=== PATIENT | male | born 1980 | race Caucasian/White ===

== ENCOUNTER 2022-07-31 13:39 | Inpatient (IN) | payer OTHER, MEDICAID, SELFPAY ==
[2022-07-31] VITALS (25 sets, daily range): BP systolic 90–144; BP diastolic 51–78; PULSE 84–128; RESP 11–32; TEMP 36.9–39.2; O2SAT 95–100; BMI 23.5; BMI 24.0
--- NOTE | 2022-07-31 13:52 | DI.RAD.S_ITS ---
PROCEDURE: XR CHEST 1V INDICATIONS: suspected sepsis TECHNIQUE: One view of the chest was acquired. COMPARISON: None. FINDINGS: Surgical changes and devices: Right Port-A-Cath is present distal tip slightly projecting over the midline of the midthoracic spine. Patient is rotated. Lungs and pleura: Lungs are clear. No pleural effusions or pneumothorax. Mediastinum: Mediastinal contours appear normal. Heart size is enlarged. Bones and chest wall: No suspicious bony lesions. Overlying soft tissues appear unremarkable. IMPRESSION: No acute pulmonary process. Dictated by: Preeti Appiah M.D. on 07/31/2022 at 15:05 Approved by: Preeti Appiah M.D. on 07/31/2022 at 15:07
[2022-07-31] MEDS: SODIUM CHLORIDE 0.9% 1,000 ML 1000 ML IV (14:16)
[2022-07-31 14:21] LABS: Hemoglobin 11.5 g/dL (13.5-17.5); Mean Corpuscular Hemoglobin 29.9 PG (26-34); Mean Corpuscular Volume 85.5 fL (80-100); Platelet Count 226 X10^3/uL (150-400); Red Blood Cell Count 3.86 X10^6/uL (4.5-5.9); Red Cell Distribution Width 14.5 % (11.6-14.8); White Blood Cell Count 7.6 X10^3/uL (4.5-11.0)
[2022-07-31 14:22] LABS: Add Manual Diff / Slide Review YES
[2022-07-31 14:29] LABS: INR 1.2 (0.9-1.3)
--- NOTE | 2022-07-31 14:29 | PC.NURSE ---
Pt was d/c a month ago from [facility]. Pt was there for 5 months, dx with sepsis and COVID. Pt has a bowel resection with colostomy placement, port implantation, and G tube placement. 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 Pt had a headache this morning and his mom gave his a dose of Tylenol. She states he later became warm and had a temporal temp of 103. D/t pt's PMH mother rushed him straight here. Pt's temp was 99.3 in triage, does feel warm to the touch, sweatshirt was removed. Pt's implanted port was already accessed and mother states it may be used for labs/meds/infusions. Was able to draw labs from port easily.
[2022-07-31 14:32] LABS: PTT Partial Thromboplastin Tim 56 SECONDS (26-36)
[2022-07-31 14:36] LABS: Alanine Aminotransferase 79 IU/L (<50); Albumin 4.5 g/dL (3.5-5.0); Albumin Globulin Ratio 1.2 (1.0-2.8); Alkaline Phosphatase 274 U/L (38-126); Aspartate Aminotransferase 53 IU/L (17-59); Bilirubin Total 1.2 mg/dL (0.2-1.3); Blood Urea Nitrogen 23 mg/dL (9-20); Calcium 9.6 mg/dL (8.4-10.2); Carbon Dioxide 26 mmol/L (22-32); Chloride 97 mmol/L (98-107); Estimated Glomerular Filt Rate > 60 mL/min (>60); Globulin 3.9 g/dL (1.7-4.1); Glucose 116 mg/dL (70-100); HEMOLYSIS < 15 (0-50); Lactate (Lactic Acid) 1.5 mmol/L (0.7-2.1); Lipase 43 U/L (23-300); Potassium 3.7 mmol/L (3.4-5.1); Sodium 134 mmol/L (137-145); Total Protein 8.4 g/dL (6.3-8.2)
[2022-07-31 14:51] LABS: Procalcitonin 0.78 ng/mL (<0.5)
[2022-07-31 15:15] LABS: Neutrophils Absolute Manual 6156 /uL (3000-5900); RBC Morphology Normal Morphology; Total Cells Counted 100
[2022-07-31 15:30] LABS: Adenovirus Not Detected (Not Detect); B. parapertussis Not Detected (Not Detecte); Bordetella pertussis Not Detected (Not Detecte); Chlamydophila pneumoniae Not Detected (Not Detect); Coronavirus 229E Not Detected (Not Detect); Coronavirus HKU1 Not Detected (Not Detect); Coronavirus NL 63 Not Detected (Not Detect); Coronavirus OC43 Not Detected (Not Detect); Human Metapneumovirus Not Detected (Not Detect); Human Rhinovirus/Enterovirus Not Detected (Not Detect); Influenza A Not Detected (Not Detect); Influenza B Not Detected (Not Detect); Mycoplasma pneumoniae Not Detected (Not Detect); Parainfluenza Virus 1 Not Detected (Not Detect); Parainfluenza Virus 2 Not Detected (Not Detect); Parainfluenza Virus 3 Not Detected (Not Detect); Parainfluenza Virus 4 Not Detected (Not Detect); Respiratory Syncytial Virus Not Detected (Not Detect); SARS- CoV-2 Not Detected (Not Detecte)
--- NOTE | 2022-07-31 15:51 | DI.CT.S_ITS ---
PROCEDURE: CT CHEST ABD PEL WO CON INDICATIONS: fever TECHNIQUE: After the administration of oral contrast, 5 mm thick sections acquired from the lung apices to the symphysis pubis. 5 mm thick coronal and sagittal reformats acquired, with additional 7 mm coronal MIP reformats through the lungs. For radiation dose reduction, the following was used: automated exposure control, adjustment of mA and/or kV according to patient size. COMPARISON: [facility], CR, XR CHEST 1V, 07/31/2022, 14:15. FINDINGS: Image quality: Study limited by lack of IV and oral contrast. CHEST: Lungs and pleura: There is a small right-sided pleural effusion. Mild dependent atelectasis can be seen on both sides. No suspicious pulmonary nodules are seen. No focal infiltrates are seen. No pneumothorax is seen. Mediastinum: Heart size is normal. No pericardial effusion. No mediastinal adenopathy by CT size criteria. Thoracic aorta and central pulmonary arteries are normal in size. Esophagus is normal in caliber. There is a small hiatal hernia. Chest wall: No axillary or supraclavicular adenopathy by size criteria. Thyroid gland demonstrates no significant noncontrast abnormality. A right-sided chest port is seen. ABDOMEN: Solid organs: Liver is normal in size. Gallbladder wall is not thickened. Pancreas is normal in contours. Spleen is normal in size. No adrenal nodules. Both kidneys are normal in size, without hydronephrosis or nephrolithiasis. Peritoneum and bowel: There is a left lower quadrant colostomy seen. A distal rectal stump can be seen. Right lower quadrant anastomotic staple lines are seen. Mild prominence of distal small bowel loops can be seen that measure up to 3.7 cm. Nodes and vessels: No retroperitoneal or mesenteric adenopathy by size criteria. Aorta and inferior vena cava are normal in size. Miscellaneous: Anterior abdominal wall rectus diastasis can be seen, without raf hernia. PELVIS: Genitourinary: Bladder wall thickness is normal. Miscellaneous: No inguinal hernias or adenopathy. Bones: No suspicious bony lesions. No vertebral body compression fractures. Moderate bilateral hip degenerative change can be seen. IMPRESSION: There is a small right-sided pleural effusion. No pulmonary infiltrates are seen. Mild prominence of distal small bowel loops can be seen, without raf findings of bowel obstruction. Ileus is suspected. Postoperative change with right lower quadrant anastomotic staple lines, a left lower quadrant colostomy, and a distal rectal stump. Additional findings: Right-sided chest port Small hiatal hernia PEG tube Dictated by: Sivakumar Baker M.D. on 07/31/2022 at 15:43 Approved by: Sivakumar Baker M.D. on 07/31/2022 at 15:47
[2022-07-31 16:26] LABS: Bacteria Urine None Seen; Culture Indicated Urine Cult Not Indicated; Hyaline Casts Urine 1-5/LPF; RBC Urine None Seen (0-5/HPF); Squamous Epithelial Cell Urine 0-1 /HPF (0-5/HPF); WBC Urine 0-1/HPF (0-5/HPF)
[2022-07-31] MEDS: ACETAMINOPHEN 325 MG TABLET 975 MG PO (18:46)
--- NOTE | 2022-07-31 18:58 | PC.NURSE ---
Pt being admitted. Called Pharmacy and they reccomend to have pt's home TPN brought to [facility]. Pt's mother will bring in home TPN
--- NOTE | 2022-07-31 19:06 | ED_ITS ---
HPI - Fever General Chief Complaint: Fever Stated Complaint: low grade fever 101-103 Time Seen by Provider: 07/31/22 14:50 History of Present Illness HPI Narrative: Patient brought here by mother. Patient had extensive hospital stay for 5 months at [facility] for sepsis perforated bowel. Patient has ostomy bag. Mother brought patient here for fever that started yesterday. Has been given fever medication prior to arrival. Patient feeling better at this time. Denies any specific pain. Just feels general malaise. Did have headache yesterday. No headache now. No back pain Related Data Home Medications Medication Instructions Recorded Confirmed acetaminophen 325 mg tablet 650 mg PO Q6H PRN Pain (Scale 07/31/22 07/31/22 Score 1-3) aspirin 81 mg tablet,delayed 81 mg PO DAILY 07/31/22 07/31/22 release diphenoxylate-atropine 2.5 2.5 tab PO QID 07/31/22 07/31/22 mg-0.025 mg tablet hydroxyzine pamoate 25 mg capsule 25 mg PO Q6H 07/31/22 07/31/22 loperamide 2 mg tablet 2 mg PO QID 07/31/22 07/31/22 (Anti-Diarrheal (loperamide)) pregabalin 75 mg capsule 75 mg PO TID 07/31/22 07/31/22 quetiapine 50 mg tablet 50 mg PO DAILY 07/31/22 07/31/22 quetiapine 50 mg tablet 100 mg PO BEDTIME 07/31/22 07/31/22 risperidone 1 mg tablet 1 mg PO BID PRN Agitation 07/31/22 07/31/22 trazodone 50 mg tablet 50 mg PO BEDTIME 07/31/22 07/31/22 Allergies Allergy/AdvReac Type Severity Reaction Status Date / Time No Known Drug Allergies Allergy Verified 07/31/22 14:15 Review of Systems Review of Systems Narrative: GENERAL: Positive chills, fatigue, malaise, fever, sweats. HEENT: negative sinus pain, ear pain, sore throat RESPIRATORY: negative dyspnea, cough CARDIOVASCULAR: negative chest pain, palpitations GASTROINTESTINAL: negative nausea, vomiting, abdominal pain : negative dysuria, frequency, hematuria MUSCULOSKELETAL: negative muscle or bony pain SKIN: negative rash, skin lesions NEUROLOGIC: negative weakness, numbness, positive headache ROS Unobtainable: All systems reviewed & are unremarkable except as noted in HPI and below Patient History Medical History (Updated 08/01/22 @ 05:03 by VISHAL Chowdhury) Hepatitis C antibody positive in blood History of cardiac arrest History of discitis History of non-ST elevation myocardial infarction (NSTEMI) History of sepsis Hx of ischemic bowel disease 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 Mother No problems noted. Social History household members: family Exam Narrative Exam Narrative: GENERAL: in no distress, not toxic not dyspneic HEAD: Normocephalic. EYES: Pupils equal round ENT: Mucous membranes moist. NECK: Trachea midline. CARDIOVASCULAR: Tachycardia with Regular rate and rhythm without murmurs RESPIRATORY: Clear to auscultation. Breath sounds equal bilaterally. No wheezes, rales, or rhonchi. GASTROINTESTINAL: Abdomen soft, non-tender, ostomy bag in place. No peritoneal signs. No pain out of proportion to exam. EXTREMITIES: No gross deformities. NEURO: AOx4. At baseline per mother. Patient answering appropriately. Rotating his head and neck without any difficulty. No meningeal signs. Strong equal assistant to the director. SKIN: Warm and dry PSYCH: Not anxious, is cooperative Initial Vital Signs Initial Vital Signs: Vital Signs Pulse Rate 101 H 07/31/22 13:48 Respiratory Rate 16 07/31/22 13:48 Blood Pressure 120/64 07/31/22 13:48 Pulse Oximetry 97 07/31/22 13:48 Course Orders Ordered: Discontinued Medications Acetaminophen (Acetaminophen 325 Mg Tablet) 975 mg PO NOW ONE Stop: 07/31/22 18:35 Last Admin: 07/31/22 18:46 Dose: 975 mg Documented By: AMU Acetaminophen (Acetaminophen 325 Mg Tablet) 975 mg PO Q6H PRN PRN Reason: Fever/Mild Pain (1-3) Last Admin: 08/02/22 05:22 Dose: 975 mg Documented By: Admin: 08/01/22 12:07 Dose: 975 mg Documented By: Admin: 08/01/22 01:01 Dose: 975 mg Documented By: GURDEEP(2) Aspirin (Aspirin Ec 81 Mg Tablet) 81 mg PO DAILY [facility] Last Admin: 08/04/22 09:33 Dose: 81 mg Documented By: Admin: 08/03/22 09:12 Dose: 81 mg Documented By: Admin: 08/02/22 09:05 Dose: 81 mg Documented By: Admin: 08/01/22 10:18 Dose: 81 mg Documented By: GURDEEP Clindamycin HCl (Clindamycin 150 Mg Capsule) 300 mg PO Q8H [facility] Diphenoxylate HCl/Atropine (Diphenoxylate/Atrop 2.5/0.025 Tablet) 2.5 each PO QID [facility] Last Admin: 08/04/22 09:32 Dose: 2.5 each Documented By: Admin: 08/03/22 21:13 Dose: 2.5 each Documented By: Admin: 08/03/22 17:46 Dose: 2.5 each Documented By: Admin: 08/03/22 12:45 Dose: 2.5 each Documented By: Admin: 08/03/22 09:12 Dose: 2.5 each Documented By: Admin: 08/02/22 20:43 Dose: 2.5 each Documented By: Admin: 08/02/22 16:05 Dose: 2.5 each Documented By: Admin: 08/02/22 12:25 Dose: Not Given Documented By: Admin: 08/02/22 09:05 Dose: 2.5 each Documented By: RLCarley Admin: 08/01/22 20:43 Dose: 2.5 each Documented By: Admin: 08/01/22 17:35 Dose: 2.5 each Documented By: Admin: 08/01/22 13:40 Dose: 2 each Documented By: Admin: 08/01/22 10:18 Dose: 2 each Documented By: Admin: 07/31/22 23:11 Dose: 2.5 each Documented By: GURDEEP(2) Doxycycline Hyclate (Doxycycline Hyclate 100 Mg Tablet) 100 mg PO BID [facility] Last Admin: 08/04/22 09:33 Dose: 100 mg Documented By: Admin: 08/03/22 21:12 Dose: 100 mg Documented By: Admin: 08/03/22 12:46 Dose: 100 mg Documented By: LAVON Enoxaparin Sodium (Enoxaparin 40 Mg/0.4 Ml Syringe) 40 mg SUBCUT DAILY [facility] Last Admin: 08/04/22 09:33 Dose: 40 mg Documented By: Admin: 08/03/22 09:13 Dose: 40 mg Documented By: Admin: 08/02/22 09:07 Dose: 40 mg Documented By: Admin: 08/01/22 10:18 Dose: 40 mg Documented By: GURDEEP Furosemide (Furosemide 20 Mg Tablet) 20 mg PO DAILY KAYLAH Stop: 08/08/22 23:59 Last Admin: 08/04/22 09:33 Dose: 20 mg Documented By: Admin: 08/03/22 09:12 Dose: 20 mg Documented By: DARIUS Heparin Sodium (Porcine) (Heparin 500 Unit/5 Ml Port Flush) 500 unit IV NOW ONE Stop: 08/04/22 06:44 Last Admin: 08/04/22 06:43 Dose: 500 unit Documented By: CASSANDRA Hydroxyzine Pamoate (Hydroxyzine Pamoate 25 Mg Capsule) 25 mg PO Q6H [facility] Last Admin: 08/02/22 00:41 Dose: Not Given Documented By: Admin: 08/01/22 19:29 Dose: Not Given Documented By: Admin: 08/01/22 13:43 Dose: 25 mg Documented By: Admin: 08/01/22 13:42 Dose: 25 mg Documented By: Admin: 08/01/22 06:19 Dose: Not Given Documented By: GURDEEP(2) Admin: 08/01/22 01:03 Dose: 25 mg Documented By: GURDEEP(2) Hydroxyzine Pamoate (Hydroxyzine Pamoate 25 Mg Capsule) 25 mg PO Q6H PRN PRN Reason: Nausea Sodium Chloride (Normal Saline 0.9%) 1,000 mls @ 1,000 mls/hr IV BOLUS ONE Stop: 07/31/22 14:50 Last Infusion: 07/31/22 15:34 Dose: 0 mls/hr Documented By: Admin: 07/31/22 14:16 Dose: 1,000 mls/hr Documented By: AMBoris Piperacillin Sod/Tazobactam (Sod 4.5 gm/ Sodium Chloride) 100 mls @ 200 mls/hr IV NOW ONE Stop: 07/31/22 19:09 Last Infusion: 07/31/22 20:34 Dose: 0 mls/hr Documented By: Admin: 07/31/22 19:38 Dose: 200 mls/hr Documented By: SB Sodium Chloride (Normal Saline 0.9%) 1,000 mls @ 100 mls/hr IV CONT KAYLAH Last Infusion: 08/03/22 18:40 Dose: 0 mls/hr Documented By: Admin: 08/02/22 12:35 Dose: 100 mls/hr Documented By: Infusion: 08/02/22 11:01 Dose: 100 mls/hr Documented By: Admin: 08/02/22 01:01 Dose: 100 mls/hr Documented By: Infusion: 08/01/22 22:10 Dose: 100 mls/hr Documented By: Admin: 08/01/22 12:10 Dose: 100 mls/hr Documented By: Infusion: 08/01/22 09:14 Dose: 100 mls/hr Documented By: Admin: 07/31/22 23:14 Dose: 100 mls/hr Documented By: GURDEEP(2) Piperacillin Sod/Tazobactam (Sod 4.5 gm/ Sodium Chloride) 100 mls @ 25 mls/hr IV Q8H [facility] Last Admin: 08/01/22 04:09 Dose: 25 mls/hr Documented By: GURDEEP(2) Sodium Chloride (Normal Saline 0.9%) 500 mls @ 1,000 mls/hr IV BOLUS ONE Stop: 08/01/22 05:06 Last Admin: 08/01/22 04:52 Dose: 1,000 mls/hr Documented By: GURDEEP(2) Piperacillin Sod/Tazobactam (Sod 3.375 gm/ Sodium Chloride) 100 mls @ 25 mls/hr IV Q8H [facility] Last Admin: 08/03/22 04:02 Dose: 25 mls/hr Documented By: Infusion: 08/03/22 00:13 Dose: 0 mls/hr Documented By: Admin: 08/02/22 20:00 Dose: 25 mls/hr Documented By: Infusion: 08/02/22 17:00 Dose: 0 mls/hr Documented By: Admin: 08/02/22 12:37 Dose: 25 mls/hr Documented By: Infusion: 08/02/22 08:30 Dose: 25 mls/hr Documented By: Admin: 08/02/22 04:30 Dose: 25 mls/hr Documented By: Infusion: 08/02/22 00:59 Dose: 0 mls/hr Documented By: Admin: 08/01/22 20:43 Dose: 25 mls/hr Documented By: Infusion: 08/01/22 16:06 Dose: 25 mls/hr Documented By: Admin: 08/01/22 12:06 Dose: 25 mls/hr Documented By: GURDEEP Multivitamins 10 ml/ Chromium/Copper/Manganese/Seleni/Zn 1 ml/ Amino Aci ds/Electrolytes 1,511 mls @ 125.917 mls/hr IV 1800 KAYLAH Stop: 08/02/22 05:59 Last Infusion: 08/02/22 06:35 Dose: 0 mls/hr Documented By: Admin: 08/01/22 17:37 Dose: 125.917 mls/hr Documented By: GURDEEP Multivitamins 10 ml/ Chromium/Copper/Manganese/Seleni/Zn 1 ml/ Amino Acids/Electrolytes 1,511 mls @ 125.917 mls/hr IV 1800 KAYLAH Stop: 08/03/22 05:59 Last Infusion: 08/03/22 07:06 Dose: 0 mls/hr Documented By: Admin: 08/02/22 18:06 Dose: 125.917 mls/hr Documented By: MANINDER Multivitamins 10 ml/ Chromium/Copper/Manganese/Seleni/Zn 1 ml/ Potassium Chloride 40 meq/Amino Acids/Electrolytes 1,531 mls @ 127.583 mls/hr IV 1800 KAYLAH Stop: 08/04/22 05:59 Last Infusion: 08/04/22 06:38 Dose: 0 mls/hr Documented By: CASSANDRA Co-signed By: SRAVANI Admin: 08/03/22 18:40 Dose: 127.583 mls/hr Documented By: CLL Co-signed By: TLS Fat Emulsion Intravenous (Clinolipid 20%) 50 gm in 250 mls @ 25 mls/hr IV [id number] [facility] Stop: 08/04/22 03:59 Last Infusion: 08/04/22 04:31 Dose: 0 mls/hr Documented By: Admin: 08/03/22 18:37 Dose: 25 mls/hr Documented By: DARIUS Loperamide HCl (Loperamide 2 Mg Capsule) 2 mg PO QID [facility] Last Admin: 08/04/22 09:33 Dose: 2 mg Documented By: Admin: 08/03/22 21:13 Dose: 2 mg Documented By: Admin: 08/03/22 17:46 Dose: 2 mg Documented By: Admin: 08/03/22 12:46 Dose: 2 mg Documented By: Admin: 08/03/22 09:11 Dose: 2 mg Documented By: Admin: 08/02/22 20:44 Dose: 2 mg Documented By: Admin: 08/02/22 16:04 Dose: 2 mg Documented By: Admin: 08/02/22 12:25 Dose: Not Given Documented By: Admin: 08/02/22 09:05 Dose: 2 mg Documented By: Admin: 08/01/22 20:43 Dose: 2 mg Documented By: Admin: 08/01/22 17:37 Dose: 2 mg Documented By: Admin: 08/01/22 13:40 Dose: 2 mg Documented By: Admin: 08/01/22 10:19 Dose: 2 mg Documented By: Admin: 07/31/22 23:08 Dose: 2 mg Documented By: GURDEEP(2) Naloxone HCl (Naloxone 0.4 Mg/Ml Vial) 0.2 mg IV Q2MIN PRN PRN Reason: Opiate Reversal Nicotine (Nicotine 14 Patch) 14 mg TOP DAILY [facility] Last Admin: 08/04/22 09:32 Dose: 14 mg Documented By: Admin: 08/03/22 09:10 Dose: 14 mg Documented By: Admin: 08/02/22 09:07 Dose: 14 mg Documented By: Admin: 08/01/22 10:19 Dose: 14 mg Documented By: GURDEEP Ondansetron HCl (Ondansetron 4 Mg Odt) 4 mg SL NOW PRN PRN Reason: Nausea And Vomiting Last Admin: 07/31/22 23:08 Dose: 4 mg Documented By: GURDEEP(2) Ondansetron HCl (Ondansetron 4 Mg/2 Ml Inj) 4 mg IV NOW PRN PRN Reason: Nausea And Vomiting Ondansetron HCl (Ondansetron 4 Mg Odt) 4 mg PO Q8HR PRN PRN Reason: Nausea And Vomiting Pregabalin (Pregabalin 75 Mg Capsule) 75 mg PO TID [facility] Last Admin: 08/04/22 09:33 Dose: 75 mg Documented By: Admin: 08/03/22 21:12 Dose: 75 mg Documented By: Admin: 08/03/22 16:08 Dose: 75 mg Documented By: Admin: 08/03/22 09:12 Dose: 75 mg Documented By: Admin: 08/02/22 20:44 Dose: 75 mg Documented By: Admin: 08/02/22 16:05 Dose: 75 mg Documented By: Admin: 08/02/22 09:08 Dose: 75 mg Documented By: Admin: 08/01/22 20:43 Dose: 75 mg Documented By: Admin: 08/01/22 15:28 Dose: 75 mg Documented By: Admin: 08/01/22 10:19 Dose: 75 mg Documented By: Admin: 07/31/22 23:08 Dose: 75 mg Documented By: GURDEEP(2) Quetiapine Fumarate (Quetiapine 25 Mg Tablet) 50 mg PO DAILY [facility] Last Admin: 08/04/22 09:32 Dose: 50 mg Documented By: Admin: 08/03/22 09:11 Dose: 50 mg Documented By: Admin: 08/02/22 09:07 Dose: 50 mg Documented By: Admin: 08/01/22 10:19 Dose: 50 mg Documented By: GURDEEP Quetiapine Fumarate (Quetiapine 25 Mg Tablet) 100 mg PO BEDTIME [facility] Last Admin: 08/03/22 21:13 Dose: 100 mg Documented By: Admin: 08/02/22 20:44 Dose: 100 mg Documented By: Admin: 08/01/22 20:43 Dose: 100 mg Documented By: Admin: 07/31/22 23:14 Dose: 100 mg Documented By: GURDEEP(2) Risperidone (Risperidone 1 Mg Tablet) 1 mg PO BID PRN PRN Reason: Agitation Last Admin: 07/31/22 23:08 Dose: 1 mg Documented By: GURDEEP(2) Sodium Chloride (Sodium Chloride 0.9% Flush) 10 ml IV BID [facility] Last Admin: 08/04/22 09:33 Dose: Not Given Documented By: Admin: 08/04/22 06:42 Dose: 10 ml Documented By: Admin: 08/03/22 21:13 Dose: Not Given Documented By: Admin: 08/03/22 09:13 Dose: 10 ml Documented By: Admin: 08/02/22 21:07 Dose: Not Given Documented By: Admin: 08/02/22 16:08 Dose: 10 ml Documented By: MANINDER Trazodone HCl (Trazodone 50 Mg Tablet) 50 mg PO BEDTIME [facility] Last Admin: 08/03/22 21:13 Dose: 50 mg Documented By: Admin: 08/02/22 20:43 Dose: 50 mg Documented By: Admin: 08/01/22 20:43 Dose: 50 mg Documented By: Admin: 07/31/22 23:14 Dose: 50 mg Documented By: GURDEEP(2) Vital Signs Vital signs: Vital Signs - 8 hr 07/31/22 13:58 07/31/22 13:48 07/31/22 13:48 Temperature 99.3 F Pulse Rate 128 H 101 H Respiratory Rate 20 16 Blood Pressure 120/64 120/64 Pulse Oximetry 96 97 Oxygen Delivery Method Room Air 07/31/22 14:00 07/31/22 14:00 07/31/22 14:30 Temperature Pulse Rate 90 Respiratory Rate 17 Blood Pressure 110/59 L 107/67 Pulse Oximetry 96 Oxygen Delivery Method 07/31/22 14:30 07/31/22 15:00 07/31/22 15:00 Temperature Pulse Rate 85 91 H Respiratory Rate 21 21 Blood Pressure 112/68 Pulse Oximetry 95 98 Oxygen Delivery Method 07/31/22 15:30 07/31/22 15:31 07/31/22 15:31 Temperature 98.5 F Pulse Rate 87 84 Respiratory Rate 32 H 25 H Blood Pressure 121/65 Pulse Oximetry 95 99 Oxygen Delivery Method 07/31/22 16:00 07/31/22 16:00 07/31/22 16:27 Temperature Pulse Rate 95 H Respiratory Rate 19 Blood Pressure 120/68 144/64 H Pulse Oximetry 98 Oxygen Delivery Method 07/31/22 16:27 07/31/22 16:30 07/31/22 16:30 Temperature Pulse Rate 105 H 103 H Respiratory Rate 14 18 Blood Pressure 132/71 Pulse Oximetry 100 Oxygen Delivery Method 07/31/22 17:00 07/31/22 17:00 07/31/22 17:30 Temperature Pulse Rate 105 H Respiratory Rate 14 Blood Pressure 126/75 127/58 L Pulse Oximetry 95 Oxygen Delivery Method 07/31/22 17:30 07/31/22 18:00 07/31/22 18:00 Temperature Pulse Rate 108 H 112 H Respiratory Rate 15 18 Blood Pressure 123/57 L Pulse Oximetry 95 Oxygen Delivery Method 07/31/22 18:30 07/31/22 18:30 07/31/22 18:33 Temperature 102.6 F H Pulse Rate 107 H Respiratory Rate 19 Blood Pressure 111/55 L Pulse Oximetry 95 Oxygen Delivery Method Room Air 07/31/22 18:46 07/31/22 19:00 07/31/22 19:00 Temperature 102.6 F H Pulse Rate 109 H Respiratory Rate 13 Blood Pressure 112/55 L Pulse Oximetry 95 Oxygen Delivery Method 07/31/22 19:30 07/31/22 19:30 07/31/22 19:41 Temperature 100.6 F H Pulse Rate 104 H Respiratory Rate 19 Blood Pressure 90/54 L 107/59 L Pulse Oximetry 95 Oxygen Delivery Method Room Air 07/31/22 19:41 Temperature Pulse Rate 104 H Respiratory Rate 11 L Blood Pressure Pulse Oximetry 95 Oxygen Delivery Method MDM - Fever Lab Data 08/04/22 05:00 08/04/22 05:00 Labs: Lab Results 07/31/22 07/31/22 07/31/22 Range/Units 14:00 14:00 14:05 WBC 7.6 (4.5-11.0) X10^3/uL RBC 3.86 L (4.5-5.9) X10^6/uL Hgb 11.5 L (13.5-17.5) g/dL Hct 33.0 L (41-53) % MCV 85.5 (80-100) fL MCH 29.9 (26-34) PG MCHC 35.0 (30-36) % RDW 14.5 (11.6-14.8) % Plt Count 226 (150-400) X10^3/uL Neut % (Auto) Not Reportable Lymph % (Auto) Not Reportable [place] % (Auto) Not Reportable Eos % (Auto) Not Reportable Baso % (Auto) Not Reportable Lymph # (Auto) Not Reportable [place] # (Auto) Not Reportable Baso # (Auto) Not Reportable Total Counted 100 Seg Neutrophils % 79.0 H (38-70) % Band Neutrophils % 2.0 L (3-7) % Lymphocytes % (Manual) 12.0 L (25-45) % Monocytes % (Manual) 7.0 (2-11) % Neutrophils # (Manual) 6156 H (1007-7387) /uL RBC Morphology Normal morphology ESR (0-15) MM/HR PT (10.1-12.7) SECONDS INR (0.9-1.3) APTT (26-36) SECONDS Sodium (137-145) mmol/L Potassium (3.4-5.1) mmol/L Chloride (98-107) mmol/L Carbon Dioxide (22-32) mmol/L BUN (9-20) mg/dL Creatinine (0.66-1.25) mg/dL Estimated GFR (>60) mL/min BUN/Creatinine Ratio (6-22) Glucose (70-100) mg/dL Lactate (0.7-2.1) mmol/L Calcium (8.4-10.2) mg/dL Total Bilirubin (0.2-1.3) mg/dL AST (17-59) IU/L ALT (<50) IU/L Alkaline Phosphatase (38-126) U/L C-Reactive Protein (<1.0) mg/dL Total Protein (6.3-8.2) g/dL Albumin (3.5-5.0) g/dL Globulin (1.7-4.1) g/dL Albumin/Globulin Ratio (1.0-2.8) Lipase (23-300) U/L Procalcitonin (<0.5) ng/mL Urine RBC (0-5/HPF) Urine WBC (0-5/HPF) Ur Squamous Epith Cells (0-5/HPF) Urine Bacteria (None) Hyaline Casts (None) Ur Culture Indicated? A.calcoaceticus-baumannii cmplx PCR Not detected (Not Detect) Chlamy pneumoniae PCR Not detected (Not Detect) Adenovirus (PCR) Not detected (Not Detect) Bacteroides fragilis Not detected (Not Detect) B. pertussis DNA (PCR) Not detected (Not Detecte) B.parapertussis DNA PCR Not detected (Not Detecte) Katty albicans (PCR) Not detected (Not Detect) Katty auris (PCR) Not detected (Not Detect) C. glabrata (PCR) Not detected (Not Detect) C. krusei (PCR) Not detected (Not Detect) C. parapsilosis (PCR) Not detected (Not Detect) C. tropicalis (PCR) Not detected (Not Detect) Coronavirus OC43 (PCR) Not detected (Not Detect) Coronavirus HKU1 (PCR) Not detected (Not Detect) Coronavirus 229E (PCR) Not detected (Not Detect) SARS-CoV-2 (PCR) Not detected (Not Detecte) Coronavirus NL63 (PCR) Not detected (Not Detect) C. neoform/gattii (PCR) Not detected (Not Detect) Enterobacterales (PCR) Not detected (Not Detect) E. cloacae complex PCR Not detected (Not Detect) Enterococc faecalis PCR Not detected (Not Detect) Enterococc faecium PCR Not detected (Not Detect) E. coli (PCR) Not detected (Not Detect) H. influenzae (PCR) Not detected (Not Detect) Human Metapneumovir PCR Not detected (Not Detect) Influenza Type A (PCR) Not detected (Not Detect) Influenza Type B (PCR) Not detected (Not Detect) Klebsiella aerogenes (PCR) Not detected (Not Detect) Klebsiella oxytoca PCR Not detected (Not Detect) Klebsiella pneumoniae Not detected (Not Detect) List. monocytogenes PCR Not detected (Not Detect) M. pneumoniae (PCR) Not detected (Not Detect) N. meningitidis (PCR) Not detected (Not Detect) Parainfluenza 1 (PCR) Not detected (Not Detect) Parainfluenza 2 (PCR) Not detected (Not Detect) Parainfluenza 3 (PCR) Not detected (Not Detect) Parainfluenza 4 (PCR) Not detected (Not Detect) Proteus species (PCR) Not detected (Not Detect) RSV (PCR) Not detected (Not Detect) Entero/Rhino (PCR) Not detected (Not Detect) Salmonella spp. (PCR) Not detected (Not Detect) Serratia marcescens PCR Not detected (Not Detect) Staphylococcus sp PCR Detected H (Not Detect) Staph aureus (PCR) Not detected (Not Detect) mecA/C-Methicil Resis Gene Detected H (Not Detect) Staph epidermidis (PCR) Detected H (Not Detect) Staph lugdunensis PCR Not detected (Not Detect) S. maltophilia (PCR) Not detected (Not Detect) Streptococcus sp PCR Not detected (Not Detect) Group A Strep (PCR) Not detected (Not Detect) Strep agalactiae (PCR) Not detected (Not Detect) Strep pneumoniae (PCR) Not detected (Not Detect) P. aeruginosa (PCR) Not detected (Not Detect) 07/31/22 07/31/22 07/31/22 Range/Units 14:05 14:05 14:05 WBC (4.5-11.0) X10^3/uL RBC (4.5-5.9) X10^6/uL Hgb (13.5-17.5) g/dL Hct (41-53) % MCV (80-100) fL MCH (26-34) PG MCHC (30-36) % RDW (11.6-14.8) % Plt Count (150-400) X10^3/uL Neut % (Auto) Lymph % (Auto) [place] % (Auto) Eos % (Auto) Baso % (Auto) Lymph # (Auto) [place] # (Auto) Baso # (Auto) Total Counted Seg Neutrophils % (38-70) % Band Neutrophils % (3-7) % Lymphocytes % (Manual) (25-45) % Monocytes % (Manual) (2-11) % Neutrophils # (Manual) ([id number]) /uL RBC Morphology ESR (0-15) MM/HR PT 14.0 H (10.1-12.7) SECONDS INR 1.2 (0.9-1.3) APTT 56 H (26-36) SECONDS Sodium 134 L (137-145) mmol/L Potassium 3.7 (3.4-5.1) mmol/L Chloride 97 L (98-107) mmol/L Carbon Dioxide 26 (22-32) mmol/L BUN 23 H (9-20) mg/dL Creatinine 0.92 (0.66-1.25) mg/dL Estimated GFR > 60 (>60) mL/min BUN/Creatinine Ratio 25.0 H (6-22) Glucose 116 H (70-100) mg/dL Lactate 1.5 (0.7-2.1) mmol/L Calcium 9.6 (8.4-10.2) mg/dL Total Bilirubin 1.2 (0.2-1.3) mg/dL AST 53 (17-59) IU/L ALT 79 H (<50) IU/L Alkaline Phosphatase 274 H (38-126) U/L C-Reactive Protein (<1.0) mg/dL Total Protein 8.4 H (6.3-8.2) g/dL Albumin 4.5 (3.5-5.0) g/dL Globulin 3.9 (1.7-4.1) g/dL Albumin/Globulin Ratio 1.2 (1.0-2.8) Lipase 43 (23-300) U/L Procalcitonin 0.78 H (<0.5) ng/mL Urine RBC (0-5/HPF) Urine WBC (0-5/HPF) Ur Squamous Epith Cells (0-5/HPF) Urine Bacteria (None) Hyaline Casts (None) Ur Culture Indicated? A.calcoaceticus-baumannii cmplx PCR (Not Detect) Chlamy pneumoniae PCR (Not Detect) Adenovirus (PCR) (Not Detect) Bacteroides fragilis (Not Detect) B. pertussis DNA (PCR) (Not Detecte) B.parapertussis DNA PCR (Not Detecte) Katty albicans (PCR) (Not Detect) Katty auris (PCR) (Not Detect) C. glabrata (PCR) (Not Detect) C. krusei (PCR) (Not Detect) C. parapsilosis (PCR) (Not Detect) C. tropicalis (PCR) (Not Detect) Coronavirus OC43 (PCR) (Not Detect) Coronavirus HKU1 (PCR) (Not Detect) Coronavirus 229E (PCR) (Not Detect) SARS-CoV-2 (PCR) (Not Detecte) Coronavirus NL63 (PCR) (Not Detect) C. neoform/gattii (PCR) (Not Detect) Enterobacterales (PCR) (Not Detect) E. cloacae complex PCR (Not Detect) Enterococc faecalis PCR (Not Detect) Enterococc faecium PCR (Not Detect) E. coli (PCR) (Not Detect) H. influenzae (PCR) (Not Detect) Human Metapneumovir PCR (Not Detect) Influenza Type A (PCR) (Not Detect) Influenza Type B (PCR) (Not Detect) Klebsiella aerogenes (PCR) (Not Detect) Klebsiella oxytoca PCR (Not Detect) Klebsiella pneumoniae (Not Detect) List. monocytogenes PCR (Not Detect) M. pneumoniae (PCR) (Not Detect) N. meningitidis (PCR) (Not Detect) Parainfluenza 1 (PCR) (Not Detect) Parainfluenza 2 (PCR) (Not Detect) Parainfluenza 3 (PCR) (Not Detect) Parainfluenza 4 (PCR) (Not Detect) Proteus species (PCR) (Not Detect) RSV (PCR) (Not Detect) Entero/Rhino (PCR) (Not Detect) Salmonella spp. (PCR) (Not Detect) Serratia marcescens PCR (Not Detect) Staphylococcus sp PCR (Not Detect) Staph aureus (PCR) (Not Detect) mecA/C-Methicil Resis Gene (Not Detect) Staph epidermidis (PCR) (Not Detect) Staph lugdunensis PCR (Not Detect) S. maltophilia (PCR) (Not Detect) Streptococcus sp PCR (Not Detect) Group A Strep (PCR) (Not Detect) Strep agalactiae (PCR) (Not Detect) Strep pneumoniae (PCR) (Not Detect) P. aeruginosa (PCR) (Not Detect) 07/31/22 07/31/22 07/31/22 Range/Units 14:05 14:05 15:43 WBC (4.5-11.0) X10^3/uL RBC (4.5-5.9) X10^6/uL Hgb (13.5-17.5) g/dL Hct (41-53) % MCV (80-100) fL MCH (26-34) PG MCHC (30-36) % RDW (11.6-14.8) % Plt Count (150-400) X10^3/uL Neut % (Auto) Lymph % (Auto) [place] % (Auto) Eos % (Auto) Baso % (Auto) Lymph # (Auto) [place] # (Auto) Baso # (Auto) Total Counted Seg Neutrophils % (38-70) % Band Neutrophils % (3-7) % Lymphocytes % (Manual) (25-45) % Monocytes % (Manual) (2-11) % Neutrophils # (Manual) ([id number]) /uL RBC Morphology ESR 41 H (0-15) MM/HR PT (10.1-12.7) SECONDS INR (0.9-1.3) APTT (26-36) SECONDS Sodium (137-145) mmol/L Potassium (3.4-5.1) mmol/L Chloride (98-107) mmol/L Carbon Dioxide (22-32) mmol/L BUN (9-20) mg/dL Creatinine (0.66-1.25) mg/dL Estimated GFR (>60) mL/min BUN/Creatinine Ratio (6-22) Glucose (70-100) mg/dL Lactate (0.7-2.1) mmol/L Calcium (8.4-10.2) mg/dL Total Bilirubin (0.2-1.3) mg/dL AST (17-59) IU/L ALT (<50) IU/L Alkaline Phosphatase (38-126) U/L C-Reactive Protein 5.8 H (<1.0) mg/dL Total Protein (6.3-8.2) g/dL Albumin (3.5-5.0) g/dL Globulin (1.7-4.1) g/dL Albumin/Globulin Ratio (1.0-2.8) Lipase (23-300) U/L Procalcitonin (<0.5) ng/mL Urine RBC None seen (0-5/HPF) Urine WBC 0-1/hpf (0-5/HPF) Ur Squamous Epith Cells 0-1 /hpf (0-5/HPF) Urine Bacteria None seen (None) Hyaline Casts 1-5/lpf (None) Ur Culture Indicated? Cult not indicated A.calcoaceticus-baumannii cmplx PCR (Not Detect) Chlamy pneumoniae PCR (Not Detect) Adenovirus (PCR) (Not Detect) Bacteroides fragilis (Not Detect) B. pertussis DNA (PCR) (Not Detecte) B.parapertussis DNA PCR (Not Detecte) Katty albicans (PCR) (Not Detect) Katty auris (PCR) (Not Detect) C. glabrata (PCR) (Not Detect) C. krusei (PCR) (Not Detect) C. parapsilosis (PCR) (Not Detect) C. tropicalis (PCR) (Not Detect) Coronavirus OC43 (PCR) (Not Detect) Coronavirus HKU1 (PCR) (Not Detect) Coronavirus 229E (PCR) (Not Detect) SARS-CoV-2 (PCR) (Not Detecte) Coronavirus NL63 (PCR) (Not Detect) C. neoform/gattii (PCR) (Not Detect) Enterobacterales (PCR) (Not Detect) E. cloacae complex PCR (Not Detect) Enterococc faecalis PCR (Not Detect) Enterococc faecium PCR (Not Detect) E. coli (PCR) (Not Detect) H. influenzae (PCR) (Not Detect) Human Metapneumovir PCR (Not Detect) Influenza Type A (PCR) (Not Detect) Influenza Type B (PCR) (Not Detect) Klebsiella aerogenes (PCR) (Not Detect) Klebsiella oxytoca PCR (Not Detect) Klebsiella pneumoniae (Not Detect) List. monocytogenes PCR (Not Detect) M. pneumoniae (PCR) (Not Detect) N. meningitidis (PCR) (Not Detect) Parainfluenza 1 (PCR) (Not Detect) Parainfluenza 2 (PCR) (Not Detect) Parainfluenza 3 (PCR) (Not Detect) Parainfluenza 4 (PCR) (Not Detect) Proteus species (PCR) (Not Detect) RSV (PCR) (Not Detect) Entero/Rhino (PCR) (Not Detect) Salmonella spp. (PCR) (Not Detect) Serratia marcescens PCR (Not Detect) Staphylococcus sp PCR (Not Detect) Staph aureus (PCR) (Not Detect) mecA/C-Methicil Resis Gene (Not Detect) Staph epidermidis (PCR) (Not Detect) Staph lugdunensis PCR (Not Detect) S. maltophilia (PCR) (Not Detect) Streptococcus sp PCR (Not Detect) Group A Strep (PCR) (Not Detect) Strep agalactiae (PCR) (Not Detect) Strep pneumoniae (PCR) (Not Detect) P. aeruginosa (PCR) (Not Detect) Urine Dip Bedside Urine Glucose Negative Bedside Urine Bilirubin - Negative Bedside Urine Ketone - Negative Urine Specific Humble 1.025 Bedside Urine Occult Blood ++ Bedside Urine pH 6.0 Bedside Urine Protein - Negative Bedside Urine Urobilinogen - Negative Bedside Urine Nitrite - Negative Bedside Urine Leukocytes - Negative Esterase Imaging Data Chest x-ray: Radiologist's Impression: PROCEDURE:? XR CHEST 1V ? INDICATIONS:? suspected sepsis ? TECHNIQUE:? One view of the chest was acquired.? ? COMPARISON:? None. ? FINDINGS:? ? Surgical changes and devices:? Right Port-A-Cath is present distal tip slightly projecting over the midline of the midthoracic spine.? Patient is rotated. ? Lungs and pleura:? Lungs are clear.? No pleural effusions or pneumothorax.? ? Mediastinum:? Mediastinal contours appear normal.? Heart size is enlarged. ? Bones and chest wall:? No suspicious bony lesions.? Overlying soft tissues appear unremarkable.? ? IMPRESSION:? No acute pulmonary process. ? ? Dictated by: Preeti Appiah M.D. on 07/31/2022 at 15:05 ? ? Approved by: Preeti Appiah M.D. on 07/31/2022 at 15:07 ? CT chest abdomen and pelvis: Radiologist's Impression: PROCEDURE:? CT CHEST ABD PEL WO CON ? INDICATIONS:? fever ? TECHNIQUE:? After the administration of oral contrast, 5 mm thick sections acquired from the lung apices to the symphysis pubis.? 5 mm thick coronal and sagittal reformats acquired, with additional 7 mm coronal MIP reformats through the lungs.? For radiation dose reduction, the following was used:? automated exposure control, adjustment of mA and/or kV according to patient size.? ? COMPARISON:? [facility], , XR CHEST 1V, 07/31/2022, 14:15. ? FINDINGS:? Image quality:? Study limited by lack of IV and oral contrast. ? CHEST:? Lungs and pleura:? There is a small right-sided pleural effusion.? Mild dependent atelectasis can be seen on both sides.? No suspicious pulmonary nodules are seen.? No focal infiltrates are seen.? No pneumothorax is seen.? ? Mediastinum:? Heart size is normal.? No pericardial effusion.? No mediastinal adenopathy by CT size criteria.? Thoracic aorta and central pulmonary arteries are normal in size.? Esophagus is normal in caliber.? There is a small hiatal hernia.? ? Chest wall:? No axillary or supraclavicular adenopathy by size criteria.? Thyroid gland demonstrates no significant noncontrast abnormality.? A right-sided chest port is seen. ? ? ABDOMEN:? Solid organs:? Liver is normal in size.? Gallbladder wall is not thickened.? Pancreas is normal in contours.? Spleen is normal in size.? No adrenal nodules.? Both kidneys are normal in size, without hydronephrosis or nephrolithiasis.? ? Peritoneum and bowel:? There is a left lower quadrant colostomy seen.? A distal rectal stump can be seen.? Right lower quadrant anastomotic staple lines are seen. Mild prominence of distal small bowel loops can be seen that measure up to 3.7 cm. ? Nodes and vessels:? No retroperitoneal or mesenteric adenopathy by size criteria.? Aorta and inferior vena cava are normal in size.? ? Miscellaneous:? Anterior abdominal wall rectus diastasis can be seen, without raf hernia. ? ? PELVIS:? Genitourinary:? Bladder wall thickness is normal.? ? Miscellaneous:? No inguinal hernias or adenopathy.? ? Bones:? No suspicious bony lesions.? No vertebral body compression fractures.? Moderate bilateral hip degenerative change can be seen. ? ? ? IMPRESSION:? There is a small right-sided pleural effusion. ? No pulmonary infiltrates are seen. ? Mild prominence of distal small bowel loops can be seen, without raf findings of bowel obstruction.? Ileus is suspected. ? Postoperative change with right lower quadrant anastomotic staple lines, a left lower quadrant colostomy, and a distal rectal stump. ? ? ? Additional findings:? Right-sided chest port Small hiatal hernia PEG tube? ? Dictated by: Sivakumar Baker M.D. on 07/31/2022 at 15:43 ? ? Approved by: Sivakumar Baker M.D. on 07/31/2022 at 15:47 ? MDM Narrative Medical decision making narrative: After history and exam sepsis protocol started. CBC CMP lactic acid pro calcitonin CT chest abdomen pelvis urinalysis blood culture Zosyn Tylenol ordered viral swab ordered, EKG [facility] CC: Fever Complicating co-morbidities: Recent sepsis perforated bowel at [place] last month Data collected from: Patient and mother Medical records reviewed: Discharge summary June 14, 2022 [facility] Differential considered: Includes but not limited to sepsis bowel obstruction colitis perforated bowel pneumonia viral infection UTI Exam documented above, pertinent findings include: Abdomen soft nontender Lab Test results independently reviewed as above. Pertinent findings: WBCs 7.6 sodium 134 bicarb 26 BUN 23 creatinine 0.92 AST 53 ALT 79 procalcitonin 0.78 lactic acid 1.5 negative urinalysis viral swab negative EKG normal sinus rhythm rate [address] elevation or depression Imaging studies independently reviewed: CT chest abdomen pelvis no acute process. Chest x-ray no acute process Consultations: Reviewed with hospitalist, Abigail Patrick, will admit patient Treatments: IV fluids Zosyn Tylenol normal saline Re-evaluations: 7:00 p.m.. Spoke with patient and mother. Patient denies any headache or back pain at this time. Just feels general malaise. They do agree for admission. Discussion: Appropriate for admission. Patient has propensity for sepsis very easily. Was recent admission last month. Antibiotics have been started. Fever unknown origin. Patient denies headache or back pain. Diagnosis: Fever unknown origin Discharge Plan Departure Patient Disposition: Admitted as Observation Clinical Impression: Fever of unknown origin Admit Date/Time: 07/31/22 20:01 Admit Provider: Abigail Patrick
[2022-07-31] MEDS: PIPERACILLIN/TAZO 4.5 GM in SODIUM CHLORIDE 0.9% 100 ML IV (19:38)
[2022-07-31 20:06] LABS: C-Reactive Protein Quant 5.8 mg/dL (<1.0)
[2022-07-31 20:15] LABS: Erythrocyte Sedimentation Rate 41 MM/HR (0-15)
--- NOTE | 2022-07-31 22:44 | PM.HP.1 ---
History of Present Illness History of Present Illness Date Patient Seen: 07/31/22 Chief complaint: low grade fever 101-103 Narrative: Storm Lee is a 42-year-old male previously homeless with a history of polysubstance abuse who was admitted to [facility] on 01/16/2022 for ischemic bowel with perforation, status post ex-lap and bowel resection C/B short gut syndrome with history of C diff, requiring TPN and tube feedings, also during hospitalization patient developed severe rhabdo, DORA, hypoxic cardiac arrest with brief CPR VAP and CAUTI, also patient had complication of E faecalis bacteremia 05/07 and diskitis C7-T3 endplate on 05/27/2022-patient was on 6 weeks IV antibiotic course to end on 06/23/2022, history of acute on chronic encephalopathy- 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 During hospitalization at [place] patient was intubated, received cardiac resuscitation, had bronchoscopy, gastrostomy tube placement, multiple laparotomies with colostomy placed, tracheostomy, with right chest port placement. Patient now lives with his mother who brought him in following a few days of fever of unknown etiology. Patient demonstrated a fever of 102.6 in ED, was given Tylenol, 1 L bolus of fluid and Zosyn. Due to patient's anoxic brain injury residual affects unable to obtain accurate HPI, ROS or family history. Patient does verbalize on admit that he feels poorly but denies any specific pain or discomfort. Admit temp 99?, BP 113/51, HR 98, RR 16, O2 saturation 97% on room air. No WBC neutrophils 6156, ESR 44, CRP 5.8, procalcitonin 0.78, lactate negative, H&H 11.5/33, sodium 134, BUN 23, ALT 79, AST 274, PT 14, INR is normal 1.2 PTT 56, total protein 8.4, UA negative, respiratory panel negative, COVID negative, sofa score 0, does not meet SIRS criteria. C/A/P CT: Small right pleural effusion mild prominence of distal small bowel loops without raf obstruction. Patient admitted for fever of unknown etiology. 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 Mother No problems noted. Social History household members: family Meds Home Medications and Allergies Home Medications Medication Instructions Recorded Confirmed Type acetaminophen 325 mg tablet 650 mg PO Q6H PRN Pain (Scale 07/31/22 07/31/22 History Score 1-3) aspirin 81 mg tablet,delayed 81 mg PO DAILY 07/31/22 07/31/22 History release diphenoxylate-atropine 2.5 2.5 tab PO QID 07/31/22 07/31/22 History mg-0.025 mg tablet hydroxyzine pamoate 25 mg capsule 25 mg PO Q6H 07/31/22 07/31/22 History loperamide 2 mg tablet 2 mg PO QID 07/31/22 07/31/22 History (Anti-Diarrheal (loperamide)) pregabalin 75 mg capsule 75 mg PO TID 07/31/22 07/31/22 History quetiapine 50 mg tablet 50 mg PO DAILY 07/31/22 07/31/22 History quetiapine 50 mg tablet 100 mg PO BEDTIME 07/31/22 07/31/22 History risperidone 1 mg tablet 1 mg PO BID PRN Agitation 07/31/22 07/31/22 History trazodone 50 mg tablet 50 mg PO BEDTIME 07/31/22 07/31/22 History Allergies Allergy/AdvReac Type Severity Reaction Status Date / Time No Known Drug Allergies Allergy Verified 07/31/22 14:15 Review of Systems Review of Systems Narrative: patient denied any s/s all 12 systems are negative except otherwise documented.- though it should be noted due to patient's residual nauseous brain injury dysarthria and confusion which is his baseline unable to obtain accurate HPI ROS. Exam Vital Signs (past 8 hours): - 07/31/22 15:00 07/31/22 15:00 07/31/22 15:30 Temperature 98.5 F Pulse Rate 91 H 87 Respiratory Rate 21 32 H Blood Pressure 112/68 Pulse Oximetry 98 95 Oxygen Delivery Method 07/31/22 15:31 07/31/22 15:31 07/31/22 16:00 Temperature Pulse Rate 84 Respiratory Rate 25 H Blood Pressure 121/65 120/68 Pulse Oximetry 99 Oxygen Delivery Method 07/31/22 16:00 07/31/22 16:27 07/31/22 16:27 Temperature Pulse Rate 95 H 105 H Respiratory Rate 19 14 Blood Pressure 144/64 H Pulse Oximetry 98 Oxygen Delivery Method 07/31/22 16:30 07/31/22 16:30 07/31/22 17:00 Temperature Pulse Rate 103 H Respiratory Rate 18 Blood Pressure 132/71 126/75 Pulse Oximetry 100 Oxygen Delivery Method 07/31/22 17:00 07/31/22 17:30 07/31/22 17:30 Temperature Pulse Rate 105 H 108 H Respiratory Rate 14 15 Blood Pressure 127/58 L Pulse Oximetry 95 Oxygen Delivery Method 07/31/22 18:00 07/31/22 18:00 07/31/22 18:30 Temperature Pulse Rate 112 H Respiratory Rate 18 Blood Pressure 123/57 L 111/55 L Pulse Oximetry 95 Oxygen Delivery Method 07/31/22 18:30 07/31/22 18:33 07/31/22 18:46 Temperature 102.6 F H 102.6 F H Pulse Rate 107 H Respiratory Rate 19 Blood Pressure Pulse Oximetry 95 Oxygen Delivery Method Room Air 07/31/22 19:00 07/31/22 19:00 07/31/22 19:30 Temperature Pulse Rate 109 H Respiratory Rate 13 Blood Pressure 112/55 L 90/54 L Pulse Oximetry 95 Oxygen Delivery Method 07/31/22 19:30 07/31/22 19:41 07/31/22 19:41 Temperature 100.6 F H Pulse Rate 104 H 104 H Respiratory Rate 19 11 L Blood Pressure 107/59 L Pulse Oximetry 95 95 Oxygen Delivery Method Room Air 07/31/22 20:34 07/31/22 20:00 07/31/22 20:00 Temperature 100.6 F H Pulse Rate 102 H Respiratory Rate 19 Blood Pressure 104/55 L Pulse Oximetry 96 Oxygen Delivery Method 07/31/22 20:30 07/31/22 20:31 07/31/22 20:31 Temperature Pulse Rate 98 H 102 H Respiratory Rate 25 H 15 Blood Pressure 111/78 Pulse Oximetry 97 96 Oxygen Delivery Method 07/31/22 20:50 Temperature 99.0 F Pulse Rate 98 H Respiratory Rate 16 Blood Pressure 113/51 L Pulse Oximetry 97 Oxygen Delivery Method Oxygen Delivery Method Room Air Narrative Exam Narrative: General: Patient is a chronically ill-appearing male, confused, does not follow directions, or answer questions appropriately, in no acute distress at this time. HEENT: Normocephalic, atraumatic, extraocular muscles intact, oral pharynx is clear and mucous membranes are dry. Neck is supple and symmetric, trachea is midline, no adenopathy, no thyroid enlargement, nontender, no masses palpated. Negative for JVD Chest: Breathing without nasal flaring, retractions, tachypneic or labored. Port present right side Lungs: Auscultation of all lung morales are clear without adventitious sounds, wheezes, rhonchi, or rales. Cardio: regular rate and rhythm without murmur, rubs, or gallops, no carotid bruit, no cardiac pulsations present. Abdomen: Soft nontender, negative for organomegaly, or masses. Bowel sounds are present in 2 right quadrants without guarding or rebound, no CVA tenderness, colostomy bag present in left lower quadrant, peg tube present. Musculoskeletal: Muscle strength and tone are equal within normal limits, no deformity, crepitus, effusions, cyanosis, clubbing or edema present. Full range of motion intact radial and pedal pulses are normal. Skin: Very Warm dry and intact without rashes, ulcerations or petechiae. Neuro: Orientated to self & place, moves all extremities, sensation to touch intact. Psych: Patient calm, confused, with residual cognitive deficits, and dysarthria. Objective Labs 07/31/22 14:05 07/31/22 14:05 Labs: Laboratory Results - last 24 hr 07/31/22 07/31/22 07/31/22 14:00 14:05 14:05 WBC 7.6 RBC 3.86 L Hgb 11.5 L Hct 33.0 L MCV 85.5 MCH 29.9 MCHC 35.0 RDW 14.5 Plt Count 226 Neut % (Auto) Not Reportable Lymph % (Auto) Not Reportable Rabun % (Auto) Not Reportable Eos % (Auto) Not Reportable Baso % (Auto) Not Reportable Lymph # (Auto) Not Reportable Rabun # (Auto) Not Reportable Baso # (Auto) Not Reportable Total Counted 100 Seg Neutrophils % 79.0 H Band Neutrophils % 2.0 L Lymphocytes % (Manual) 12.0 L Monocytes % (Manual) 7.0 Neutrophils # (Manual) 6156 H RBC Morphology Normal morphology ESR PT 14.0 H INR 1.2 APTT 56 H Sodium Potassium Chloride Carbon Dioxide BUN Creatinine Estimated GFR BUN/Creatinine Ratio Glucose Lactate Calcium Total Bilirubin AST ALT Alkaline Phosphatase C-Reactive Protein Total Protein Albumin Globulin Albumin/Globulin Ratio Lipase Procalcitonin Urine RBC Urine WBC Ur Squamous Epith Cells Urine Bacteria Hyaline Casts Ur Culture Indicated? Chlamy pneumoniae PCR Not detected Adenovirus (PCR) Not detected B. pertussis DNA (PCR) Not detected B.parapertussis DNA PCR Not detected Coronavirus OC43 (PCR) Not detected Coronavirus HKU1 (PCR) Not detected Coronavirus 229E (PCR) Not detected SARS-CoV-2 (PCR) Not detected Coronavirus NL63 (PCR) Not detected Human Metapneumovir PCR Not detected Influenza Type A (PCR) Not detected Influenza Type B (PCR) Not detected M. pneumoniae (PCR) Not detected Parainfluenza 1 (PCR) Not detected Parainfluenza 2 (PCR) Not detected Parainfluenza 3 (PCR) Not detected Parainfluenza 4 (PCR) Not detected RSV (PCR) Not detected Entero/Rhino (PCR) Not detected 07/31/22 07/31/22 07/31/22 14:05 14:05 14:05 WBC RBC Hgb Hct MCV MCH MCHC RDW Plt Count Neut % (Auto) Lymph % (Auto) Rabun % (Auto) Eos % (Auto) Baso % (Auto) Lymph # (Auto) Rabun # (Auto) Baso # (Auto) Total Counted Seg Neutrophils % Band Neutrophils % Lymphocytes % (Manual) Monocytes % (Manual) Neutrophils # (Manual) RBC Morphology ESR 41 H PT INR APTT Sodium 134 L Potassium 3.7 Chloride 97 L Carbon Dioxide 26 BUN 23 H Creatinine 0.92 Estimated GFR > 60 BUN/Creatinine Ratio 25.0 H Glucose 116 H Lactate 1.5 Calcium 9.6 Total Bilirubin 1.2 AST 53 ALT 79 H Alkaline Phosphatase 274 H C-Reactive Protein Total Protein 8.4 H Albumin 4.5 Globulin 3.9 Albumin/Globulin Ratio 1.2 Lipase 43 Procalcitonin 0.78 H Urine RBC Urine WBC Ur Squamous Epith Cells Urine Bacteria Hyaline Casts Ur Culture Indicated? Chlamy pneumoniae PCR Adenovirus (PCR) B. pertussis DNA (PCR) B.parapertussis DNA PCR Coronavirus OC43 (PCR) Coronavirus HKU1 (PCR) Coronavirus 229E (PCR) SARS-CoV-2 (PCR) Coronavirus NL63 (PCR) Human Metapneumovir PCR Influenza Type A (PCR) Influenza Type B (PCR) M. pneumoniae (PCR) Parainfluenza 1 (PCR) Parainfluenza 2 (PCR) Parainfluenza 3 (PCR) Parainfluenza 4 (PCR) RSV (PCR) Entero/Rhino (PCR) 07/31/22 07/31/22 14:05 15:43 WBC RBC Hgb Hct MCV MCH MCHC RDW Plt Count Neut % (Auto) Lymph % (Auto) Rabun % (Auto) Eos % (Auto) Baso % (Auto) Lymph # (Auto) Rabun # (Auto) Baso # (Auto) Total Counted Seg Neutrophils % Band Neutrophils % Lymphocytes % (Manual) Monocytes % (Manual) Neutrophils # (Manual) RBC Morphology ESR PT INR APTT Sodium Potassium Chloride Carbon Dioxide BUN Creatinine Estimated GFR BUN/Creatinine Ratio Glucose Lactate Calcium Total Bilirubin AST ALT Alkaline Phosphatase C-Reactive Protein 5.8 H Total Protein Albumin Globulin Albumin/Globulin Ratio Lipase Procalcitonin Urine RBC None seen Urine WBC 0-1/hpf Ur Squamous Epith Cells 0-1 /hpf Urine Bacteria None seen Hyaline Casts 1-5/lpf Ur Culture Indicated? Cult not indicated Chlamy pneumoniae PCR Adenovirus (PCR) B. pertussis DNA (PCR) B.parapertussis DNA PCR Coronavirus OC43 (PCR) Coronavirus HKU1 (PCR) Coronavirus 229E (PCR) SARS-CoV-2 (PCR) Coronavirus NL63 (PCR) Human Metapneumovir PCR Influenza Type A (PCR) Influenza Type B (PCR) M. pneumoniae (PCR) Parainfluenza 1 (PCR) Parainfluenza 2 (PCR) Parainfluenza 3 (PCR) Parainfluenza 4 (PCR) RSV (PCR) Entero/Rhino (PCR) Assessment & Plan Assessment & Plan narrative: Storm Lee is a 42-year-old male previously homeless with a history of polysubstance abuse who was admitted to [facility] on 01/16/2022 for ischemic bowel with perforation, status post ex-lap and bowel resection C/B short gut syndrome with history of C diff, requiring TPN and tube feedings, complication of E faecalis bacteremia 05/07 and diskitis C7-T3 endplate on 05/27/2022-patient was on 6 weeks IV antibiotic course to end on 06/23/2022. Patient admitted for fever of unknown etiology. 1. Fever of unknown etiology, acute, present on admission -ED: Temp 102.6?, Admit 99? -Recent: ischemic bowel with perforation, positive C diff. 01/2022 -Recent: E faecalis bacteremia 05/07/2022 -Recent:diskitis C7-T3 endplate on 05/27/2022 -Hx of MRSA -No WBC neutrophils 6156, ESR 44, CRP 5.8, procalcitonin 0.78, lactate negative,UA negative, respiratory panel negative, COVID negative, sofa score 0, does not meet SIRS criteria -blood cultures pending, CdIff, H pylori, MRSA-trend CBC and inflammatory markers, port was initially obstructed, culture was obtained -repeat procalcitonin and lactate in a.m. -NS at 100 cc/HR -Zosyn -adjust per cultures 2. Elevated alkaline phosphate, acute, present on admission -ALT 79, AST 274, PT 14, INR is normal 1.2 PTT 56, total protein 8.4, GGT 117 -Hx of positive Hep C -C/A/P CT: Small right pleural effusion mild prominence of distal small bowel loops without raf obstruction -ordered abdominal ultrasound complete -ordered tox screen, ETOH 3. Ischemic bowel with perforation, gastrotomy/Colostomy placement, short gut syndrome, with PEG tube, acute on chronic, present on admission -Continue TPN, Imodium, Lomotil, Lyrica 4. Acute on chronic encephalopathy, with residual neuro deficits, secondary to noxious brain injury following cardiac resuscitation, present on admission -At Baseline 5. Depression with anxiety, chronic, present on admission -Continue hydroxyzine, trazodone, Seroquel, risperidone 6. History of polysubstance abuse, chronic, present on admission -history of marijuana and methamphetamine use, daily smoker, alcohol occasionally. -tox screen and ETOH ordered 7. Tobacco abuse, chronic, present on admission -nicotine patch ordered Code status:Full Surrogate decision maker: Mother COVID PCR:Negtaive DVT/VTE prophylaxis: Lovenox and SCDs Disposition: Patient admitted for observation expected length of stay no greater than 2 midnights. I have utilized all available immediate resources to obtain, update, or review the patient's current medications. I confirmed that the patient's advanced care plan is present, Code status is documented and/or surrogate decision maker is listed in the patient's medical record. I have personally reviewed patient's chart notes from PCP, specialists, diagnostic imaging, and laboratory results. I personally reviewed all the patient's notes and records from [facility] ever it for hospitalization from 01/16/22-06/15/2022. Quality VTE Deep Vein Thrombosis/Pulmonary Embolism Present on Admission: No
[2022-07-31] MEDS: risperiDONE 1 MG TABLET PO (23:08)
[2022-07-31] MEDS: PREGABALIN 75 MG CAPSULE PO (23:08)
[2022-07-31] MEDS: ONDANSETRON 4 MG ODT SL (23:08)
[2022-07-31] MEDS: LOPERAMIDE 2 MG CAPSULE PO (23:08)
[2022-07-31] MEDS: DIPHENOXYLATE/ATROP 2.5/0.025 TABLET 2.5 EACH PO (23:11)
[2022-07-31] MEDS: SODIUM CHLORIDE 0.9% 1,000 ML 100 ML IV (23:14)
[2022-07-31] MEDS: TRAZODONE 50 MG TABLET PO (23:14)
[2022-07-31] MEDS: QUETIAPINE 25 MG TABLET 100 MG PO (23:14)
[2022-07-31 23:20] LABS: Ethanol (ETOH) < 10 mg/dL; Gamma Glutamyl Transpeptidase 117 U/L (15-73); Magnesium 1.8 mg/dL (1.6-2.3)
[2022-08-01] VITALS (7 sets, daily range): BP systolic 94–128; BP diastolic 41–68; PULSE 70–112; RESP 17–19; TEMP 36.9–38.8; O2SAT 92–98
[2022-08-01] MEDS: ACETAMINOPHEN 325 MG TABLET 975 MG PO ×2 (01:01→12:07)
[2022-08-01] MEDS: hydrOXYzine pamoate 25 MG CAPSULE PO ×3 (01:03→13:43)
[2022-08-01] MEDS: PIPERACILLIN/TAZO 4.5 GM in SODIUM CHLORIDE 0.9% 100 ML IV (04:09)
[2022-08-01] MEDS: SODIUM CHLORIDE 0.9% 500 ML 1000 ML IV (04:52)
[2022-08-01 05:39] LABS: Add Manual Diff / Slide Review NO; Basophils Absolute Auto 0 /uL (0-100); Basophils Percent Auto 0.2 % (0-2); Eosinophils Absolute Auto 0 /uL (0-450); Eosinophils Percent Auto 0.5 % (2-4); Hemoglobin 9.3 g/dL (13.5-17.5); INR 1.3 (0.9-1.3); Lymphocytes Absolute Auto 800 /uL (1100-4500); Lymphocytes Percent Auto 18.7 % (25-40); Mean Corpuscular HGB Conc 34.5 % (30-36); Mean Corpuscular Hemoglobin 29.6 PG (26-34); Monocytes Absolute Auto 500 /uL (0-900); Neutrophils Absolute Auto 2900 /uL (1500-7000); Neutrophils Percent Auto 68.6 % (50-75); Platelet Count 169 X10^3/uL (150-400); Prothrombin Time 14.9 SECONDS (10.1-12.7); Red Blood Cell Count 3.14 X10^6/uL (4.5-5.9); Red Cell Distribution Width 14.7 % (11.6-14.8); White Blood Cell Count 4.2 X10^3/uL (4.5-11.0)
[2022-08-01 05:43] LABS: Lactate (Lactic Acid) 0.6 mmol/L (0.7-2.1)
[2022-08-01 05:49] LABS: Alanine Aminotransferase 72 IU/L (<50); Albumin 3.7 g/dL (3.5-5.0); Albumin Globulin Ratio 1.2 (1.0-2.8); Alkaline Phosphatase 207 U/L (38-126); Aspartate Aminotransferase 51 IU/L (17-59); BUN Creatinine Ratio 23.2 (6-22); Bilirubin Total 0.9 mg/dL (0.2-1.3); Blood Urea Nitrogen 19 mg/dL (9-20); Carbon Dioxide 24 mmol/L (22-32); Chloride 105 mmol/L (98-107); Estimated Glomerular Filt Rate > 60 mL/min (>60); Globulin 3.2 g/dL (1.7-4.1); Glucose 94 mg/dL (70-100); HEMOLYSIS < 15 (0-50); Potassium 3.9 mmol/L (3.4-5.1); Sodium 137 mmol/L (137-145); Total Protein 6.9 g/dL (6.3-8.2)
[2022-08-01 05:57] LABS: NT-proBNP (BNP-Adult 18+) 305 pg/mL (<125)
[2022-08-01 06:04] LABS: Procalcitonin 1.28 ng/mL (<0.5)
[2022-08-01 06:19] LABS: MRSA (Nasal) PCR Not Detected (Not Detect)
[2022-08-01 07:02] LABS: mecA/C Resistance DETECTED (Not Detect)
[2022-08-01 07:03] LABS: Enterococcus faecalis Not Detected (Not Detect)
[2022-08-01 07:04] LABS: Enterococcus faecium Not Detected (Not Detect); Listeria monocytogenes Not Detected (Not Detect); Staphylococcus species DETECTED (Not Detect)
[2022-08-01 07:07] LABS: Acinetobacter calcoa-baumannii Not Detected (Not Detect); Bacteroides fragilis Not Detected (Not Detect); Enterobacter cloacae complex Not Detected (Not Detect); Enterobacterales Not Detected (Not Detect); Klebsiella aerogenes Not Detected (Not Detect); Staphylococcus epidermidis DETECTED (Not Detect); Staphylococcus lugdunensis Not Detected (Not Detect); Streptococcus agalactiae (Gr B Not Detected (Not Detect); Streptococcus pneumonia Not Detected (Not Detect); Streptococcus pyogenes (Gr A) Not Detected (Not Detect); Streptococcus species Not Detected (Not Detect)
[2022-08-01 07:08] LABS: Candida albicans Not Detected (Not Detect); Candida auris Not Detected (Not Detect); Candida glabrata Not Detected (Not Detect); Candida krusei Not Detected (Not Detect); Candida parapsilosis Not Detected (Not Detect); Candida tropicalis Not Detected (Not Detect); Cryptococcus neoformans/gatti Not Detected (Not Detect); Haemophilus influenzae Not Detected (Not Detect); Neisseria meningitidis Not Detected (Not Detect); Proteus species Not Detected (Not Detect); Pseudomonas aeruginosa Not Detected (Not Detect); Salmonella species Not Detected (Not Detect); Serratia marcescens Not Detected (Not Detect); Stenotrophomonas maltophilia Not Detected (Not Detect)
--- NOTE | 2022-08-01 08:46 | PC.NURSE ---
Addendum entered by Landon Cosme R.N. 08/01/22 18:40: TPN started at 75 and increased to 126 after 1/2 hour Pt stephanie well. Does have TPN at home. Original Note: Pt arousable, offers no overt c/o. alert. Taking some b'fast. Colostomy intact. IVF's as ordered
[2022-08-01] MEDS: ASPIRIN EC 81 MG TABLET PO (10:18)
[2022-08-01] MEDS: DIPHENOXYLATE/ATROP 2.5/0.025 TABLET 2.5 EACH PO ×4 (10:18→20:43)
[2022-08-01] MEDS: ENOXAPARIN 40 MG/0.4 ML SYRINGE SUBCUT (10:18)
[2022-08-01] MEDS: PREGABALIN 75 MG CAPSULE PO ×3 (10:19→20:43)
[2022-08-01] MEDS: QUETIAPINE 25 MG TABLET 50 MG PO (10:19)
[2022-08-01] MEDS: NICOTINE 14 PATCH 14 MG TOP (10:19)
[2022-08-01] MEDS: LOPERAMIDE 2 MG CAPSULE PO ×4 (10:19→20:43)
--- NOTE | 2022-08-01 11:35 | CM.DANOTE ---
Initial Discharge Planning Note: Met with patient in room. Introduced self and role. Payer: [facility] and Medicaid PCP: Unknown 42 year old male admitted yesterday with fever and confusion. He has significant medical history: He was in [place] for 5 months and just discharged about a month ago. He underwent a bowel resection and has a short gut as a result and on TPN indefinitely. He has a G-Tube that was put in while there but is not being used, he will see his GI doc in early August per his mom. An abdominal ultrasound is pending. Patient lives with his mom, stepfather and sister and niece in [place] in an apartment. Patient's mom Traci states he his bipolar and after the TBI he is like an 8 year old, he also has ODD. Traci plans to be visiting today. [facility] is on service. They will need a Resumption of Care order upon discharge. Plan: Patient desires to return home to the care of his mom, his previous living arrangement. [facility] Discharge Planning/Care Management CM Discharge Assessment Start: 08/01/22 10:43 Freq: Status: Active Protocol: Document 08/01/22 10:44 (Rec: 08/01/22 11:35 [id number]) Discharge Planning Assessment Assigned General Service Officer Florecita Martin RN/DCP Advance Directives? No History Provided By Patient Prior Living Arrangements Apartment/Condo Household Members family Comment Mother and Stepfather Type of transporation used prior to Relies on Others admit Independent with ADL's No Is patient alert and oriented? Yes Needs Assistance With Bathing,Grooming,Meal Prep, Toileting,Managing Medications ,Home Chores / Shopping Caregiver for Another No DME Already Rented / Owned Bath Bench,FWW / Walker Barriers to Discharge No Transportation Arrangement Mother to transport home Additional Comment Resumption of Care orders will be needed: SN & ? Notified [facility] he is in hospital. Review Status In Process Next Review Type Continued Stay Review
[2022-08-01] MEDS: PIPERACILLIN/TAZO 3.375 GM in SODIUM CHLORIDE 0.9% 100 ML IV ×2 (12:06→20:43)
[2022-08-01] MEDS: SODIUM CHLORIDE 0.9% 1,000 ML 100 ML IV (12:10)
--- NOTE | 2022-08-01 12:32 | PM.PN.1 ---
Subjective Subjective Interval history: Patient indicates that he is feeling better and does not have any pain. Resting comfortably in bed. Seems content and thanked me for my visit. Exam Vital Signs (past 8 hours): - 08/01/22 07:00 08/01/22 11:00 Temperature 98.5 F 100.6 F H Pulse Rate 70 98 H Respiratory Rate 17 17 Blood Pressure 113/64 128/68 Pulse Oximetry 96 97 Oxygen Flow Rate 0 0 Oxygen Delivery Method Room Air Oxygen Flow Rate 0 Narrative Exam Narrative: General:? Patient is a chronically ill-appearing male, oriented to person and possibly place, appears to be in no acute medical distress. HEENT:? Normocephalic, atraumatic, extraocular muscles intact, pupils equal reactive. Trachea is midline. Respiratory: Chest clear to auscultation. No wheezes or crackles. Cardio: regular rate and rhythm without murmur, rubs, or gallops, no carotid bruit, no cardiac pulsations present. Abdomen:? Soft nontender, negative for organomegaly, or masses.? Bowel sounds are present in 2 right quadrants. No tenderness. Colostomy present. Peg tube present. Musculoskeletal:? Muscle strength and tone are equal within normal limits, no deformity, crepitus, effusions, cyanosis, clubbing or edema present.? Full range of motion intact radial and pedal pulses are normal. Skin:? Very Warm dry and intact without rashes or lesions. ? Neuro:? Orientated to self & possibly place, moves all extremities, sensation to touch intact. Psych:? Patient calm with residual cognitive deficits, and some dysarthria Objective Labs 08/01/22 04:45 08/01/22 04:45 Labs: Laboratory Results - last 24 hr 07/31/22 07/31/22 07/31/22 14:00 14:00 14:05 WBC 7.6 RBC 3.86 L Hgb 11.5 L Hct 33.0 L MCV 85.5 MCH 29.9 MCHC 35.0 RDW 14.5 Plt Count 226 Neut % (Auto) Not Reportable Lymph % (Auto) Not Reportable Hemphill % (Auto) Not Reportable Eos % (Auto) Not Reportable Baso % (Auto) Not Reportable Neut # (Auto) Lymph # (Auto) Not Reportable Hemphill # (Auto) Not Reportable Eos # (Auto) Baso # (Auto) Not Reportable Total Counted 100 Seg Neutrophils % 79.0 H Band Neutrophils % 2.0 L Lymphocytes % (Manual) 12.0 L Monocytes % (Manual) 7.0 Neutrophils # (Manual) 6156 H RBC Morphology Normal morphology ESR PT INR APTT Sodium Potassium Chloride Carbon Dioxide BUN Creatinine Estimated GFR BUN/Creatinine Ratio Glucose Lactate Calcium Magnesium Total Bilirubin GGT AST ALT Alkaline Phosphatase C-Reactive Protein NT-Pro-B Natriuret Pep Total Protein Albumin Globulin Albumin/Globulin Ratio Lipase Procalcitonin Urine RBC Urine WBC Ur Squamous Epith Cells Urine Bacteria Hyaline Casts Ur Culture Indicated? Nasal Screen MRSA (PCR) Ethyl Alcohol A.calcoaceticus-baumannii cmplx PCR Not detected Chlamy pneumoniae PCR Not detected Adenovirus (PCR) Not detected Bacteroides fragilis Not detected B. pertussis DNA (PCR) Not detected B.parapertussis DNA PCR Not detected Katty albicans (PCR) Not detected Katty auris (PCR) Not detected C. glabrata (PCR) Not detected C. krusei (PCR) Not detected C. parapsilosis (PCR) Not detected C. tropicalis (PCR) Not detected Coronavirus OC43 (PCR) Not detected Coronavirus HKU1 (PCR) Not detected Coronavirus 229E (PCR) Not detected SARS-CoV-2 (PCR) Not detected Coronavirus NL63 (PCR) Not detected C. neoform/gattii (PCR) Not detected Enterobacterales (PCR) Not detected E. cloacae complex PCR Not detected Enterococc faecalis PCR Not detected Enterococc faecium PCR Not detected E. coli (PCR) Not detected H. influenzae (PCR) Not detected Human Metapneumovir PCR Not detected Influenza Type A (PCR) Not detected Influenza Type B (PCR) Not detected Klebsiella aerogenes (PCR) Not detected Klebsiella oxytoca PCR Not detected Klebsiella pneumoniae Not detected List. monocytogenes PCR Not detected M. pneumoniae (PCR) Not detected N. meningitidis (PCR) Not detected Parainfluenza 1 (PCR) Not detected Parainfluenza 2 (PCR) Not detected Parainfluenza 3 (PCR) Not detected Parainfluenza 4 (PCR) Not detected Proteus species (PCR) Not detected RSV (PCR) Not detected Entero/Rhino (PCR) Not detected Salmonella spp. (PCR) Not detected Serratia marcescens PCR Not detected Staphylococcus sp PCR Detected H Staph aureus (PCR) Not detected mecA/C-Methicil Resis Gene Detected H Staph epidermidis (PCR) Detected H Staph lugdunensis PCR Not detected S. maltophilia (PCR) Not detected Streptococcus sp PCR Not detected Group A Strep (PCR) Not detected Strep agalactiae (PCR) Not detected Strep pneumoniae (PCR) Not detected P. aeruginosa (PCR) Not detected 07/31/22 07/31/22 07/31/22 14:05 14:05 14:05 WBC RBC Hgb Hct MCV MCH MCHC RDW Plt Count Neut % (Auto) Lymph % (Auto) Hemphill % (Auto) Eos % (Auto) Baso % (Auto) Neut # (Auto) Lymph # (Auto) Hemphill # (Auto) Eos # (Auto) Baso # (Auto) Total Counted Seg Neutrophils % Band Neutrophils % Lymphocytes % (Manual) Monocytes % (Manual) Neutrophils # (Manual) RBC Morphology ESR PT 14.0 H INR 1.2 APTT 56 H Sodium 134 L Potassium 3.7 Chloride 97 L Carbon Dioxide 26 BUN 23 H Creatinine 0.92 Estimated GFR > 60 BUN/Creatinine Ratio 25.0 H Glucose 116 H Lactate 1.5 Calcium 9.6 Magnesium Total Bilirubin 1.2 GGT AST 53 ALT 79 H Alkaline Phosphatase 274 H C-Reactive Protein NT-Pro-B Natriuret Pep Total Protein 8.4 H Albumin 4.5 Globulin 3.9 Albumin/Globulin Ratio 1.2 Lipase 43 Procalcitonin 0.78 H Urine RBC Urine WBC Ur Squamous Epith Cells Urine Bacteria Hyaline Casts Ur Culture Indicated? Nasal Screen MRSA (PCR) Ethyl Alcohol A.calcoaceticus-baumannii cmplx PCR Chlamy pneumoniae PCR Adenovirus (PCR) Bacteroides fragilis B. pertussis DNA (PCR) B.parapertussis DNA PCR Katty albicans (PCR) Katty auris (PCR) C. glabrata (PCR) C. krusei (PCR) C. parapsilosis (PCR) C. tropicalis (PCR) Coronavirus OC43 (PCR) Coronavirus HKU1 (PCR) Coronavirus 229E (PCR) SARS-CoV-2 (PCR) Coronavirus NL63 (PCR) C. neoform/gattii (PCR) Enterobacterales (PCR) E. cloacae complex PCR Enterococc faecalis PCR Enterococc faecium PCR E. coli (PCR) H. influenzae (PCR) Human Metapneumovir PCR Influenza Type A (PCR) Influenza Type B (PCR) Klebsiella aerogenes (PCR) Klebsiella oxytoca PCR Klebsiella pneumoniae List. monocytogenes PCR M. pneumoniae (PCR) N. meningitidis (PCR) Parainfluenza 1 (PCR) Parainfluenza 2 (PCR) Parainfluenza 3 (PCR) Parainfluenza 4 (PCR) Proteus species (PCR) RSV (PCR) Entero/Rhino (PCR) Salmonella spp. (PCR) Serratia marcescens PCR Staphylococcus sp PCR Staph aureus (PCR) mecA/C-Methicil Resis Gene Staph epidermidis (PCR) Staph lugdunensis PCR S. maltophilia (PCR) Streptococcus sp PCR Group A Strep (PCR) Strep agalactiae (PCR) Strep pneumoniae (PCR) P. aeruginosa (PCR) 07/31/22 07/31/22 07/31/22 14:05 14:05 15:43 WBC RBC Hgb Hct MCV MCH MCHC RDW Plt Count Neut % (Auto) Lymph % (Auto) Hemphill % (Auto) Eos % (Auto) Baso % (Auto) Neut # (Auto) Lymph # (Auto) Hemphill # (Auto) Eos # (Auto) Baso # (Auto) Total Counted Seg Neutrophils % Band Neutrophils % Lymphocytes % (Manual) Monocytes % (Manual) Neutrophils # (Manual) RBC Morphology ESR 41 H PT INR APTT Sodium Potassium Chloride Carbon Dioxide BUN Creatinine Estimated GFR BUN/Creatinine Ratio Glucose Lactate Calcium Magnesium Total Bilirubin GGT AST ALT Alkaline Phosphatase C-Reactive Protein 5.8 H NT-Pro-B Natriuret Pep Total Protein Albumin Globulin Albumin/Globulin Ratio Lipase Procalcitonin Urine RBC None seen Urine WBC 0-1/hpf Ur Squamous Epith Cells 0-1 /hpf Urine Bacteria None seen Hyaline Casts 1-5/lpf Ur Culture Indicated? Cult not indicated Nasal Screen MRSA (PCR) Ethyl Alcohol A.calcoaceticus-baumannii cmplx PCR Chlamy pneumoniae PCR Adenovirus (PCR) Bacteroides fragilis B. pertussis DNA (PCR) B.parapertussis DNA PCR Katty albicans (PCR) Katty auris (PCR) C. glabrata (PCR) C. krusei (PCR) C. parapsilosis (PCR) C. tropicalis (PCR) Coronavirus OC43 (PCR) Coronavirus HKU1 (PCR) Coronavirus 229E (PCR) SARS-CoV-2 (PCR) Coronavirus NL63 (PCR) C. neoform/gattii (PCR) Enterobacterales (PCR) E. cloacae complex PCR Enterococc faecalis PCR Enterococc faecium PCR E. coli (PCR) H. influenzae (PCR) Human Metapneumovir PCR Influenza Type A (PCR) Influenza Type B (PCR) Klebsiella aerogenes (PCR) Klebsiella oxytoca PCR Klebsiella pneumoniae List. monocytogenes PCR M. pneumoniae (PCR) N. meningitidis (PCR) Parainfluenza 1 (PCR) Parainfluenza 2 (PCR) Parainfluenza 3 (PCR) Parainfluenza 4 (PCR) Proteus species (PCR) RSV (PCR) Entero/Rhino (PCR) Salmonella spp. (PCR) Serratia marcescens PCR Staphylococcus sp PCR Staph aureus (PCR) mecA/C-Methicil Resis Gene Staph epidermidis (PCR) Staph lugdunensis PCR S. maltophilia (PCR) Streptococcus sp PCR Group A Strep (PCR) Strep agalactiae (PCR) Strep pneumoniae (PCR) P. aeruginosa (PCR) 07/31/22 08/01/22 08/01/22 23:02 04:45 04:45 WBC 4.2 L RBC 3.14 L Hgb 9.3 L Hct 27.0 L MCV 86.0 MCH 29.6 MCHC 34.5 RDW 14.7 Plt Count 169 Neut % (Auto) 68.6 Lymph % (Auto) 18.7 L Hemphill % (Auto) 12.0 Eos % (Auto) 0.5 L Baso % (Auto) 0.2 Neut # (Auto) 2900 Lymph # (Auto) 800 L Hemphill # (Auto) 500 Eos # (Auto) 0 Baso # (Auto) 0 Total Counted Seg Neutrophils % Band Neutrophils % Lymphocytes % (Manual) Monocytes % (Manual) Neutrophils # (Manual) RBC Morphology ESR PT INR APTT Sodium Potassium Chloride Carbon Dioxide BUN Creatinine Estimated GFR BUN/Creatinine Ratio Glucose Lactate Calcium Magnesium 1.8 Total Bilirubin GGT 117 H AST ALT Alkaline Phosphatase C-Reactive Protein NT-Pro-B Natriuret Pep Total Protein Albumin Globulin Albumin/Globulin Ratio Lipase Procalcitonin Urine RBC Urine WBC Ur Squamous Epith Cells Urine Bacteria Hyaline Casts Ur Culture Indicated? Nasal Screen MRSA (PCR) Not detected Ethyl Alcohol < 10 A.calcoaceticus-baumannii cmplx PCR Chlamy pneumoniae PCR Adenovirus (PCR) Bacteroides fragilis B. pertussis DNA (PCR) B.parapertussis DNA PCR Katty albicans (PCR) Katty auris (PCR) C. glabrata (PCR) C. krusei (PCR) C. parapsilosis (PCR) C. tropicalis (PCR) Coronavirus OC43 (PCR) Coronavirus HKU1 (PCR) Coronavirus 229E (PCR) SARS-CoV-2 (PCR) Coronavirus NL63 (PCR) C. neoform/gattii (PCR) Enterobacterales (PCR) E. cloacae complex PCR Enterococc faecalis PCR Enterococc faecium PCR E. coli (PCR) H. influenzae (PCR) Human Metapneumovir PCR Influenza Type A (PCR) Influenza Type B (PCR) Klebsiella aerogenes (PCR) Klebsiella oxytoca PCR Klebsiella pneumoniae List. monocytogenes PCR M. pneumoniae (PCR) N. meningitidis (PCR) Parainfluenza 1 (PCR) Parainfluenza 2 (PCR) Parainfluenza 3 (PCR) Parainfluenza 4 (PCR) Proteus species (PCR) RSV (PCR) Entero/Rhino (PCR) Salmonella spp. (PCR) Serratia marcescens PCR Staphylococcus sp PCR Staph aureus (PCR) mecA/C-Methicil Resis Gene Staph epidermidis (PCR) Staph lugdunensis PCR S. maltophilia (PCR) Streptococcus sp PCR Group A Strep (PCR) Strep agalactiae (PCR) Strep pneumoniae (PCR) P. aeruginosa (PCR) 08/01/22 08/01/22 08/01/22 04:45 04:45 04:45 WBC RBC Hgb Hct MCV MCH MCHC RDW Plt Count Neut % (Auto) Lymph % (Auto) Hemphill % (Auto) Eos % (Auto) Baso % (Auto) Neut # (Auto) Lymph # (Auto) Hemphill # (Auto) Eos # (Auto) Baso # (Auto) Total Counted Seg Neutrophils % Band Neutrophils % Lymphocytes % (Manual) Monocytes % (Manual) Neutrophils # (Manual) RBC Morphology ESR PT 14.9 H INR 1.3 APTT Sodium 137 Potassium 3.9 Chloride 105 Carbon Dioxide 24 BUN 19 Creatinine 0.82 Estimated GFR > 60 BUN/Creatinine Ratio 23.2 H Glucose 94 Lactate 0.6 L Calcium 9.0 Magnesium Total Bilirubin 0.9 GGT AST 51 ALT 72 H Alkaline Phosphatase 207 H C-Reactive Protein NT-Pro-B Natriuret Pep 305 H Total Protein 6.9 Albumin 3.7 Globulin 3.2 Albumin/Globulin Ratio 1.2 Lipase Procalcitonin 1.28 H Urine RBC Urine WBC Ur Squamous Epith Cells Urine Bacteria Hyaline Casts Ur Culture Indicated? Nasal Screen MRSA (PCR) Ethyl Alcohol A.calcoaceticus-baumannii cmplx PCR Chlamy pneumoniae PCR Adenovirus (PCR) Bacteroides fragilis B. pertussis DNA (PCR) B.parapertussis DNA PCR Katty albicans (PCR) Katty auris (PCR) C. glabrata (PCR) C. krusei (PCR) C. parapsilosis (PCR) C. tropicalis (PCR) Coronavirus OC43 (PCR) Coronavirus HKU1 (PCR) Coronavirus 229E (PCR) SARS-CoV-2 (PCR) Coronavirus NL63 (PCR) C. neoform/gattii (PCR) Enterobacterales (PCR) E. cloacae complex PCR Enterococc faecalis PCR Enterococc faecium PCR E. coli (PCR) H. influenzae (PCR) Human Metapneumovir PCR Influenza Type A (PCR) Influenza Type B (PCR) Klebsiella aerogenes (PCR) Klebsiella oxytoca PCR Klebsiella pneumoniae List. monocytogenes PCR M. pneumoniae (PCR) N. meningitidis (PCR) Parainfluenza 1 (PCR) Parainfluenza 2 (PCR) Parainfluenza 3 (PCR) Parainfluenza 4 (PCR) Proteus species (PCR) RSV (PCR) Entero/Rhino (PCR) Salmonella spp. (PCR) Serratia marcescens PCR Staphylococcus sp PCR Staph aureus (PCR) mecA/C-Methicil Resis Gene Staph epidermidis (PCR) Staph lugdunensis PCR S. maltophilia (PCR) Streptococcus sp PCR Group A Strep (PCR) Strep agalactiae (PCR) Strep pneumoniae (PCR) P. 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 Mother No problems noted. Social History household members: family Assessment & Plan Assessment & Plan narrative: 1. Fever of unknown etiology, acute, present on admission -ED:? Temp 102.6?,? Admit 99? -today 100.6 -Recent: ischemic bowel with perforation, positive C diff. 01/2022 -Recent: E faecalis bacteremia 05/07/2022 -blood cultures positive x2 for staph epidermidis on this admission, sensitivity pending. -Recent:diskitis C7-T3 endplate on 05/27/2022 -Hx of MRSA -on admission, no WBC neutrophils 6156, ESR 44, CRP 5.8, procalcitonin 0.78, lactate negative,UA negative, respiratory panel negative, COVID negative, does not meet SIRS criteria, today white blood cells decreased, neutrophils and band neutrophils increased, ESR remains elevated at 41, prolactin increased to 1.28, C-reactive protein 5.8 -BNP 305, follow. -NS at 100 cc/HR -continue. -Zosyn -adjust per cultures once sensitivity is known -repeat blood cultures tomorrow 2. Elevated alkaline phosphate, acute, present on admission -ALT 79, AST 274, PT 14, INR is normal 1.2 PTT 56, total protein 8.4, GGT 117, today alkaline phosphatase trending downward 207 -Hx of positive Hep C -C/A/P CT: Small right pleural effusion mild prominence of distal small bowel loops without raf obstruction -ordered abdominal ultrasound complete, pending -ordered tox screen, ETOH 3. Ischemic bowel with perforation, gastrotomy/Colostomy placement, short gut syndrome, with PEG tube, acute on chronic, present on admission -Continue TPN, Imodium, Lomotil, Lyrica 4. Acute on chronic encephalopathy, with residual neuro deficits, secondary to noxious brain injury following cardiac resuscitation, present on admission -At Baseline 5. Depression with anxiety, chronic, present on admission -Continue hydroxyzine, trazodone, Seroquel, risperidone 6. History of polysubstance abuse, chronic, present on admission -history of marijuana and methamphetamine use, daily smoker, alcohol occasionally. -tox screen and ETOH ordered -only alcohol reported as normal not present 7. Tobacco abuse, chronic, present on admission -nicotine patch ordered Follow labs and clinically. Code status:Full Surrogate decision maker: Mother COVID PCR:Negtaive DVT/VTE prophylaxis:? Lovenox and SCDs Quality VTE Deep Vein Thrombosis/Pulmonary Embolism Present on Admission: No
[2022-08-01] MEDS: AA 5 %/CALCIUM/LYTES/DEXT 20 % 1,500 ML with MULTIVITAMIN 10 ML, TRACE ELEMENTS 1 ML 125.917 ML IV (17:37)
[2022-08-01] MEDS: TRAZODONE 50 MG TABLET PO (20:43)
[2022-08-01] MEDS: QUETIAPINE 25 MG TABLET 100 MG PO (20:43)
[2022-08-02] VITALS (8 sets, daily range): BP systolic 97–126; BP diastolic 55–76; PULSE 60–94; RESP 17–19; TEMP 36.4–37.4; O2SAT 96–99
[2022-08-02] MEDS: SODIUM CHLORIDE 0.9% 1,000 ML 100 ML IV ×2 (01:01→12:35)
[2022-08-02] MEDS: PIPERACILLIN/TAZO 3.375 GM in SODIUM CHLORIDE 0.9% 100 ML IV ×3 (04:30→20:00)
[2022-08-02] MEDS: ACETAMINOPHEN 325 MG TABLET 975 MG PO (05:22)
[2022-08-02 05:47] LABS: Add Manual Diff / Slide Review YES; Hematocrit 26.9 % (41-53); Hemoglobin 9.3 g/dL (13.5-17.5); Mean Corpuscular HGB Conc 34.7 % (30-36); Mean Corpuscular Hemoglobin 29.6 PG (26-34); Mean Corpuscular Volume 85.3 fL (80-100); Platelet Count 158 X10^3/uL (150-400); Red Blood Cell Count 3.15 X10^6/uL (4.5-5.9); Red Cell Distribution Width 14.4 % (11.6-14.8); White Blood Cell Count 4.3 X10^3/uL (4.5-11.0)
[2022-08-02 05:48] LABS: INR 1.1 (0.9-1.3); Prothrombin Time 12.9 SECONDS (10.1-12.7)
[2022-08-02 06:07] LABS: Alanine Aminotransferase 58 IU/L (<50); Albumin 3.6 g/dL (3.5-5.0); Albumin Globulin Ratio 1.2 (1.0-2.8); Alkaline Phosphatase 164 U/L (38-126); Aspartate Aminotransferase 42 IU/L (17-59); BUN Creatinine Ratio 31.4 (6-22); Bilirubin Total 0.4 mg/dL (0.2-1.3); Blood Urea Nitrogen 22 mg/dL (9-20); Calcium 8.8 mg/dL (8.4-10.2); Carbon Dioxide 25 mmol/L (22-32); Chloride 108 mmol/L (98-107); Estimated Glomerular Filt Rate > 60 mL/min (>60); Globulin 3.1 g/dL (1.7-4.1); Glucose 156 mg/dL (70-100); HEMOLYSIS < 15 (0-50); Potassium 3.7 mmol/L (3.4-5.1); Sodium 139 mmol/L (137-145); Total Protein 6.7 g/dL (6.3-8.2)
[2022-08-02 06:09] LABS: NT-proBNP (BNP-Adult 18+) 437 pg/mL (<125)
[2022-08-02 06:21] LABS: Procalcitonin 0.93 ng/mL (<0.5)
[2022-08-02 07:01] LABS: Neutrophils Absolute Manual 2451 /uL (3000-5900); Platelet Estimate Adeq; RBC Morphology Normal Morphology; Total Cells Counted 100
[2022-08-02 08:49] LABS: Clostridium Difficile Tox PCR Negative for C. diff (Negative)
[2022-08-02] MEDS: LOPERAMIDE 2 MG CAPSULE PO ×3 (09:05→20:44)
[2022-08-02] MEDS: DIPHENOXYLATE/ATROP 2.5/0.025 TABLET 2.5 EACH PO ×3 (09:05→20:43)
[2022-08-02] MEDS: ASPIRIN EC 81 MG TABLET PO (09:05)
[2022-08-02] MEDS: NICOTINE 14 PATCH 14 MG TOP (09:07)
[2022-08-02] MEDS: QUETIAPINE 25 MG TABLET 50 MG PO (09:07)
[2022-08-02] MEDS: ENOXAPARIN 40 MG/0.4 ML SYRINGE SUBCUT (09:07)
[2022-08-02] MEDS: PREGABALIN 75 MG CAPSULE PO ×3 (09:08→20:44)
--- NOTE | 2022-08-02 14:11 | PM.PN.1 ---
Subjective Subjective Interval history: Preferring to nap but no acute new problems Exam Vital Signs (past 8 hours): - 08/02/22 08:17 08/02/22 13:00 Temperature 98.3 F 97.5 F L Pulse Rate 82 60 Respiratory Rate 18 18 Blood Pressure 104/59 L 103/55 L Pulse Oximetry 96 98 Oxygen Flow Rate 0 0 Oxygen Delivery Method Room Air Oxygen Flow Rate 0 Narrative Exam Narrative: General:? oriented to person and possibly place, appears to be in no acute medical distress. HEENT:? Normocephalic, atraumatic, extraocular muscles intact, pupils equal reactive.? Trachea is midline. Respiratory:? Chest clear to auscultation.? No wheezes or crackles. Cardio: regular rate and rhythm with no extra sounds or murmurs Abdomen:? Soft nontender, negative for organomegaly, or masses.? Bowel sounds present. Nontender. Colostomy in place. Musculoskeletal:? Muscle strength and tone are equal within normal limits, no deformity, crepitus, effusions, cyanosis, clubbing or edema present.? Full range of motion intact radial and pedal pulses are normal. Skin:? Very Warm dry and intact without rashes or lesions. ? Neuro:? Orientated to self & possibly place, moves all extremities, sensation to touch intact. Psych:? Patient calm with residual cognitive deficits, and some dysarthria Objective Labs 08/02/22 05:00 08/02/22 05:00 Labs: Laboratory Results - last 24 hr 08/02/22 08/02/22 08/02/22 05:00 05:00 05:00 WBC 4.3 L RBC 3.15 L Hgb 9.3 L Hct 26.9 L MCV 85.3 MCH 29.6 MCHC 34.7 RDW 14.4 Plt Count 158 Neut % (Auto) Not Reportable Lymph % (Auto) Not Reportable [place] % (Auto) Not Reportable Eos % (Auto) Not Reportable Baso % (Auto) Not Reportable Lymph # (Auto) Not Reportable [place] # (Auto) Not Reportable Baso # (Auto) Not Reportable Total Counted 100 Seg Neutrophils % 57.0 Lymphocytes % (Manual) 18.0 L Monocytes % (Manual) 17.0 H Eosinophils % (Manual) 7.0 H Basophils % (Manual) 1.0 Neutrophils # (Manual) 2451 L Platelet Estimate Adeq Plt Morphology Comment Cyber Crime Investigator RBC Morphology Normal morphology PT INR Sodium Cancelled 139 Potassium Cancelled 3.7 Chloride Cancelled 108 H Carbon Dioxide Cancelled 25 BUN Cancelled 22 H Creatinine Cancelled 0.70 Estimated GFR Cancelled > 60 BUN/Creatinine Ratio Cancelled 31.4 H Glucose Cancelled 156 H Calcium Cancelled 8.8 Total Bilirubin Cancelled 0.4 AST Cancelled 42 ALT Cancelled 58 H Alkaline Phosphatase Cancelled 164 H C-Reactive Protein 8.0 H NT-Pro-B Natriuret Pep Total Protein Cancelled 6.7 Albumin Cancelled 3.6 Globulin Cancelled 3.1 Albumin/Globulin Ratio Cancelled 1.2 Procalcitonin 0.93 H C. difficile Tox (PCR) 08/02/22 08/02/22 08/02/22 05:00 05:00 07:59 WBC RBC Hgb Hct MCV MCH MCHC RDW Plt Count Neut % (Auto) Lymph % (Auto) [place] % (Auto) Eos % (Auto) Baso % (Auto) Lymph # (Auto) [place] # (Auto) Baso # (Auto) Total Counted Seg Neutrophils % Lymphocytes % (Manual) Monocytes % (Manual) Eosinophils % (Manual) Basophils % (Manual) Neutrophils # (Manual) Platelet Estimate Plt Morphology Comment RBC Morphology PT 12.9 H INR 1.1 Sodium Potassium Chloride Carbon Dioxide BUN Creatinine Estimated GFR BUN/Creatinine Ratio Glucose Calcium Total Bilirubin AST ALT Alkaline Phosphatase C-Reactive Protein NT-Pro-B Natriuret Pep 437 H Total Protein Albumin Globulin Albumin/Globulin Ratio Procalcitonin C. difficile Tox (PCR) Negative for c. diff [facility] Medical History (Updated 08/01/22 @ 05:03 by VISHAL Chowdhury) Hepatitis C antibody positive in blood History of cardiac arrest History of discitis History of non-ST elevation myocardial infarction (NSTEMI) History of sepsis Hx of ischemic bowel disease 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 Mother No problems noted. Social History household members: family Assessment & Plan Assessment & Plan narrative: 1. Fever of unknown etiology, acute, present on admission -ED:? Temp 102.6?,? Admit 99? -today 100.6 -Recent: ischemic bowel with perforation, positive C diff. 01/2022 -Recent: E faecalis bacteremia 05/07/2022 -blood cultures positive x2 for staph epidermidis on this admission, sensitivity pending. Repeat blood culture results are pending as well. -Recent:diskitis C7-T3 endplate on 05/27/2022 -Hx of MRSA -on admission, no WBC neutrophils 6156, ESR 44, CRP 5.8, procalcitonin 0.78, lactate negative,UA negative, respiratory panel negative, COVID negative, does not meet SIRS criteria, today white blood cells decreased, neutrophils and band neutrophils increased, ESR remains elevated at 41, prolactin increased to 1.28, C-reactive protein 5.8 -BNP 305 initially, follow-up shows 437. We will follow. -NS at 100 cc/HR -continue -has been discontinued to saline lock once in feeding initiated. -Zosyn -adjust per cultures once sensitivity is known -repeat blood cultures -results pending 2. Elevated alkaline phosphate, acute, present on admission -ALT 79, AST 274, PT 14, INR is normal 1.2 PTT 56, total protein 8.4, GGT 117, today alkaline phosphatase trending downward 207 yesterday and today 164 -Hx of positive Hep C -C/A/P CT: Small right pleural effusion mild prominence of distal small bowel loops without raf obstruction -ordered abdominal ultrasound complete, pending -ordered tox screen, ETOH -reported as not present 3. Ischemic bowel with perforation, gastrotomy/Colostomy placement, short gut syndrome, with PEG tube, acute on chronic, present on admission -Continue TPN, Imodium, Lomotil, Lyrica 4. Acute on chronic encephalopathy, with residual neuro deficits, secondary to noxious brain injury following cardiac resuscitation, present on admission -At Baseline 5. Depression with anxiety, chronic, present on admission -Continue hydroxyzine, trazodone, Seroquel, risperidone 6. History of polysubstance abuse, chronic, present on admission -history of marijuana and methamphetamine use, daily smoker, alcohol occasionally. -tox screen-which was never collected as of yet, and ETOH ordered -only alcohol reported as normal not present 7. Tobacco abuse, chronic, present on admission -nicotine patch ordered 8. C difficile toxin screen negative, H pylori test pending Follow labs and clinically. Code status:Full Surrogate decision maker: Mother COVID PCR:Negtaive DVT/VTE prophylaxis:? Lovenox and SCDs Quality VTE Deep Vein Thrombosis/Pulmonary Embolism Present on Admission: No
--- NOTE | 2022-08-02 15:00 | DI.US.S_ITS ---
PROCEDURE: US ABDOMEN COMPLETE INDICATIONS: FEVER; RECENT ISCHEMIC BOWEL TECHNIQUE: Real-time scanning was performed of the abdominal and retroperitoneal organs, with image documentation. COMPARISON: None. FINDINGS: Liver: Hepatic parenchyma shows diffuse increased echogenicity consistent with fatty infiltration. Minimal perihepatic free fluid Gallbladder: Sonolucent without evidence cholelithiasis, gallbladder wall thickening or pericholecystic fluid. No sonographic Haskins sign. Biliary ducts: Intrahepatic bile ducts are non-dilated. Extrahepatic bile duct caliber measures 3.2 mm. Normal is 6-7 mm or less in diameter, or 10 mm or less post-cholecystectomy. Pancreas: Visualized portions of the pancreas are sonographically normal. Spleen: Spleen is normal in size and homogeneous in echotexture. Kidneys: Kidneys are normal in size and echotexture. Right kidney measures 12.3 cm long; left kidney measures 12.3 cm long. No hydronephrosis or nephrolithiasis. No solid masses. Aorta: Visualized aorta is normal in caliber at less than 3 cm. Iliacs: Proximal common iliac arteries are normal in caliber at less than 2.5 cm. IVC: Intrahepatic inferior vena cava is patent. Miscellaneous: No free abdominal fluid. IMPRESSION: Small amount of perihepatic free fluid. Hepatic fatty infiltration Approved by: Jose Alberto Figueredo M.D. on 08/02/2022 at 16:09
[2022-08-02] MEDS: SODIUM CHLORIDE 0.9% FLUSH 10 ML IV (16:08)
[2022-08-02] MEDS: AA 5 %/CALCIUM/LYTES/DEXT 20 % 1,500 ML with MULTIVITAMIN 10 ML, TRACE ELEMENTS 1 ML 125.917 ML IV (18:06)
[2022-08-02] MEDS: TRAZODONE 50 MG TABLET PO (20:43)
[2022-08-02] MEDS: QUETIAPINE 25 MG TABLET 100 MG PO (20:44)
--- NOTE | 2022-08-02 21:16 | PC.NURSE ---
Patient is alert and oriented to self, birthdate, age and situation. Speech is slurred and difficult to understand at times. Breath sounds diminished but CTA with RA sat of 99%. HRR w/telemetry reading of SR. Denies nausea. Has gastrostomy tube but, per Mom, is not being used as patient is receiving TPN and also takes food/fluids orally. BT present and has ostomy on left abdomen; has been having loose stools and is receiving Lomotil as well as Imodium. Voiding per urinal and denies dysuria. Is able to move himself in bed. Gait not assessed but reportedly is up with walker and 1 assist. Denies pain. Bilateral calf SCD's applied. Fall risk score is high; bed alarm in use when Mom not present in room.
[2022-08-02 21:37] LABS: UR Morphine/Opiate cutoff 300 Negative (Negative); Ur Creatinine 20 (Normal); Ur Specific Gravity 1.025 (Normal); Urine Amphetamines Negative (Negative); Urine Barbiturates Negative (Negative); Urine Benzodiazepines Negative (Negative); Urine Cocaine Negative (Negative); Urine MDMA Negative (Negative); Urine Methadone Negative (Negative); Urine Methamphetamines Negative (Negative); Urine Oxycodone Negative (Negative); Urine Phencyclidine Negative (Negative); Urine Tetrahydrocannabinol Negative (Negative); Urine Tricyclic Antidepressant Negative (Negative); Urine pH 5 (Normal)
[2022-08-03] MEDS: PIPERACILLIN/TAZO 3.375 GM in SODIUM CHLORIDE 0.9% 100 ML IV (04:02)
[2022-08-03 04:30] VITALS: BP 117/64; PULSE 65; RESP 17; TEMP 36.5; O2SAT 97
[2022-08-03 05:20] LABS: Add Manual Diff / Slide Review NO; Basophils Absolute Auto 0 /uL (0-100); Basophils Percent Auto 0.4 % (0-2); Eosinophils Absolute Auto 400 /uL (0-450); Eosinophils Percent Auto 9.3 % (2-4); Hemoglobin 9.4 g/dL (13.5-17.5); Lymphocytes Absolute Auto 1300 /uL (1100-4500); Lymphocytes Percent Auto 33.1 % (25-40); Mean Corpuscular HGB Conc 34.9 % (30-36); Mean Corpuscular Hemoglobin 29.5 PG (26-34); Mean Corpuscular Volume 84.5 fL (80-100); Monocytes Absolute Auto 600 /uL (0-900); Neutrophils Absolute Auto 1600 /uL (1500-7000); Neutrophils Percent Auto 41.2 % (50-75); Platelet Count 203 X10^3/uL (150-400); Red Cell Distribution Width 14.1 % (11.6-14.8)
[2022-08-03 05:28] LABS: Alanine Aminotransferase 51 IU/L (<50); Albumin 3.8 g/dL (3.5-5.0); Albumin Globulin Ratio 1.1 (1.0-2.8); Alkaline Phosphatase 161 U/L (38-126); Aspartate Aminotransferase 35 IU/L (17-59); BUN Creatinine Ratio 30.8 (6-22); Bilirubin Total 0.3 mg/dL (0.2-1.3); Blood Urea Nitrogen 20 mg/dL (9-20); Carbon Dioxide 27 mmol/L (22-32); Chloride 105 mmol/L (98-107); Estimated Glomerular Filt Rate > 60 mL/min (>60); Globulin 3.4 g/dL (1.7-4.1); Glucose 138 mg/dL (70-100); HEMOLYSIS < 15 (0-50); Potassium 3.5 mmol/L (3.4-5.1); Sodium 140 mmol/L (137-145); Total Protein 7.2 g/dL (6.3-8.2)
[2022-08-03 05:29] LABS: C-Reactive Protein Quant 5.3 mg/dL (<1.0)
[2022-08-03 05:50] LABS: NT-proBNP (BNP-Adult 18+) 607 pg/mL (<125)
[2022-08-03 08:36] VITALS: TEMP 36.4
[2022-08-03] MEDS: NICOTINE 14 PATCH 14 MG TOP (09:10)
[2022-08-03] MEDS: QUETIAPINE 25 MG TABLET 50 MG PO (09:11)
[2022-08-03] MEDS: LOPERAMIDE 2 MG CAPSULE PO ×4 (09:11→21:13)
[2022-08-03] MEDS: FUROSEMIDE 20 MG TABLET PO (09:12)
[2022-08-03] MEDS: PREGABALIN 75 MG CAPSULE PO ×3 (09:12→21:12)
[2022-08-03] MEDS: ASPIRIN EC 81 MG TABLET PO (09:12)
[2022-08-03] MEDS: DIPHENOXYLATE/ATROP 2.5/0.025 TABLET 2.5 EACH PO ×4 (09:12→21:13)
[2022-08-03] MEDS: SODIUM CHLORIDE 0.9% FLUSH 10 ML IV (09:13)
[2022-08-03] MEDS: ENOXAPARIN 40 MG/0.4 ML SYRINGE SUBCUT (09:13)
[2022-08-03 09:38] VITALS: BP 115/57; PULSE 77; RESP 18; TEMP 36.6; O2SAT 97
--- NOTE | 2022-08-03 11:27 | PM.PN.1 ---
Subjective Subjective Interval history: Patient has been up and about already today. However is wanting a nap at this time. Both patient and nursing and mother have no concerns so far today. Informed the mother that transitioned will be to oral antibiotics at this time. If patient remains stable in the morning and BNP is decreased will expect discharge. Exam Vital Signs (past 8 hours): - 08/03/22 04:30 08/03/22 08:36 08/03/22 09:38 Temperature 97.7 F 97.6 F 97.9 F Pulse Rate 65 77 Respiratory Rate 17 18 Blood Pressure 117/64 115/57 L Pulse Oximetry 97 97 Oxygen Flow Rate 0 0 Oxygen Delivery Method Room Air Oxygen Flow Rate 0 Narrative Exam Narrative: General:? appears to be in no acute medical distress. HEENT:? Normocephalic.? Trachea is midline. Respiratory:? Chest clear to auscultation.? No wheezes or crackles. Cardio: regular rate and rhythm with no extra sounds or murmurs Abdomen:? Soft nontender, negative for organomegaly, or masses.? Bowel sounds present.? Nontender.? Colostomy in place. Musculoskeletal:? Muscle strength and tone are equal within normal limits. ? Full range of motion intact radial and pedal pulses are normal. Skin:? Very Warm dry and intact without rashes or lesions. ? Neuro:? moves all extremities, sensation to touch intact. Psych:? Patient calm with residual cognitive deficits, and some dysarthria Objective Labs 08/03/22 04:43 08/03/22 04:43 Labs: Laboratory Results - last 24 hr 08/02/22 08/03/22 08/03/22 21:00 04:43 04:43 WBC 4.0 L RBC 3.20 L Hgb 9.4 L Hct 27.0 L MCV 84.5 MCH 29.5 MCHC 34.9 RDW 14.1 Plt Count 203 Neut % (Auto) 41.2 L D Lymph % (Auto) 33.1 [place] % (Auto) 16.0 H Eos % (Auto) 9.3 H Baso % (Auto) 0.4 Neut # (Auto) 1600 Lymph # (Auto) 1300 [place] # (Auto) 600 Eos # (Auto) 400 Baso # (Auto) 0 Sodium 140 Potassium 3.5 Chloride 105 Carbon Dioxide 27 BUN 20 Creatinine 0.65 L Estimated GFR > 60 BUN/Creatinine Ratio 30.8 H Glucose 138 H Calcium 9.0 Total Bilirubin 0.3 AST 35 ALT 51 H Alkaline Phosphatase 161 H C-Reactive Protein NT-Pro-B Natriuret Pep Total Protein 7.2 Albumin 3.8 Globulin 3.4 Albumin/Globulin Ratio 1.1 U Opiates 300ng/mL cut Negative Ur Oxycodone Screen Negative Urine Methadone Screen Negative Ur Barbiturates Screen Negative U Tricyclic Antidepress Negative Ur Phencyclidine Scrn Negative Ur Amphetamines Screen Negative U Methamphetamines Scrn Negative Ur MDMA Scrn (Ecstasy) Negative U Benzodiazepines Scrn Negative Urine Cocaine Screen Negative U Marijuana (THC) Screen Negative 08/03/22 08/03/22 04:43 04:43 WBC RBC Hgb Hct MCV MCH MCHC RDW Plt Count Neut % (Auto) Lymph % (Auto) [place] % (Auto) Eos % (Auto) Baso % (Auto) Neut # (Auto) Lymph # (Auto) [place] # (Auto) Eos # (Auto) Baso # (Auto) Sodium Potassium Chloride Carbon Dioxide BUN Creatinine Estimated GFR BUN/Creatinine Ratio Glucose Calcium Total Bilirubin AST ALT Alkaline Phosphatase C-Reactive Protein 5.3 H NT-Pro-B Natriuret Pep 607 H Total Protein Albumin Globulin Albumin/Globulin Ratio U Opiates 300ng/mL cut Ur Oxycodone Screen Urine Methadone Screen Ur Barbiturates Screen U Tricyclic Antidepress Ur Phencyclidine Scrn Ur Amphetamines Screen U Methamphetamines Scrn Ur MDMA Scrn (Ecstasy) U Benzodiazepines Scrn Urine Cocaine Screen U Marijuana (THC) Screen [facility] Medical History (Updated 08/01/22 @ 05:03 by VISHAL Chowdhury) Hepatitis C antibody positive in blood History of cardiac arrest History of discitis History of non-ST elevation myocardial infarction (NSTEMI) History of sepsis Hx of ischemic bowel disease 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 Mother No problems noted. Social History household members: family Assessment & Plan Assessment & Plan narrative: 1. Fever of unknown etiology, acute, present on admission -ED:? Temp 102.6?,? Admit 99? -today 97.9 -Recent: ischemic bowel with perforation, positive C diff. 01/2022 -Recent: E faecalis bacteremia 05/07/2022 -blood cultures positive x2 for staph epidermidis on this admission, sensitivity pending.? Repeat blood culture results are pending as well. -Recent:diskitis C7-T3 endplate on 05/27/2022 -Hx of MRSA -on admission, no WBC neutrophils 6156, ESR 44, CRP 5.8, procalcitonin 0.78, lactate negative, UA negative, respiratory panel negative, COVID negative, does not meet SIRS criteria, today re-evaluating procalcitonin. C-reactive protein 5.3 today -BNP 305 initially, follow-up shows 607.? Initiate furosemide 20 mg daily. We will follow. If consistently down tomorrow can consider discharge with a short course of furosemide daily. -NS at 100 cc/HR -continue -has been discontinued to saline lock once in feeding initiated. -Zosyn -since sensitivities are no contributes to oral antibiotics and will choose doxycycline on discussion with pharmacist. -repeat blood cultures -negative 2. Elevated alkaline phosphate, acute, present on admission -ALT 79, AST 274, PT 14, INR is normal 1.2 PTT 56, total protein 8.4, GGT 117, today alkaline phosphatase trending downward 207 yesterday and today 164 -Hx of positive Hep C -C/A/P CT: Small right pleural effusion mild prominence of distal small bowel loops without raf obstruction -ordered abdominal ultrasound complete, pending -ordered tox screen, ETOH -reported as not present 3. Ischemic bowel with perforation, gastrotomy/Colostomy placement, short gut syndrome, with PEG tube, acute on chronic, present on admission -Continue TPN, Imodium, Lomotil, Lyrica 4. Acute on chronic encephalopathy, with residual neuro deficits, secondary to noxious brain injury following cardiac resuscitation, present on admission -At Baseline 5. Depression with anxiety, chronic, present on admission -Continue hydroxyzine, trazodone, Seroquel, risperidone 6. History of polysubstance abuse, chronic, present on admission -history of marijuana and methamphetamine use, daily smoker, alcohol occasionally. -tox screen-which was never collected as of yet, and ETOH ordered -only alcohol reported as normal not present 7. Tobacco abuse, chronic, present on admission -nicotine patch ordered 8. C difficile toxin screen negative, H pylori test pending 9. Elevated BNP. Initiated furosemide. Follow BNP and evaluate for discharge tomorrow. Follow labs and clinically. Code status:Full Surrogate decision maker: Mother COVID PCR:Negtaive DVT/VTE prophylaxis:? Lovenox and SCDs Quality VTE Deep Vein Thrombosis/Pulmonary Embolism Present on Admission: No
[2022-08-03] MEDS: DOXYCYCLINE HYCLATE 100 MG TABLET PO ×2 (12:46→21:12)
--- NOTE | 2022-08-03 15:31 | CM.DPC ---
DCP Home infusion and HH planning Per MD, pt making progress and awaiting final cultures for plan of home tomorrow on oral abx. SW met bedside with pt and mother and explained role and they confirm that pt has been ambulating the halls with walker and mother SBA and they are feeling comfortable with d/c back home tomorrow if stable. They confirm they receive their TPN through [facility] and are open with [facility] for RN/PT/OT and inquiring if pt's weekly lab draws for TPN could be completed by [facility] RN. No further concerns with d/c and would like to d/c with [facility] and [facility]. Pt's mother states her Dtr will be arriving tomorrow to stay for many months as her is about to be deployed for 7 months and Dtr is a [employer] and will assist with CG needs through pt's DAVID hours as they have CG through [facility] but more hours then their CG can assist with so Dtr will attempt to help provide the remaining hours through [facility]. VICENTE called [facility] [phone] and spoke to Pharmacist Mary who follows for pt and she requested clinicals be faxed to [phone] to review in anticipation of pt d/c tomorrow. SW faxed requested clinicals. VICENTE called [facility] and left msg with Brianne with inquiry about doing pt's weekly lab draws and faxed clinicals for review towards [facility]. Plan: SW to follow tomorrow for coordinating with [facility] and [facility] for return home with family support and DAVID. ITZ Elena
[2022-08-03 16:00] VITALS: BP 103/64; PULSE 63; RESP 18; TEMP 36.9; O2SAT 95
[2022-08-03] MEDS: FAT EMULSIONS 50 GM/250 ML EMULSION IV (18:37)
[2022-08-03] MEDS: AA 5 %/CALCIUM/LYTES/DEXT 20 % 1,500 ML with MULTIVITAMIN 10 ML, TRACE ELEMENTS 1 ML, P... 127.583 ML IV (18:40)
[2022-08-03 19:55] VITALS: BP 98/68; PULSE 69; RESP 20; TEMP 36.9; O2SAT 98
[2022-08-03] MEDS: TRAZODONE 50 MG TABLET PO (21:13)
[2022-08-03] MEDS: QUETIAPINE 25 MG TABLET 100 MG PO (21:13)
--- NOTE | 2022-08-03 21:29 | PC.NURSE ---
Patient is alert and oriented except to date; knows he is in the hospital but thought town was [place]. Breath sounds diminished but CTA with RA sat of 98%. HRR with telemetry reading of SR. BP low at 98/68 and has trended low. Denies nausea. Currently has TPN + Lipids infusing via port. Has gastrostomy tube which is not being used; tube appears to have black substance present and mom reports she had flakes of black material around tube stoma tonight. Is voiding per urinal and denies dysuria. Is able to turn himself in bed. Reports he ambulated in [place] earlier today with walker and 1 assist and mom feels his mobility is at baseline. Does have weakness in bilateral hands left > right. Denies pain. Refusing SCD's so reminded to ankle wave. Fall risk score is high and bed alarm is activated when mom not in room.
[2022-08-04 00:36] VITALS: BP 101/52; PULSE 66; RESP 20; TEMP 36.2; O2SAT 97
[2022-08-04 04:00] VITALS: BP 109/57; PULSE 54; RESP 19; TEMP 36.4; O2SAT 97
[2022-08-04 05:37] LABS: Add Manual Diff / Slide Review NO; Basophils Absolute Auto 0 /uL (0-100); Basophils Percent Auto 0.6 % (0-2); Eosinophils Absolute Auto 300 /uL (0-450); Eosinophils Percent Auto 8.7 % (2-4); Hematocrit 28.7 % (41-53); Hemoglobin 9.9 g/dL (13.5-17.5); Lymphocytes Absolute Auto 1400 /uL (1100-4500); Lymphocytes Percent Auto 37.5 % (25-40); Mean Corpuscular HGB Conc 34.5 % (30-36); Mean Corpuscular Hemoglobin 29.1 PG (26-34); Mean Corpuscular Volume 84.2 fL (80-100); Monocytes Absolute Auto 500 /uL (0-900); Monocytes Percent Auto 12.7 % (3-14); Neutrophils Absolute Auto 1500 /uL (1500-7000); Neutrophils Percent Auto 40.5 % (50-75); Platelet Count 250 X10^3/uL (150-400); Red Blood Cell Count 3.41 X10^6/uL (4.5-5.9); Red Cell Distribution Width 14.1 % (11.6-14.8); White Blood Cell Count 3.8 X10^3/uL (4.5-11.0)
[2022-08-04 05:46] LABS: Alanine Aminotransferase 48 IU/L (<50); Albumin 4.1 g/dL (3.5-5.0); Albumin Globulin Ratio 1.2 (1.0-2.8); Alkaline Phosphatase 169 U/L (38-126); Aspartate Aminotransferase 32 IU/L (17-59); BUN Creatinine Ratio 35.4 (6-22); Bilirubin Total 0.5 mg/dL (0.2-1.3); Blood Urea Nitrogen 23 mg/dL (9-20); Calcium 9.2 mg/dL (8.4-10.2); Carbon Dioxide 25 mmol/L (22-32); Chloride 105 mmol/L (98-107); Estimated Glomerular Filt Rate > 60 mL/min (>60); Globulin 3.3 g/dL (1.7-4.1); Glucose 141 mg/dL (70-100); HEMOLYSIS < 15 (0-50); Potassium 4.1 mmol/L (3.4-5.1); Sodium 139 mmol/L (137-145); Total Protein 7.4 g/dL (6.3-8.2)
[2022-08-04 05:52] LABS: NT-proBNP (BNP-Adult 18+) 268 pg/mL (<125)
[2022-08-04] MEDS: SODIUM CHLORIDE 0.9% FLUSH 10 ML IV (06:42)
[2022-08-04 08:00] VITALS: BP 107/51; PULSE 68; RESP 16; TEMP 36.5; O2SAT 97
--- NOTE | 2022-08-04 08:54 | P.DS_ITS ---
History of Present Illness History of Present Illness Date Patient Seen: 07/31/22 Chief complaint: low grade fever 101-103 Narrative: Storm Lee is a 42-year-old male previously homeless with a history of polysubstance abuse who was admitted to [facility] on 01/16/2022 for ischemic bowel with perforation, status post ex-lap and bowel resection C/B short gut syndrome with history of C diff, requiring TPN and tube feedings, also during hospitalization patient developed severe rhabdo, DORA, hypoxic cardiac arrest with brief CPR VAP and CAUTI, also patient had complication of E faecalis bacteremia 05/07 and diskitis C7-T3 endplate on 05/27/2022-patient was on 6 weeks IV antibiotic course to end on 06/23/2022, history of acute on chronic encephalopathy- 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 During hospitalization at [place] patient was intubated, received cardiac resuscitation, had bronchoscopy, gastrostomy tube placement, multiple laparotomies with colostomy placed, tracheostomy, with right chest port placement. Patient now lives with his mother who brought him in following a few days of fever of unknown etiology. Patient demonstrated a fever of 102.6 in ED, was given Tylenol, 1 L bolus of fluid and Zosyn. Due to patient's anoxic brain injury residual affects unable to obtain accurate HPI, ROS or family history. Patient does verbalize on admit that he feels poorly but denies any specific pain or discomfort. Admit temp 99?, BP 113/51, HR 98, RR 16, O2 saturation 97% on room air. No WBC neutrophils 6156, ESR 44, CRP 5.8, procalcitonin 0.78, lactate negative, H&H 11.5/33, sodium 134, BUN 23, ALT 79, AST 274, PT 14, INR is normal 1.2 PTT 56, total protein 8.4, UA negative, respiratory panel negative, COVID negative, sofa score 0, does not meet SIRS criteria. C/A/P CT: Small right pleural effusion mild prominence of distal small bowel loops without raf obstruction. Patient admitted for fever of unknown etiology. Discharge Providers Provider Date of admission: 07/31/22 20:01 Discharge Date: 08/04/22 Discharge provider: Mateo Bro DO Summary Hospital Course Discharge Diagnosis: 1. Fever of unknown etiology, acute, present on admission -ED:? Temp 102.6?,? Admit 99? -today 97.9 -Recent: ischemic bowel with perforation, positive C diff. 01/2022 -Recent: E faecalis bacteremia 05/07/2022 -blood cultures positive x2 for staph epidermidis on this admission, sensitivity pending.? Repeat blood culture results are pending as well. -Recent:diskitis C7-T3 endplate on 05/27/2022 -Hx of MRSA -on admission, no WBC neutrophils 6156, ESR 44, CRP 5.8, procalcitonin 0.78, lactate negative, UA negative, respiratory panel negative, COVID negative, does not meet SIRS criteria, today re-evaluating procalcitonin.? C-reactive protein 5.3 today -BNP 305 initially, follow-up shows 607.? Initiate furosemide 20 mg daily.? We will follow.? If consistently down tomorrow can consider discharge with a short course of furosemide daily. -NS at 100 cc/HR -continue -has been discontinued to saline lock once in feeding initiated. -Zosyn -since sensitivities are no contributes to oral antibiotics and will choose doxycycline on discussion with pharmacist. -repeat blood cultures -negative 2. Elevated alkaline phosphate, acute, present on admission -ALT 79, AST 274, PT 14, INR is normal 1.2 PTT 56, total protein 8.4, GGT 117, today alkaline phosphatase trending downward 207 yesterday and today 164 -Hx of positive Hep C -C/A/P CT: Small right pleural effusion mild prominence of distal small bowel loops without raf obstruction -ordered abdominal ultrasound complete, pending -ordered tox screen, ETOH -reported as not present 3. Ischemic bowel with perforation, gastrotomy/Colostomy placement, short gut syndrome, with PEG tube, acute on chronic, present on admission -Continue TPN, Imodium, Lomotil, Lyrica 4. Acute on chronic encephalopathy, with residual neuro deficits, secondary to noxious brain injury following cardiac resuscitation, present on admission -At Baseline 5. Depression with anxiety, chronic, present on admission -Continue hydroxyzine, trazodone, Seroquel, risperidone 6. History of polysubstance abuse, chronic, present on admission -history of marijuana and methamphetamine use, daily smoker, alcohol occasionally. -tox screen-which was never collected as of yet, and ETOH ordered -only alcohol reported as normal not present 7. Tobacco abuse, chronic, present on admission -nicotine patch ordered 8. C difficile toxin screen negative, H pylori test pending 9. Elevated BNP.? Initiated furosemide.? Follow BNP and evaluate for discharge tomorrow. Hospital Course: Admitted for fevers of unknown source. All imaging negative. Blood cultures in 2/4 bottles positive for staph epi sensitive to doxy. Source likely patient's port. His fevers improved and resolved with IV abx. Due to no evidence of port infection, repeat blood cultures neg at 48 hours, no prosthetic devices and no signs of metastatic infection patient able to discharge home on po doxy to complete 5 days. Time Spent with Patient Time spent: Greater than 30 minutes Exam Vital Signs (past 8 hours): - 08/04/22 04:00 Temperature 97.5 F L Pulse Rate 54 L Respiratory Rate 19 Blood Pressure 109/57 L Pulse Oximetry 97 Oxygen Flow Rate 0 Oxygen Delivery Method Room Air Oxygen Flow Rate 0 Narrative Exam Narrative: General:? appears to be in no acute medical distress. HEENT:? Normocephalic.? Trachea is midline. Respiratory:? Chest clear to auscultation.? No wheezes or crackles. Cardio: regular rate and rhythm with no extra sounds or murmurs Abdomen:? Soft nontender, negative for organomegaly, or masses.? Bowel sounds present.? Nontender.? Colostomy in place. Musculoskeletal:? Muscle strength and tone are equal within normal limits. ? Full range of motion intact radial and pedal pulses are normal. Skin:? Very Warm dry and intact without rashes or lesions. ? Neuro:? moves all extremities, sensation to touch intact. Psych:? Patient calm with residual cognitive deficits, and some dysarthria Objective Labs 08/04/22 05:00 08/04/22 05:00 Labs: Laboratory Results - last 24 hr 08/03/22 08/04/22 08/04/22 04:43 05:00 05:00 WBC 3.8 L RBC 3.41 L Hgb 9.9 L Hct 28.7 L MCV 84.2 MCH 29.1 MCHC 34.5 RDW 14.1 Plt Count 250 Neut % (Auto) 40.5 L Lymph % (Auto) 37.5 [place] % (Auto) 12.7 Eos % (Auto) 8.7 H Baso % (Auto) 0.6 Neut # (Auto) 1500 Lymph # (Auto) 1400 [place] # (Auto) 500 Eos # (Auto) 300 Baso # (Auto) 0 Sodium 139 Potassium 4.1 Chloride 105 Carbon Dioxide 25 BUN 23 H Creatinine 0.65 L Estimated GFR > 60 BUN/Creatinine Ratio 35.4 H Glucose 141 H Calcium 9.2 Total Bilirubin 0.5 AST 32 ALT 48 Alkaline Phosphatase 169 H NT-Pro-B Natriuret Pep 268 H Total Protein 7.4 Albumin 4.1 Globulin 3.3 Albumin/Globulin Ratio 1.2 Procalcitonin 0.50 PFSH Medical History (Updated 08/01/22 @ 05:03 by PHILOMENA Chowdhury-MALIHA) Hepatitis C antibody positive in blood History of cardiac arrest History of discitis History of non-ST elevation myocardial infarction (NSTEMI) History of sepsis Hx of ischemic bowel disease 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 Mother No problems noted. Social History household members: family Discharge Plan Discharge Plan Patient Disposition: Home Provider Discharge Comment: You were admitted for fevers and found to have positive blood cultures which likely was a result of your port allowing bacteria to enter your blood. Your blood cultures cleared quickly and were negative on repeat check, so you will only need to complete 5 days of oral antibiotics. Discharge orders & Medications Prescriptions: New doxycycline hyclate 100 mg Tablet 100 mg PO BID 4 Days Qty: 8 0RF Rx Instructions: swallow completely and don't lie down for 1 hour after taking Continued acetaminophen 325 mg tablet 650 mg PO Q6H PRN (Reason: Pain (Scale Score 1-3)) trazodone 50 mg tablet 50 mg PO BEDTIME loperamide [Anti-Diarrheal (loperamide)] 2 mg tablet 2 mg PO QID diphenoxylate-atropine 2.5-0.025 mg tablet 2.5 tab PO QID aspirin 81 mg tablet,delayed release (DR/EC) 81 mg PO DAILY risperidone 1 mg tablet 1 mg PO BID PRN (Reason: Agitation) hydroxyzine pamoate 25 mg capsule 25 mg PO Q6H pregabalin 75 mg capsule 75 mg PO TID quetiapine 50 mg tablet 50 mg PO DAILY quetiapine 50 mg tablet 100 mg PO BEDTIME Follow up/Referrals: Miscellaneous,Doctor, MD [Non-Staff] - Visit Report/Discharge Packet Stand Alone Forms: Patient Portal/API, Stroke Signs & Symptoms Discharges patient from system. Discharge Date/Time: 08/04/22 10:13 Quality VTE Deep Vein Thrombosis/Pulmonary Embolism Present on Admission: No
[2022-08-04] MEDS: NICOTINE 14 PATCH 14 MG TOP (09:32)
[2022-08-04] MEDS: QUETIAPINE 25 MG TABLET 50 MG PO (09:32)
[2022-08-04] MEDS: DIPHENOXYLATE/ATROP 2.5/0.025 TABLET 2.5 EACH PO (09:32)
[2022-08-04] MEDS: LOPERAMIDE 2 MG CAPSULE PO (09:33)
[2022-08-04] MEDS: ENOXAPARIN 40 MG/0.4 ML SYRINGE SUBCUT (09:33)
[2022-08-04] MEDS: DOXYCYCLINE HYCLATE 100 MG TABLET PO (09:33)
[2022-08-04] MEDS: ASPIRIN EC 81 MG TABLET PO (09:33)
[2022-08-04] MEDS: PREGABALIN 75 MG CAPSULE PO (09:33)
[2022-08-04] MEDS: FUROSEMIDE 20 MG TABLET PO (09:33)
--- NOTE | 2022-08-04 12:50 | CM.DPC ---
DCP Discharge Home Per MD, pt is stable to d/c home today on orals and continue TPN and [facility]. Pt's family was bedside and agreeable with transporting pt home as he also has family assist and DAVID CG at baseline. SW faxed d/c summary to [facility] for continued TPN. SW faxed d/c summary and Res[facility] orders to [facility] to review. Plan: Patient to d/c home today via family POV and ongoing [facility] for TPN and [facility]. ITZ Elena
[2022-08-05 13:11] LABS: H. Pylori Antigen Stool Negative (Negative)
--- NOTE | 2022-08-06 08:25 | PC.NURSE ---
Late Entry: WednesdayAugust 03. Patient was initially given 2.5 tablets of lomotil and one of the tablets fell on the floor. Picked up and wasted. CLL.
== END 2022-08-04 10:13 | disposition home health service (06) | DRG 722 ==
LOC: ED 19:17 → AC 08-01 08:59
PROVIDERS: Neuromusculoskeletal Medicine, Sports Medicine; Admitting Provider Nurse Practitioner Family; Emergency Provider Emergency Medicine; Visit Provider Nurse Practitioner Family
DX: R50.9 Fever, unspecified (principal); G93.40 Encephalopathy, unspecified; R29.818 Other symptoms and signs involving the nervous system; F32.A Depression, unspecified; F41.9 Anxiety disorder, unspecified; R74.8 Abnormal levels of other serum enzymes; K91.2 Postsurgical malabsorption, not elsewhere classified; B95.7 Other staphylococcus as the cause of diseases classified elsewhere; F17.200 Nicotine dependence, unspecified, uncomplicated; Z93.3 Colostomy status; Z86.19 Personal history of other infectious and parasitic diseases; Z20.822 Contact with and (suspected) exposure to COVID-19; Z93.1 Gastrostomy status
CPT/HCPCS: 36415; 71045; 71250; 74176; 76700; 80053; 80305; 80320; 81003; 81015; 82977; 83605; 83690; 83735; 83880; 84145; 85007; 85025; 85610; 85651; 85730; 86140; 87040; 87045; 87154; 87186; 87338; 87493; 87633; 87797; 87899; 93005; 93010; 96365; 99284; B4185; B4189; J1642; J1650; J2543; J3480

== ENCOUNTER 2022-10-13 19:10 | Inpatient (IN) | payer OTHER, MEDICAID, SELFPAY ==
[2022-07-31 20:22] VITALS: BMI 24.0
[2022-10-13] VITALS (16 sets, daily range): BP systolic 96–127; BP diastolic 53–88; PULSE 71–99; RESP 13–25; TEMP 36.8–38.6; O2SAT 93–98
--- NOTE | 2022-10-13 19:32 | DI.RAD.S_ITS ---
PROCEDURE: XR CHEST 1V INDICATIONS: suspected sepsis TECHNIQUE: One view of the chest was acquired. COMPARISON: [facility], CR, XR CHEST 1V, 07/31/2022, 14:15. FINDINGS: Surgical changes and devices: Right chest Port-A-Cath Lungs and pleura: Interstitial pulmonary edema versus diffuse viral pneumonitis. No pleural effusions or pneumothorax. Mediastinum: Mediastinal contours appear normal. Heart size is normal. Bones and chest wall: No suspicious bony lesions. Overlying soft tissues appear unremarkable. IMPRESSION: Interstitial pulmonary edema versus diffuse viral pneumonitis. Dictated by: Vivek Bowles M.D. on 10/13/2022 at 19:54 Approved by: Vivek Bowles M.D. on 10/13/2022 at 19:55
[2022-10-13] MEDS: SODIUM CHLORIDE 0.9% 1,000 ML 1000 ML IV (20:07)
--- NOTE | 2022-10-13 20:15 | PC.NURSE ---
Patient refused second set of blood cultures to be drawn by lab. Patient states I have a port and don't want to be poked! This nurse educated that the first set of blood cultures have been drawn through the port, however, a second set needs to be from a different source. Patient still declines lab draw. Dr. Jacob aware.
[2022-10-13 20:30] LABS: INR 1.4 (0.9-1.3); Prothrombin Time 15.9 SECONDS (10.1-12.7)
--- NOTE | 2022-10-13 20:30 | PC.NURSE ---
Patient's mother/ caregiver at bedside reports aptient takes seroquel 100mg, an antidiarrheal, tylenol 500mg and respirodone 1mg. Asking if he is OK to take right now. This nurse clarified with Dr. Jacob. Dr. Jacob states OK to give. Meds listed above given at 20:30
[2022-10-13 20:33] LABS: PTT Partial Thromboplastin Tim 29 SECONDS (26-36)
[2022-10-13 20:34] LABS: Alanine Aminotransferase 65 IU/L (<50); Albumin 3.6 g/dL (3.5-5.0); Albumin Globulin Ratio 0.9 (1.0-2.8); Alkaline Phosphatase 478 U/L (38-126); Aspartate Aminotransferase 30 IU/L (17-59); BUN Creatinine Ratio 28.4 (6-22); Bilirubin Total 0.5 mg/dL (0.2-1.3); Blood Urea Nitrogen 19 mg/dL (9-20); Calcium 9.1 mg/dL (8.4-10.2); Carbon Dioxide 21 mmol/L (22-32); Chloride 104 mmol/L (98-107); Estimated Glomerular Filt Rate > 60 mL/min (>60); Globulin 4.2 g/dL (1.7-4.1); Glucose 113 mg/dL (70-100); HEMOLYSIS < 15 (0-50); Hemoglobin 7.3 g/dL (13.5-17.5); Lipase 30 U/L (23-300); Mean Corpuscular Hemoglobin 25.8 PG (26-34); Platelet Count 460 X10^3/uL (150-400); Potassium 4.1 mmol/L (3.4-5.1); Red Blood Cell Count 2.83 X10^6/uL (4.5-5.9); Sodium 136 mmol/L (137-145); Total Protein 7.8 g/dL (6.3-8.2); White Blood Cell Count 14.6 X10^3/uL (4.5-11.0)
[2022-10-13 20:35] LABS: Lactate (Lactic Acid) 1.2 mmol/L (0.7-2.1)
[2022-10-13 20:51] LABS: Procalcitonin 4.22 ng/mL (<0.5)
[2022-10-13 20:53] LABS: Add Manual Diff / Slide Review YES
[2022-10-13 20:57] LABS: Microcytosis 1+; Neutrophils Absolute Manual 11242 /uL (3000-5900); Total Cells Counted 100
--- NOTE | 2022-10-13 21:06 | ED_ITS ---
HPI - Abdominal Pain General Chief Complaint: Fever Stated Complaint: fever, vomiting Time Seen by Provider: 10/13/22 20:59 Source: patient Mode of arrival: Ambulatory History of Present Illness HPI narrative: Storm Lee is a 42-year-old male previously homeless with a history of polysubstance abuse who was admitted to [facility] on 01/16/2022 for ischemic bowel with perforation, status post ex-lap and bowel resection C/B shor t gut syndrome with history of C diff, requiring TPN, hypoxic cardiac arrest with CPR and TBI, presenting today with diarrhea for the last 4 days. Mom reports that through the ostomy he is had green loose stool. Tonight while eating dinner he vomited. He is had increased weakness he is had fever. He is febrile here today at 1:01 a.m.. He is awake alert but overall mom is historian. He previously been admitted July 31 through August 04 with fever of unknown origin. Suspected port infection however report read or painful today. No real other complaints. Related Data Home Medications Medication Instructions Recorded Confirmed acetaminophen 325 mg tablet 650 mg PO Q6H PRN Pain (Scale 07/31/22 07/31/22 Score 1-3) aspirin 81 mg tablet,delayed 81 mg PO DAILY 07/31/22 07/31/22 release diphenoxylate-atropine 2.5 2.5 tab PO QID 07/31/22 07/31/22 mg-0.025 mg tablet hydroxyzine pamoate 25 mg capsule 25 mg PO Q6H 07/31/22 07/31/22 loperamide 2 mg tablet 2 mg PO QID 07/31/22 07/31/22 (Anti-Diarrheal (loperamide)) pregabalin 75 mg capsule 75 mg PO TID 07/31/22 07/31/22 quetiapine 50 mg tablet 50 mg PO DAILY 07/31/22 07/31/22 quetiapine 50 mg tablet 100 mg PO BEDTIME 07/31/22 07/31/22 risperidone 1 mg tablet 1 mg PO BID PRN Agitation 07/31/22 07/31/22 trazodone 50 mg tablet 50 mg PO BEDTIME 07/31/22 07/31/22 Allergies Allergy/AdvReac Type Severity Reaction Status Date / Time No Known Drug Allergies Allergy Verified 10/13/22 19:25 Review of Systems Review of Systems ROS Unobtainable: All systems reviewed & are unremarkable except as noted in HPI and below Patient History Medical History Hepatitis C antibody positive in blood History of cardiac arrest History of discitis History of non-ST elevation myocardial infarction (NSTEMI) History of sepsis Hx of ischemic bowel disease 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 Mother No problems noted. Social History household members: family Smoking Status: Unknown if ever smoked Exam Initial Vital Signs Initial Vital Signs: Vital Signs Temperature 98.3 F 10/13/22 19:21 Pulse Rate 93 H 10/13/22 19:21 Respiratory Rate 18 10/13/22 19:21 Blood Pressure 127/80 10/13/22 19:21 Pulse Oximetry 98 10/13/22 19:21 Oxygen Delivery Method Room Air 10/13/22 19:21 GENERAL: Alert chronically ill 42-year-old male HEENT: Head atraumatic,EOMI, pupils reactive, face symmetric, [moist] mucous membranes CARDIOVASCULAR: Regular rate and rhythm without murmurs, rubs or gallops. RESPIRATORY: Breath sounds equal bilaterally, no wheezes rales or rhonchi. ABDOMEN: Soft multiple scars left-sided ostomy green diarrhea. There is a small scabbed over wound to the right of the ostomy but NOT under the wafer. EXTREMITIES: Normal range of motion, no clubbing or edema. Neurovascularly intact NEUROLOGICAL: Alert and oriented x4. SKIN: Warm, dry, no laceration, no petechiae, no rashes or lesions. Course Orders Ordered: ED Orders 10/13/22 20:05 Complete Blood Count AUTO DIFF Stat Comprehensive Metabolic Panel Stat Lactate (Lactic Acid) Stat Lipase Stat PTT Partial Thromboplastin Rodrick Stat Procalcitonin Stat Prothrombin Time INR Stat 10/13/22 20:43 Urine Microscopic Stat 10/13/22 21:00 Type and Screen Stat 10/13/22 21:15 GI Panel (Film Array) Stat 10/13/22 21:16 XR abdomen min 2V Stat Acetaminophen (Acetaminophen 325 Mg Tablet) 650 mg PO Q6H PRN PRN Reason: Fever/Mild Pain (1-3) Amino Acids/Electrolytes (Tpn Per Pharmacy) 1 request IV 1800 KAYLAH Stop: 10/15/22 17:59 Enoxaparin Sodium (Enoxaparin 40 Mg/0.4 Ml Syringe) 40 mg SUBCUT DAILY [facility] Vancomycin HCl/Dextrose (Vancomycin) 1,500 mg in 300 mls @ 150 mls/hr IV Q12H KAYLAH Sodium Chloride (Normal Saline 0.9%) 1,000 mls @ 60 mls/hr IV CONT KAYLAH Last Admin: 10/14/22 01:26 Dose: 60 mls/hr Documented By: CANDELARIO Ampicillin Sodium/Sulbactam (Sodium 3 gm/ Sodium Chloride) 100 mls @ 200 mls/hr IV Q8H [facility] Naloxone HCl (Naloxone 0.4 Mg/Ml Vial) 0.2 mg IV Q2MIN PRN PRN Reason: Opiate Reversal Ondansetron HCl (Ondansetron 4 Mg/2 Ml Inj) 4 mg IV NOW PRN PRN Reason: Nausea And Vomiting Ondansetron HCl (Ondansetron 4 Mg Odt) 4 mg SL NOW PRN PRN Reason: Nausea And Vomiting Ondansetron HCl (Ondansetron 4 Mg/2 Ml Inj) 4 mg IV Q8HR PRN PRN Reason: Nausea And Vomiting Discontinued Medications Acetaminophen (Acetaminophen 325 Mg Tablet) 975 mg PO NOW ONE Stop: 10/13/22 21:11 Last Admin: 10/13/22 21:51 Dose: 975 mg Documented By: DANE Sodium Chloride (Normal Saline 0.9%) 1,000 mls @ 1,000 mls/hr IV BOLUS ONE Stop: 10/13/22 20:30 Last Infusion: 10/13/22 21:25 Dose: 0 mls/hr Documented By: Admin: 10/13/22 20:07 Dose: 1,000 mls/hr Documented By: DANE Piperacillin Sod/Tazobactam (Sod 4.5 gm/ Sodium Chloride) 100 mls @ 200 mls/hr IV NOW ONE Stop: 10/13/22 21:11 Last Infusion: 10/13/22 22:27 Dose: 0 mls/hr Documented By: Admin: 10/13/22 21:50 Dose: 200 mls/hr Documented By: DANE Vancomycin HCl (Vancomycin) 1,000 mg in 200 mls @ 200 mls/hr IV Q12H KAYLAH Last Admin: 10/13/22 21:32 Dose: Not Given Documented By: DANE Vancomycin HCl/Dextrose (Vancomycin) 1,500 mg in 300 mls @ 150 mls/hr IV NOW ONE Stop: 10/13/22 23:29 Last Infusion: 10/14/22 01:13 Dose: 0 mls/hr Documented By: Admin: 10/13/22 22:30 Dose: 150 mls/hr Documented By: DANE Sodium Chloride (Normal Saline 0.9%) 2,122.8 mls @ 707.6 mls/hr 30 ml/kg infuse over 3 hr (2122.8 ml) IV NOW ONE Stop: 10/14/22 02:36 Last Infusion: 10/14/22 00:47 Dose: 707.6 mls/hr Documented By: Admin: 10/13/22 23:53 Dose: 707.6 mls/hr Documented By: DANE Sodium Chloride (Normal Saline 0.9%) 1,000 mls @ 1,000 mls/hr IV BOLUS ONE Stop: 10/14/22 01:32 Last Infusion: 10/14/22 01:26 Dose: 0 mls/hr Documented By: Admin: 10/14/22 00:33 Dose: 1,000 mls/hr Documented By: CANDELARIO Ampicillin Sodium/Sulbactam (Sodium 3 gm/ Sodium Chloride) 100 mls @ 200 mls/hr IV Q8H [facility] Vital Signs Vital signs: Vital Signs - 8 hr 10/13/22 20:56 10/13/22 22:00 10/13/22 21:00 Temperature 101.5 F H 98.9 F Pulse Rate Respiratory Rate Blood Pressure 112/57 L Pulse Oximetry Oxygen Delivery Method 10/13/22 21:00 10/13/22 21:30 10/13/22 21:30 Temperature Pulse Rate 92 H 91 H Respiratory Rate 15 18 Blood Pressure 111/53 L Pulse Oximetry 95 95 Oxygen Delivery Method 10/13/22 21:45 10/13/22 21:45 10/13/22 22:43 Temperature 98.4 F Pulse Rate 90 Respiratory Rate Blood Pressure 115/54 L Pulse Oximetry 94 Oxygen Delivery Method 10/13/22 22:00 10/13/22 22:00 10/13/22 22:30 Temperature Pulse Rate 86 Respiratory Rate Blood Pressure 111/56 L 108/55 L Pulse Oximetry 94 Oxygen Delivery Method Room Air 10/13/22 22:30 10/13/22 23:00 10/13/22 23:00 Temperature Pulse Rate 85 75 Respiratory Rate 15 Blood Pressure 100/57 L Pulse Oximetry 93 94 Oxygen Delivery Method Room Air Room Air 10/13/22 23:30 10/13/22 23:30 Temperature Pulse Rate 71 Respiratory Rate 18 Blood Pressure 96/53 L Pulse Oximetry 95 Oxygen Delivery Method Room Air MDM - Abdominal Pain Lab Data 10/13/22 20:05 10/13/22 20:05 Labs: Lab Results 10/13/22 10/13/22 10/13/22 Range/Units 20:05 20:05 20:05 WBC 14.6 H (4.5-11.0) X10^3/uL RBC 2.83 L (4.5-5.9) X10^6/uL Hgb 7.3 L (13.5-17.5) g/dL Hct 22.0 L (41-53) % MCV 78.0 L (80-100) fL MCH 25.8 L (26-34) PG MCHC 33.0 (30-36) % RDW 15.0 H (11.6-14.8) % Plt Count 460 H (150-400) X10^3/uL Neut % (Auto) Not Reportable Lymph % (Auto) Not Reportable [place] % (Auto) Not Reportable Eos % (Auto) Not Reportable Baso % (Auto) Not Reportable Lymph # (Auto) Not Reportable [place] # (Auto) Not Reportable Baso # (Auto) Not Reportable Total Counted 100 Seg Neutrophils % 63.0 (38-70) % Band Neutrophils % 14.0 H (3-7) % Lymphocytes % (Manual) 7.0 L (25-45) % Monocytes % (Manual) 8.0 (2-11) % Eosinophils % (Manual) 8.0 H (2-4) % Neutrophils # (Manual) 67317 H (8759-7613) /uL RBC Morphology See below Microcytosis 1+ H PT 15.9 H (10.1-12.7) SECONDS INR 1.4 H (0.9-1.3) APTT 29 (26-36) SECONDS Sodium 136 L (137-145) mmol/L Potassium 4.1 (3.4-5.1) mmol/L Chloride 104 (98-107) mmol/L Carbon Dioxide 21 L (22-32) mmol/L BUN 19 (9-20) mg/dL Creatinine 0.67 (0.66-1.25) mg/dL Estimated GFR > 60 (>60) mL/min BUN/Creatinine Ratio 28.4 H (6-22) Glucose 113 H (70-100) mg/dL Lactate (0.7-2.1) mmol/L Calcium 9.1 (8.4-10.2) mg/dL Magnesium (1.6-2.3) mg/dL Total Bilirubin 0.5 (0.2-1.3) mg/dL GGT (15-73) U/L AST 30 (17-59) IU/L ALT 65 H (<50) IU/L Alkaline Phosphatase 478 H (38-126) U/L Total Protein 7.8 (6.3-8.2) g/dL Albumin 3.6 (3.5-5.0) g/dL Globulin 4.2 H (1.7-4.1) g/dL Albumin/Globulin Ratio 0.9 L (1.0-2.8) Lipase 30 (23-300) U/L Procalcitonin 4.22 H (<0.5) ng/mL Urine RBC (0-5/HPF) Urine WBC (0-5/HPF) Ur Squamous Epith Cells (0-5/HPF) Urine Bacteria (None) Ur Culture Indicated? Stl C. cayetanensis PCR (Not Detect) Stool Rotavirus (PCR) (Not Detect) Stool Adenovirus (PCR) (Not Detect) Stool Astrovirus (PCR) (Not Detect) Stool Cryptosporidium PCR (Not Detect) Stl E.coli Shiga Tox PCR (Not Detect) St Sh/Enteroin Ecoli PCR (Not Detect) Stool E coli O157 PCR Stl Enterotoxigenic E PCR (Not Detect) Stool EPEC (PCR) (Not Detect) Stl E. histolytica PCR (Not Detect) Stool Giardia Lamblia PCR (Not Detect) Stool Sapovirus (PCR) (Not Detect) Stl P. shigelloides PCR (Not Detect) St Y.enterocolitica PCR (Not Detect) Stool Vibrio (PCR) (Not Detect) Stl Vibrio cholerae PCR (Not Detect) Stl Enteroaggr Ecoli PCR (Not Detect) Stl Norovirus GI/GII PCR (Not Detect) Campylobacter (PCR) (Not Detect) C. difficile Tox (PCR) (Not Detect) Salmonella (PCR) (Not Detect) Blood Type Antibody Screen 10/13/22 10/13/22 10/13/22 Range/Units 20:05 20:05 20:05 WBC (4.5-11.0) X10^3/uL RBC (4.5-5.9) X10^6/uL Hgb (13.5-17.5) g/dL Hct (41-53) % MCV (80-100) fL MCH (26-34) PG MCHC (30-36) % RDW (11.6-14.8) % Plt Count (150-400) X10^3/uL Neut % (Auto) Lymph % (Auto) [place] % (Auto) Eos % (Auto) Baso % (Auto) Lymph # (Auto) [place] # (Auto) Baso # (Auto) Total Counted Seg Neutrophils % (38-70) % Band Neutrophils % (3-7) % Lymphocytes % (Manual) (25-45) % Monocytes % (Manual) (2-11) % Eosinophils % (Manual) (2-4) % Neutrophils # (Manual) (6641-5617) /uL RBC Morphology Microcytosis PT (10.1-12.7) SECONDS INR (0.9-1.3) APTT (26-36) SECONDS Sodium (137-145) mmol/L Potassium (3.4-5.1) mmol/L Chloride (98-107) mmol/L Carbon Dioxide (22-32) mmol/L BUN (9-20) mg/dL Creatinine (0.66-1.25) mg/dL Estimated GFR (>60) mL/min BUN/Creatinine Ratio (6-22) Glucose (70-100) mg/dL Lactate 1.2 (0.7-2.1) mmol/L Calcium (8.4-10.2) mg/dL Magnesium 1.9 (1.6-2.3) mg/dL Total Bilirubin (0.2-1.3) mg/dL GGT 206 H (15-73) U/L AST (17-59) IU/L ALT (<50) IU/L Alkaline Phosphatase (38-126) U/L Total Protein (6.3-8.2) g/dL Albumin (3.5-5.0) g/dL Globulin (1.7-4.1) g/dL Albumin/Globulin Ratio (1.0-2.8) Lipase (23-300) U/L Procalcitonin (<0.5) ng/mL Urine RBC (0-5/HPF) Urine WBC (0-5/HPF) Ur Squamous Epith Cells (0-5/HPF) Urine Bacteria (None) Ur Culture Indicated? Stl C. cayetanensis PCR (Not Detect) Stool Rotavirus (PCR) (Not Detect) Stool Adenovirus (PCR) (Not Detect) Stool Astrovirus (PCR) (Not Detect) Stool Cryptosporidium PCR (Not Detect) Stl E.coli Shiga Tox PCR (Not Detect) St Sh/Enteroin Ecoli PCR (Not Detect) Stool E coli O157 PCR Stl Enterotoxigenic E PCR (Not Detect) Stool EPEC (PCR) (Not Detect) Stl E. histolytica PCR (Not Detect) Stool Giardia Lamblia PCR (Not Detect) Stool Sapovirus (PCR) (Not Detect) Stl P. shigelloides PCR (Not Detect) St Y.enterocolitica PCR (Not Detect) Stool Vibrio (PCR) (Not Detect) Stl Vibrio cholerae PCR (Not Detect) Stl Enteroaggr Ecoli PCR (Not Detect) Stl Norovirus GI/GII PCR (Not Detect) Campylobacter (PCR) (Not Detect) C. difficile Tox (PCR) (Not Detect) Salmonella (PCR) (Not Detect) Blood Type Antibody Screen 10/13/22 10/13/22 10/13/22 Range/Units 20:43 21:00 21:15 WBC (4.5-11.0) X10^3/uL RBC (4.5-5.9) X10^6/uL Hgb (13.5-17.5) g/dL Hct (41-53) % MCV (80-100) fL MCH (26-34) PG MCHC (30-36) % RDW (11.6-14.8) % Plt Count (150-400) X10^3/uL Neut % (Auto) Lymph % (Auto) [place] % (Auto) Eos % (Auto) Baso % (Auto) Lymph # (Auto) [place] # (Auto) Baso # (Auto) Total Counted Seg Neutrophils % (38-70) % Band Neutrophils % (3-7) % Lymphocytes % (Manual) (25-45) % Monocytes % (Manual) (2-11) % Eosinophils % (Manual) (2-4) % Neutrophils # (Manual) (6247-4976) /uL RBC Morphology Microcytosis PT (10.1-12.7) SECONDS INR (0.9-1.3) APTT (26-36) SECONDS Sodium (137-145) mmol/L Potassium (3.4-5.1) mmol/L Chloride (98-107) mmol/L Carbon Dioxide (22-32) mmol/L BUN (9-20) mg/dL Creatinine (0.66-1.25) mg/dL Estimated GFR (>60) mL/min BUN/Creatinine Ratio (6-22) Glucose (70-100) mg/dL Lactate (0.7-2.1) mmol/L Calcium (8.4-10.2) mg/dL Magnesium (1.6-2.3) mg/dL Total Bilirubin (0.2-1.3) mg/dL GGT (15-73) U/L AST (17-59) IU/L ALT (<50) IU/L Alkaline Phosphatase (38-126) U/L Total Protein (6.3-8.2) g/dL Albumin (3.5-5.0) g/dL Globulin (1.7-4.1) g/dL Albumin/Globulin Ratio (1.0-2.8) Lipase (23-300) U/L Procalcitonin (<0.5) ng/mL Urine RBC 1-5/hpf (0-5/HPF) Urine WBC 0-1/hpf (0-5/HPF) Ur Squamous Epith Cells None seen (0-5/HPF) Urine Bacteria None seen (None) Ur Culture Indicated? Cult not indicated Stl C. cayetanensis PCR Not detected (Not Detect) Stool Rotavirus (PCR) Not detected (Not Detect) Stool Adenovirus (PCR) Not detected (Not Detect) Stool Astrovirus (PCR) Not detected (Not Detect) Stool Cryptosporidium PCR Not detected (Not Detect) Stl E.coli Shiga Tox PCR Not detected (Not Detect) St Sh/Enteroin Ecoli PCR Not detected (Not Detect) Stool E coli O157 PCR Not Reportable Stl Enterotoxigenic E PCR Not detected (Not Detect) Stool EPEC (PCR) Not detected (Not Detect) Stl E. histolytica PCR Not detected (Not Detect) Stool Giardia Lamblia PCR Not detected (Not Detect) Stool Sapovirus (PCR) Not detected (Not Detect) Stl P. shigelloides PCR Not detected (Not Detect) St Y.enterocolitica PCR Not detected (Not Detect) Stool Vibrio (PCR) Not detected (Not Detect) Stl Vibrio cholerae PCR Not detected (Not Detect) Stl Enteroaggr Ecoli PCR Not detected (Not Detect) Stl Norovirus GI/GII PCR Not detected (Not Detect) Campylobacter (PCR) Not detected (Not Detect) C. difficile Tox (PCR) Not detected (Not Detect) Salmonella (PCR) Not detected (Not Detect) Blood Type O Positive Antibody Screen Negative Point of care testing: Urine Dip Bedside Urine Glucose Negative Bedside Urine Bilirubin - Negative Urine Specific [place] 1.030 Bedside Urine Occult Blood +++ Bedside Urine Protein +/- 15 Bedside Urine Urobilinogen - Negative Bedside Urine Nitrite - Negative Bedside Urine Leukocytes - Negative Esterase Imaging Data Abdominal x-ray: Radiologist's Impression: PROCEDURE:? XR ABDOMEN MIN 2V ? INDICATIONS:? vomiting ? TECHNIQUE:? 2 views of the abdomen were acquired.? ? COMPARISON:? Located Within [facility], CR, XR CHEST 1V, 10/13/2022, 19:28. ? FINDINGS:? Surgical changes and devices:? There is suggestion of an ostomy in the left mid abdomen.? ? ? Bowel:? No pneumoperitoneum.? The bowel gas pattern is normal.? ? Soft tissues:? No suspicious abdominal calcifications.? There are patchy indistinct opacities within the lung bases, left greater than right. ? Bones:? No suspicious bony abnormalities.? ? IMPRESSION:? ? 1. No evidence of bowel obstruction. ? 2. Patchy indistinct opacities within the visualized lung bases, left greater than right, suggestive of pneumonia.? ? Dictated by: Elgin Wolfe M.D. on 10/13/2022 at 23:13 ? ? Chest x-ray: Radiologist's Impression: PROCEDURE:? XR CHEST 1V ? INDICATIONS:? suspected sepsis ? TECHNIQUE:? One view of the chest was acquired.? ? COMPARISON:? Located Within [facility], , XR CHEST 1V, 07/31/2022, 14:15. ? FINDINGS:? ? Surgical changes and devices:? Right chest Port-A-Cath ? Lungs and pleura:? Interstitial pulmonary edema versus diffuse viral pneumonitis.? No pleural effusions or pneumothorax.? ? Mediastinum:? Mediastinal contours appear normal.? Heart size is normal.? ? Bones and chest wall:? No suspicious bony lesions.? Overlying soft tissues appear unremarkable.? ? IMPRESSION:? Interstitial pulmonary edema versus diffuse viral pneumonitis. ? ? Dictated by: Vivek Bowles M.D. on 10/13/2022 at 19:54 ? ? ECG Data Interpretation: Normal sinus rhythm rate 88 [place] interval 152 QRS [address] changes no T- wave inversions similar to previous MDM Narrative Medical decision making narrative: Patient 42-year-old male complicated medical history presenting today with fever and urea. Previous history of C diff however GI panel is actually negative. No real abdominal pain x-ray does not show any bowel obstruction. However a possible pneumonia noted on abdominal x-ray and questionable on the chest x-ray. He is not had cough. Really just having generalized weakness diarrhea and 1 episode of vomiting. Possible aspiration. He initially was maintaining a blood pressure he was given a L of fluids Zosyn and vancomycin. However while in the ED blood pressure began to drop he is given sepsis fluids. Patient certainly has signs and symptoms concerning of sepsis with infection. He is febrile here at 1:01 a.m. leukocytosis of 14 procalcitonin 4.2, lactate 1 .2. Previously he had fever of unknown origin. He is not complaining of headache or neck pain do not suspect meningitis at this time. His urinalysis is also negative. [facility] accepts patient. Discharge Plan Departure Patient Disposition: Admitted As Inpatient Clinical Impression: Fever of unknown origin, Sepsis Admit Date/Time: 10/13/22 23:44 Admit Provider: Abigail Patrick
--- NOTE | 2022-10-13 21:16 | DI.RAD.S_ITS ---
PROCEDURE: XR ABDOMEN MIN 2V INDICATIONS: vomiting TECHNIQUE: 2 views of the abdomen were acquired. COMPARISON: [facility], CR, XR CHEST 1V, 10/13/2022, 19:28. FINDINGS: Surgical changes and devices: There is suggestion of an ostomy in the left mid abdomen. Bowel: No pneumoperitoneum. The bowel gas pattern is normal. Soft tissues: No suspicious abdominal calcifications. There are patchy indistinct opacities within the lung bases, left greater than right. Bones: No suspicious bony abnormalities. IMPRESSION: 1. No evidence of bowel obstruction. 2. Patchy indistinct opacities within the visualized lung bases, left greater than right, suggestive of pneumonia. Dictated by: Elgin Wolfe M.D. on 10/13/2022 at 23:13 Approved by: Elgin Wolfe M.D. on 10/13/2022 at 23:15
[2022-10-13 21:24] LABS: Bacteria Urine None Seen; Culture Indicated Urine Cult Not Indicated; RBC Urine 1-5/HPF (0-5/HPF); Squamous Epithelial Cell Urine None Seen (0-5/HPF); WBC Urine 0-1/HPF (0-5/HPF)
[2022-10-13] MEDS: PIPERACILLIN/TAZO 4.5 GM in SODIUM CHLORIDE 0.9% 100 ML IV (21:50)
[2022-10-13] MEDS: ACETAMINOPHEN 325 MG TABLET 975 MG PO (21:51)
[2022-10-13] MEDS: VANCOMYCIN 1,500 MG/300 ML PIGGYBACK 150 MG IV (22:30)
[2022-10-13 22:52] LABS: Campylobacter Not Detected (Not Detect); Clostridium difficile toxin AB Not Detected (Not Detect); Cryptosporidium Not Detected (Not Detect); Cyclospora cayetanensis Not Detected (Not Detect); Entamoeba histolytica Not Detected (Not Detect); Enteroaggregative E.coli Not Detected (Not Detect); Enteropathogenic E.coli Not Detected (Not Detect); Enterotoxigenic E.coli It/st Not Detected (Not Detect); Giardia lamblia Not Detected (Not Detect); Plesiomonsa shigelloides Not Detected (Not Detect); Salmonella Not Detected (Not Detect); Shiga-like toxin-prod E.coli Not Detected (Not Detect); Shigella/Enteroinvasive E.coli Not Detected (Not Detect); Vibrio Not Detected (Not Detect); Vibrio cholerae Not Detected (Not Detect); Yersinia enterocolitica Not Detected (Not Detect)
[2022-10-13 22:53] LABS: Adenovirus F 40/41 Not Detected (Not Detect); Astrovirus Not Detected (Not Detect); Norovirus GI/GII Not Detected (Not Detect); Rotavirus A Not Detected (Not Detect); Sapovirus Not Detected (Not Detect)
[2022-10-13] MEDS: SODIUM CHLORIDE 0.9% 707.6 ML IV (23:53)
[2022-10-14] VITALS (37 sets, daily range): BP systolic 92–145; BP diastolic 50–88; PULSE 66–115; RESP 12–22; TEMP 36.8–39.4; O2SAT 89–99; BMI 24.7
[2022-10-14] MEDS: SODIUM CHLORIDE 0.9% 1,000 ML 1000 ML IV (00:33)
--- NOTE | 2022-10-14 00:46 | P.HP_ITS ---
History of Present Illness History of Present Illness Date Patient Seen: 10/14/22 Time Patient Seen: 00:47 Chief complaint: Sepsis, fever, leukocytosis, acute anemia Narrative: Storm Arnold is a 42 yr old male polysubstance abuse, ischemic bowel with perforation (01/2022), status post ex-lap and bowel resection C/B short gut syndrome with history of C diff, requiring TPN and tube feedings, hypoxic cardiac arrest with brief CPR VAP and CAUTI, hx of E faecalis bacteremia (04/2022), diskitis C7-T3 endplate on 05/27/2022-6 weeks IV antibiotic-end on 06/23/2022, history of acute on chronic encephalopathy- resulting anoxic brain injury with residual cognitive deficits to include dysarthria,? elevated LFTs with positive hepatitis-C, NSTEMI 01/16/2022 TTE on 01/16/2022 WNL.? During hospitalization at [place] patient was intubated, received cardiac resuscitation, had bronchoscopy, gastrostomy tube placement, multiple laparotomies with colostomy placed, tracheostomy, with right chest port placement.?Recent Hospitalization @[place] 07/22-08/04/2022 for fever with unknown etiology. Presented today with diarrhea for the last 4 days.? Mom reported that through the ostomy he is had green loose stool.? Tonight while eating dinner he vomited.? He is had increased weakness, and febrile.?Febrile in ED 101.5, 170/74, 72, 18, 99% on room air..?In ED he was awake alert but overall mother was historian.? Unable to obtain accurate HPI/ROS from patient secondary to n oxious brain injury. While accepting patient for admit blood pressure dropped from 170/74 to 93/53, 92/50, 66, 19, 94% rm air. WBC 14.6, band neut 14%, eosinophils 8%, absolute neutrophils 11,242, procalcitonin 4.22, urinalysis, lactate negative, stool cultures, C diff, Campylobacter are all negative. H&H 10/31., MCV 78, MCH 25, ALT 65, alk-phos 478. 08/04/2022 labs: H&H 9.9/28, ALT 48, alk-phos 169. PT 15.9, INR 1.4. CXR interstitial pulmonary edema versus viral pneumonitis. ABD Xray:No evidence of bowel obstruction, with patchy indistinct opacities within the visualized lung bases, left greater than right, suggestive of pneumonia. Patient did not initially meet SIRS/sofa criteria, now drop in BP-sofa: 2. Patient admitted to the ICU for sepsis with fever, diarrhea, vomiting, leuko cytosis, and anemia of unknown etiology.? 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 Mother No problems noted. Social History household members: family Smoking Status: Unknown if ever smoked Meds Home Medications and Allergies Home Medications Medication Instructions Recorded Confirmed Type acetaminophen 325 mg tablet 650 mg PO Q6H PRN Pain (Scale 07/31/22 07/31/22 History Score 1-3) aspirin 81 mg tablet,delayed 81 mg PO DAILY 07/31/22 07/31/22 History release diphenoxylate-atropine 2.5 2.5 tab PO QID 07/31/22 07/31/22 History mg-0.025 mg tablet hydroxyzine pamoate 25 mg capsule 25 mg PO Q6H 07/31/22 07/31/22 History loperamide 2 mg tablet 2 mg PO QID 07/31/22 07/31/22 History (Anti-Diarrheal (loperamide)) pregabalin 75 mg capsule 75 mg PO TID 07/31/22 07/31/22 History quetiapine 50 mg tablet 50 mg PO DAILY 07/31/22 07/31/22 History quetiapine 50 mg tablet 100 mg PO BEDTIME 07/31/22 07/31/22 History risperidone 1 mg tablet 1 mg PO BID PRN Agitation 07/31/22 07/31/22 History trazodone 50 mg tablet 50 mg PO BEDTIME 07/31/22 07/31/22 History Allergies Allergy/AdvReac Type Severity Reaction Status Date / Time No Known Drug Allergies Allergy Verified 10/13/22 19:25 Review of Systems Review of Systems Narrative: Unable to obtain accurate ROS due to noxious brain injury, also difficulty understanding patient. Exam Vital Signs (past 8 hours): - 10/13/22 19:21 10/13/22 19:53 10/13/22 19:54 Temperature 98.3 F Pulse Rate 93 H 90 90 Respiratory Rate 18 Blood Pressure 127/80 Pulse Oximetry 98 96 96 Oxygen Delivery Method Room Air Room Air 10/13/22 19:54 10/13/22 20:00 10/13/22 20:00 Temperature Pulse Rate 90 Respiratory Rate Blood Pressure 117/61 117/64 Pulse Oximetry 96 Oxygen Delivery Method Room Air 10/13/22 20:13 10/13/22 20:56 10/13/22 22:00 Temperature 99.4 F 101.5 F H 98.9 F Pulse Rate Respiratory Rate Blood Pressure Pulse Oximetry Oxygen Delivery Method 10/13/22 20:30 10/13/22 20:30 10/13/22 21:00 Temperature Pulse Rate 99 H Respiratory Rate 25 H Blood Pressure 117/88 112/57 L Pulse Oximetry 96 Oxygen Delivery Method 10/13/22 21:00 10/13/22 21:30 10/13/22 21:30 Temperature Pulse Rate 92 H 91 H Respiratory Rate 15 18 Blood Pressure 111/53 L Pulse Oximetry 95 95 Oxygen Delivery Method 10/13/22 21:45 10/13/22 21:45 10/13/22 22:43 Temperature 98.4 F Pulse Rate 90 Respiratory Rate Blood Pressure 115/54 L Pulse Oximetry 94 Oxygen Delivery Method 10/13/22 22:00 10/13/22 22:00 10/13/22 22:30 Temperature Pulse Rate 86 Respiratory Rate Blood Pressure 111/56 L 108/55 L Pulse Oximetry 94 Oxygen Delivery Method Room Air 10/13/22 22:30 10/13/22 23:00 10/13/22 23:00 Temperature Pulse Rate 85 75 Respiratory Rate 15 Blood Pressure 100/57 L Pulse Oximetry 93 94 Oxygen Delivery Method Room Air Room Air 10/13/22 23:30 10/13/22 23:30 10/13/22 23:52 Temperature Pulse Rate 71 Respiratory Rate 18 Blood Pressure 96/53 L 103/54 L Pulse Oximetry 95 Oxygen Delivery Method Room Air 10/13/22 23:52 10/14/22 00:00 10/14/22 00:00 Temperature Pulse Rate 72 67 Respiratory Rate 13 13 Blood Pressure 94/50 L Pulse Oximetry 95 95 Oxygen Delivery Method Room Air Room Air 10/14/22 00:01 10/14/22 00:01 10/14/22 00:16 Temperature Pulse Rate 69 66 Respiratory Rate 12 14 Blood Pressure 92/50 L Pulse Oximetry 96 96 Oxygen Delivery Method Room Air Room Air 10/14/22 00:16 Temperature Pulse Rate Respiratory Rate Blood Pressure 105/52 L Pulse Oximetry Oxygen Delivery Method Oxygen Delivery Method Room Air Narrative Exam Narrative: General: Patient is a chronically ill-appearing male, resting, in no distress at this time. HEENT: Normocephalic, atraumatic, extraocular muscles intact, oral pharynx is clear and mucous membranes are moist. Neck is supple and symmetric, trachea is midline, no adenopathy, no thyroid enlargement, nontender, no masses palpated. Negative for JVD Chest: Normal AP diameter and contour without kyphoscoliosis, Equal chest rise without nasal flaring, retractions, tachypneic or labored breathing. Port to right chest wall Lungs: Auscultation of all lung morales are clear without adventitious sounds, wheezes, rhonchi, or rales. Cardio: regular rate and rhythm without murmur, rubs, or gallops, no carotid bruit, no cardiac pulsations present. Abdomen: Soft nontender, negative for organomegaly, or masses. Colostomy bag present. Bowel sounds are present in right upper quadrants without guarding or r ebound, no CVA tenderness. Condom Cath in place Musculoskeletal: Muscle strength and tone are equal, no deformity, crepitus, effusions, cyanosis, clubbing or edema present. Full range of motion intact radial and pedal pulses are normal. Skin: very pale, Warm dry and intact without rashes, ulcerations or petechiae. Neuro: Alert and orientated x3, moves all extremities, sensation to touch inta ct, no gross deficits noted of cranial nerves. 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 Objective Labs 10/14/22 04:35 10/14/22 04:35 Labs: Laboratory Results - last 24 hr 10/13/22 10/13/22 10/13/22 20:05 20:05 20:05 WBC 14.6 H RBC 2.83 L Hgb 7.3 L Hct 22.0 L MCV 78.0 L MCH 25.8 L MCHC 33.0 RDW 15.0 H Plt Count 460 H Neut % (Auto) Not Reportable Lymph % (Auto) Not Reportable [place] % (Auto) Not Reportable Eos % (Auto) Not Reportable Baso % (Auto) Not Reportable Lymph # (Auto) Not Reportable [place] # (Auto) Not Reportable Baso # (Auto) Not Reportable Total Counted 100 Seg Neutrophils % 63.0 Band Neutrophils % 14.0 H Lymphocytes % (Manual) 7.0 L Monocytes % (Manual) 8.0 Eosinophils % (Manual) 8.0 H Neutrophils # (Manual) 39708 H RBC Morphology See below Microcytosis 1+ H PT 15.9 H INR 1.4 H APTT 29 Sodium 136 L Potassium 4.1 Chloride 104 Carbon Dioxide 21 L BUN 19 Creatinine 0.67 Estimated GFR > 60 BUN/Creatinine Ratio 28.4 H Glucose 113 H Lactate Calcium 9.1 Total Bilirubin 0.5 AST 30 ALT 65 H Alkaline Phosphatase 478 H Total Protein 7.8 Albumin 3.6 Globulin 4.2 H Albumin/Globulin Ratio 0.9 L Lipase 30 Procalcitonin 4.22 H Urine RBC Urine WBC Ur Squamous Epith Cells Urine Bacteria Ur Culture Indicated? Stl C. cayetanensis PCR Stool Rotavirus (PCR) Stool Adenovirus (PCR) Stool Astrovirus (PCR) Stool Cryptosporidium PCR Stl E.coli Shiga Tox PCR St Sh/Enteroin Ecoli PCR Stool E coli O157 PCR Stl Enterotoxigenic E PCR Stool EPEC (PCR) Stl E. histolytica PCR Stool Giardia Lamblia PCR Stool Sapovirus (PCR) Stl P. shigelloides PCR St Y.enterocolitica PCR Stool Vibrio (PCR) Stl Vibrio cholerae PCR Stl Enteroaggr Ecoli PCR Stl Norovirus GI/GII PCR Campylobacter (PCR) C. difficile Tox (PCR) Salmonella (PCR) Blood Type Antibody Screen 10/13/22 10/13/22 10/13/22 20:05 20:43 21:00 WBC RBC Hgb Hct MCV MCH MCHC RDW Plt Count Neut % (Auto) Lymph % (Auto) [place] % (Auto) Eos % (Auto) Baso % (Auto) Lymph # (Auto) [place] # (Auto) Baso # (Auto) Total Counted Seg Neutrophils % Band Neutrophils % Lymphocytes % (Manual) Monocytes % (Manual) Eosinophils % (Manual) Neutrophils # (Manual) RBC Morphology Microcytosis PT INR APTT Sodium Potassium Chloride Carbon Dioxide BUN Creatinine Estimated GFR BUN/Creatinine Ratio Glucose Lactate 1.2 Calcium Total Bilirubin AST ALT Alkaline Phosphatase Total Protein Albumin Globulin Albumin/Globulin Ratio Lipase Procalcitonin Urine RBC 1-5/hpf Urine WBC 0-1/hpf Ur Squamous Epith Cells None seen Urine Bacteria None seen Ur Culture Indicated? Cult not indicated Stl C. cayetanensis PCR Stool Rotavirus (PCR) Stool Adenovirus (PCR) Stool Astrovirus (PCR) Stool Cryptosporidium PCR Stl E.coli Shiga Tox PCR St Sh/Enteroin Ecoli PCR Stool E coli O157 PCR Stl Enterotoxigenic E PCR Stool EPEC (PCR) Stl E. histolytica PCR Stool Giardia Lamblia PCR Stool Sapovirus (PCR) Stl P. shigelloides PCR St Y.enterocolitica PCR Stool Vibrio (PCR) Stl Vibrio cholerae PCR Stl Enteroaggr Ecoli PCR Stl Norovirus GI/GII PCR Campylobacter (PCR) C. difficile Tox (PCR) Salmonella (PCR) Blood Type O Positive Antibody Screen Negative 10/13/22 21:15 WBC RBC Hgb Hct MCV MCH MCHC RDW Plt Count Neut % (Auto) Lymph % (Auto) [place] % (Auto) Eos % (Auto) Baso % (Auto) Lymph # (Auto) [place] # (Auto) Baso # (Auto) Total Counted Seg Neutrophils % Band Neutrophils % Lymphocytes % (Manual) Monocytes % (Manual) Eosinophils % (Manual) Neutrophils # (Manual) RBC Morphology Microcytosis PT INR APTT Sodium Potassium Chloride Carbon Dioxide BUN Creatinine Estimated GFR BUN/Creatinine Ratio Glucose Lactate Calcium Total Bilirubin AST ALT Alkaline Phosphatase Total Protein Albumin Globulin Albumin/Globulin Ratio Lipase Procalcitonin Urine RBC Urine WBC Ur Squamous Epith Cells Urine Bacteria Ur Culture Indicated? Stl C. cayetanensis PCR Not detected Stool Rotavirus (PCR) Not detected Stool Adenovirus (PCR) Not detected Stool Astrovirus (PCR) Not detected Stool Cryptosporidium PCR Not detected Stl E.coli Shiga Tox PCR Not detected St Sh/Enteroin Ecoli PCR Not detected Stool E coli O157 PCR Not Reportable Stl Enterotoxigenic E PCR Not detected Stool EPEC (PCR) Not detected Stl E. histolytica PCR Not detected Stool Giardia Lamblia PCR Not detected Stool Sapovirus (PCR) Not detected Stl P. shigelloides PCR Not detected St Y.enterocolitica PCR Not detected Stool Vibrio (PCR) Not detected Stl Vibrio cholerae PCR Not detected Stl Enteroaggr Ecoli PCR Not detected Stl Norovirus GI/GII PCR Not detected Campylobacter (PCR) Not detected C. difficile Tox (PCR) Not detected Salmonella (PCR) Not detected Blood Type Antibody Screen Assessment & Plan Assessment & Plan narrative: Storm Arnold is a 42 yr old male polysubstance abuse, ischemic bowel with perforation (01/2022), status post ex-lap and bowel resection C/B short gut syndrome with history of C diff, requiring TPN and tube feedings, hypoxic card iac arrest with brief CPR VAP and CAUTI, hx of E faecalis bacteremia (04/2022), diskitis C7-T3 endplate on 05/27/2022-6 weeks IV antibiotic-end on 06/23/2022, history of acute on chronic encephalopathy- resulting anoxic brain injury with residual cognitive deficits to include dysarthria,? elevated LFTs with positive hepatitis-C, NSTEMI 01/16/2022 TTE on 01/16/2022 WNL.? During hospitalization at [place] patient was intubated, received cardiac resuscitation, had bronchoscopy, gastrostomy tube placement, multiple laparotomies with colostomy placed, tracheostomy, with right chest port placement.?Recent Hospitalization @[place] 07/22-08/04/2022 for fever with unknown etiology. This patient requires acute care inpatient hospital management for diarrhea, vomiting, and fever, after failing outpatient management. The patient is at much higher risk for medical and surgical complications because of his complex medical history noted above. These factors increase the difficulty and complexity of medical and surgical interventions and increases the chances of poor outcomes such as morbidity and mortality. Sepsis without septic shock (fever, vomiting, diarrhea) Fever of unknown etiology, acute, present on admission -ED:? Temp 101.5, 107/74, 72, 18, 99% room air. -Patient did not initially meet SIRS/sofa criteria, now drop in BP-sofa: 2 -ABD Xray-?Patchy indistinct opacities within the visualized lung bases, left greater than right. -HX ischemic bowel with perforation, positive C diff. 01/2022 -HX E faecalis bacteremia 05/07/2022 -HXdiskitis C7-T3 endplate on 05/27/2022 -Hx of MRSA -WBC 14.6, band neut 14%, eosinophils 8%, absolute neutrophils 11,242, procalcitonin 4.22, -urinalysis, lactate negative, stool cultures, C diff, Campylobacter are all negative. -pending respiratory panel, repeat lactate, procalcitonin, GGT, MRSA -sepsis fluid bolus initiated in ED, vancomycin/Zosyn -empiric Unasyn Unasyn for possible pneumonia-adjust per cultures -aspiration precautions, monitor for bleeding, bladder scans as needed Ischemic bowel with perforation, gastrotomy/Colostomy placement, short gut syndrome, with PEG tube, acute on chronic, present on admission -Continue TPN, Imodium, Lomotil, Lyrica Chronic encephalopathy, with residual neuro deficits, secondary to noxious brain injury following cardiac resuscitation, present on admission -At Baseline Depression with anxiety, chronic, present on admission -Continue hydroxyzine, trazodone, Seroquel, risperidone History of polysubstance abuse, chronic, present on admission -history of marijuana and methamphetamine use, daily smoker, alcohol occasionally. -tox screen and ETOH ordered Tobacco abuse, chronic, present on admission -nicotine patch ordered Code status:Full Surrogate decision maker: Mother COVID PCR:Negtaive DVT/VTE prophylaxis:? Lovenox and SCDs Disposition:? Patient admitted to the ICU expected length to exceed 2 midnights. I have utilized all available immediate resources to obtain, update, or review t he patient's current medications. I confirmed that the patient's advanced care plan is present, Code status is documented and/or surrogate decision maker is listed in the patient's medical record. I have personally reviewed patient's chart notes from PCP, specialists, diagnostic imaging, and laboratory results.?
--- NOTE | 2022-10-14 00:49 | PC.NURSE ---
This nurse transported patient in [facility] to room 231. Report given to Mauri ALLEN who assumed care.
[2022-10-14 01:01] LABS: Magnesium 1.9 mg/dL (1.6-2.3)
[2022-10-14] MEDS: SODIUM CHLORIDE 0.9% 1,000 ML 60 ML IV ×2 (01:26→23:14)
[2022-10-14 02:07] LABS: Gamma Glutamyl Transpeptidase 206 U/L (15-73)
[2022-10-14 02:27] LABS: Adenovirus Not Detected (Not Detect); B. parapertussis Not Detected (Not Detecte); Bordetella pertussis Not Detected (Not Detecte); Chlamydophila pneumoniae Not Detected (Not Detect); Coronavirus 229E Not Detected (Not Detect); Coronavirus HKU1 Not Detected (Not Detect); Coronavirus NL 63 Not Detected (Not Detect); Coronavirus OC43 Not Detected (Not Detect); Human Metapneumovirus Not Detected (Not Detect); Human Rhinovirus/Enterovirus Not Detected (Not Detect); Influenza A Not Detected (Not Detect); Influenza B Not Detected (Not Detect); Mycoplasma pneumoniae Not Detected (Not Detect); Parainfluenza Virus 1 Not Detected (Not Detect); Parainfluenza Virus 2 Not Detected (Not Detect); Parainfluenza Virus 3 Not Detected (Not Detect); Parainfluenza Virus 4 Not Detected (Not Detect); Respiratory Syncytial Virus Not Detected (Not Detect); SARS- CoV-2 Not Detected (Not Detecte)
[2022-10-14 04:24] LABS: MRSA (Nasal) PCR Not Detected (Not Detect)
[2022-10-14] MEDS: AMPICILLIN/SULBACTAM 3 GM 3 GM in SODIUM CHLORIDE 0.9% 100 ML IV (04:39)
[2022-10-14 05:05] LABS: Add Manual Diff / Slide Review NO; Basophils Absolute Auto 200 /uL (0-100); Basophils Percent Auto 1.3 % (0-2); Eosinophils Absolute Auto 1300 /uL (0-450); Eosinophils Percent Auto 10.9 % (2-4); Hematocrit 22.3 % (41-53); Hemoglobin 7.5 g/dL (13.5-17.5); Lymphocytes Absolute Auto 1200 /uL (1100-4500); Lymphocytes Percent Auto 10.1 % (25-40); Mean Corpuscular HGB Conc 33.5 % (30-36); Mean Corpuscular Hemoglobin 25.9 PG (26-34); Mean Corpuscular Volume 77.3 fL (80-100); Monocytes Absolute Auto 1000 /uL (0-900); Monocytes Percent Auto 8.6 % (3-14); Neutrophils Absolute Auto 8000 /uL (1500-7000); Neutrophils Percent Auto 69.1 % (50-75); Platelet Count 424 X10^3/uL (150-400); Red Blood Cell Count 2.89 X10^6/uL (4.5-5.9); Red Cell Distribution Width 15.4 % (11.6-14.8); White Blood Cell Count 11.6 X10^3/uL (4.5-11.0)
[2022-10-14 05:16] LABS: Lactate (Lactic Acid) 0.7 mmol/L (0.7-2.1)
[2022-10-14 05:18] LABS: Alanine Aminotransferase 51 IU/L (<50); Albumin 3.2 g/dL (3.5-5.0); Albumin Globulin Ratio 0.8 (1.0-2.8); Alkaline Phosphatase 413 U/L (38-126); Aspartate Aminotransferase 23 IU/L (17-59); BUN Creatinine Ratio 20.5 (6-22); Bilirubin Total 0.6 mg/dL (0.2-1.3); Blood Urea Nitrogen 15 mg/dL (9-20); Calcium 8.9 mg/dL (8.4-10.2); Carbon Dioxide 21 mmol/L (22-32); Chloride 109 mmol/L (98-107); Estimated Glomerular Filt Rate > 60 mL/min (>60); Glucose 106 mg/dL (70-100); HEMOLYSIS < 15 (0-50); Potassium 3.9 mmol/L (3.4-5.1); Sodium 138 mmol/L (137-145); Total Protein 7.2 g/dL (6.3-8.2)
[2022-10-14 05:34] LABS: Procalcitonin 3.75 ng/mL (<0.5)
[2022-10-14 05:37] LABS: INR 1.4 (0.9-1.3); Prothrombin Time 16.6 SECONDS (10.1-12.7)
--- NOTE | 2022-10-14 07:11 | DI.US.S_ITS ---
PROCEDURE: US ABDOMEN LIMITED INDICATIONS: FEVER. INCREASED LIVER FUNCTION TESTS. HEPATITIS C. TECHNIQUE: Real-time focused scanning was performed of the abdomen, with image documentation. COMPARISON: [facility], CT, CT CHEST ABD PEL WO CON, 07/31/2022, 16:17. [facility], US, US ABDOMEN COMPLETE, 08/02/2022, 15:28. FINDINGS: Liver length of 20.3 cm. Unremarkable background echotexture. Possible anterior left lobe mass versus artifact/prominent region of capsular lobulation. This possible finding measures approximately 1.5 x 1.2 x 1.0 cm. The gallbladder is decompressed. No definite gallstones identified. Thickening of the gallbladder wall is present measuring up to 5 mm. The patient was tender with sonographic evaluation of the gallbladder. Main portal vein is patent with antegrade flow. No biliary ductal dilation demonstrated. Extrahepatic bile duct measures up to 5 mm. Visualized pancreas unremarkable sonographically. Trace free fluid visualized in the right upper quadrant of the abdomen. IMPRESSION: 1. Liver length of 20.3 cm, could reflect hepatomegaly. Unremarkable background liver echotexture. 2. Possible/equivocal small mass at the anterior left lobe of the liver, versus artifact. Liver protocol MRI or CT could be performed for further evaluation as clinically indicated. 3. No biliary ductal dilation demonstrated. 4. Nonspecific thickening of the gallbladder wall present, could be in part related to luminal underdistention but other etiologies including volume overload or chronic liver disease are also possible. No gallstones visualized. Acute cholecystitis considered less likely given absence of gallbladder distension however clinical correlation is recommended. Dictated by: Anthony Cochran M.D. on 10/14/2022 at 9:31 Approved by: Anthony Cochran M.D. on 10/14/2022 at 9:38
[2022-10-14] MEDS: ENOXAPARIN 40 MG/0.4 ML SYRINGE SUBCUT (08:29)
[2022-10-14] MEDS: VANCOMYCIN 1,250 MG/250 ML PIGGYBACK 250 MG IV ×3 (08:29→23:13)
[2022-10-14 09:46] LABS: Acinetobacter calcoa-baumannii Not Detected (Not Detect); Bacteroides fragilis Not Detected (Not Detect); Candida albicans Not Detected (Not Detect); Candida auris Not Detected (Not Detect); Enterobacter cloacae complex Not Detected (Not Detect); Enterobacterales Not Detected (Not Detect); Enterococcus faecalis Not Detected (Not Detect); Enterococcus faecium Not Detected (Not Detect); Haemophilus influenzae Not Detected (Not Detect); Klebsiella aerogenes Not Detected (Not Detect); Listeria monocytogenes Not Detected (Not Detect); Neisseria meningitidis Not Detected (Not Detect); Proteus species Not Detected (Not Detect); Pseudomonas aeruginosa Not Detected (Not Detect); Salmonella species Not Detected (Not Detect); Serratia marcescens Not Detected (Not Detect); Staphylococcus epidermidis DETECTED (Not Detect); Staphylococcus lugdunensis Not Detected (Not Detect); Staphylococcus species DETECTED (Not Detect); Stenotrophomonas maltophilia Not Detected (Not Detect); Streptococcus agalactiae (Gr B Not Detected (Not Detect); Streptococcus pneumonia Not Detected (Not Detect); Streptococcus pyogenes (Gr A) Not Detected (Not Detect); Streptococcus species Not Detected (Not Detect); mecA/C Resistance DETECTED (Not Detect)
[2022-10-14 09:47] LABS: Candida glabrata Not Detected (Not Detect); Candida krusei Not Detected (Not Detect); Candida parapsilosis Not Detected (Not Detect); Candida tropicalis Not Detected (Not Detect); Cryptococcus neoformans/gatti Not Detected (Not Detect)
[2022-10-14] MEDS: cefTRIAXone 2,000 MG in SODIUM CHLORIDE 0.9% 100 ML 200 MG IV (11:00)
--- NOTE | 2022-10-14 14:32 | CM.DANOTE ---
Initial DCP Assessment Note Pt is a 42 yo male, resident of [place], complicated medical history, admitted to the ICU for management of sepsis with fever, diarrhea, vomiting, leukocytosis, and anemia. Staph+ PMH includes (per H+P): polysubstance abuse, ischemic bowel with perforation, requiring TPN and tube feedings, hypoxic cardiac arrest, history of acute on chronic encephalopathy- resulting anoxic brain injury with residual cognitive deficits, Recent Hospitalization @[place] 07/22-08/04/2022 for fever with unknown etiology PCP: Epifanio Engle Payer: [facility] Reviewed chart, attempted contact with mom/caregiver Traci, played phone tag. Completed this initial assessment with information available on the chart. Based on assessment completed in July 2022 by this CM team; patient lives w/mom, stepfather, sister and niece in [place] Patient has DAVID caregiving hours that had been fulfilled, in part, by [facility] Patient has hx of both mental illness and TBI. Patient has gastrotomy/Colostomy and PEG tube w/chronic need for TPN, managed by both [facility] and [facility] CM team will plan to follow closely for assist in DCP coordination once patient medically stable. Anticipate patient will return home w/family with resumption of the outpatient services he already has established Will plan to review and confirm all information listed above with mom Traci ITZ Foster Discharge Planning/Care Management CM Discharge Assessment Start: 10/14/22 14:26 Freq: Status: Active Protocol: Document 10/14/22 14:26 MARQUITA (Rec: 10/14/22 14:31 MARQUITA [id number]) Discharge Planning Assessment Assigned Dairy Manufacturing Technologist ITZ Davis DPOA/Assigned Designee Name mother Bond Contact Information [phone] Advance Directives? No History Provided By Patient,Medical Record Prior Living Arrangements Apartment/Condo Household Members family Type of transporation used prior to Relies on Others admit Independent with ADL's No Is patient alert and oriented? No Needs Assistance With Bathing,Grooming,Meal Prep, Toileting,Managing Medications ,Home Chores / Shopping Comment [facility] and family provide DAVID hours Comment Medical plan of care still unfolding however it is likely that patient will discharge back home with resumption of [facility] and [facility] once medically cleared to do so Discharge Plan Home Transportation Arrangement Mother to transport home Additional Comment Resumption of Care orders will be needed
--- NOTE | 2022-10-14 17:30 | DIET.CONS ---
Dietary Consultation Note Admission Date: 10/13/2022 23:44 Assessment: 42y M admitted for sepsis and fever of unknown origin referred to nutrition per TPN collaborative protocol. Pt with SBS on chronic TPN with ostomy. Pharmacy spoke with home infusion company and will be matching TPN and lytes to home formulation. Pt currently weight stable since last admission 3mo ago. Pt consumes PO intake for pleasure in home setting. Pt likely aspirated last evening at dinner when vomited while eating. Ht: 168.91 cm Wt: 70.76 kg BMI: 24.7 Last BM: 10/14/22 (10/14/22 00:55) MNA: 7 Ignacio Score: 19 Diet: 10/14/22 Breakfast General (Regular) Diet Diet Modifications: Nutrition Percent Meal Consumed 25% 10/14/22 09:17 Labs: RBC 2.89 X10^6/uL (4.5-5.9) L 10/14/22 04:35 Hgb 7.5 g/dL (13.5-17.5) L 10/14/22 04:35 Hct 22.3 % (41-53) L 10/14/22 04:35 Creatinine 0.73 mg/dL (0.66-1.25) 10/14/22 04:35 Lactate 0.7 mmol/L (0.7-2.1) 10/14/22 04:35 Nutrition Diagnosis: Malabsorption r/t altered GI function aeb pt with SBS on chronic TPN with ostomy. Interventions: 1. Recc initiating TPN per home routine. Pharmacy to order 1.5L Clinimix E running at 62mL/h with 250mL IVFE. EER: 1750kcals (25kcal/kg), 56-70g PRO (0.8-1.0g/kg) Monitoring/Evaluations: TPN tolerance, associated labs Electronically Signed by: Sneha Vazquez 10/14/22 17:[address] [id number]
[2022-10-14] MEDS: MULTIVITAMIN IV (18:08)
[2022-10-14] MEDS: CALCIUM IV (18:08)
[2022-10-14] MEDS: LYTES IV (18:08)
[2022-10-14] MEDS: DEXT IV (18:08)
[2022-10-14] MEDS: TRACE ELEMENTS IV (18:08)
[2022-10-14] MEDS: [UNRECOGNIZED DRUG - OTHER] IV (18:08)
[2022-10-14] MEDS: FAT EMULSIONS 50 GM/250 ML EMULSION IV (18:08)
[2022-10-14] MEDS: QUETIAPINE 25 MG TABLET 100 MG PO (20:16)
[2022-10-14] MEDS: TRAZODONE 50 MG TABLET PO (20:16)
[2022-10-15] VITALS (32 sets, daily range): BP systolic 106–145; BP diastolic 57–81; PULSE 60–96; RESP 16–20; TEMP 36.7–37.4; O2SAT 94–100
[2022-10-15 04:58] LABS: Add Manual Diff / Slide Review NO; Basophils Absolute Auto 0 /uL (0-100); Basophils Percent Auto 0.4 % (0-2); Eosinophils Absolute Auto 900 /uL (0-450); Eosinophils Percent Auto 10.9 % (2-4); Lymphocytes Absolute Auto 1400 /uL (1100-4500); Mean Corpuscular HGB Conc 33.9 % (30-36); Mean Corpuscular Volume 76.7 fL (80-100); Monocytes Absolute Auto 1000 /uL (0-900); Monocytes Percent Auto 11.1 % (3-14); Neutrophils Absolute Auto 5300 /uL (1500-7000); Neutrophils Percent Auto 61.6 % (50-75); Platelet Count 415 X10^3/uL (150-400); Red Blood Cell Count 2.71 X10^6/uL (4.5-5.9); Red Cell Distribution Width 15.5 % (11.6-14.8); White Blood Cell Count 8.6 X10^3/uL (4.5-11.0)
[2022-10-15 05:08] LABS: Magnesium 1.9 mg/dL (1.6-2.3); Phosphorous 3.1 mg/dL (2.5-4.5); Triglycerides 145 mg/dL (35-150)
[2022-10-15 05:10] LABS: Alanine Aminotransferase 35 IU/L (<50); Albumin 3.1 g/dL (3.5-5.0); Albumin Globulin Ratio 0.8 (1.0-2.8); Alkaline Phosphatase 310 U/L (38-126); Aspartate Aminotransferase 18 IU/L (17-59); BUN Creatinine Ratio 16.7 (6-22); Bilirubin Total 0.3 mg/dL (0.2-1.3); Blood Urea Nitrogen 11 mg/dL (9-20); Calcium 8.6 mg/dL (8.4-10.2); Carbon Dioxide 21 mmol/L (22-32); Chloride 108 mmol/L (98-107); Estimated Glomerular Filt Rate > 60 mL/min (>60); Glucose 116 mg/dL (70-100); HEMOLYSIS < 15 (0-50); Potassium 3.6 mmol/L (3.4-5.1); Sodium 139 mmol/L (137-145); Total Protein 7.1 g/dL (6.3-8.2)
[2022-10-15 05:34] LABS: Prealbumin 11.6 mg/dL (17.6-36.0)
[2022-10-15 06:00] LABS: Hematocrit 20.8 % (41-53)
[2022-10-15] MEDS: VANCOMYCIN TROUGH 1 REQUEST MISC (07:43)
[2022-10-15 08:05] LABS: Vancomycin Trough 13.2 ug/mL (10-20)
[2022-10-15] MEDS: VANCOMYCIN 1,250 MG/250 ML PIGGYBACK 250 MG IV (09:25)
[2022-10-15] MEDS: ENOXAPARIN 40 MG/0.4 ML SYRINGE SUBCUT (09:25)
[2022-10-15 10:30] LABS: Hematocrit 24.1 % (41-53)
[2022-10-15 10:53] LABS: Creatine Kinase < 20 U/L (55-170)
[2022-10-15] MEDS: VANCOMYCIN 1,500 MG/300 ML PIGGYBACK 200 MG IV ×2 (15:03→23:56)
[2022-10-15] MEDS: PREGABALIN 75 MG CAPSULE PO ×2 (15:03→21:34)
[2022-10-15] MEDS: ASPIRIN EC 81 MG TABLET PO (15:03)
[2022-10-15] MEDS: risperiDONE 1 MG TABLET PO (15:03)
[2022-10-15] MEDS: hydrOXYzine pamoate 25 MG CAPSULE PO ×2 (15:04→21:33)
--- NOTE | 2022-10-15 15:54 | P.PN_ITS ---
Subjective Subjective Interval history: Patient feels well and has no complaints. Mother at bedside and questions were answered. Repeat BC neg at 24 hours. Exam Vital Signs (past 8 hours): - 10/15/22 08:34 10/15/22 09:30 10/15/22 12:00 Temperature 98.0 F 98.5 F 99.4 F Pulse Rate 76 72 84 Respiratory Rate 18 19 16 Blood Pressure 129/68 135/77 143/79 H Pulse Oximetry 98 99 Oxygen Flow Rate 0 0 Oxygen Delivery Method Room Air Oxygen Flow Rate 0 Narrative Exam Narrative: General: Patient is a chronically ill-appearing male, resting, in no distress at this time. HEENT: Normocephalic, atraumatic, extraocular muscles intact, oral pharynx is clear and mucous membranes are moist. Neck is supple and symmetric, trachea is midline, no adenopathy, no thyroid enlargement, nontender, no masses palpated. Negative for JVD Chest: Normal AP diameter and contour without kyphoscoliosis, Equal chest rise without nasal flaring, retractions, tachypneic or labored breathing. Port to right chest wall Lungs: Auscultation of all lung morales are clear without adventitious sounds, wheezes, rhonchi, or rales. Cardio: regular rate and rhythm without murmur, rubs, or gallops, no carotid bruit, no cardiac pulsations present. Abdomen: Soft nontender, negative for organomegaly, or masses. Colostomy bag present. Bowel sounds are present in right upper quadrants without guarding or rebound, no CVA tenderness. Condom Cath in place Musculoskeletal: Muscle strength and tone are equal, no deformity, crepitus, effusions, cyanosis, clubbing or edema present. Full range of motion intact radial and pedal pulses are normal. Skin: very pale, Warm dry and intact without rashes, ulcerations or petechiae. Neuro: Alert and orientated x3, moves all extremities, sensation to touch intact, no gross deficits noted of cranial nerves. 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 Objective Labs 10/15/22 09:55 10/15/22 04:30 Labs: Laboratory Results - last 24 hr 10/13/22 10/13/22 10/13/22 20:05 20:05 20:05 WBC 14.6 H RBC 2.83 L Hgb 7.3 L Hct 22.0 L MCV 78.0 L MCH 25.8 L MCHC 33.0 RDW 15.0 H Plt Count 460 H Neut % (Auto) Lymph % (Auto) [place] % (Auto) Eos % (Auto) Baso % (Auto) Neut # (Auto) Lymph # (Auto) [place] # (Auto) Eos # (Auto) Baso # (Auto) Total Counted 100 Seg Neutrophils % 63.0 Band Neutrophils % 14.0 H Lymphocytes % (Manual) 7.0 L Monocytes % (Manual) 8.0 Eosinophils % (Manual) 8.0 H Neutrophils # (Manual) 09027 H RBC Morphology See below Microcytosis 1+ H PT 15.9 H INR 1.4 H APTT 29 Sodium 136 L Potassium 4.1 Chloride 104 Carbon Dioxide 21 L BUN 19 Creatinine 0.67 Estimated GFR > 60 BUN/Creatinine Ratio 28.4 H Glucose 113 H Lactate Calcium 9.1 Phosphorus Magnesium Total Bilirubin 0.5 AST 30 ALT 65 H Alkaline Phosphatase 478 H Total Creatine Kinase Total Protein 7.8 Albumin 3.6 Globulin 4.2 H Albumin/Globulin Ratio 0.9 L Prealbumin Triglycerides Lipase 30 Procalcitonin 4.22 H Vancomycin Trough A.calcoaceticus-baumannii cmplx PCR Bacteroides fragilis Katty albicans (PCR) Katty auris (PCR) C. glabrata (PCR) C. krusei (PCR) C. parapsilosis (PCR) C. tropicalis (PCR) C. neoform/gattii (PCR) Enterobacterales (PCR) E. cloacae complex PCR Enterococc faecalis PCR Enterococc faecium PCR E. coli (PCR) H. influenzae (PCR) Klebsiella aerogenes (PCR) Klebsiella oxytoca PCR Klebsiella pneumoniae List. monocytogenes PCR N. meningitidis (PCR) Proteus species (PCR) Salmonella spp. (PCR) Serratia marcescens PCR Staphylococcus sp PCR Staph aureus (PCR) mecA/C-Methicil Resis Gene Staph epidermidis (PCR) Staph lugdunensis PCR S. maltophilia (PCR) Streptococcus sp PCR Group A Strep (PCR) Strep agalactiae (PCR) Strep pneumoniae (PCR) P. aeruginosa (PCR) Blood Type Antibody Screen Crossmatch 10/13/22 10/13/22 10/13/22 20:05 20:05 21:00 WBC RBC Hgb Hct MCV MCH MCHC RDW Plt Count Neut % (Auto) Lymph % (Auto) [place] % (Auto) Eos % (Auto) Baso % (Auto) Neut # (Auto) Lymph # (Auto) [place] # (Auto) Eos # (Auto) Baso # (Auto) Total Counted Seg Neutrophils % Band Neutrophils % Lymphocytes % (Manual) Monocytes % (Manual) Eosinophils % (Manual) Neutrophils # (Manual) RBC Morphology Microcytosis PT INR APTT Sodium Potassium Chloride Carbon Dioxide BUN Creatinine Estimated GFR BUN/Creatinine Ratio Glucose Lactate 1.2 Calcium Phosphorus Magnesium Total Bilirubin AST ALT Alkaline Phosphatase Total Creatine Kinase Total Protein Albumin Globulin Albumin/Globulin Ratio Prealbumin Triglycerides Lipase Procalcitonin Vancomycin Trough A.calcoaceticus-baumannii cmplx PCR Not detected Bacteroides fragilis Not detected Katty albicans (PCR) Not detected Katty auris (PCR) Not detected C. glabrata (PCR) Not detected C. krusei (PCR) Not detected C. parapsilosis (PCR) Not detected C. tropicalis (PCR) Not detected C. neoform/gattii (PCR) Not detected Enterobacterales (PCR) Not detected E. cloacae complex PCR Not detected Enterococc faecalis PCR Not detected Enterococc faecium PCR Not detected E. coli (PCR) Not detected H. influenzae (PCR) Not detected Klebsiella aerogenes (PCR) Not detected Klebsiella oxytoca PCR Not detected Klebsiella pneumoniae Not detected List. monocytogenes PCR Not detected N. meningitidis (PCR) Not detected Proteus species (PCR) Not detected Salmonella spp. (PCR) Not detected Serratia marcescens PCR Not detected Staphylococcus sp PCR Detected H Staph aureus (PCR) Not detected mecA/C-Methicil Resis Gene Detected H Staph epidermidis (PCR) Detected H Staph lugdunensis PCR Not detected S. maltophilia (PCR) Not detected Streptococcus sp PCR Not detected Group A Strep (PCR) Not detected Strep agalactiae (PCR) Not detected Strep pneumoniae (PCR) Not detected P. aeruginosa (PCR) Not detected Blood Type O Positive Antibody Screen Negative Crossmatch See Detail 10/15/22 10/15/22 10/15/22 04:30 04:30 04:30 WBC 8.6 RBC 2.71 L Hgb 7.0 L Hct 20.8 L* MCV 76.7 L MCH 26.0 MCHC 33.9 RDW 15.5 H Plt Count 415 H Neut % (Auto) 61.6 Lymph % (Auto) 16.0 L [place] % (Auto) 11.1 Eos % (Auto) 10.9 H Baso % (Auto) 0.4 Neut # (Auto) 5300 Lymph # (Auto) 1400 [place] # (Auto) 1000 H Eos # (Auto) 900 H Baso # (Auto) 0 Total Counted Seg Neutrophils % Band Neutrophils % Lymphocytes % (Manual) Monocytes % (Manual) Eosinophils % (Manual) Neutrophils # (Manual) RBC Morphology Microcytosis PT INR APTT Sodium 139 Potassium 3.6 Chloride 108 H Carbon Dioxide 21 L BUN 11 Creatinine 0.66 Estimated GFR > 60 BUN/Creatinine Ratio 16.7 Glucose 116 H Lactate Calcium 8.6 Phosphorus 3.1 Magnesium 1.9 Total Bilirubin 0.3 AST 18 ALT 35 Alkaline Phosphatase 310 H Total Creatine Kinase Total Protein 7.1 Albumin 3.1 L Globulin 4.0 Albumin/Globulin Ratio 0.8 L Prealbumin 11.6 L Triglycerides 145 Lipase Procalcitonin Vancomycin Trough A.calcoaceticus-baumannii cmplx PCR Bacteroides fragilis Katty albicans (PCR) Katty auris (PCR) C. glabrata (PCR) C. krusei (PCR) C. parapsilosis (PCR) C. tropicalis (PCR) C. neoform/gattii (PCR) Enterobacterales (PCR) E. cloacae complex PCR Enterococc faecalis PCR Enterococc faecium PCR E. coli (PCR) H. influenzae (PCR) Klebsiella aerogenes (PCR) Klebsiella oxytoca PCR Klebsiella pneumoniae List. monocytogenes PCR N. meningitidis (PCR) Proteus species (PCR) Salmonella spp. (PCR) Serratia marcescens PCR Staphylococcus sp PCR Staph aureus (PCR) mecA/C-Methicil Resis Gene Staph epidermidis (PCR) Staph lugdunensis PCR S. maltophilia (PCR) Streptococcus sp PCR Group A Strep (PCR) Strep agalactiae (PCR) Strep pneumoniae (PCR) P. aeruginosa (PCR) Blood Type Antibody Screen Crossmatch 10/15/22 10/15/22 10/15/22 04:30 07:40 09:55 WBC RBC Hgb 8.0 L Hct 24.1 L MCV MCH MCHC RDW Plt Count Neut % (Auto) Lymph % (Auto) [place] % (Auto) Eos % (Auto) Baso % (Auto) Neut # (Auto) Lymph # (Auto) [place] # (Auto) Eos # (Auto) Baso # (Auto) Total Counted Seg Neutrophils % Band Neutrophils % Lymphocytes % (Manual) Monocytes % (Manual) Eosinophils % (Manual) Neutrophils # (Manual) RBC Morphology Microcytosis PT INR APTT Sodium Potassium Chloride Carbon Dioxide BUN Creatinine Estimated GFR BUN/Creatinine Ratio Glucose Lactate Calcium Phosphorus Magnesium Total Bilirubin AST ALT Alkaline Phosphatase Total Creatine Kinase < 20 L Total Protein Albumin Globulin Albumin/Globulin Ratio Prealbumin Triglycerides Lipase Procalcitonin Vancomycin Trough 13.2 A.calcoaceticus-baumannii cmplx PCR Bacteroides fragilis Katty albicans (PCR) Katty auris (PCR) C. glabrata (PCR) C. krusei (PCR) C. parapsilosis (PCR) C. tropicalis (PCR) C. neoform/gattii (PCR) Enterobacterales (PCR) E. cloacae complex PCR Enterococc faecalis PCR Enterococc faecium PCR E. coli (PCR) H. influenzae (PCR) Klebsiella aerogenes (PCR) Klebsiella oxytoca PCR Klebsiella pneumoniae List. monocytogenes PCR N. meningitidis (PCR) Proteus species (PCR) Salmonella spp. (PCR) Serratia marcescens PCR Staphylococcus sp PCR Staph aureus (PCR) mecA/C-Methicil Resis Gene Staph epidermidis (PCR) Staph lugdunensis PCR S. maltophilia (PCR) Streptococcus sp PCR Group A Strep (PCR) Strep agalactiae (PCR) Strep pneumoniae (PCR) P. aeruginosa (PCR) Blood Type Antibody Screen Crossmatch [facility] Medical History Hepatitis C antibody positive in blood History of cardiac arrest History of discitis History of non-ST elevation myocardial infarction (NSTEMI) History of sepsis Hx of ischemic bowel disease 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 Mother No problems noted. Social History household members: family Smoking Status: Unknown if ever smoked Assessment & Plan Assessment & Plan narrative: Sepsis secondary to MRSE bacteremia, acute, present on admission -ED:? Temp 101.5, 107/74, 72, 18, 99% room air. -Patient did not initially meet SIRS/sofa criteria, now drop in BP-sofa: 2 -WBC 14.6, band neut 14%, eosinophils 8%, absolute neutrophils 11,242, procalcitonin 4.22, Tmax 102.9F -HX ischemic bowel with perforation, positive C diff. 01/2022 -HX E faecalis bacteremia 05/07/2022 -HXdiskitis C7-T3 endplate on 05/27/2022 -Hx of MRSA -blood culture positive MRSE in 2/2 bottles -likely port related infection, considering abx lock therapy to preserve port which patient needs for TPN -considering place PICC for 2 weeks IV abx so port can be accessed for abx lock therapy plus TPN -repeat BC no growth at 24 hours, will place PICC at 48hrs negative -continue IV vanc Ischemic bowel with perforation, gastrotomy/Colostomy placement, short gut syndrome, with PEG tube, acute on chronic, present on admission -Continue TPN, Imodium, Lomotil, Lyrica Chronic encephalopathy, with residual neuro deficits, secondary to noxious brain injury following cardiac resuscitation, present on admission -At Baseline Depression with anxiety, chronic, present on admission -Continue hydroxyzine, trazodone, Seroquel, risperidone History of polysubstance abuse, chronic, present on admission -history of marijuana and methamphetamine use, daily smoker, alcohol occasionally. Tobacco abuse, chronic, present on admission -nicotine patch ordered Code status:Full Surrogate decision maker: Mother COVID PCR:Negtaive DVT/VTE prophylaxis:? Lovenox and SCDs Dispo: 2-3 days to setup outpatient IV abx likely for 2 weeks. Quality VTE Deep Vein Thrombosis/Pulmonary Embolism Present on Admission: No
[2022-10-15] MEDS: DIPHENOXYLATE/ATROP 2.5/0.025 TABLET 2.5 EACH PO ×2 (17:14→21:38)
[2022-10-15] MEDS: LOPERAMIDE 2 MG CAPSULE PO ×2 (17:14→21:34)
[2022-10-15] MEDS: CALCIUM IV (17:48)
[2022-10-15] MEDS: MULTIVITAMIN IV (17:48)
[2022-10-15] MEDS: [UNRECOGNIZED DRUG - OTHER] IV (17:48)
[2022-10-15] MEDS: TRACE ELEMENTS IV (17:48)
[2022-10-15] MEDS: DEXT IV (17:48)
[2022-10-15] MEDS: LYTES IV (17:48)
[2022-10-15] MEDS: QUETIAPINE 25 MG TABLET 100 MG PO (21:34)
[2022-10-15] MEDS: TRAZODONE 50 MG TABLET PO (21:34)
[2022-10-16] VITALS (7 sets, daily range): BP systolic 114–141; BP diastolic 59–83; PULSE 64–78; RESP 16–18; TEMP 36.8–37.1; O2SAT 95–97
[2022-10-16 05:27] LABS: Add Manual Diff / Slide Review NO; Basophils Absolute Auto 100 /uL (0-100); Basophils Percent Auto 1.1 % (0-2); Eosinophils Absolute Auto 1100 /uL (0-450); Eosinophils Percent Auto 12.1 % (2-4); Hematocrit 22.8 % (41-53); Hemoglobin 7.6 g/dL (13.5-17.5); Lymphocytes Absolute Auto 1700 /uL (1100-4500); Lymphocytes Percent Auto 18.9 % (25-40); Mean Corpuscular HGB Conc 33.6 % (30-36); Mean Corpuscular Hemoglobin 26.1 PG (26-34); Mean Corpuscular Volume 77.9 fL (80-100); Monocytes Absolute Auto 800 /uL (0-900); Neutrophils Absolute Auto 5300 /uL (1500-7000); Neutrophils Percent Auto 58.9 % (50-75); Platelet Count 439 X10^3/uL (150-400); Red Blood Cell Count 2.92 X10^6/uL (4.5-5.9); Red Cell Distribution Width 15.4 % (11.6-14.8); White Blood Cell Count 8.9 X10^3/uL (4.5-11.0)
[2022-10-16 05:42] LABS: Alanine Aminotransferase 31 IU/L (<50); Albumin 3.2 g/dL (3.5-5.0); Albumin Globulin Ratio 0.8 (1.0-2.8); Alkaline Phosphatase 272 U/L (38-126); Aspartate Aminotransferase 20 IU/L (17-59); BUN Creatinine Ratio 20.7 (6-22); Bilirubin Total 0.3 mg/dL (0.2-1.3); Blood Urea Nitrogen 12 mg/dL (9-20); Calcium 8.9 mg/dL (8.4-10.2); Carbon Dioxide 24 mmol/L (22-32); Chloride 109 mmol/L (98-107); Estimated Glomerular Filt Rate > 60 mL/min (>60); Globulin 3.8 g/dL (1.7-4.1); Glucose 134 mg/dL (70-100); HEMOLYSIS < 15 (0-50); Potassium 3.7 mmol/L (3.4-5.1); Sodium 142 mmol/L (137-145)
[2022-10-16] MEDS: hydrOXYzine pamoate 25 MG CAPSULE PO ×3 (08:29→20:09)
[2022-10-16] MEDS: VANCOMYCIN 1,500 MG/300 ML PIGGYBACK 200 MG IV (08:29)
[2022-10-16] MEDS: ENOXAPARIN 40 MG/0.4 ML SYRINGE SUBCUT (10:08)
[2022-10-16] MEDS: ASPIRIN EC 81 MG TABLET PO (10:09)
[2022-10-16] MEDS: DIPHENOXYLATE/ATROP 2.5/0.025 TABLET 2.5 EACH PO ×4 (10:09→20:05)
[2022-10-16] MEDS: LOPERAMIDE 2 MG CAPSULE PO ×4 (10:10→20:07)
[2022-10-16] MEDS: PREGABALIN 75 MG CAPSULE PO ×3 (10:10→20:06)
[2022-10-16] MEDS: QUETIAPINE 25 MG TABLET 50 MG PO (10:10)
--- NOTE | 2022-10-16 10:21 | CM.DPNOTE ---
DCP Note According to conversation w/mom Traci Aviles: Patient and mom live in an apt in [place]. Patient walks with walker at home with some assist w/transfers from mom. Mom does chores, meal prep, med management and assist with all higher ADLs Patient's current DAVID hours are 114, DAVID Bahena. Patient's typical caregiver is on vacation until October 26. Mom caring for patient 02/11, gets up multiple times every evening to check on TPN, ostomy bag etc. Mom left DAVID MONTEIRO a message this morning asking for help w/the evening shift so that she can get some sleep Patient had [facility] in the past, mom fired this agency because it was not working out for patient. Discussed home health services, offered referral to [facility] (?) and mom agrees to try this agency, requests [facility] RN/OT only Patient has TPN that runs 12 hr at night. TPN formula is mixed weekly for patient by [facility] P# [phone], the agency that has served patient since his discharge from [facility] in the fall of 2021. Patient receives TPN and blood draws from [facility]. [facility] has also provided IV abx in the past Mom eager to have patient home when he is ready for discharge. Erasmo Aviles would like [facility] for resumption of home TPN and any new orders for IV abx Erasmo Aviles aware that Dr Cueto and Dr Bro in close communication today re patient's needs. Once this MONITOR TECH has addtl information about DC needs from the physician, planning can begin for patient's discharge, as early as tomorrow Erasmo Aviles appreciative for the conversation and requests updates when available CM team following closely for coordination of DCP JW
--- NOTE | 2022-10-16 14:03 | PM.PN.1 ---
Subjective Subjective Interval history: Patient feels fine and has no complaints. Blood cultures finalized as same staph epi he grew a few months ago. Repeat blood cultures now neg at 48 hours. PICC line ordered. IV vanc changed to dapto and abx lock therapy started in port. Exam Vital Signs (past 8 hours): - 10/16/22 07:00 10/16/22 09:00 10/16/22 12:32 Pulse Rate 72 66 Respiratory Rate 18 16 Blood Pressure 138/71 130/62 Pulse Oximetry 96 97 Oxygen Delivery Method Room Air Oxygen Flow Rate 0 0 Oxygen Delivery Method Room Air Oxygen Flow Rate 0 Narrative Exam Narrative: General: Patient is a chronically ill-appearing male, resting, in no distress at this time. HEENT: Normocephalic, atraumatic, extraocular muscles intact, oral pharynx is clear and mucous membranes are moist. Neck is supple and symmetric, trachea is midline, no adenopathy, no thyroid enlargement, nontender, no masses palpated. Negative for JVD Chest: Normal AP diameter and contour without kyphoscoliosis, Equal chest rise without nasal flaring, retractions, tachypneic or labored breathing. Port to right chest wall Lungs: Auscultation of all lung morales are clear without adventitious sounds, wheezes, rhonchi, or rales. Cardio: regular rate and rhythm without murmur, rubs, or gallops, no carotid bruit, no cardiac pulsations present. Abdomen: Soft nontender, negative for organomegaly, or masses. Colostomy bag present. Bowel sounds are present in right upper quadrants without guarding or rebound, no CVA tenderness. Condom Cath in place Musculoskeletal: Muscle strength and tone are equal, no deformity, crepitus, effusions, cyanosis, clubbing or edema present. Full range of motion intact radial and pedal pulses are normal. Skin: very pale, Warm dry and intact without rashes, ulcerations or petechiae. Neuro: Alert and orientated x3, moves all extremities, sensation to touch intact, no gross deficits noted of cranial nerves. 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 Objective Labs 10/16/22 05:20 10/16/22 05:20 Labs: Laboratory Results - last 24 hr 10/16/22 10/16/22 05:20 05:20 WBC 8.9 RBC 2.92 L Hgb 7.6 L Hct 22.8 L MCV 77.9 L MCH 26.1 MCHC 33.6 RDW 15.4 H Plt Count 439 H Neut % (Auto) 58.9 Lymph % (Auto) 18.9 L [place] % (Auto) 9.0 Eos % (Auto) 12.1 H Baso % (Auto) 1.1 Neut # (Auto) 5300 Lymph # (Auto) 1700 [place] # (Auto) 800 Eos # (Auto) 1100 H Baso # (Auto) 100 Sodium 142 Potassium 3.7 Chloride 109 H Carbon Dioxide 24 BUN 12 Creatinine 0.58 L Estimated GFR > 60 BUN/Creatinine Ratio 20.7 Glucose 134 H Calcium 8.9 Total Bilirubin 0.3 AST 20 ALT 31 Alkaline Phosphatase 272 H Total Protein 7.0 Albumin 3.2 L Globulin 3.8 Albumin/Globulin Ratio 0.8 L PFS Medical History Hepatitis C antibody positive in blood History of cardiac arrest History of discitis History of non-ST elevation myocardial infarction (NSTEMI) History of sepsis Hx of ischemic bowel disease 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 Mother No problems noted. Social History household members: family Smoking Status: Unknown if ever smoked Assessment & Plan Assessment & Plan narrative: Sepsis secondary to recurrent MRSE bacteremia, acute, present on admission -ED:? Temp 101.5, 107/74, 72, 18, 99% room air. -Patient did not initially meet SIRS/sofa criteria, now drop in BP-sofa: 2 -WBC 14.6, band neut 14%, eosinophils 8%, absolute neutrophils 11,242, procalcitonin 4.22, Tmax 102.9F -HX ischemic bowel with perforation, positive C diff. 01/2022 -HX E faecalis bacteremia 05/07/2022 -HXdiskitis C7-T3 endplate on 05/27/2022 -Hx of MRSA -Hx of MRSE in July 2022 -blood culture positive MRSE in 2/2 bottles -likely port related infection, will start vanc lock therapy in port for 2 weeks to preserve port line -PICC line ordered for 2 weeks to received TPN and dapto -repeat BC no growth at 48 hours -start dapto 8mg/kg q24 hours until 10/28 -home infusions being arranged through [facility] -has appt with Dr. Cueto ID on 10/23 at 10am for outpatient follow-up Ischemic bowel with perforation, gastrotomy/Colostomy placement, short gut syndrome, with PEG tube, acute on chronic, present on admission -Continue TPN, Imodium, Lomotil, Lyrica Chronic encephalopathy, with residual neuro deficits, secondary to noxious brain injury following cardiac resuscitation, present on admission -At Baseline Depression with anxiety, chronic, present on admission -Continue hydroxyzine, trazodone, Seroquel, risperidone History of polysubstance abuse, chronic, present on admission -history of marijuana and methamphetamine use, daily smoker, alcohol occasionally. Tobacco abuse, chronic, present on admission -nicotine patch ordered Code status:Full Surrogate decision maker: Mother COVID PCR:Negtaive DVT/VTE prophylaxis:? Lovenox and SCDs Dispo: 2-3 days to setup outpatient IV abx through [facility] Quality VTE Deep Vein Thrombosis/Pulmonary Embolism Present on Admission: No
[2022-10-16] MEDS: SODIUM CHLORIDE 0.9% IV (14:20)
[2022-10-16] MEDS: DAPTOMYCIN IV (14:20)
--- NOTE | 2022-10-16 15:07 | CM.DPNOTE ---
Addendum entered by Mimi Pearce, MILL MACHINIST 10/16/22 15:41: ADD: Dr Bro has secured an appointment for patient with Dr Cueto for WednesdayOctober 23 at 1000, gave mom skye the appt info Addendum entered by Mimimandeep Pearce, MILL MACHINIST 10/16/22 15:38: ADD: [facility] needs resumption of home TPN orders upon discharge Original Note: DCP Note According to Dr Bro-Dr Cueto wants patient to have IV Dapto 560mg Q24 until 10.28.22 through PICC and Vanco lock therapy w/12 hour dwell time through port until 10.28.22 Placed call to [facility]# [phone] spoke with multiple pharmacists and then ultimately with [facility] in intake P#[phone], reviewed this referral [facility] expects to have patient's TPN, IV Dapto and port lock therapy ready by Wednesday at the earliest and Wednesday next at the latest. Unfortunately, this company cannot have staff and medications ready this weekend There is a chance that patient can get his IV dapto dose Wednesday and discharge home, with RN from [facility] doing the teach and providing supplies to mom in patient's home Wednesday Faxed all requested clinical, including Rx from Dr Bro for order listed above, to [facility] at F# [phone] Laly Cueto's clinic number and cell number per Dr Bro's advisement Reviewed above with mom Skye who remains agreeable to plan and reiterates she would like all services to go through [facility] as long as they can provide what is needed for patient [facility] recommends contact w/them Wednesday to review DCP Plan: Discharge anticipated early next week, [facility] is working on the following: resumption of home TPN, IV Dapto through PICC and Vanco lock therapy through port (suspected source of infection), mom and primary caregiver to continue care and [facility] referred to for RN/OT services CM team will need to follow closely for DCP coordination JW
--- NOTE | 2022-10-16 16:45 | DI.RAD.S_ITS ---
PROCEDURE: XR CHEST FOR PICC 1V INDICATIONS: line placement TECHNIQUE: One view of the chest was acquired. COMPARISON: [facility], CR, XR CHEST 1V, 10/13/2022, 19:28. [facility], CR, XR CHEST 1V, 07/31/2022, 14:15. FINDINGS: Surgical changes and devices: Right-sided port with the catheter tip terminating in the middle 3rd of the SVC, unchanged. Right-sided PICC line with the catheter tip terminating in the middle 3rd of the SVC. Lungs and pleura: Prominent pulmonary markings. Suspect trace pleural effusions. No pneumothorax. Mediastinum: Mediastinal contours appear normal. Heart size is normal. Bones and chest wall: No suspicious bony lesions. Overlying soft tissues appear unremarkable. IMPRESSION: Right-sided PICC with the catheter tip terminating in the middle 3rd of the SVC. No pneumothorax. Prominent pulmonary markings which could be due to pulmonary edema or infectious/inflammatory etiology. Small pleural effusion suspected. Dictated by: Sumit Garcia M.D. on 10/16/2022 at 17:04 Approved by: Sumit Gacria M.D. on 10/16/2022 at 17:06
--- NOTE | 2022-10-16 17:16 | PC.NURSE ---
Unable to advance PICC in LT arm. Pt also c/o pain in lt arm during attempt. PICC placed in RT arm with no problems.
[2022-10-16] MEDS: TRACE ELEMENTS IV (18:18)
[2022-10-16] MEDS: LYTES IV (18:18)
[2022-10-16] MEDS: [UNRECOGNIZED DRUG - OTHER] IV (18:18)
[2022-10-16] MEDS: MULTIVITAMIN IV (18:18)
[2022-10-16] MEDS: DEXT IV (18:18)
[2022-10-16] MEDS: CALCIUM IV (18:18)
[2022-10-16] MEDS: FAT EMULSIONS 50 GM/250 ML EMULSION IV (18:19)
--- NOTE | 2022-10-16 19:36 | PC.NURSE ---
pt received a PICC to [facility] after earlier unsuccessful attempt to [facility]; TPN and lipids to PICC; port flushed w/ saline, then packed with vancomycin; mother to bedside and she changed patient's colostomy bag
[2022-10-16] MEDS: QUETIAPINE 25 MG TABLET 100 MG PO (20:07)
[2022-10-16] MEDS: TRAZODONE 50 MG TABLET PO (20:07)
--- NOTE | 2022-10-17 07:04 | PC.NURSE ---
Patient resting in bed all shift. Denied any pain. Has been A&O, calm and cooperative.
[2022-10-17] MEDS: QUETIAPINE 25 MG TABLET 50 MG PO (08:56)
[2022-10-17] MEDS: hydrOXYzine pamoate 25 MG CAPSULE PO ×3 (08:56→21:47)
[2022-10-17] MEDS: LOPERAMIDE 2 MG CAPSULE PO ×4 (08:56→21:47)
[2022-10-17] MEDS: PREGABALIN 75 MG CAPSULE PO ×3 (08:56→21:47)
[2022-10-17] MEDS: ASPIRIN EC 81 MG TABLET PO (08:57)
[2022-10-17] MEDS: DIPHENOXYLATE/ATROP 2.5/0.025 TABLET 2.5 EACH PO ×4 (08:57→21:50)
--- NOTE | 2022-10-17 09:12 | PC.NURSE ---
went in to give patient morning meds; he was very angry about being awakened; took pills, refused lovenox, then started throwing things in the room, urinals, water cup with water; top blanket changed; pt refused to have bottom sheets changed; call light in reach; instructed to call with any needs; pt yelled at RN to just get out along with profanities; curtain partially open, door closed; pt calmed as soon as staff left the room
[2022-10-17] MEDS: ENOXAPARIN 40 MG/0.4 ML SYRINGE SUBCUT (12:14)
[2022-10-17] MEDS: SODIUM CHLORIDE 0.9% IV (12:15)
[2022-10-17] MEDS: DAPTOMYCIN IV (12:15)
--- NOTE | 2022-10-17 16:34 | PM.PN.1 ---
Subjective Subjective Interval history: Patient was quite rude to nursing this morning when they awoke him to take his morning meds. He later apologized. He has no other complaints. Exam Vital Signs (past 8 hours): Oxygen Delivery Method Room Air Oxygen Flow Rate 0 Narrative Exam Narrative: General: Patient is a chronically ill-appearing male, resting, in no distress at this time. HEENT: Normocephalic, atraumatic, extraocular muscles intact, oral pharynx is clear and mucous membranes are moist. Neck is supple and symmetric, trachea is midline, no adenopathy, no thyroid enlargement, nontender, no masses palpated. Negative for JVD Chest: Normal AP diameter and contour without kyphoscoliosis, Equal chest rise without nasal flaring, retractions, tachypneic or labored breathing. Port to right chest wall Lungs: Auscultation of all lung morales are clear without adventitious sounds, wheezes, rhonchi, or rales. Cardio: regular rate and rhythm without murmur, rubs, or gallops, no carotid bruit, no cardiac pulsations present. Abdomen: Soft nontender, negative for organomegaly, or masses. Colostomy bag present. Bowel sounds are present in right upper quadrants without guarding or rebound, no CVA tenderness. Condom Cath in place Musculoskeletal: Muscle strength and tone are equal, no deformity, crepitus, effusions, cyanosis, clubbing or edema present. Full range of motion intact radial and pedal pulses are normal. Skin: very pale, Warm dry and intact without rashes, ulcerations or petechiae. Neuro: Alert and orientated x3, moves all extremities, sensation to touch intact, no gross deficits noted of cranial nerves. 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 Objective Labs 10/16/22 05:20 10/16/22 05:20 [facility] Medical History Hepatitis C antibody positive in blood History of cardiac arrest History of discitis History of non-ST elevation myocardial infarction (NSTEMI) History of sepsis Hx of ischemic bowel disease 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 Mother No problems noted. Social History household members: family Smoking Status: Unknown if ever smoked Assessment & Plan Assessment & Plan narrative: Sepsis secondary to recurrent MRSE bacteremia, acute, present on admission -ED:? Temp 101.5, 107/74, 72, 18, 99% room air. -Patient did not initially meet SIRS/sofa criteria, now drop in BP-sofa: 2 -WBC 14.6, band neut 14%, eosinophils 8%, absolute neutrophils 11,242, procalcitonin 4.22, Tmax 102.9F -HX ischemic bowel with perforation, positive C diff. 01/2022 -HX E faecalis bacteremia 05/07/2022 -HXdiskitis C7-T3 endplate on 05/27/2022 -Hx of MRSA -Hx of MRSE in July 2022 -blood culture positive MRSE in 2/2 bottles -likely port related infection, started vanc lock therapy in port for 2 weeks to preserve port line -PICC line placed to receive TPN and dapto x2 weeks -repeat BC no growth at 48 hours -start dapto 8mg/kg q24 hours until 10/28 -home infusions being arranged through [facility] infusion, which can open on 10/20 so he can dc after morning dose of dapto on 10/19 -has appt with Dr. Cueto ID on 10/23 at 10am for outpatient follow-up Ischemic bowel with perforation, gastrotomy/Colostomy placement, short gut syndrome, with PEG tube, acute on chronic, present on admission -Continue TPN, Imodium, Lomotil, Lyrica Chronic encephalopathy, with residual neuro deficits, secondary to noxious brain injury following cardiac resuscitation, present on admission -At Baseline Depression with anxiety, chronic, present on admission -Continue hydroxyzine, trazodone, Seroquel, risperidone History of polysubstance abuse, chronic, present on admission -history of marijuana and methamphetamine use, daily smoker, alcohol occasionally. Tobacco abuse, chronic, present on admission -nicotine patch ordered Code status:Full Surrogate decision maker: Mother COVID PCR:Negtaive DVT/VTE prophylaxis:? Lovenox and SCDs Dispo: Dc after dapto dose on 10/19. Quality VTE Deep Vein Thrombosis/Pulmonary Embolism Present on Admission: No
[2022-10-17 17:24] VITALS: BP 104/61; PULSE 70; RESP 18; O2SAT 98
[2022-10-17] MEDS: LYTES IV (18:05)
[2022-10-17] MEDS: DEXT IV (18:05)
[2022-10-17] MEDS: CALCIUM IV (18:05)
[2022-10-17] MEDS: MULTIVITAMIN IV (18:05)
[2022-10-17] MEDS: [UNRECOGNIZED DRUG - OTHER] IV (18:05)
[2022-10-17] MEDS: TRACE ELEMENTS IV (18:05)
--- NOTE | 2022-10-17 19:19 | PC.NURSE ---
pt has been pleasant since the episode this morning; he has been up in the chair twice with standby asst
[2022-10-17] MEDS: TRAZODONE 50 MG TABLET PO (21:47)
[2022-10-17] MEDS: QUETIAPINE 25 MG TABLET 100 MG PO (21:48)
[2022-10-17 21:50] VITALS: BP 144/66; PULSE 62; RESP 16; TEMP 36.7; O2SAT 98
[2022-10-18 07:40] LABS: Albumin 3.8 g/dL (3.5-5.0); BUN Creatinine Ratio 32.8 (6-22); Blood Urea Nitrogen 21 mg/dL (9-20); Calcium 9.3 mg/dL (8.4-10.2); Carbon Dioxide 27 mmol/L (22-32); Chloride 104 mmol/L (98-107); Estimated Glomerular Filt Rate > 60 mL/min (>60); Glucose 113 mg/dL (70-100); HEMOLYSIS < 15 (0-50); Magnesium 2.4 mg/dL (1.6-2.3); Phosphorous 4.5 mg/dL (2.5-4.5); Potassium 4.3 mmol/L (3.4-5.1); Sodium 140 mmol/L (137-145)
--- NOTE | 2022-10-18 07:49 | P.PN_ITS ---
Subjective Subjective Date Patient Seen: 10/18/22 Interval history: He is seen today to follow-up his chronic comorbid conditions and his MRSE bacteremia. He is pending 1 more day of IV daptomycin here before discharging on a home regimen tomorrow. He speaks very slowly and tentatively with me. His BMP is normal with an albumin of 3.8 and a magnesium level of 2.4. He is not taking magnesium supplementation. The blood pressure is 144/66. He tells me that he lives with his mother in [place]. Exam Vital Signs (past 8 hours): Oxygen Delivery Method Room Air Oxygen Flow Rate 0 Narrative Exam Narrative: Alert and oriented x3. No apparent distress. Very slow and soft spoken speech pattern. Heart is regular rate and rhythm without murmur. Lungs are clear to auscultation bilaterally. Extremities have no ankle edema. Objective Labs 10/16/22 05:20 10/18/22 07:05 Labs: Laboratory Results - last 24 hr 10/18/22 07:05 Sodium 140 Potassium 4.3 Chloride 104 Carbon Dioxide 27 BUN 21 H Creatinine 0.64 L Estimated GFR > 60 BUN/Creatinine Ratio 32.8 H Glucose 113 H Calcium 9.3 Phosphorus 4.5 D Magnesium 2.4 H Albumin 3.8 [facility] Medical History Hepatitis C antibody positive in blood History of cardiac arrest History of discitis History of non-ST elevation myocardial infarction (NSTEMI) History of sepsis Hx of ischemic bowel disease 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 Mother No problems noted. Social History household members: family Smoking Status: Unknown if ever smoked Assessment & Plan Assessment & Plan narrative: Sepsis secondary to recurrent MRSE bacteremia, acute, present on admission -WBC 14.6, band neut 14%, eosinophils 8%, absolute neutrophils 11,242, procalc itonin 4.22, Tmax 102.9F -HX ischemic bowel with perforation, positive C diff. 01/2022 -HX E faecalis bacteremia 05/07/2022 -HXdiskitis C7-T3 endplate on 05/27/2022 -Hx of MRSA -Hx of MRSE in July 2022 -blood culture positive MRSE in 2/2 bottles -likely port related infection, started vanc lock therapy in port for 2 weeks to preserve port line -PICC line placed to receive TPN and dapto x2 weeks -repeat BC no growth at 48 hours -continue dapto 8mg/kg q24 hours until 10/28 -home infusions being arranged through [facility], which can open on 10/20 so he can dc after morning dose of dapto on 10/19 -has appt with Dr. Rom PETTIT on 10/23 at 10am for outpatient follow-up Ischemic bowel with perforation, gastrotomy/Colostomy placement, short gut syndrome, with PEG tube, acute on chronic, present on admission -Continue TPN, Imodium, Lomotil, Lyrica Chronic encephalopathy, with residual neuro deficits, secondary to noxious brain injury following cardiac resuscitation, present on admission -At Baseline Depression with anxiety, chronic, present on admission -Continue hydroxyzine, trazodone, Seroquel, risperidone History of polysubstance abuse, chronic, present on admission -history of marijuana and methamphetamine use, daily smoker, alcohol occasionally. Tobacco abuse, chronic, present on admission -nicotine patch ordered Code status:Full Surrogate decision maker: Mother DVT/VTE prophylaxis:? Lovenox and SCDs Dispo: Dc to his home after dapto dose on 10/19. Quality VTE Deep Vein Thrombosis/Pulmonary Embolism Present on Admission: No
[2022-10-18] MEDS: ENOXAPARIN 40 MG/0.4 ML SYRINGE SUBCUT (08:48)
[2022-10-18] MEDS: LOPERAMIDE 2 MG CAPSULE PO ×4 (08:48→20:44)
[2022-10-18] MEDS: DIPHENOXYLATE/ATROP 2.5/0.025 TABLET 2.5 EACH PO ×4 (08:48→20:48)
[2022-10-18] MEDS: ASPIRIN EC 81 MG TABLET PO (08:49)
[2022-10-18] MEDS: PREGABALIN 75 MG CAPSULE PO ×3 (08:49→20:45)
[2022-10-18] MEDS: QUETIAPINE 25 MG TABLET 50 MG PO (08:49)
[2022-10-18] MEDS: hydrOXYzine pamoate 25 MG CAPSULE PO ×3 (08:49→20:48)
[2022-10-18 08:52] VITALS: BP 115/61; PULSE 81; RESP 18; TEMP 36.6; O2SAT 96
[2022-10-18] MEDS: FERROUS SULFATE 325 MG TABLET PO (12:20)
[2022-10-18] MEDS: DAPTOMYCIN IV (12:20)
[2022-10-18] MEDS: ASCORBIC ACID 500 MG TABLET PO (12:20)
[2022-10-18] MEDS: SODIUM CHLORIDE 0.9% IV (12:20)
--- NOTE | 2022-10-18 15:55 | CM.DPNOTE ---
Discharge Planning Note: Saw patient this afternoon, his mom is at bedside and he is resting. Reaffirmed with his mom Traci bradford the discharge plan is for him to return home tomorrow after the morning dose of dose of daptomycin and then [facility] to open on Friday 10/20. PLAN: If medically cleared, return home after morning dapto dose. Contact [facility] to affirm discharge plan for start on Wednesday. Contact Jennie FIGUEREDO to let know of dc and fax DC summary and HIRAL orders. His mom will provide transport. Florecita Martin RN/DCP
[2022-10-18] MEDS: AA 5 %/CALCIUM/LYTES/DEXT 20 % 1,500 ML with MULTIVITAMIN 10 ML, TRACE ELEMENTS 1 ML 125.917 ML IV (17:59)
--- NOTE | 2022-10-18 18:14 | PC.NURSE ---
pt's mother at bedside, reports that patient will be discharged after he gets his antibiotic; requests to be called once discharge time estimated; pt is up in chair and interacting w/ mother
[2022-10-18 20:00] VITALS: BP 114/64; PULSE 82; RESP 17; TEMP 37.1; O2SAT 96
[2022-10-18] MEDS: QUETIAPINE 25 MG TABLET 100 MG PO (20:45)
[2022-10-18] MEDS: TRAZODONE 50 MG TABLET PO (20:45)
[2022-10-19] MEDS: hydrOXYzine pamoate 25 MG CAPSULE PO ×2 (01:15→09:18)
[2022-10-19] MEDS: risperiDONE 1 MG TABLET PO (01:15)
[2022-10-19 05:44] LABS: Add Manual Diff / Slide Review NO; Basophils Absolute Auto 100 /uL (0-100); Basophils Percent Auto 0.6 % (0-2); Eosinophils Absolute Auto 900 /uL (0-450); Eosinophils Percent Auto 9.7 % (2-4); Hematocrit 27.6 % (41-53); Hemoglobin 9.2 g/dL (13.5-17.5); Lymphocytes Absolute Auto 1800 /uL (1100-4500); Lymphocytes Percent Auto 18.3 % (25-40); Mean Corpuscular HGB Conc 33.3 % (30-36); Mean Corpuscular Volume 78.2 fL (80-100); Monocytes Absolute Auto 800 /uL (0-900); Monocytes Percent Auto 8.6 % (3-14); Neutrophils Absolute Auto 6000 /uL (1500-7000); Neutrophils Percent Auto 62.8 % (50-75); Platelet Count 552 X10^3/uL (150-400); Red Blood Cell Count 3.53 X10^6/uL (4.5-5.9); Red Cell Distribution Width 15.9 % (11.6-14.8); White Blood Cell Count 9.6 X10^3/uL (4.5-11.0)
[2022-10-19 06:03] LABS: Magnesium 2.1 mg/dL (1.6-2.3)
[2022-10-19 06:04] LABS: Alanine Aminotransferase 56 IU/L (<50); Albumin 3.8 g/dL (3.5-5.0); Albumin Globulin Ratio 0.9 (1.0-2.8); Alkaline Phosphatase 332 U/L (38-126); Aspartate Aminotransferase 29 IU/L (17-59); BUN Creatinine Ratio 32.9 (6-22); Bilirubin Total 0.4 mg/dL (0.2-1.3); Blood Urea Nitrogen 23 mg/dL (9-20); Calcium 9.4 mg/dL (8.4-10.2); Carbon Dioxide 27 mmol/L (22-32); Chloride 102 mmol/L (98-107); Estimated Glomerular Filt Rate > 60 mL/min (>60); Globulin 4.4 g/dL (1.7-4.1); Glucose 141 mg/dL (70-100); HEMOLYSIS < 15 (0-50); Potassium 4.1 mmol/L (3.4-5.1); Sodium 138 mmol/L (137-145); Total Protein 8.2 g/dL (6.3-8.2)
[2022-10-19] MEDS: PREGABALIN 75 MG CAPSULE PO (09:17)
[2022-10-19] MEDS: ASPIRIN EC 81 MG TABLET PO (09:17)
[2022-10-19] MEDS: QUETIAPINE 25 MG TABLET 50 MG PO (09:17)
[2022-10-19] MEDS: ASCORBIC ACID 500 MG TABLET PO (09:17)
[2022-10-19] MEDS: FERROUS SULFATE 325 MG TABLET PO (09:18)
[2022-10-19] MEDS: LOPERAMIDE 2 MG CAPSULE PO (09:18)
[2022-10-19] MEDS: ENOXAPARIN 40 MG/0.4 ML SYRINGE SUBCUT (09:19)
[2022-10-19 09:24] VITALS: BP 111/64; PULSE 74; RESP 17; TEMP 36.4; O2SAT 97
[2022-10-19] MEDS: DIPHENOXYLATE/ATROP 2.5/0.025 TABLET 1 EACH PO (09:25)
--- NOTE | 2022-10-19 10:06 | P.DS_ITS ---
History of Present Illness History of Present Illness Date Patient Seen: 10/19/22 Time Patient Seen: 10:07 Chief complaint: Sepsis, fever, leukocytosis, acute anemia Narrative: Per admitting provider, Storm Arnold is a 42 yr old male polysubstance abuse, ischemic bowel with perforation (01/2022), status post ex-lap and bowel resection C/B short gut syndrome with history of C diff, requiring TPN and tube feedings, hypoxic cardiac arrest with brief CPR VAP and CAUTI, hx of E faecalis bacteremia (04/2022), diskitis C7-T3 endplate on 05/27/2022-6 weeks IV antibiotic-end on 06/23/2022, history of acute on chronic encephalopathy- resulting anoxic brain injury with residual cognitive deficits to include dysarthria,? elevated LFTs with positive hepatitis-C, NSTEMI 01/16/2022 TTE on 01/16/2022 WNL.? During hospitalization at [place] patient was intubated, received cardiac resuscitation, had bronchoscopy, gastrostomy tube placement, multiple laparotomies with colostomy placed, tracheostomy, with right chest port placement.?Recent Hospitalization @[facility] 07/22-08/04/2022 for fever with unknown etiology. Presented today with diarrhea for the last 4 days.? Mom reported that through the ostomy he is had green loose stool.? Tonight while eating dinner he vomited.? He is had increased weakness, and febrile.?Febrile in ED 101.5, 170 /74, 72, 18, 99% on room air..?In ED he was awake alert but overall mother was historian.? Unable to obtain accurate HPI/ROS from patient secondary to noxious brain injury. While accepting patient for admit blood pressure dropped from 170/74 to 93/53, 92/50, 66, 19, 94% rm air. WBC 14.6, band neut 14%, eosinophils 8%, absolute neutrophils 11,242, procalcitonin 4.22, urinalysis, lactate negative, stool cultures, C diff, Campylobacter are all negative. H&H 10/31., MCV 78, MCH 25, ALT 65, alk-phos 478. 08/04/2022 labs: H&H 9.9/28, ALT 48, alk-phos 169. PT 15.9, INR 1.4. CXR interstitial pulmonary edema versus viral pneumonitis. ABD Xray:No evidence of bowel obstruction, with patchy indistinct opacities within the visualized lung bases, left greater than right, suggestive of pneumonia. Patient did not initially meet SIRS/sofa criteria, now drop in BP-sofa: 2. Patient admitted to the ICU for sepsis with fever, diarrhea, vomiting, leukocytosis, and anemia of unknown etiology.? Discharge Providers Provider Date of admission: 10/13/22 23:44 Discharge Date: 10/19/22 Primary care physician: Epifanio Engle MD Consults: 10/14/22 09:01 Consult to Dietitian, Adult Routine Comment: Reason For Exam: TPN 10/16/22 11:08 Consult to Home Health Routine Comment: Reason For Exam: RN/OT upon discharge Discharge provider: Epifanio Seay DO Summary Hospital Course Discharge Diagnosis: Sepsis secondary to recurrent MRSE bacteremia, acute, present on admission Ischemic bowel with perforation, gastrotomy/Colostomy placement, short gut syndrome, with PEG tube, acute on chronic, present on admission Chronic encephalopathy, with residual neuro deficits, secondary to noxious brain injury following cardiac resuscitation, present on admission Depression with anxiety, chronic, present on admission History of polysubstance abuse, chronic, present on admission Tobacco abuse, chronic, present on admission Hospital Course: This is a 42 year old male with short gut syndrome after ischemic bowel on TPN with port, chronic encephalopathy who was admitted with sepsis, ultimately found to have staph epidermidis bacteremia on blood cultures. This organism was resistant to methicillin. He continued to improve with antibiotics and ultimately placed on daptomycin per ID consultation via the phone. Site of infection is presumed secondary to his port, and he was started on vanco lock therapy in the PORT line and PICC line was placed after discussion with ID. He will continue daptomycin 8mg/kg q24hr until 10/28. He has a follow up with Dr. Cueto at [facility] ID on 10/23/22 at 10 am for follow up. No other changes to his home medications are recommended at the time of discharge. Time Spent with Patient Time spent: Greater than 30 minutes Exam Vital Signs (past 8 hours): - 10/19/22 09:24 Temperature 97.6 F Pulse Rate 74 Respiratory Rate 17 Blood Pressure 111/64 Pulse Oximetry 97 Oxygen Flow Rate 0 Oxygen Delivery Method Room Air Oxygen Flow Rate 0 Narrative Exam Narrative: Alert and oriented x3. No apparent distress. Very slow and soft spoken speech pattern. Heart is regular rate and rhythm without murmur. Lungs are clear to auscultation bilaterally. Extremities have no ankle edema. Objective Labs 10/19/22 05:35 10/19/22 05:35 Labs: Laboratory Results - last 24 hr 10/19/22 10/19/22 10/19/22 05:35 05:35 05:35 WBC 9.6 RBC 3.53 L Hgb 9.2 L Hct 27.6 L MCV 78.2 L MCH 26.0 MCHC 33.3 RDW 15.9 H Plt Count 552 H Neut % (Auto) 62.8 Lymph % (Auto) 18.3 L [place] % (Auto) 8.6 Eos % (Auto) 9.7 H Baso % (Auto) 0.6 Neut # (Auto) 6000 Lymph # (Auto) 1800 [place] # (Auto) 800 Eos # (Auto) 900 H Baso # (Auto) 100 Sodium 138 Potassium 4.1 Chloride 102 Carbon Dioxide 27 BUN 23 H Creatinine 0.70 Estimated GFR > 60 BUN/Creatinine Ratio 32.9 H Glucose 141 H Calcium 9.4 Magnesium 2.1 Total Bilirubin 0.4 AST 29 ALT 56 H Alkaline Phosphatase 332 H Total Protein 8.2 Albumin 3.8 Globulin 4.4 H Albumin/Globulin Ratio 0.[address] [facility] Medical History Hepatitis C antibody positive in blood History of cardiac arrest History of discitis History of non-ST elevation myocardial infarction (NSTEMI) History of sepsis Hx of ischemic bowel disease 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 Mother No problems noted. Social History household members: family Smoking Status: Unknown if ever smoked Discharge Plan Discharge Plan Patient Disposition: Home Provider Discharge Comment: Admitted to the hospital for staph bacteremia. Continue IV daptomycin until 10/28/22 at home via port via infusion company. Follow up with ID physician 10/23 at [facility] clinics. Discharge orders & Medications Prescriptions: New daptomycin 350 mg Recon Soln 560 mg IV Q24H 10 Days Qty: 20 0RF Continued acetaminophen 325 mg tablet 650 mg PO Q6H PRN (Reason: Pain (Scale Score 1-3)) trazodone 50 mg tablet 50 mg PO BEDTIME loperamide [Anti-Diarrheal (loperamide)] 2 mg tablet 2 mg PO QID diphenoxylate-atropine 2.5-0.025 mg tablet 2.5 tab PO QID aspirin 81 mg tablet,delayed release (DR/EC) 81 mg PO DAILY risperidone 1 mg tablet 1 mg PO BID PRN (Reason: Agitation) hydroxyzine pamoate 25 mg capsule 25 mg PO Q6H pregabalin 75 mg capsule 75 mg PO TID quetiapine 50 mg tablet 50 mg PO DAILY quetiapine 50 mg tablet 100 mg PO BEDTIME Follow up/Referrals: Epifanio Engle MD [Primary Care Provider] - Other Ambulatory Orders: Referral to: (Schedule) Timeframe: 1 Week Location: Outside Services Ordered By: Mateo Bro Diet/Activity/Treatments Diet: Diet as Tolerated Diet comment: No changes to previous diet recommended Activity: As tolerated with no restrictions Visit Report/Discharge Packet Stand Alone Forms: Patient Portal/API, Stroke Signs & Symptoms Discharge Data Primary Care Provider: Epifanio Engle Discharges patient from system. Discharge Date/Time: 10/19/22 13:06 Quality VTE Deep Vein Thrombosis/Pulmonary Embolism Present on Admission: No
--- NOTE | 2022-10-19 10:50 | CM.DPC ---
Addendum entered by ITZ Elena 10/19/22 14:23: ADD: V[facility] and spoke to Marii and updated her that pt has now left the building via mom POV and likely home and Marii very appreciative. Return call from Frank at [facility] and confirms they have the needed documentation to open the pt to service and only need d/c summary when available but realize it might take a day or two but they can start pt on service prior to that and get him on the schedule. BF Addendum entered by ITZ Elena 10/19/22 12:48: ADD: Return call from [facility] stating they have all the documentation needed for pt to safely discharge home today. [facility] Pharmacist mixing the formulary for TPN and they will call pt's mother to update her on delivery time. [facility] RN to call pt's mother regarding teaching and support for IV-Abx at d/c. VICENTE met bedside with pt and mother and she confirms she has already spoken to [facility] RN and is agreeable with above plan and comfortable with transporting pt home today as she states she walked with pt around the unit yesterday twice. Mother already aware of the scheduled appointment with Dr. Cueto on 10/23 this week as well and still wants [facility] RN/OT. VICENTE updated RN and pt to discharge home today after his Dapto infusion around 1230. VICENTE called [facility] Frank and he will help confirm if initial referral was faxed and if they still need F2F and orders. VICENTE updated Frank that pt to d/c home today. VICENTE faxed referral via [employer] just in case referral had not been sent previously and then faxed F2F, HH orders, and d/c summary to [place] to review. Frank states he will call back for confirmation as well. BF Original Note: DCP Home Infusion Planning: VICENTE spoke to Marii at [facility] ([phone]) and they confirm they have the orders/script for the Dapto and Pharmacist working on. Marii requesting order for Resume Home TPN and Hospitalist kindly completed as no changes in pt's home TPN and SW faxed to ([phone]) along with the PICC insertion note. [facility] Pharmacist confirms their gum puller reviewed and will mix the formulary and they are aware that plan is d/c home later today after 1200 Dapto infusion and Vanco port lock therapy completed this morning around 0600. Per Pharmacist, will contact IDMD Dr. Cueot to confirm the orders and their order form today and will call back to confirm all orders and medications ready for pt to d/c home today. Plan: SW to follow closely for likely pt d/c home with mother assist and [facility] infusion for TPN and IV-Abx with Dr. Cueto to follow and ITZ Oliveira
--- NOTE | 2022-10-19 12:12 | PC.NURSE ---
No significant changes throughout shift. Pt took PO meds, calm and compliant. Working with ITZ Rosales to get home health set up with TPN and ABX infusions. Mother at bedside at noon. Spoke at length regarding plan of care and did some education on port care in regard to bathing. Spoke with Dr Seay-- Accessed port will remain accessed so home health can instill abx as ordered by infectious disease physician. PICC will remain in place for TPN and ABX infusions. Vitals WNL. NAD. Awaiting DC s/p last inpatient ABX infusion of Daptomycin.
[2022-10-19] MEDS: DAPTOMYCIN IV (12:22)
[2022-10-19] MEDS: SODIUM CHLORIDE 0.9% IV (12:22)
== END 2022-10-19 13:06 | disposition home health service (06) | DRG 720 ==
LOC: ED 21:22 → AC 23:45 → ICU 10-14 01:00
PROVIDERS: Family Medicine; Student in an Organized Health Care Education/Training Program; Admitting Provider Nurse Practitioner Family; Emergency Provider Emergency Medicine; PCP Family Medicine; Referring Provider Emergency Medicine; Visit Provider Nurse Practitioner Family
DX: A41.1 Sepsis due to other specified staphylococcus (principal); F32.A Depression, unspecified; F41.9 Anxiety disorder, unspecified; F15.11 Other stimulant abuse, in remission; F17.210 Nicotine dependence, cigarettes, uncomplicated; R29.818 Other symptoms and signs involving the nervous system; D50.9 Iron deficiency anemia, unspecified; K91.2 Postsurgical malabsorption, not elsewhere classified; Z93.3 Colostomy status; Z20.822 Contact with and (suspected) exposure to COVID-19; Z16.39 Resistance to other specified antimicrobial drug; Z93.1 Gastrostomy status
CPT/HCPCS: 36415; 36430; 36573; 36591; 71045; 74019; 76705; 80053; 80069; 80202; 81003; 81015; 82550; 82977; 83605; 83690; 83735; 84100; 84134; 84145; 84478; 85007; 85014; 85018; 85025; 85610; 85730; 86850; 86900; 86901; 87040; 87147; 87154; 87186; 87507; 87633; 87797; 93005; 93010; 96365; 96366; 96367; 99284; 99285; P9016; B4185; B4189; J0295; J0696; J0878; J1642; J1650; J2543; J3370; J3475; J3480

== ENCOUNTER 2022-11-14 18:51 | Emergency (ER) | payer OTHER, MEDICAID, SELFPAY ==
[2022-10-14 00:55] VITALS: BMI 24.7
[2022-11-14] VITALS (9 sets, daily range): BP systolic 111–135; BP diastolic 60–70; PULSE 76–83; RESP 16–18; TEMP 36.7; O2SAT 91–100; BMI 23.6
--- NOTE | 2022-11-14 19:58 | ED.SKABFB ---
HPI - Skin/Abscess/Foreign Bdy General Chief complaint: Skin/Abscess/Foreign Body Stated complaint: port is itchy since being deaccessed Time Seen by Provider: 11/14/22 19:03 Source: patient Mode of arrival: Ambulatory Limitations: no limitations History of Present Illness HPI narrative: 42-year-old male smoke with history of short gut syndrome, prior colostomy due to ex lap for ischemic bowel with perforation, short gut syndrome presents with a chief complaint of irritation at his port site. He receives TPN nightly and had been seen here for an infection from October 13 to , he would had a PICC placed and was discharged with follow-up instructions including home daptomycin with infusion company and follow-up with ID at [facility] on October 23. He has not had any antibiotics since He had a PICC line in place that had to be removed as it had backed out a few cm. His port was reaccess for the 1st time on Wednesday and has been each day since for TPN administration. He is had increasing redness and itching each day since. He denies any fever chills nor nausea, vomiting or change in what is coming out his ostomy bag. His mother does state that he is had a poorly healing periumbilical, incisional wound that has been worsening over the past few days as well now draining yellowish fluid. Related Data Home Medications Medication Instructions Recorded Confirmed acetaminophen 325 mg tablet 650 mg PO Q6H PRN Pain (Scale 07/31/22 10/14/22 Score 1-3) aspirin 81 mg tablet,delayed 81 mg PO DAILY 07/31/22 10/14/22 release diphenoxylate-atropine 2.5 2.5 tab PO QID 07/31/22 10/14/22 mg-0.025 mg tablet hydroxyzine pamoate 25 mg capsule 25 mg PO Q6H 07/31/22 10/14/22 loperamide 2 mg tablet 2 mg PO QID 07/31/22 10/14/22 (Anti-Diarrheal (loperamide)) pregabalin 75 mg capsule 75 mg PO TID 07/31/22 10/14/22 quetiapine 50 mg tablet 50 mg PO DAILY 07/31/22 10/14/22 quetiapine 50 mg tablet 100 mg PO BEDTIME 07/31/22 10/14/22 risperidone 1 mg tablet 1 mg PO BID PRN Agitation 07/31/22 10/14/22 trazodone 50 mg tablet 50 mg PO BEDTIME 07/31/22 10/14/22 Previous Rx's Medication Instructions Recorded doxycycline hyclate 100 mg tablet 100 mg PO BID #20 tabs 11/15/22 Allergies Allergy/AdvReac Type Severity Reaction Status Date / Time No Known Drug Allergies Allergy Verified 10/13/22 19:25 Review of Systems Review of Systems Narrative: GENERAL: See HPI HEENT: Denies sinus pain, ear pain, sore throat, difficulty swallowing, dizziness. RESPIRATORY: Denies dyspnea, cough, wheezing, hemoptysis, sputum. CARDIOVASCULAR: Denies chest pain, palpitations, orthopnea, edema, GASTROINTESTINAL: See HPI : Denies dysuria, frequency, incontinence, hematuria, urinary retention. MUSCULOSKELETAL: denies weakness, joint pain, or bony pain SKIN: See HPI NEUROLOGIC: Denies weakness, headache, numbness, change in speech, confusion, seizures, incoordination. PSYCHIATRIC: No concerning psychosocial issues. 12 point review of systems is negative except for those stated above Patient History Medical History Hepatitis C antibody positive in blood History of cardiac arrest History of discitis History of non-ST elevation myocardial infarction (NSTEMI) History of sepsis Hx of ischemic bowel disease 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 Mother No problems noted. Social History household members: family Smoking Status: Current every day smoker Smoking Status: Current every day smoker tobacco type: vaping Substance Use Type: marijuana Exam Narrative Exam Narrative: GENERAL: [42] year old patient appears stated age. Well-developed patient, in mild distress.GCS 14 (confusion) speech and cognition at baseline per mother HEAD: Atraumatic. Normocephalic. EYES: Pupils equal round and reactive. Extraocular motions intact. No scleral icterus. No injection or drainage. ENT: Nose without bleeding, purulent drainage. Throat without erythema, tonsillar hypertrophy or exudate. Airway patent. NECK: Trachea midline. Non tender CARDIOVASCULAR: Regular rate and rhythm without murmurs, gallops, or rubs. RESPIRATORY: Clear to auscultation. Breath sounds equal bilaterally. No wheezes, rales, or rhonchi. GASTROINTESTINAL: Abdomen soft, tenderness to palpation adjacent to prior incision. Quarter sized scab in mid-incision which is tender and is draining purulent material, cultured and sent to lab. Incision is otherwise clean, dry and intact, no change in contents of ostomy EXTREMITIES: No edema or joint tenderness. BACK: Nontender without deformity or crepitance. No flank tenderness. NEURO: CNII-XII grossly in tact SKIN: minimal erythema surrounding port, no pain, swelling, fluctuance or drainage. Initial Vital Signs Initial Vital Signs: Vital Signs Temperature 98.1 F 11/14/22 19:01 Pulse Rate 81 11/14/22 19:01 Respiratory Rate 18 11/14/22 19:01 Blood Pressure 132/67 11/14/22 19:01 Pulse Oximetry 100 11/14/22 19:01 Oxygen Delivery Method Room Air 11/14/22 19:01 Course Orders Ordered: ED Orders 11/14/22 21:32 Blood Culture Stat Discontinued Medications Doxycycline Hyclate (Doxycycline Hyclate 100 Mg Tablet) 100 mg PO NOW ONE Stop: 11/15/22 01:20 Last Admin: 11/15/22 01:35 Dose: 100 mg Documented By: RAMESH Sodium Chloride (Normal Saline 0.9%) 1,000 mls @ 1,000 mls/hr IV BOLUS ONE Stop: 11/14/22 21:09 Last Infusion: 11/14/22 21:30 Dose: 0 mls/hr Documented By: Admin: 11/14/22 20:15 Dose: 1,000 mls/hr Documented By: LAKEISHA Consultations Consultation #1: discussed with information technology auditor general surgery (Dr. Garcia). We have discussed the patient's history, physical exam, and clinical course. She recommends against any ongoing use of port and states that it till need to come out, can do so as an outpatient Vital Signs Vital signs: Vital Signs - 8 hr 11/14/22 22:00 11/14/22 22:00 11/14/22 22:30 Pulse Rate 82 79 Respiratory Rate Blood Pressure 127/65 Pulse Oximetry 100 97 11/14/22 22:31 11/14/22 22:31 11/14/22 23:00 Pulse Rate 78 Respiratory Rate Blood Pressure 111/70 123/63 Pulse Oximetry 91 11/14/22 23:00 11/14/22 23:30 11/14/22 23:31 Pulse Rate 81 83 83 Respiratory Rate 18 Blood Pressure Pulse Oximetry 100 95 99 11/14/22 23:31 11/15/22 00:00 11/15/22 00:30 Pulse Rate 81 81 Respiratory Rate 18 Blood Pressure 135/62 Pulse Oximetry 99 99 97 11/15/22 01:00 11/15/22 01:30 Pulse Rate 83 83 Respiratory Rate Blood Pressure Pulse Oximetry 96 96 MDM - Skin/Abscess/Foreign Bdy Lab Data 11/14/22 20:35 11/14/22 20:35 Labs: Lab Results 11/14/22 11/14/22 11/14/22 Range/Units 20:35 20:35 20:35 WBC 7.1 (4.5-11.0) X10^3/uL RBC 3.76 L (4.5-5.9) X10^6/uL Hgb 10.0 L (13.5-17.5) g/dL Hct 29.7 L (41-53) % MCV 79.1 L (80-100) fL MCH 26.7 (26-34) PG MCHC 33.8 (30-36) % RDW 19.5 H (11.6-14.8) % Plt Count 408 H (150-400) X10^3/uL Neut % (Auto) 59.3 (50-75) % Lymph % (Auto) 24.3 L (25-40) % [place] % (Auto) 8.7 (3-14) % Eos % (Auto) 7.3 H (2-4) % Baso % (Auto) 0.4 (0-2) % Neut # (Auto) 4200 (0418-8027) /uL Lymph # (Auto) 1700 (8642-9680) /uL [place] # (Auto) 600 (0-900) /uL Eos # (Auto) 500 H (0-450) /uL Baso # (Auto) 0 (0-100) /uL Sodium 140 (137-145) mmol/L Potassium 4.5 (3.4-5.1) mmol/L Chloride 101 (98-107) mmol/L Carbon Dioxide 30 (22-32) mmol/L BUN 19 (9-20) mg/dL Creatinine 0.79 (0.66-1.25) mg/dL Estimated GFR > 60 (>60) mL/min BUN/Creatinine Ratio 24.1 H (6-22) Glucose 107 H (70-100) mg/dL Lactate 1.2 (0.7-2.1) mmol/L Calcium 9.7 (8.4-10.2) mg/dL Magnesium 1.8 (1.6-2.3) mg/dL Total Bilirubin 0.5 (0.2-1.3) mg/dL AST 42 (17-59) IU/L ALT 56 H (<50) IU/L Alkaline Phosphatase 340 H (38-126) U/L Total Protein 8.7 H (6.3-8.2) g/dL Albumin 4.4 (3.5-5.0) g/dL Globulin 4.3 H (1.7-4.1) g/dL Albumin/Globulin Ratio 1.0 (1.0-2.8) Lipase 46 (23-300) U/L MDM Narrative Medical decision making narrative: CC: 42-year-old male with redness around his port and itching. Otherwise well Complicating co-morbidities: Multiple prior surgeries and hospitalizations for sepsis, bowel issues Data collected from: Patient Medical records reviewed: Prior notes reviewed in our EMR Differential considered, but not limited to: Infected line versus intra-abdominal pathology versus other Exam documented above, pertinent findings include: Minimal surrounding erythema without induration or fluctuance. No chest pain or trouble breathing. Abdomen is soft but there is some tenderness adjacent to the midline surgical scar and a scabbed centrally located lesion with some drainage that has been present since initial surgery per mother Lab Test results independently reviewed as above. Pertinent findings: No leukocytosis or left shift, no signs of anemia Independently reviewed EKG as above Imaging studies independently reviewed: CT of chest, abdomen and pelvis without any significant abnormal findings Consultations: discussed with Dr. Garcia as noted above Treatments: Saline, Doxycycline Re-evaluations: remains feeling quite well Discussion: Patient is very well-appearing without any systemic complaints, no fever, chills nor weakness complains of some itching adjacent to his port after having it access to a few days ago. Imaging does not show any obvious infectious source, labs are very reassuring. Patient uses the port only for TPN and nutritional supplementation. Discussed with on-call surgery who states it should not be used and will need to be removed what they can do it in the office and given the absence of any other signs suggesting he needs to be admitted he can be discharged with their contact information. Given the persistence poor healing of his surgical wound and minimal drainage adjacent to a scab as noted above he is placed on antibiotics and given typical return precautions Disposition: see below, along with detailed discharge instructions that have been reviewed with patient as well as indications for ED re-evaluation and additional outpatient follow up Discharge Plan Departure Patient Disposition: Home Clinical Impression: Chronic wound infection of abdomen, Infected venous access port Instructions: DI for Cellulitis -- Adult, DI for Wound Infection Activity Restrictions/Additional Instructions: *You have been diagnosed with [wound infection and possible infected port. As we discussed your labs and CT scans are very reassuring and there is no evidence of a deep infection or need for hospitalization] *What to do: *Please continue to take your regular medications as directed. [x ] New medication prescriptions sent to your pharmacy: [ [facility]] [ ] New medication written as a paper prescription [ ] No new medications given *Please follow up with Dr. Garcia of [facility] early in the week, call Wednesday for an appointment. Let them know if your PCP is in our system *DO NOT USE THE PORT any more, it will likely be removed soon by Dr. Garcia *Return to Emergency Department if you should have any new, worsening or concerning symptoms, such as [fever greater than 101 F, shaking chills, worsening pain, persistent vomiting or other bothersome symptoms] Prescriptions: New doxycycline hyclate 100 mg tablet 100 mg PO BID Qty: 20 0RF No Action acetaminophen 325 mg tablet 650 mg PO Q6H PRN (Reason: Pain (Scale Score 1-3)) trazodone 50 mg tablet 50 mg PO BEDTIME loperamide [Anti-Diarrheal (loperamide)] 2 mg tablet 2 mg PO QID diphenoxylate-atropine 2.5-0.025 mg tablet 2.5 tab PO QID aspirin 81 mg tablet,delayed release (DR/EC) 81 mg PO DAILY risperidone 1 mg tablet 1 mg PO BID PRN (Reason: Agitation) hydroxyzine pamoate 25 mg capsule 25 mg PO Q6H pregabalin 75 mg capsule 75 mg PO TID quetiapine 50 mg tablet 50 mg PO DAILY quetiapine 50 mg tablet 100 mg PO BEDTIME Referrals: Epifanio Engle MD [Primary Care Provider] - Stand Alone Forms: Patient Portal/API
--- NOTE | 2022-11-14 20:10 | DI.CT.S_ITS ---
PROCEDURE: CT CHEST ABD PEL W CON INDICATIONS: pain and redness at port, purulent drainage from abd wound TECHNIQUE: After the administration of intravenous contrast, 5 mm thick sections acquired from the lung apices to the symphysis. 5 mm coronal and sagittal reformats were performed, with additional 7 mm MIP reformats through the lungs. For radiation dose reduction, the following was used: automated exposure control, adjustment of mA and/or kV according to patient size. COMPARISON: [facility], CT, CT CHEST ABD PEL WO CON, 07/31/2022, 16:17. FINDINGS: Image quality: Excellent. CHEST: Lungs and pleura: The lung parenchyma now contains innumerable small pulmonary nodules ranging in size from 3 mm to 6 mm, none of which appear accessible for accurate CT-guided biopsy. By appearance this is most likely evidence of early extensive pulmonary metastatic disease. No pleural effusions or pneumothorax. Central and peripheral airways appear patent and normal in caliber. Mediastinum: Heart size is normal. No pericardial effusion. No mediastinal or hilar adenopathy by size criteria. Thoracic aorta and central pulmonary arteries are normal in size. Esophagus is normal in caliber. No hiatal hernia. Chest wall: No axillary or supraclavicular adenopathy by size criteria. Thyroid gland appears normal where well seen. Note is made of a Port-A-Cath from right-sided approach with catheter extending into the distal SVC. No abnormal fluid collection or soft tissue edema is seen adjacent to the Port-A-Cath chest wall position. ABDOMEN: Solid organs: Liver is normal in size and enhancement. Gallbladder appeared contracted. Biliary system is non dilated. Pancreas enhances normally. Spleen is normal in size and enhancement. No adrenal nodules. Kidneys demonstrate normal size and enhancement, without hydronephrosis. Peritoneum and bowel: Bowel loops demonstrate normal wall thickness and caliber. No free fluid or air. The patient has undergone prior partial colectomy with left lower quadrant body wall ostomy showing no operative complication. Additional enteric staple lines are seen at the cecum area. Nodes and vessels: No retroperitoneal or mesenteric adenopathy by size criteria. Aorta and inferior vena cava are normal in size. Miscellaneous: No ventral hernias. PELVIS: Genitourinary: Bladder wall thickness is normal. Miscellaneous: No inguinal hernias or adenopathy. Bones: No suspicious bony lesions. No vertebral body compression fractures. IMPRESSION: 1. Port-A-Cath appears normal, free of adjacent edema or abscess formation. 2. Stable postsurgical changes of partial colectomy, colostomy, and right lower quadrant operative staple lines. No operative complication seen. No body wall abscess in the area of operative distortion is found. 3. Innumerable small pulmonary nodules have now developed, highly suggestive of extensive early pulmonary metastatic disease. The small nodules range in size from approximately 3 to 6 mm in general. Several are slightly larger but none appear amenable for safe/accurate CT-guided biopsy. Dictated by: Jean Marie Boswell M.D. on 11/14/2022 at 22:04 Approved by: Jean Marie Boswell M.D. on 11/14/2022 at 22:14
[2022-11-14] MEDS: SODIUM CHLORIDE 0.9% 1,000 ML 1000 ML IV (20:15)
[2022-11-14 20:57] LABS: Add Manual Diff / Slide Review NO; Basophils Absolute Auto 0 /uL (0-100); Basophils Percent Auto 0.4 % (0-2); Eosinophils Absolute Auto 500 /uL (0-450); Eosinophils Percent Auto 7.3 % (2-4); Hematocrit 29.7 % (41-53); Lymphocytes Absolute Auto 1700 /uL (1100-4500); Lymphocytes Percent Auto 24.3 % (25-40); Mean Corpuscular HGB Conc 33.8 % (30-36); Mean Corpuscular Hemoglobin 26.7 PG (26-34); Mean Corpuscular Volume 79.1 fL (80-100); Monocytes Absolute Auto 600 /uL (0-900); Monocytes Percent Auto 8.7 % (3-14); Neutrophils Absolute Auto 4200 /uL (1500-7000); Neutrophils Percent Auto 59.3 % (50-75); Platelet Count 408 X10^3/uL (150-400); Red Blood Cell Count 3.76 X10^6/uL (4.5-5.9); Red Cell Distribution Width 19.5 % (11.6-14.8); White Blood Cell Count 7.1 X10^3/uL (4.5-11.0)
[2022-11-14 21:00] LABS: Lactate (Lactic Acid) 1.2 mmol/L (0.7-2.1)
[2022-11-14 21:01] LABS: Alanine Aminotransferase 56 IU/L (<50); Albumin 4.4 g/dL (3.5-5.0); Alkaline Phosphatase 340 U/L (38-126); Aspartate Aminotransferase 42 IU/L (17-59); BUN Creatinine Ratio 24.1 (6-22); Bilirubin Total 0.5 mg/dL (0.2-1.3); Blood Urea Nitrogen 19 mg/dL (9-20); Calcium 9.7 mg/dL (8.4-10.2); Carbon Dioxide 30 mmol/L (22-32); Chloride 101 mmol/L (98-107); Estimated Glomerular Filt Rate > 60 mL/min (>60); Globulin 4.3 g/dL (1.7-4.1); Glucose 107 mg/dL (70-100); HEMOLYSIS < 15 (0-50); Lipase 46 U/L (23-300); Magnesium 1.8 mg/dL (1.6-2.3); Potassium 4.5 mmol/L (3.4-5.1); Sodium 140 mmol/L (137-145); Total Protein 8.7 g/dL (6.3-8.2)
[2022-11-15] VITALS: PULSE 81; O2SAT 99
[2022-11-15 00:30] VITALS: PULSE 81; O2SAT 97
[2022-11-15 01:00] VITALS: PULSE 83; O2SAT 96
[2022-11-15 01:30] VITALS: PULSE 83; O2SAT 96
[2022-11-15] MEDS: DOXYCYCLINE HYCLATE 100 MG TABLET PO (01:35)
== END 2022-11-15 01:42 | disposition home or self-care (01) ==
PROVIDERS: Emergency Provider Emergency Medicine; PCP Family Medicine
DX: S31.109A Unspecified open wound of abdominal wall, unspecified quadrant without penetration into peritoneal cavity, initial encounter (principal); T80.219A Unspecified infection due to central venous catheter, initial encounter
CPT/HCPCS: 36415; 71260; 74177; 80053; 83605; 83690; 83735; 85025; 87040; 87070; 87075; 87077; 87147; 87186; 87205; 96360; 99284; Q9967

== ENCOUNTER → 2023-04-01 15:20 | Outpatient (ROUT) | payer OTHER, MEDICAID, SELFPAY ==
[2022-10-14 00:55] VITALS: BMI 24.7
[2023-04-01 15:30] LABS: Add Manual Diff / Slide Review NO; Basophils Absolute Auto 0 /uL (0-100); Basophils Percent Auto 0.4 % (0-2); Eosinophils Absolute Auto 200 /uL (0-450); Eosinophils Percent Auto 5.3 % (2-4); Hematocrit 33.5 % (41-53); Hemoglobin 11.5 g/dL (13.5-17.5); Lymphocytes Absolute Auto 2000 /uL (1100-4500); Lymphocytes Percent Auto 50.5 % (25-40); Mean Corpuscular HGB Conc 34.3 % (30-36); Mean Corpuscular Volume 84.5 fL (80-100); Monocytes Absolute Auto 300 /uL (0-900); Neutrophils Absolute Auto 1400 /uL (1500-7000); Neutrophils Percent Auto 34.8 % (50-75); Platelet Count 241 X10^3/uL (150-400); Red Blood Cell Count 3.96 X10^6/uL (4.5-5.9); Red Cell Distribution Width 14.6 % (11.6-14.8); White Blood Cell Count 3.9 X10^3/uL (4.5-11.0)
[2023-04-01 15:45] LABS: Alanine Aminotransferase 122 IU/L (<50); Albumin 4.1 g/dL (3.5-5.0); Albumin Globulin Ratio 1.3 (1.0-2.8); Alkaline Phosphatase 195 U/L (38-126); Aspartate Aminotransferase 68 IU/L (17-59); BUN Creatinine Ratio 26.6 (6-22); Bilirubin Total 0.7 mg/dL (0.2-1.3); Blood Urea Nitrogen 21 mg/dL (9-20); C-Reactive Protein Quant 1.1 mg/dL (<1.0); Calcium 9.7 mg/dL (8.4-10.2); Carbon Dioxide 27 mmol/L (22-32); Chloride 103 mmol/L (98-107); Estimated Glomerular Filt Rate > 60 mL/min (>60); Globulin 3.2 g/dL (1.7-4.1); Glucose 103 mg/dL (70-100); HEMOLYSIS < 15 (0-50); Magnesium 1.9 mg/dL (1.6-2.3); Phosphorous 4.2 mg/dL (2.5-4.5); Potassium 4.2 mmol/L (3.4-5.1); Sodium 138 mmol/L (137-145); Total Protein 7.3 g/dL (6.3-8.2); Triglycerides 108 mg/dL (35-150)
[2023-04-01 15:51] LABS: Prealbumin 33.1 mg/dL (17.6-36.0)
== END ==
PROVIDERS: PCP Family Medicine; Visit Provider Family Medicine
DX: B49 Unspecified mycosis (principal); K91.2 Postsurgical malabsorption, not elsewhere classified
CPT/HCPCS: 80053; 83735; 84100; 84134; 84478; 85025; 86140

== ENCOUNTER → 2023-04-15 18:08 | Outpatient (ROUT) | payer OTHER, MEDICAID, SELFPAY ==
[2022-10-14 00:55] VITALS: BMI 24.7
[2023-04-15 18:24] LABS: Add Manual Diff / Slide Review NO; Basophils Absolute Auto 0 /uL (0-100); Basophils Percent Auto 0.4 % (0-2); Eosinophils Absolute Auto 200 /uL (0-450); Eosinophils Percent Auto 3.5 % (2-4); Hematocrit 33.3 % (41-53); Hemoglobin 11.3 g/dL (13.5-17.5); Lymphocytes Absolute Auto 1700 /uL (1100-4500); Lymphocytes Percent Auto 35.4 % (25-40); Mean Corpuscular HGB Conc 33.8 % (30-36); Mean Corpuscular Hemoglobin 28.7 PG (26-34); Mean Corpuscular Volume 84.9 fL (80-100); Monocytes Absolute Auto 400 /uL (0-900); Monocytes Percent Auto 9.3 % (3-14); Neutrophils Absolute Auto 2500 /uL (1500-7000); Neutrophils Percent Auto 51.4 % (50-75); Platelet Count 232 X10^3/uL (150-400); Red Blood Cell Count 3.93 X10^6/uL (4.5-5.9); Red Cell Distribution Width 14.2 % (11.6-14.8); White Blood Cell Count 4.8 X10^3/uL (4.5-11.0)
[2023-04-15 18:43] LABS: Alanine Aminotransferase 136 IU/L (<50); Albumin 4.2 g/dL (3.5-5.0); Albumin Globulin Ratio 1.4 (1.0-2.8); Alkaline Phosphatase 191 U/L (38-126); Bilirubin Total 0.7 mg/dL (0.2-1.3); Blood Urea Nitrogen 21 mg/dL (9-20); C-Reactive Protein Quant 0.9 mg/dL (<1.0); Calcium 9.5 mg/dL (8.4-10.2); Carbon Dioxide 27 mmol/L (22-32); Chloride 103 mmol/L (98-107); Estimated Glomerular Filt Rate > 60 mL/min (>60); Glucose 114 mg/dL (70-100); Magnesium 1.9 mg/dL (1.6-2.3); Potassium 4.2 mmol/L (3.4-5.1); Sodium 139 mmol/L (137-145); Total Protein 7.2 g/dL (6.3-8.2); Triglycerides 97 mg/dL (35-150)
[2023-04-15 18:48] LABS: Prealbumin 32.9 mg/dL (17.6-36.0)
[2023-04-16 15:31] LABS: HEMOLYSIS 24 (0-50)
[2023-04-16 15:34] LABS: Aspartate Aminotransferase 71 IU/L (17-59)
== END ==
PROVIDERS: PCP Family Medicine; Visit Provider Family Medicine
DX: B49 Unspecified mycosis (principal); K91.2 Postsurgical malabsorption, not elsewhere classified
CPT/HCPCS: 80053; 83735; 84100; 84134; 84478; 85025; 86140

== ENCOUNTER → 2023-04-29 17:52 | Outpatient (ROUT) | payer OTHER, MEDICAID, SELFPAY ==
[2022-10-14 00:55] VITALS: BMI 24.7
[2023-04-29 18:09] LABS: Add Manual Diff / Slide Review NO; Basophils Absolute Auto 0 /uL (0-100); Basophils Percent Auto 0.4 % (0-2); Eosinophils Absolute Auto 200 /uL (0-450); Eosinophils Percent Auto 4.2 % (2-4); Hematocrit 33.5 % (41-53); Hemoglobin 11.4 g/dL (13.5-17.5); Lymphocytes Absolute Auto 2100 /uL (1100-4500); Lymphocytes Percent Auto 40.3 % (25-40); Mean Corpuscular Hemoglobin 28.7 PG (26-34); Mean Corpuscular Volume 84.5 fL (80-100); Monocytes Absolute Auto 500 /uL (0-900); Monocytes Percent Auto 9.4 % (3-14); Neutrophils Absolute Auto 2400 /uL (1500-7000); Neutrophils Percent Auto 45.7 % (50-75); Platelet Count 248 X10^3/uL (150-400); Red Blood Cell Count 3.96 X10^6/uL (4.5-5.9); Red Cell Distribution Width 13.7 % (11.6-14.8); White Blood Cell Count 5.2 X10^3/uL (4.5-11.0)
[2023-04-29 18:46] LABS: Alanine Aminotransferase 101 IU/L (<50); Albumin 4.1 g/dL (3.5-5.0); Albumin Globulin Ratio 1.4 (1.0-2.8); Alkaline Phosphatase 184 U/L (38-126); Aspartate Aminotransferase 60 IU/L (17-59); BUN Creatinine Ratio 24.1 (6-22); Bilirubin Total 0.5 mg/dL (0.2-1.3); Blood Urea Nitrogen 19 mg/dL (9-20); C-Reactive Protein Quant 0.8 mg/dL (<1.0); Calcium 9.4 mg/dL (8.4-10.2); Carbon Dioxide 28 mmol/L (22-32); Chloride 102 mmol/L (98-107); Estimated Glomerular Filt Rate > 60 mL/min (>60); Globulin 2.9 g/dL (1.7-4.1); Glucose 107 mg/dL (70-100); HEMOLYSIS < 15 (0-50); Magnesium 1.8 mg/dL (1.6-2.3); Phosphorous 4.5 mg/dL (2.5-4.5); Potassium 4.1 mmol/L (3.4-5.1); Sodium 138 mmol/L (137-145); Triglycerides 181 mg/dL (35-150)
[2023-04-29 18:52] LABS: Prealbumin 32.7 mg/dL (17.6-36.0)
== END ==
PROVIDERS: PCP Family Medicine; Visit Provider Family Medicine
DX: B49 Unspecified mycosis (principal); K91.2 Postsurgical malabsorption, not elsewhere classified
CPT/HCPCS: 80053; 83735; 84100; 84134; 84478; 85025; 86140

== ENCOUNTER 2023-06-02 09:41 | Emergency (ER) | payer OTHER, MEDICAID, SELFPAY ==
[2022-10-14 00:55] VITALS: BMI 24.7
[2023-06-02] VITALS (11 sets, daily range): BP systolic 106–134; BP diastolic 55–65; PULSE 78–93; RESP 14–20; TEMP 37.1–37.4; O2SAT 95–97; BMI 30.3
--- NOTE | 2023-06-02 10:55 | DI.CT.S_ITS ---
PROCEDURE: CT ABDOMEN PELVIS W CON INDICATIONS: vomiting with short gut and ostomy TECHNIQUE: After the administration of intravenous contrast, axial sections acquired from the lung bases to the pubic symphysis. Coronal and sagittal reformats were performed. For radiation dose reduction, the following was used: automated exposure control, adjustment of mA and/or kV according to patient size. COMPARISON: [facility], CT, CT CHEST ABD PEL W CON, 11/14/2022, 20:43. FINDINGS: Image quality: Diagnostic. Lower Chest: Trace right pleural effusion. ABDOMEN: Liver: No solid mass. Gallbladder: No radiopaque gallstones or wall thickening. Biliary ducts: No biliary dilation. Pancreas: No ductal dilation. Spleen: Size is within normal limits. Adrenal Glands: No adrenal nodules. Kidneys and Ureters: No hydronephrosis. No solid mass. No complex renal cystic lesion which requires follow up. Stomach and Bowel: Normal colonic caliber, without significant wall thickening. Appendix is not seen. No evidence of appendicitis. Left kevin abdominal colostomy. Peritoneum: No abnormal intraperitoneal fluid. No free air. Ventral Wall: Diastasis of the rectus musculature is present. There is broad-based anterior protrusion of multiple bowel loops as before spanning roughly 80 mm transverse. No evidence of associated bowel strangulation or obstruction. Abdominal Nodes: There is a 10 mm short axis aortocaval lymph node inferiorly which is decreased in size. Vessels: Aorta and inferior vena cava are normal in size. PELVIS: Pelvic Organs: Unremarkable. Bladder: No bladder wall thickening, accounting for underdistention. Pelvic Nodes: No enlarged lymph nodes. Miscellaneous: No inguinal hernias are seen. Bones: No aggressive osseous abnormality. IMPRESSION: 1. No acute process. 2. No change in rectus diastasis with associated anterior protrusion of bowel loops. No evidence of associated bowel obstruction. 3. Postsurgical sequelae. 4. Resolving aortocaval adenopathy. Dictated by: Devon Bonner M.D. on 06/02/2023 at 11:49 Approved by: Devon Bonner M.D. on 06/02/2023 at 11:53
--- NOTE | 2023-06-02 11:06 | ED.ABDPAIN ---
HPI - Abdominal Pain General Chief Complaint: Fever Stated Complaint: high fever feeling sick septic in the past Time Seen by Provider: 06/02/23 10:25 Source: patient and family Mode of arrival: Wheelchair History of Present Illness HPI narrative: Patient 43-year-old male with history of short gut syndrome colectomy ostomy presenting today with fever and nausea. He gets TPN for 12 hours a night. He has previously had a blood stream fungal infection. Mom reports that he had a temperature of a 100.8? last night. He still says this morning but actually not too bad. He denies any abdominal pain. He has previously been septic in the past. Denies any cough chest pain or shortness of breath. Related Data Home Medications Medication Instructions Recorded Confirmed acetaminophen 325 mg tablet 650 mg PO Q6H PRN Pain (Scale 07/31/22 10/14/22 Score 1-3) aspirin 81 mg tablet,delayed 81 mg PO DAILY 07/31/22 10/14/22 release diphenoxylate-atropine 2.5 2.5 tab PO QID 07/31/22 10/14/22 mg-0.025 mg tablet hydroxyzine pamoate 25 mg capsule 25 mg PO Q6H 07/31/22 10/14/22 loperamide 2 mg tablet 2 mg PO QID 07/31/22 10/14/22 (Anti-Diarrheal (loperamide)) pregabalin 75 mg capsule 75 mg PO TID 07/31/22 10/14/22 quetiapine 50 mg tablet 50 mg PO DAILY 07/31/22 10/14/22 quetiapine 50 mg tablet 100 mg PO BEDTIME 07/31/22 10/14/22 risperidone 1 mg tablet 1 mg PO BID PRN Agitation 07/31/22 10/14/22 trazodone 50 mg tablet 50 mg PO BEDTIME 07/31/22 10/14/22 Previous Rx's Medication Instructions Recorded doxycycline hyclate 100 mg tablet 100 mg PO BID #20 tabs 11/15/22 Allergies Allergy/AdvReac Type Severity Reaction Status Date / Time No Known Drug Allergies Allergy Verified 06/02/23 09:54 Patient History Medical History Hepatitis C antibody positive in blood History of cardiac arrest History of discitis History of non-ST elevation myocardial infarction (NSTEMI) History of sepsis Hx of ischemic bowel disease 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 Mother No problems noted. Social History household members: family Smoking Status: Current every day smoker Smoking Status: Current every day smoker tobacco type: vaping Substance Use Type: marijuana Exam Initial Vital Signs Initial Vital Signs: Vital Signs Temperature 99.4 F 06/02/23 09:45 Pulse Rate 90 06/02/23 09:45 Respiratory Rate 14 06/02/23 09:45 Blood Pressure 134/62 06/02/23 09:45 Pulse Oximetry 95 06/02/23 09:45 Oxygen Delivery Method Room Air 06/02/23 09:45 GENERAL: Alert 43-year-old male HEENT: Head atraumatic,EOMI, pupils reactive, face symmetric, moist mucous membranes CARDIOVASCULAR: Regular rate and rhythm without murmurs, rubs or gallops. RESPIRATORY: Breath sounds equal bilaterally, no wheezes rales or rhonchi. ABDOMEN: Soft, soft increased bowel sounds nontender ostomy present with stool in bag EXTREMITIES: Normal range of motion, no clubbing or edema. Neurovascularly intact NEUROLOGICAL: Alert and oriented x4.Normal gait and speech. SKIN: Warm, dry, no laceration, no petechiae, no rashes or lesions. Course Orders Ordered: ED Orders 06/02/23 10:35 Covid-19 + FLU A/B + RSV - PCR Stat 06/02/23 10:55 CT abdomen pelvis w con Stat 06/02/23 11:10 Complete Blood Count AUTO DIFF Stat Comprehensive Metabolic Panel Stat Lactate (Lactic Acid) Stat Lipase Stat 06/02/23 11:30 Urinalysis and Microscopic Stat Discontinued Medications Sodium Chloride (Normal Saline 0.9%) 1,000 mls @ 1,000 mls/hr IV BOLUS ONE Stop: 06/02/23 11:54 Last Infusion: 06/02/23 12:58 Dose: Infused Documented By: Admin: 06/02/23 11:27 Dose: 1,000 mls/hr Documented By: MATTIE Ondansetron HCl (Ondansetron 4 Mg/2 Ml Inj) 4 mg IV NOW ONE Stop: 06/02/23 10:56 Last Admin: 06/02/23 11:28 Dose: 4 mg Documented By: MATTIE Vital Signs Vital signs: Vital Signs - 8 hr 06/02/23 09:45 06/02/23 09:49 06/02/23 09:49 Temperature 99.4 F Pulse Rate 90 93 H Respiratory Rate 14 Blood Pressure 134/62 134/62 Pulse Oximetry 95 95 Oxygen Delivery Method Room Air 06/02/23 10:00 06/02/23 10:00 06/02/23 10:30 Temperature Pulse Rate 87 Respiratory Rate 19 Blood Pressure 124/55 L 119/55 L Pulse Oximetry 95 Oxygen Delivery Method 06/02/23 10:30 06/02/23 10:56 06/02/23 10:56 Temperature Pulse Rate 79 78 Respiratory Rate 14 15 Blood Pressure 106/59 L Pulse Oximetry 95 96 Oxygen Delivery Method 06/02/23 11:00 06/02/23 11:00 06/02/23 11:30 Temperature Pulse Rate 80 89 Respiratory Rate 18 20 Blood Pressure 109/60 Pulse Oximetry 95 Oxygen Delivery Method 06/02/23 12:20 06/02/23 12:21 06/02/23 12:21 Temperature Pulse Rate 81 83 Respiratory Rate 15 Blood Pressure 122/59 L Pulse Oximetry 96 95 Oxygen Delivery Method 06/02/23 12:30 06/02/23 12:30 06/02/23 12:58 Temperature 98.8 F Pulse Rate 86 85 Respiratory Rate 17 Blood Pressure 116/58 L 126/65 Pulse Oximetry 97 97 Oxygen Delivery Method Room Air MDM - Abdominal Pain Lab Data 06/02/23 11:10 06/02/23 11:10 Labs: Lab Results 06/02/23 06/02/23 06/02/23 Range/Units 10:35 11:10 11:30 WBC 3.2 L (4.5-11.0) X10^3/uL RBC 3.87 L (4.5-5.9) X10^6/uL Hgb 11.4 L (13.5-17.5) g/dL Hct 32.7 L (41-53) % MCV 84.4 (80-100) fL MCH 29.6 (26-34) PG MCHC 35.0 (30-36) % RDW 13.6 (11.6-14.8) % Plt Count 152 (150-400) X10^3/uL Neut % (Auto) 80.7 H (50-75) % Lymph % (Auto) 10.9 L (25-40) % [place] % (Auto) 8.1 (3-14) % Eos % (Auto) 0.1 L (2-4) % Baso % (Auto) 0.2 (0-2) % Neut # (Auto) 2600 (3500-6252) /uL Lymph # (Auto) 400 L (3477-3191) /uL [place] # (Auto) 300 (0-900) /uL Eos # (Auto) 0 (0-450) /uL Baso # (Auto) 0 (0-100) /uL Sodium 134 L (137-145) mmol/L Potassium 3.8 (3.4-5.1) mmol/L Chloride 99 (98-107) mmol/L Carbon Dioxide 24 (22-32) mmol/L BUN 22 H (9-20) mg/dL Creatinine 0.87 (0.66-1.25) mg/dL Estimated GFR > 60 (>60) mL/min BUN/Creatinine Ratio 25.3 H (6-22) Glucose 138 H (70-100) mg/dL Lactate 1.2 (0.7-2.1) mmol/L Calcium 8.7 (8.4-10.2) mg/dL Total Bilirubin 2.2 H (0.2-1.3) mg/dL AST 61 H (17-59) IU/L ALT 82 H (<50) IU/L Alkaline Phosphatase 166 H (38-126) U/L Total Protein 7.8 (6.3-8.2) g/dL Albumin 4.2 (3.5-5.0) g/dL Globulin 3.6 (1.7-4.1) g/dL Albumin/Globulin Ratio 1.2 (1.0-2.8) Lipase 35 (23-300) U/L Urine Color Yellow Urine Appearance Clear Urine pH 5.5 (4.5-8.0) Ur Specific [place] 1.010 (1.000-1.035) Urine Protein 1+ H (Negative) Urine Glucose (UA) Negative (Negative) g/dL Urine Ketones Negative (NEGATIVE) Urine Occult Blood 3+ H (Negative) Urine Nitrate Negative (Negative) Urine Bilirubin Negative (NEGATIVE) Urine Urobilinogen 1.0 (0.2) E.U./dL Ur Leukocyte Esterase Negative (NEGATIVE) Urine RBC 1-5/hpf (0-5/HPF) Urine WBC None seen (0-5/HPF) Ur Squamous Epith Cells None seen (0-5/HPF) Urine Bacteria None seen (None) Ur Culture Indicated? Cult not indicated Vol Urine Centrifuged 10ml (spun) SARS-CoV-2 (PCR) Negative (Negative) Influenza A (RT-PCR) Flu a negative (NEGATIVE) Influenza B (RT-PCR) Flu b negative (NEGATIVE) RSV (PCR) Negative (Negative) Imaging Data CT scan - abdomen/pelvis: Radiologist's Impression: PROCEDURE: CT ABDOMEN PELVIS W CON INDICATIONS: vomiting with short gut and ostomy TECHNIQUE: After the administration of intravenous contrast, axial sections acquired from the lung bases to the pubic symphysis. Coronal and sagittal reformats were performed. For radiation dose reduction, the following was used: automated exposure control, adjustment of mA and/or kV according to patient size. COMPARISON: [facility], CT, CT CHEST ABD PEL W CON, 11/14/2022, 20:43. FINDINGS: Image quality: Diagnostic. Lower Chest: Trace right pleural effusion. ABDOMEN: Liver: No solid mass. Gallbladder: No radiopaque gallstones or wall thickening. Biliary ducts: No biliary dilation. Pancreas: No ductal dilation. Spleen: Size is within normal limits. Adrenal Glands: No adrenal nodules. Kidneys and Ureters: No hydronephrosis. No solid mass. No complex renal cystic lesion which requires follow up. Stomach and Bowel: Normal colonic caliber, without significant wall thickening. Appendix is not seen. No evidence of appendicitis. Left kevin abdominal colostomy. Peritoneum: No abnormal intraperitoneal fluid. No free air. Ventral Wall: Diastasis of the rectus musculature is present. There is broad-based anterior protrusion of multiple bowel loops as before spanning roughly 80 mm transverse. No evidence of associated bowel strangulation or obstruction. Abdominal Nodes: There is a 10 mm short axis aortocaval lymph node inferiorly which is decreased in size. Vessels: Aorta and inferior vena cava are normal in size. PELVIS: Pelvic Organs: Unremarkable. Bladder: No bladder wall thickening, accounting for underdistention. Pelvic Nodes: No enlarged lymph nodes. Miscellaneous: No inguinal hernias are seen. Bones: No aggressive osseous abnormality. IMPRESSION: 1. No acute process. 2. No change in rectus diastasis with associated anterior protrusion of bowel loops. No evidence of associated bowel obstruction. 3. Postsurgical sequelae. 4. Resolving aortocaval adenopathy. Dictated by: Devon Bonner M.D. on 06/02/2023 at 11:49 Approved by: Devon Bonner M.D. on 06/02/2023 at 11:53 MDM Narrative Medical decision making narrative: Patient 43-year-old male with multiple medical problems presenting today with low-grade fever some nausea. Vitals are stable. Exam is relatively benign. But does get TPN nightly has abdominal issues. Blood work has been reviewed WBC 3.2 previously 5.2, bilirubin 2.2 previously 0.5, AST 61, previously 60, ALT 82 previously 101, alk-phos 166, no DORA or electrolyte abnormality lactate 1.2, viral panel negative, urinalysis negative CT abdomen pelvis does not show any acute abnormalities Patient multiple medical problems had low-grade fever with some nausea about 16 hours ago feeling better now. He got 1 L of fluid while in the ED. He a does have low WBC count of 3.2 and an elevated bilirubin 2.2 but is not confused. No obvious source of infection blood cultures are pending. No concern for sepsis at this time. At this time recommended supportive care going home close monitoring and returning as needed. Mom reports that they do not need any medications patient feels better Discharge Plan Departure Patient Disposition: Home Clinical Impression: Viral illness Instructions: DI for Viral Syndrome Activity Restrictions/Additional Instructions: *You have been diagnosed with viral syndrome *What to do: At this time increase fluids as tolerated. No need for antibiotics at this time. However please continue to monitor. *Continue to take medications as directed *Follow up with your primary care provider in 2-3 days or call [phone] *Return to ER if you should have increasing symptoms vomiting cough shortness of breath or any new, worsening or concerning symptoms Prescriptions: No Action acetaminophen 325 mg tablet 650 mg PO Q6H PRN (Reason: Pain (Scale Score 1-3)) trazodone 50 mg tablet 50 mg PO BEDTIME loperamide [Anti-Diarrheal (loperamide)] 2 mg tablet 2 mg PO QID diphenoxylate-atropine 2.5-0.025 mg tablet 2.5 tab PO QID aspirin 81 mg tablet,delayed release (DR/EC) 81 mg PO DAILY risperidone 1 mg tablet 1 mg PO BID PRN (Reason: Agitation) hydroxyzine pamoate 25 mg capsule 25 mg PO Q6H pregabalin 75 mg capsule 75 mg PO TID quetiapine 50 mg tablet 50 mg PO DAILY quetiapine 50 mg tablet 100 mg PO BEDTIME doxycycline hyclate 100 mg tablet 100 mg PO BID Qty: 20 0RF Referrals: Epifanio Engle MD [Primary Care Provider] - Stand Alone Forms: Patient Portal/API
[2023-06-02 11:23] LABS: COVID-19 CEPHEID 4-PLEX PCR Negative (Negative); Influenza A - CEPHEID Flu A NEGATIVE (NEGATIVE); Influenza B - CEPHEID Flu B NEGATIVE (NEGATIVE); Respiratory Syncytial Virus Negative (Negative)
[2023-06-02 11:27] LABS: Add Manual Diff / Slide Review NO; Basophils Absolute Auto 0 /uL (0-100); Basophils Percent Auto 0.2 % (0-2); Eosinophils Absolute Auto 0 /uL (0-450); Eosinophils Percent Auto 0.1 % (2-4); Hematocrit 32.7 % (41-53); Hemoglobin 11.4 g/dL (13.5-17.5); Lymphocytes Absolute Auto 400 /uL (1100-4500); Lymphocytes Percent Auto 10.9 % (25-40); Mean Corpuscular Hemoglobin 29.6 PG (26-34); Mean Corpuscular Volume 84.4 fL (80-100); Monocytes Absolute Auto 300 /uL (0-900); Monocytes Percent Auto 8.1 % (3-14); Neutrophils Absolute Auto 2600 /uL (1500-7000); Neutrophils Percent Auto 80.7 % (50-75); Platelet Count 152 X10^3/uL (150-400); Red Blood Cell Count 3.87 X10^6/uL (4.5-5.9); Red Cell Distribution Width 13.6 % (11.6-14.8); White Blood Cell Count 3.2 X10^3/uL (4.5-11.0)
[2023-06-02] MEDS: SODIUM CHLORIDE 0.9% 1,000 ML 1000 ML IV (11:27)
[2023-06-02] MEDS: ONDANSETRON 4 MG/2 ML INJ IV (11:28)
[2023-06-02 11:37] LABS: Alanine Aminotransferase 82 IU/L (<50); Albumin 4.2 g/dL (3.5-5.0); Albumin Globulin Ratio 1.2 (1.0-2.8); Alkaline Phosphatase 166 U/L (38-126); Aspartate Aminotransferase 61 IU/L (17-59); BUN Creatinine Ratio 25.3 (6-22); Bilirubin Total 2.2 mg/dL (0.2-1.3); Blood Urea Nitrogen 22 mg/dL (9-20); Calcium 8.7 mg/dL (8.4-10.2); Carbon Dioxide 24 mmol/L (22-32); Chloride 99 mmol/L (98-107); Estimated Glomerular Filt Rate > 60 mL/min (>60); Globulin 3.6 g/dL (1.7-4.1); Glucose 138 mg/dL (70-100); HEMOLYSIS 56 (0-50); Lactate (Lactic Acid) 1.2 mmol/L (0.7-2.1); Lipase 35 U/L (23-300); Potassium 3.8 mmol/L (3.4-5.1); Sodium 134 mmol/L (137-145); Total Protein 7.8 g/dL (6.3-8.2)
[2023-06-02 11:48] LABS: Appearance Urine UA CLEAR; Bilirubin Urine UA NEGATIVE (NEGATIVE); Color Urine UA YELLOW; Glucose Urine UA NEGATIVE (Negative); Ketones Urine UA NEGATIVE (NEGATIVE); Leukocyte Esterase Urine UA NEGATIVE (NEGATIVE); Nitrite Urine UA NEGATIVE (Negative); Occult Blood Urine UA 3+ (Negative); Protein Urine UA 1+ (Negative); pH Urine UA 5.5 (4.5-8.0)
[2023-06-02 12:02] LABS: RBC Urine 1-5/HPF (0-5/HPF); Urine Volume 10mL (spun)
[2023-06-02 12:03] LABS: Bacteria Urine None Seen; Culture Indicated Urine Cult Not Indicated; Squamous Epithelial Cell Urine None Seen (0-5/HPF); WBC Urine None Seen (0-5/HPF)
== END 2023-06-02 13:04 | disposition home or self-care (01) ==
PROVIDERS: Emergency Provider Emergency Medicine; PCP Family Medicine
DX: B34.9 Viral infection, unspecified (principal); Z20.822 Contact with and (suspected) exposure to COVID-19
CPT/HCPCS: 0241U; 36415; 74177; 80053; 81001; 83605; 83690; 85025; 96361; 96374; 99284; J2405; Q9967

== ENCOUNTER → 2023-07-08 14:09 | Outpatient (ROUT) | payer OTHER, MEDICAID, SELFPAY ==
[2022-10-14 00:55] VITALS: BMI 24.7
[2023-07-08 14:26] LABS: Add Manual Diff / Slide Review NO; Basophils Absolute Auto 0 /uL (0-100); Basophils Percent Auto 0.5 % (0-2); Eosinophils Absolute Auto 100 /uL (0-450); Eosinophils Percent Auto 2.5 % (2-4); Hematocrit 28.6 % (41-53); Hemoglobin 9.7 g/dL (13.5-17.5); Lymphocytes Absolute Auto 1400 /uL (1100-4500); Lymphocytes Percent Auto 34.2 % (25-40); Mean Corpuscular HGB Conc 33.9 % (30-36); Mean Corpuscular Hemoglobin 28.3 PG (26-34); Mean Corpuscular Volume 83.3 fL (80-100); Monocytes Absolute Auto 400 /uL (0-900); Monocytes Percent Auto 8.7 % (3-14); Neutrophils Absolute Auto 2200 /uL (1500-7000); Neutrophils Percent Auto 54.1 % (50-75); Platelet Count 311 X10^3/uL (150-400); Red Blood Cell Count 3.43 X10^6/uL (4.5-5.9); Red Cell Distribution Width 13.9 % (11.6-14.8); White Blood Cell Count 4.1 X10^3/uL (4.5-11.0)
[2023-07-08 14:40] LABS: HEMOLYSIS < 15 (0-50)
[2023-07-08 14:45] LABS: Alanine Aminotransferase 117 IU/L (<50); Albumin Globulin Ratio 1.2 (1.0-2.8); Alkaline Phosphatase 284 U/L (38-126); Aspartate Aminotransferase 60 IU/L (17-59); BUN Creatinine Ratio 28.9 (6-22); Bilirubin Total 0.9 mg/dL (0.2-1.3); Blood Urea Nitrogen 22 mg/dL (9-20); Calcium 9.5 mg/dL (8.4-10.2); Carbon Dioxide 27 mmol/L (22-32); Chloride 104 mmol/L (98-107); Estimated Glomerular Filt Rate > 60 mL/min (>60); Globulin 3.4 g/dL (1.7-4.1); Glucose 100 mg/dL (70-100); Phosphorous 4.5 mg/dL (2.5-4.5); Potassium 4.4 mmol/L (3.4-5.1); Sodium 138 mmol/L (137-145); Total Protein 7.4 g/dL (6.3-8.2); Triglycerides 178 mg/dL (35-150)
[2023-07-09 03:08] LABS: Prealbumin 28.7 mg/dL (17.6-36.0)
[2023-07-09 17:34] LABS: C-Reactive Protein Quant 1.9 mg/dL (<1.0)
== END ==
PROVIDERS: PCP Family Medicine; Visit Provider Family Medicine
DX: B49 Unspecified mycosis (principal); K91.2 Postsurgical malabsorption, not elsewhere classified
CPT/HCPCS: 80053; 83735; 84100; 84134; 84478; 85025; 86140

== ENCOUNTER → 2023-08-05 17:25 | Outpatient (ROUT) | payer MEDICAID, SELFPAY ==
[2022-10-14 00:55] VITALS: BMI 24.7
[2023-08-05 17:36] LABS: Add Manual Diff / Slide Review NO; Basophils Absolute Auto 0 /uL (0-100); Basophils Percent Auto 0.3 % (0-2); Eosinophils Absolute Auto 100 /uL (0-450); Eosinophils Percent Auto 2.1 % (2-4); Hematocrit 29.3 % (41-53); Hemoglobin 9.9 g/dL (13.5-17.5); Lymphocytes Absolute Auto 1400 /uL (1100-4500); Lymphocytes Percent Auto 30.9 % (25-40); Mean Corpuscular HGB Conc 33.8 % (30-36); Mean Corpuscular Hemoglobin 27.6 PG (26-34); Mean Corpuscular Volume 81.4 fL (80-100); Monocytes Absolute Auto 400 /uL (0-900); Monocytes Percent Auto 8.2 % (3-14); Neutrophils Absolute Auto 2600 /uL (1500-7000); Neutrophils Percent Auto 58.5 % (50-75); Platelet Count 256 X10^3/uL (150-400); Red Cell Distribution Width 14.1 % (11.6-14.8); White Blood Cell Count 4.4 X10^3/uL (4.5-11.0)
[2023-08-05 17:38] LABS: Alanine Aminotransferase 102 IU/L (<50); Albumin 3.9 g/dL (3.5-5.0); Albumin Globulin Ratio 1.1 (1.0-2.8); Alkaline Phosphatase 269 U/L (38-126); Aspartate Aminotransferase 64 IU/L (17-59); BUN Creatinine Ratio 26.2 (6-22); Bilirubin Total 0.8 mg/dL (0.2-1.3); Blood Urea Nitrogen 22 mg/dL (9-20); Calcium 9.1 mg/dL (8.4-10.2); Carbon Dioxide 27 mmol/L (22-32); Chloride 104 mmol/L (98-107); Estimated Glomerular Filt Rate > 60 mL/min (>60); Globulin 3.4 g/dL (1.7-4.1); Glucose 110 mg/dL (70-100); HEMOLYSIS < 15 (0-50); Magnesium 2.1 mg/dL (1.6-2.3); Phosphorous 4.1 mg/dL (2.5-4.5); Potassium 4.5 mmol/L (3.4-5.1); Sodium 140 mmol/L (137-145); Total Protein 7.3 g/dL (6.3-8.2)
== END ==
PROVIDERS: PCP Family Medicine; Visit Provider Family Medicine
DX: B49 Unspecified mycosis (principal); K91.2 Postsurgical malabsorption, not elsewhere classified
CPT/HCPCS: 80053; 83735; 84100; 85025

== ENCOUNTER → 2023-08-19 19:28 | Outpatient (ROUT) | payer MEDICAID, SELFPAY ==
[2022-10-14 00:55] VITALS: BMI 24.7
[2023-08-19 19:49] LABS: Add Manual Diff / Slide Review NO; Basophils Absolute Auto 0 /uL (0-100); Basophils Percent Auto 0.3 % (0-2); Eosinophils Absolute Auto 100 /uL (0-450); Eosinophils Percent Auto 1.9 % (2-4); Hematocrit 28.6 % (41-53); Hemoglobin 9.7 g/dL (13.5-17.5); Lymphocytes Absolute Auto 1400 /uL (1100-4500); Lymphocytes Percent Auto 40.4 % (25-40); Mean Corpuscular HGB Conc 33.9 % (30-36); Mean Corpuscular Hemoglobin 27.1 PG (26-34); Mean Corpuscular Volume 80.1 fL (80-100); Monocytes Absolute Auto 300 /uL (0-900); Monocytes Percent Auto 9.1 % (3-14); Neutrophils Absolute Auto 1600 /uL (1500-7000); Neutrophils Percent Auto 48.3 % (50-75); Platelet Count 233 X10^3/uL (150-400); Red Blood Cell Count 3.57 X10^6/uL (4.5-5.9); White Blood Cell Count 3.4 X10^3/uL (4.5-11.0)
[2023-08-19 20:16] LABS: Alanine Aminotransferase 87 IU/L (<50); Albumin 4.1 g/dL (3.5-5.0); Albumin Globulin Ratio 1.2 (1.0-2.8); Alkaline Phosphatase 245 U/L (38-126); Aspartate Aminotransferase 58 IU/L (17-59); BUN Creatinine Ratio 31.1 (6-22); Bilirubin Total 0.7 mg/dL (0.2-1.3); Blood Urea Nitrogen 23 mg/dL (9-20); C-Reactive Protein Quant 3.2 mg/dL (<1.0); Calcium 9.2 mg/dL (8.4-10.2); Carbon Dioxide 27 mmol/L (22-32); Chloride 103 mmol/L (98-107); Estimated Glomerular Filt Rate > 60 mL/min (>60); Globulin 3.4 g/dL (1.7-4.1); Glucose 127 mg/dL (70-100); HEMOLYSIS 18 (0-50); Phosphorous 4.4 mg/dL (2.5-4.5); Potassium 4.2 mmol/L (3.4-5.1); Sodium 137 mmol/L (137-145); Total Protein 7.5 g/dL (6.3-8.2); Triglycerides 181 mg/dL (35-150)
[2023-08-19 20:21] LABS: Prealbumin 24.3 mg/dL (17.6-36.0)
== END ==
PROVIDERS: PCP Family Medicine; Visit Provider Family Medicine
DX: B49 Unspecified mycosis (principal); K91.2 Postsurgical malabsorption, not elsewhere classified
CPT/HCPCS: 80053; 83735; 84100; 84134; 84478; 85025; 86140

== ENCOUNTER → 2023-09-02 19:58 | Outpatient (ROUT) | payer OTHER, MEDICAID, SELFPAY ==
[2022-10-14 00:55] VITALS: BMI 24.7
[2023-09-02 20:04] LABS: Add Manual Diff / Slide Review NO; Basophils Absolute Auto 0 /uL (0-100); Basophils Percent Auto 0.3 % (0-2); Eosinophils Absolute Auto 0 /uL (0-450); Eosinophils Percent Auto 1.3 % (2-4); Hematocrit 28.2 % (41-53); Hemoglobin 9.6 g/dL (13.5-17.5); Lymphocytes Absolute Auto 1000 /uL (1100-4500); Mean Corpuscular HGB Conc 34.1 % (30-36); Mean Corpuscular Hemoglobin 27.1 PG (26-34); Mean Corpuscular Volume 79.3 fL (80-100); Monocytes Absolute Auto 200 /uL (0-900); Monocytes Percent Auto 7.5 % (3-14); Neutrophils Absolute Auto 1300 /uL (1500-7000); Neutrophils Percent Auto 50.9 % (50-75); Platelet Count 177 X10^3/uL (150-400); Red Blood Cell Count 3.56 X10^6/uL (4.5-5.9); Red Cell Distribution Width 14.5 % (11.6-14.8); White Blood Cell Count 2.6 X10^3/uL (4.5-11.0)
[2023-09-02 20:18] LABS: Alanine Aminotransferase 73 IU/L (<50); Albumin 3.9 g/dL (3.5-5.0); Albumin Globulin Ratio 1.1 (1.0-2.8); Alkaline Phosphatase 245 U/L (38-126); Aspartate Aminotransferase 49 IU/L (17-59); BUN Creatinine Ratio 23.8 (6-22); Bilirubin Total 0.7 mg/dL (0.2-1.3); Blood Urea Nitrogen 19 mg/dL (9-20); Calcium 8.8 mg/dL (8.4-10.2); Carbon Dioxide 26 mmol/L (22-32); Chloride 103 mmol/L (98-107); Estimated Glomerular Filt Rate > 60 mL/min (>60); Globulin 3.4 g/dL (1.7-4.1); Glucose 108 mg/dL (70-100); HEMOLYSIS < 15 (0-50); Phosphorous 4.3 mg/dL (2.5-4.5); Potassium 4.1 mmol/L (3.4-5.1); Sodium 138 mmol/L (137-145); Total Protein 7.3 g/dL (6.3-8.2)
== END ==
PROVIDERS: PCP Family Medicine; Visit Provider Family Medicine
DX: B49 Unspecified mycosis (principal); K91.2 Postsurgical malabsorption, not elsewhere classified
CPT/HCPCS: 80053; 83735; 84100; 85025

== ENCOUNTER 2023-12-13 18:57 | Inpatient (IN) | payer MEDICAID, OTHER, SELFPAY ==
[2022-10-14 00:55] VITALS: BMI 24.7
[2023-12-13] VITALS (13 sets, daily range): BP systolic 115–142; BP diastolic 65–82; PULSE 94–118; RESP 15–34; TEMP 37.8; O2SAT 88–97; BMI 29.3
--- NOTE | 2023-12-13 19:22 | ED_ITS ---
HPI - Nausea/Vomiting/Diarrhea General Chief complaint: Nausea/Vomiting/Diarrhea Stated complaint: vomiting. low grade fever, lethargic, diarrhea Time Seen by Provider: 12/13/23 19:00 Source: patient and family Mode of arrival: Wheelchair History of Present Illness HPI Narrative: 43-year-old male with complex past medical history including TBI, short gut syndrome on nightly TPN, status post cardiac arrest in 2021 presents for 1 month of intermittent vomiting, intermittent fevers, intermittent shortness of breath with low oxygen saturations at home. History is obtained with help of mother at bedside, who provides care for the patient. Mother states that back in 2021 patient was hospitalized at [facility] for some unknown GI complaint. At that time patient had sepsis with multiorgan failure as a complication of his hospital stay and suffered a cardiac arrest with 7 minutes of downtime and subsequent TBI. During his post-arrest care patient had necrotic bowel requiring multiple intra-abdominal surgeries. He subsequently suffers with short gut syndrome and is on nightly TPN. Mother states that for the last month patient has had intermittent symptoms but has an overall fear of hospitals and did not want to come in to be evaluated. Mother has taken the patient in to see his primary care doctor, where labs have been done, but no diagnosis has ever been made. This evening after attempting to eat dinner patient had an episode of emesis and said that he was willing to come in for evaluation. On arrival patient was noted to be tachycardic at a rate of 114, temperature of 100.1? oral, saturating 88% on room air. Patient placed on nasal cannula and taken to ER room for evaluation. Related Data Home Medications Medication Instructions Recorded Confirmed acetaminophen 325 mg tablet 650 mg PO Q6H PRN Pain (Scale 07/31/22 10/14/22 Score 1-3) aspirin 81 mg tablet,delayed 81 mg PO DAILY 07/31/22 10/14/22 release diphenoxylate-atropine 2.5 2.5 tab PO QID 07/31/22 10/14/22 mg-0.025 mg tablet hydroxyzine pamoate 25 mg capsule 25 mg PO Q6H 07/31/22 10/14/22 loperamide 2 mg tablet 2 mg PO QID 07/31/22 10/14/22 (Anti-Diarrheal (loperamide)) pregabalin 75 mg capsule 75 mg PO TID 07/31/22 10/14/22 quetiapine 50 mg tablet 50 mg PO DAILY 07/31/22 10/14/22 quetiapine 50 mg tablet 100 mg PO BEDTIME 07/31/22 10/14/22 risperidone 1 mg tablet 1 mg PO BID PRN Agitation 07/31/22 10/14/22 trazodone 50 mg tablet 50 mg PO BEDTIME 07/31/22 10/14/22 Previous Rx's Medication Instructions Recorded doxycycline hyclate 100 mg tablet 100 mg PO BID #20 tabs 11/15/22 Allergies Allergy/AdvReac Type Severity Reaction Status Date / Time No Known Drug Allergies Allergy Verified 12/13/23 19:10 Patient History Medical History MRSA carrier Hepatitis C antibody positive in blood History of sepsis History of non-ST elevation myocardial infarction (NSTEMI) History of discitis Short gut syndrome History of cardiac arrest Perforation bowel Hx of ischemic bowel disease Surgical History Status post peripherally inserted central catheter (PICC) central line placement History of tracheostomy History of bronchoscopy S/P percutaneous endoscopic gastrostomy (PEG) tube placement History of laparoscopy History of colostomy History of bowel resection Family History Father No problems noted. Mother No problems noted. Social History household members: family Smoking Status: Current every day smoker Smoking Status: Current every day smoker tobacco type: vaping Substance Use Type: marijuana Exam Initial Vital Signs Initial Vital Signs: Vital Signs Temperature 100.1 F H 12/13/23 19:01 Pulse Rate 114 H 12/13/23 19:01 Respiratory Rate 20 12/13/23 19:01 Blood Pressure 122/72 12/13/23 19:01 Pulse Oximetry 88 L 12/13/23 19:01 Oxygen Delivery Method Room Air 12/13/23 19:01 Const: Awake, alert, appears chronically unwell, debilitated, frail Cardiac: Tachycardic, regular rhythm RESP: Unlabored, decreased right-sided breath sounds GI: Soft, nontender, nondistended, ostomy in place Skin: Warm, Dry, pale, intact, no rashes Neuro: AO x2, CN II-XII grossly intact, moves all extremities Course Orders Ordered: ED Orders 12/13/23 19:08 EKG-12 Lead Stat RT Consult Eval and Treat NOW 12/13/23 19:20 PTT Partial Thromboplastin Rodrick Stat Prothrombin Time INR Stat 12/13/23 19:22 CT abdomen pelvis w con Stat 12/13/23 19:24 Blood Culture Stat 12/13/23 19:39 Respiratory Panel (Film Array) Stat 12/13/23 19:47 Urine Microscopic Stat 12/13/23 19:50 BNP [NT-proBNP (BNP-Adult 18+)] Stat Complete Blood Count AUTO DIFF Stat Comprehensive Metabolic Panel Stat Lactate (Lactic Acid) Stat Lipase Stat Procalcitonin Stat Troponin & CK Cardiac Panel Stat 12/13/23 20:30 CT chest wo con Stat Ondansetron HCl (Ondansetron 4 Mg/2 Ml Inj) 4 mg IV NOW PRN PRN Reason: Nausea And Vomiting Ondansetron HCl (Ondansetron 4 Mg Odt) 4 mg SL NOW PRN PRN Reason: Nausea And Vomiting Discontinued Medications Furosemide (Furosemide 40 Mg/4 Ml Vial) 40 mg IV NOW ONE Stop: 12/13/23 21:51 Last Admin: 12/13/23 22:06 Dose: 40 mg Documented By: AYDEE Sodium Chloride (Normal Saline 0.9%) 1,000 mls @ 1,000 mls/hr IV BOLUS ONE Stop: 12/13/23 20:07 Last Infusion: 12/13/23 21:01 Dose: Infused Documented By: Admin: 12/13/23 19:51 Dose: 1,000 mls/hr Documented By: RAMESH Ceftriaxone Sodium 2,000 mg/ (Sodium Chloride) 100 mls @ 200 mls/hr IV NOW ONE Stop: 12/13/23 20:32 Last Infusion: 12/13/23 21:40 Dose: Infused Documented By: Admin: 12/13/23 21:02 Dose: 200 mls/hr Documented By: AYDEE Azithromycin 500 mg/ Dextrose 250 mls @ 250 mls/hr IV NOW ONE Stop: 12/13/23 20:32 Last Infusion: 12/13/23 23:00 Dose: Infused Documented By: Admin: 12/13/23 21:46 Dose: 250 mls/hr Documented By: AYDEE Vital Signs Vital signs: Vital Signs - 8 hr 12/13/23 19:01 12/13/23 19:11 12/13/23 19:11 Temperature 100.1 F H Pulse Rate 114 H 114 H Respiratory Rate 20 Blood Pressure 122/72 137/79 Pulse Oximetry 88 L 94 Oxygen Delivery Method Room Air Nasal Cannula Oxygen Flow Rate 2 12/13/23 19:30 12/13/23 19:30 12/13/23 20:00 Temperature Pulse Rate 103 H Respiratory Rate 19 Blood Pressure 128/75 127/72 Pulse Oximetry 95 Oxygen Delivery Method Oxygen Flow Rate 12/13/23 20:00 12/13/23 20:38 12/13/23 21:00 Temperature Pulse Rate 102 H 100 H 99 H Respiratory Rate 17 24 34 H Blood Pressure Pulse Oximetry 90 L 97 94 Oxygen Delivery Method Nasal Cannula Oxygen Flow Rate 2 12/13/23 21:03 12/13/23 21:03 12/13/23 21:30 Temperature Pulse Rate 96 H Respiratory Rate 15 Blood Pressure 129/77 142/72 H Pulse Oximetry 93 Oxygen Delivery Method Oxygen Flow Rate 12/13/23 21:30 12/13/23 22:00 12/13/23 22:00 Temperature Pulse Rate 94 H 110 H Respiratory Rate 22 Blood Pressure 138/79 Pulse Oximetry 93 96 Oxygen Delivery Method Nasal Cannula Oxygen Flow Rate 2 12/13/23 22:30 12/13/23 22:30 Temperature Pulse Rate 102 H Respiratory Rate 22 Blood Pressure 129/82 Pulse Oximetry 93 Oxygen Delivery Method Oxygen Flow Rate MDM - Nausea/Vomiting/Diarrhea Lab Data 12/13/23 19:50 12/13/23 19:50 Labs: Lab Results 12/13/23 12/13/23 12/13/23 Range/Units 19:20 19:39 19:47 WBC (4.5-11.0) X10^3/uL RBC (4.5-5.9) X10^6/uL Hgb (13.5-17.5) g/dL Hct (41-53) % MCV (80-100) fL MCH (26-34) PG MCHC (30-36) % RDW (11.6-14.8) % Plt Count (150-400) X10^3/uL Neut % (Auto) (50-75) % Lymph % (Auto) (25-40) % Drew % (Auto) (3-14) % Eos % (Auto) (2-4) % Baso % (Auto) (0-2) % Neut # (Auto) (2361-5829) /uL Lymph # (Auto) (1028-3036) /uL Drew # (Auto) (0-900) /uL Eos # (Auto) (0-450) /uL Baso # (Auto) (0-100) /uL PT 12.5 (9.4-12.5) SECONDS INR 1.1 (0.9-1.3) APTT 29 (25.1-36.5) SECONDS Sodium (137-145) mmol/L Potassium (3.4-5.1) mmol/L Chloride (98-107) mmol/L Carbon Dioxide (22-32) mmol/L BUN (9-20) mg/dL Creatinine (0.66-1.25) mg/dL Estimated GFR (>60) mL/min BUN/Creatinine Ratio (6-22) Glucose (70-100) mg/dL Lactate (0.7-2.1) mmol/L Calcium (8.4-10.2) mg/dL Total Bilirubin (0.2-1.3) mg/dL AST (17-59) IU/L ALT (<50) IU/L Alkaline Phosphatase (38-126) U/L Total Creatine Kinase (55-170) U/L Troponin I (0.01-0.034) ng/mL NT-Pro-B Natriuret Pep (<125) pg/mL Total Protein (6.3-8.2) g/dL Albumin (3.5-5.0) g/dL Globulin (1.7-4.1) g/dL Albumin/Globulin Ratio (1.0-2.8) Lipase (23-300) U/L Procalcitonin (<0.5) ng/mL Urine RBC 10-30/hpf H (0-5/HPF) Urine WBC 0-1/hpf (0-5/HPF) Ur Squamous Epith Cells 0-1 /hpf (0-5/HPF) Urine Bacteria Occasional (0-1) (None) Urine Mucus 3+ H (Negative) Ur Culture Indicated? Cult not indicated Vol Urine Centrifuged 10ml (spun) Chlamy pneumoniae PCR Not detected (Not Detect) Adenovirus (PCR) Not detected (Not Detect) B.parapertussis DNA PCR Not detected (Not Detecte) Coronavirus OC43 (PCR) Not detected (Not Detect) Coronavirus HKU1 (PCR) Not detected (Not Detect) Coronavirus 229E (PCR) Not detected (Not Detect) SARS-CoV-2 (PCR) Not detected (Not Detecte) Coronavirus NL63 (PCR) Not detected (Not Detect) Human Metapneumovir PCR Not detected (Not Detect) Influenza Type A (PCR) Not detected (Not Detect) Influenza Type B (PCR) Not detected (Not Detect) M. pneumoniae (PCR) Not detected (Not Detect) Parainfluenza 1 (PCR) Not detected (Not Detect) Parainfluenza 2 (PCR) Not detected (Not Detect) Parainfluenza 3 (PCR) Not detected (Not Detect) Parainfluenza 4 (PCR) Not detected (Not Detect) RSV (PCR) Not detected (Not Detect) Entero/Rhino (PCR) Not detected (Not Detect) 12/13/23 Range/Units 19:50 WBC 3.2 L (4.5-11.0) X10^3/uL RBC 3.42 L (4.5-5.9) X10^6/uL Hgb 8.0 L (13.5-17.5) g/dL Hct 24.2 L (41-53) % MCV 70.6 L (80-100) fL MCH 23.4 L (26-34) PG MCHC 33.1 (30-36) % RDW 18.5 H (11.6-14.8) % Plt Count 147 L (150-400) X10^3/uL Neut % (Auto) 45.0 L (50-75) % Lymph % (Auto) 45.0 H (25-40) % Drew % (Auto) 9.5 (3-14) % Eos % (Auto) 0.0 L (2-4) % Baso % (Auto) 0.5 (0-2) % Neut # (Auto) 1400 L (6018-4125) /uL Lymph # (Auto) 1400 (5729-1646) /uL Drew # (Auto) 300 (0-900) /uL Eos # (Auto) 0 (0-450) /uL Baso # (Auto) 0 (0-100) /uL PT (9.4-12.5) SECONDS INR (0.9-1.3) APTT (25.1-36.5) SECONDS Sodium 134 L (137-145) mmol/L Potassium 3.7 (3.4-5.1) mmol/L Chloride 104 (98-107) mmol/L Carbon Dioxide 22 (22-32) mmol/L BUN 21 H (9-20) mg/dL Creatinine 0.89 (0.66-1.25) mg/dL Estimated GFR > 60 (>60) mL/min BUN/Creatinine Ratio 23.6 H (6-22) Glucose 115 H (70-100) mg/dL Lactate 0.9 (0.7-2.1) mmol/L Calcium 8.5 (8.4-10.2) mg/dL Total Bilirubin 1.1 (0.2-1.3) mg/dL AST 50 (17-59) IU/L ALT 33 (<50) IU/L Alkaline Phosphatase 331 H (38-126) U/L Total Creatine Kinase 26 L (55-170) U/L Troponin I < 0.012 (0.01-0.034) ng/mL NT-Pro-B Natriuret Pep 88 (<125) pg/mL Total Protein 7.7 (6.3-8.2) g/dL Albumin 3.5 (3.5-5.0) g/dL Globulin 4.2 H (1.7-4.1) g/dL Albumin/Globulin Ratio 0.8 L (1.0-2.8) Lipase 77 (23-300) U/L Procalcitonin 0.551 H (<0.5) ng/mL Urine RBC (0-5/HPF) Urine WBC (0-5/HPF) Ur Squamous Epith Cells (0-5/HPF) Urine Bacteria (None) Urine Mucus (Negative) Ur Culture Indicated? Vol Urine Centrifuged Chlamy pneumoniae PCR (Not Detect) Adenovirus (PCR) (Not Detect) B.parapertussis DNA PCR (Not Detecte) Coronavirus OC43 (PCR) (Not Detect) Coronavirus HKU1 (PCR) (Not Detect) Coronavirus 229E (PCR) (Not Detect) SARS-CoV-2 (PCR) (Not Detecte) Coronavirus NL63 (PCR) (Not Detect) Human Metapneumovir PCR (Not Detect) Influenza Type A (PCR) (Not Detect) Influenza Type B (PCR) (Not Detect) M. pneumoniae (PCR) (Not Detect) Parainfluenza 1 (PCR) (Not Detect) Parainfluenza 2 (PCR) (Not Detect) Parainfluenza 3 (PCR) (Not Detect) Parainfluenza 4 (PCR) (Not Detect) RSV (PCR) (Not Detect) Entero/Rhino (PCR) (Not Detect) Urine Dip Bedside Urine Glucose Negative Bedside Urine Bilirubin + 1 Bedside Urine Ketone +/- 5 Urine Specific [place] 1.025 Bedside Urine Occult Blood +++ Bedside Urine pH 6.0 Bedside Urine Protein ++ 100 Bedside Urine Urobilinogen 1+ 2mg Bedside Urine Nitrite - Negative Bedside Urine Leukocytes +/- [address] scan - abdomen/pelvis: Radiologist's Impression: PROCEDURE: CT ABDOMEN PELVIS W CON INDICATIONS: VOMITING/DIARRHEA X 1 MO. HX SHORT GUT TECHNIQUE: After the administration of intravenous contrast, axial sections acquired from the lung bases to the pubic symphysis. Coronal and sagittal reformats were performed. For radiation dose reduction, the following was used: automated exposure control, adjustment of mA and/or kV according to patient size. COMPARISON: [facility], CT, CT ABDOMEN PELVIS W CON, 06/02/2023, 11:46. FINDINGS: Image quality: Diagnostic. Lower Chest: Moderate right pleural effusion with subjacent atelectasis. Left lung is clear. ABDOMEN: Liver: No solid mass. Query possible nodular contour of the liver suggestive of cirrhosis Gallbladder: No radiopaque gallstones or wall thickening. Biliary ducts: No biliary dilation. Pancreas: No ductal dilation. Spleen: Splenomegaly. Adrenal Glands: No adrenal nodules. Kidneys and Ureters: No hydronephrosis. No solid mass. No complex renal cystic lesion which requires follow up. Stomach and Bowel: No small bowel obstruction. Left hemicolectomy. Left lower quadrant ostomy. Patent anastomosis Peritoneum: Moderate volume ascites. No free air. Ventral Wall: Diastasis rectus, as before. There is thickening of the anterior midline subcutaneous tissue, new since prior. Abdominal Nodes: No retroperitoneal or mesenteric adenopathy by size criteria. Vessels: Aorta and inferior vena cava are normal in size. PELVIS: Pelvic Organs: Unremarkable. Bladder: No bladder wall thickening, accounting for underdistention. Pelvic Nodes: No enlarged lymph nodes. Miscellaneous: No inguinal hernias are seen. Bones: No aggressive osseous abnormality. IMPRESSION: Moderate right pleural effusion with subjacent atelectasis. Moderate volume ascites of uncertain etiology. Query nodular contour of the liver, which may reflect cirrhosis. Splenomegaly. Stable postsurgical changes from prior hemicolectomy and left lower quadrant ostomy. Superficial subcutaneous thickening in the anterior midline abdominal wall. Findings could represent cellulitis. Recommend correlation with physical exam. Approved by: Nica Cheatham M.D.,Ph.D. on 12/13/2023 at 20:52 CT scan - chest: Radiologist's Impression: PROCEDURE: CT CHEST WO CON INDICATIONS: FEVERS, HYPOXIA X 1 MO TECHNIQUE: Noncontrast 5 mm thick sections acquired from the pulmonary apices to the posterior costophrenic angles. 1 mm lung window, 5 mm thick coronal and sagittal and 7 mm axial MIP reformats were then acquired. For radiation dose reduction, the following was used: automated exposure control, adjustment of mA and/or kV according to patient size. COMPARISON: [facility], CT, CT ABDOMEN PELVIS W CON, 12/13/2023, 20:14. FINDINGS: Image quality: Diagnostic. Lower Neck: No enlarged lymph nodes. Thyroid: No thyroid nodules which require sonographic follow up, per consensus guidelines. Axillae: No enlarged lymph nodes. Chest Wall: Unremarkable. Bones: Unremarkable. Lungs and Pleura: No pneumothorax, note is made of a moderate posterior layering right pleural effusions with anterior consolidation or atelectasis.. No suspicious nodules. Heart: Heart size is normal. No pericardial effusion. Thoracic Vessels: The aorta and pulmonary arteries demonstrate normal size. Mediastinum and Kyleigh: No enlarged lymph nodes. Esophagus: No wall thickening. No hiatal hernia. Upper Abdomen: Visualized upper abdomen solid organs and bowel loops appear normal. IMPRESSION: Pleural effusion is moderate in size, and posterior layering, within the right hemithorax. Immediate adjacent atelectasis or pneumonia is moderate in severity also. Given the presence of ascites, splenomegaly and hepatic nodular margination ascites and the pleural effusion may be related through fenestrations within the diaphragm. A definite infectious or malignant etiology is not found. Please correlate for hepatic insufficiency. Dictated by: Jean Marie Boswell M.D. on 12/13/2023 at 20:58 Approved by: Jean Marie Boswell M.D. on 12/13/2023 at 21:02 [facility] Narrative Medical decision making narrative: Chronically unwell appearing patient with 1 month of waxing and waning symptoms. Noted to be hypoxic, tachycardic, febrile on room air, taken to ER bed for evaluation and placed on supplemental nasal cannula. Abdomen is soft, no significant reproducible tenderness to palpation, no peritoneal signs. Colostomy bag in place with gas present. Blood cultures, CT imaging, empiric antibiotics ordered. Laboratory work shows WBC count 3.2, hemoglobin 8.0, platelets 147, sodium 134, potassium 3.7, creatinine 0.89, T bili 1.1, AST 50, ALT 33, alk phos 331, troponin undetectable. Procalcitonin 0.551. CT of the abdomen and pelvis shows new ascites as well as a nodular contour to the liver and splenomegaly, which was not seen previously on CT imaging from May 2023. CT chest also shows moderate size right pleural effusion. Overall picture is concerning for cirrhosis. 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 There was a question of if patient had hepatitis-C when he was in [place] 2 years ago, but she states that he subsequently tested negative for hepatitis-C and does not have any known diagnosis of hepatitis. Case discussed with Dr. Brewer of Loc[facility], questioning if patient would benefit from transfer to Center with . Dr. Brewer reviewed the case and stated that would not do anything further than diurese, which can be done at any facility. She did recommend that patient be treated for SBP and have fluid sent for diagnostic testing. Patient has already received 2 g of Rocephin as part of his empiric initial treatment. The ascites volume seen on CT scan does not appear large enough that I feel comfortable to drain this at bedside. Point of care ultrasound at bedside shows good systolic function without obvious hypokinesis. I have low suspicion for coronary etiology or congestive heart failure at this time. Patient accepted by nighttime hospitalist Dr. Chun for admission Discharge Plan Departure Patient Disposition: Admitted As Inpatient Clinical Impression: Acute hypoxemic respiratory failure, Pleural effusion, Abdominal ascites, Pancytopenia Admit Date/Time: 12/13/23 22:53 Admit Provider: Yoni Quinonez
[2023-12-13 19:38] LABS: INR 1.1 (0.9-1.3); Prothrombin Time 12.5 SECONDS (9.4-12.5)
[2023-12-13 19:41] LABS: PTT Partial Thromboplastin Tim 29 SECONDS (25.1-36.5)
--- NOTE | 2023-12-13 19:43 | EKG_ITS ---
[facility] [address], [place] [address] Test Date: 2023-12-13 Pat Name: Storm Lee Department: [facility] Room: Gender: Male Office Workforce Planner: MAJOR : 1980 Requested By: Order Number: [id number] Reading MD: Samuel Curry MD Measurements Intervals [place] Rate: 100 P: 38 AR: 142 QRS: 87 QRSD: 82 T: 29 QT: 334 QTc: 430 Interpretive Statements Normal sinus rhythm Electronically Signed On 12-14-2023 7:26:16 PDT by Samuel Curry MD
[2023-12-13] MEDS: SODIUM CHLORIDE 0.9% 1,000 ML 1000 ML IV (19:51)
[2023-12-13 19:59] LABS: Add Manual Diff / Slide Review NO; Basophils Absolute Auto 0 /uL (0-100); Basophils Percent Auto 0.5 % (0-2); Eosinophils Absolute Auto 0 /uL (0-450); Hematocrit 24.2 % (41-53); Lymphocytes Absolute Auto 1400 /uL (1100-4500); Mean Corpuscular HGB Conc 33.1 % (30-36); Mean Corpuscular Hemoglobin 23.4 PG (26-34); Mean Corpuscular Volume 70.6 fL (80-100); Monocytes Absolute Auto 300 /uL (0-900); Monocytes Percent Auto 9.5 % (3-14); Neutrophils Absolute Auto 1400 /uL (1500-7000); Platelet Count 147 X10^3/uL (150-400); Red Blood Cell Count 3.42 X10^6/uL (4.5-5.9); Red Cell Distribution Width 18.5 % (11.6-14.8); White Blood Cell Count 3.2 X10^3/uL (4.5-11.0)
[2023-12-13 20:08] LABS: Lactate (Lactic Acid) 0.9 mmol/L (0.7-2.1)
[2023-12-13 20:09] LABS: Alanine Aminotransferase 33 IU/L (<50); Albumin 3.5 g/dL (3.5-5.0); Albumin Globulin Ratio 0.8 (1.0-2.8); Alkaline Phosphatase 331 U/L (38-126); Aspartate Aminotransferase 50 IU/L (17-59); BUN Creatinine Ratio 23.6 (6-22); Bilirubin Total 1.1 mg/dL (0.2-1.3); Blood Urea Nitrogen 21 mg/dL (9-20); Calcium 8.5 mg/dL (8.4-10.2); Carbon Dioxide 22 mmol/L (22-32); Chloride 104 mmol/L (98-107); Estimated Glomerular Filt Rate > 60 mL/min (>60); Globulin 4.2 g/dL (1.7-4.1); Glucose 115 mg/dL (70-100); HEMOLYSIS < 15 (0-50); Lipase 77 U/L (23-300); Potassium 3.7 mmol/L (3.4-5.1); Sodium 134 mmol/L (137-145); Total Protein 7.7 g/dL (6.3-8.2)
[2023-12-13 20:25] LABS: Procalcitonin 0.551 ng/mL (<0.5)
[2023-12-13 20:28] LABS: Bacteria Urine Occasional (0-1); RBC Urine 10-30/HPF (0-5/HPF); Squamous Epithelial Cell Urine 0-1 /HPF (0-5/HPF); Urine Volume 10mL (spun); WBC Urine 0-1/HPF (0-5/HPF)
[2023-12-13 20:29] LABS: Culture Indicated Urine Cult Not Indicated; Mucus Urine 3+ (Negative)
--- NOTE | 2023-12-13 20:30 | DI.CT.S_ITS ---
PROCEDURE: CT CHEST WO CON INDICATIONS: FEVERS, HYPOXIA X 1 MO TECHNIQUE: Noncontrast 5 mm thick sections acquired from the pulmonary apices to the posterior costophrenic angles. 1 mm lung window, 5 mm thick coronal and sagittal and 7 mm axial MIP reformats were then acquired. For radiation dose reduction, the following was used: automated exposure control, adjustment of mA and/or kV according to patient size. COMPARISON: [facility], CT, CT ABDOMEN PELVIS W CON, 12/13/2023, 20:14. FINDINGS: Image quality: Diagnostic. Lower Neck: No enlarged lymph nodes. Thyroid: No thyroid nodules which require sonographic follow up, per consensus guidelines. Axillae: No enlarged lymph nodes. Chest Wall: Unremarkable. Bones: Unremarkable. Lungs and Pleura: No pneumothorax, note is made of a moderate posterior layering right pleural effusions with anterior consolidation or atelectasis.. No suspicious nodules. Heart: Heart size is normal. No pericardial effusion. Thoracic Vessels: The aorta and pulmonary arteries demonstrate normal size. Mediastinum and [place]: No enlarged lymph nodes. Esophagus: No wall thickening. No hiatal hernia. Upper Abdomen: Visualized upper abdomen solid organs and bowel loops appear normal. IMPRESSION: Pleural effusion is moderate in size, and posterior layering, within the right hemithorax. Immediate adjacent atelectasis or pneumonia is moderate in severity also. Given the presence of ascites, splenomegaly and hepatic nodular margination ascites and the pleural effusion may be related through fenestrations within the diaphragm. A definite infectious or malignant etiology is not found. Please correlate for hepatic insufficiency. Dictated by: Jean Marie Boswell M.D. on 12/13/2023 at 20:58 Approved by: Jean Marie Boswell M.D. on 12/13/2023 at 21:02
[2023-12-13 20:35] LABS: Adenovirus Not Detected (Not Detect); B. parapertussis Not Detected (Not Detecte); Bordetella pertussis Not Detected (Not Detect); Chlamydophila pneumoniae Not Detected (Not Detect); Coronavirus 229E Not Detected (Not Detect); Coronavirus HKU1 Not Detected (Not Detect); Coronavirus NL 63 Not Detected (Not Detect); Coronavirus OC43 Not Detected (Not Detect); Human Metapneumovirus Not Detected (Not Detect); Human Rhinovirus/Enterovirus Not Detected (Not Detect); Influenza A Not Detected (Not Detect); Influenza B Not Detected (Not Detect); Mycoplasma pneumoniae Not Detected (Not Detect); Parainfluenza Virus 1 Not Detected (Not Detect); Parainfluenza Virus 2 Not Detected (Not Detect); Parainfluenza Virus 3 Not Detected (Not Detect); Parainfluenza Virus 4 Not Detected (Not Detect); Respiratory Syncytial Virus Not Detected (Not Detect); SARS- CoV-2 Not Detected (Not Detecte)
[2023-12-13] MEDS: cefTRIAXone 2,000 MG in SODIUM CHLORIDE 0.9% 100 ML 200 MG IV (21:02)
[2023-12-13 21:10] LABS: Creatine Kinase 26 U/L (55-170)
[2023-12-13 21:23] LABS: NT-proBNP (BNP-Adult 18+) 88 pg/mL (<125); Troponin I < 0.012 ng/mL (0.01-0.034)
[2023-12-13] MEDS: AZITHROMYCIN 500 MG in DEXTROSE 5% IN WATER 250 ML 250 MG IV (21:46)
[2023-12-13] MEDS: FUROSEMIDE 40 MG/4 ML VIAL IV (22:06)
[2023-12-14] VITALS (31 sets, daily range): BP systolic 110–130; BP diastolic 64–76; PULSE 85–116; RESP 15–18; TEMP 36.8–37.1; O2SAT 88–98; BMI 29.7
[2023-12-14 01:57] LABS: MRSA (Nasal) PCR NOT DETECTED (Not Detect)
[2023-12-14] MEDS: ONDANSETRON 4 MG/2 ML INJ IV (02:59)
--- NOTE | 2023-12-14 03:41 | PC.NURSE ---
Addendum entered by Tamar Garcia R.N. 12/14/23 06:07: Pt had a bile emesis episode tonight around 0330. zofran ivp given. pt felt asleep around 0500. Mom requesting for patient not to be woken up for any vital signs or blood draw. This nurse will wait for patient to wake up to do his next set of vitals along with his blood draw. Original Note: Pt admitted from ER [facility] via stretcher. Mom skye and sister Gloria here with patient and supported. Pt mainly being care at home by mother. Pt has a central line in which he gets nightly TPN due to short gut syndrome (will need to follow up with infusion solution and our pharmacy here). Pt also has a colostomy back with mom provides all the care for. Pt has been feeling lethargic and having nausea/vomiting and therefore that is the reason he was brought to the hospital tonight. No Tele orders at the moment for this patient as pt needs less stimulation due to his TBI. Mom/patient refusing SCD'S. Mom brought in all of patients medication so that we could do an accurate medication reconciliation.
--- NOTE | 2023-12-14 05:50 | PM.HP.1 ---
History of Present Illness History of Present Illness Date Patient Seen: 12/14/23 Time Patient Seen: 01:00 Chief complaint: vomiting. low grade fever, lethargic, diarrhea Narrative: 43 y/o with PMH of polysubstance abuse, including alcohol, cardiac arrest with ischemic bowel and anoxic brain injury, sepsis, diskitis, bowel resection with colostomy and short bowel syndrome requiring TPN at night. Since his hospitalization with above in 2021, he had several visits to [facility] ED and few admissions in 2022, in July and October. Last admission for Staph epidermidis sepsis with TPN port likely source. He presented to ED with his mother who reported on loss of appetite, more frequent nausea, several episodes of vomiting in the last month or so. He did not want to come to hospital but tonight he vomited during the dinner and decided to come. In the ED febrile, tachycardic, w/o abdominal pain. Laboratory work shows WBC count 3.2, hemoglobin 8.0, platelets 147, sodium 134, potassium 3.7, creatinine 0.89, T bili 1.1, AST 50, ALT 33, alk phos 331, troponin undetectable. Procalcitonin 0.551. CT of the abdomen and pelvis shows new ascites as well as a nodular contour to the liver and splenomegaly, which was not seen previously on CT imaging from May 2023. CT chest also shows moderate size right pleural effusion. Overall picture is concerning for cirrhosis. Case discussed with Dr. Brewer of [facility] who recommended abdominal tap and Tx for suspected primary bacterial peritonitis. [facility] Medical History MRSA carrier Hepatitis C antibody positive in blood History of sepsis History of non-ST elevation myocardial infarction (NSTEMI) History of discitis Short gut syndrome History of cardiac arrest Perforation bowel Hx of ischemic bowel disease Surgical History Status post peripherally inserted central catheter (PICC) central line placement History of tracheostomy History of bronchoscopy S/P percutaneous endoscopic gastrostomy (PEG) tube placement History of laparoscopy History of colostomy History of bowel resection Family History Father No problems noted. Mother No problems noted. Social History household members: family Smoking Status: Current every day smoker alcohol intake: never Meds Home Medications and Allergies Home Medications Medication Instructions Recorded Confirmed Type acetaminophen 325 mg tablet 650 mg PO Q6H PRN Pain (Scale 07/31/22 12/14/23 History Score 1-3) hydroxyzine pamoate 25 mg capsule 25 mg PO Q6H 07/31/22 12/14/23 History loperamide 2 mg tablet 8 mg PO QID 07/31/22 12/14/23 History (Anti-Diarrheal (loperamide)) quetiapine 50 mg tablet 50 mg PO DAILY 07/31/22 12/14/23 History quetiapine 50 mg tablet 100 mg PO BEDTIME 07/31/22 12/14/23 History risperidone 1 mg tablet 1 mg PO BID PRN Agitation 07/31/22 12/14/23 History trazodone 50 mg tablet 50 mg PO BEDTIME 07/31/22 12/14/23 History methocarbamol 750 mg tablet 750 mg PO Q6H PRN Spasms 12/14/23 12/14/23 History nortriptyline 10 mg capsule 10 mg PO ONCE PM 12/14/23 12/14/23 History Allergies Allergy/AdvReac Type Severity Reaction Status Date / Time No Known Drug Allergies Allergy Verified 12/13/23 19:10 Review of Systems Review of Systems Narrative: Poor historian due to anoxic brain damage and cognitive deficits and dysarthria He denies abdominal pain. Mother reported on loss of appetite, nausea, vomiting Exam Vital Signs (past 8 hours): - 12/13/23 22:00 12/13/23 22:00 12/13/23 22:30 Temperature Pulse Rate 110 H Respiratory Rate Blood Pressure 138/79 129/82 Pulse Oximetry 96 Oxygen Delivery Method Nasal Cannula Oxygen Flow Rate 2 12/13/23 22:30 12/13/23 23:00 12/13/23 23:00 Temperature Pulse Rate 102 H 108 H Respiratory Rate 22 22 Blood Pressure 115/65 Pulse Oximetry 93 95 Oxygen Delivery Method Oxygen Flow Rate 12/13/23 23:30 12/13/23 23:31 12/13/23 23:31 Temperature Pulse Rate 118 H 113 H Respiratory Rate Blood Pressure 135/68 Pulse Oximetry 94 96 Oxygen Delivery Method Nasal Cannula Oxygen Flow Rate 2 12/14/23 00:00 12/14/23 00:45 Temperature 98.6 F Pulse Rate 116 H Respiratory Rate 18 Blood Pressure 130/76 Pulse Oximetry 98 Oxygen Delivery Method Nasal Cannula Oxygen Flow Rate 2 Oxygen Delivery Method Nasal Cannula Oxygen Flow Rate 2 Const Other: In no distress, mother at bedside HENMT Other: normocephalic Neck Other: supple Resp Other: on 2 L of oxygen NC, borderline tachypneic Cardio Other: tachycardic, regular GI Other: colostomy with normal appearing mucosa, mild abdominal distension, w/o palpatory tenderness Skin Other: w/o rashes or jaundice Neuro Other: dysarthria, cognitive deficits - chronic, since 2021, 2nd to anoxic brain damage Extrem Other: w/o significant leg swelling, 1 + b/l Psych Other: appropriate mood Objective ECG Impression: Sinus tachycardia Labs 12/13/23 19:50 12/13/23 19:50 Labs: Laboratory Results - last 24 hr 12/13/23 12/13/23 12/13/23 19:20 19:39 19:47 WBC RBC Hgb Hct MCV MCH MCHC RDW Plt Count Neut % (Auto) Lymph % (Auto) Kidder % (Auto) Eos % (Auto) Baso % (Auto) Neut # (Auto) Lymph # (Auto) Kidder # (Auto) Eos # (Auto) Baso # (Auto) PT 12.5 INR 1.1 APTT 29 Sodium Potassium Chloride Carbon Dioxide BUN Creatinine Estimated GFR BUN/Creatinine Ratio Glucose Lactate Calcium Total Bilirubin AST ALT Alkaline Phosphatase Total Creatine Kinase Troponin I NT-Pro-B Natriuret Pep Total Protein Albumin Globulin Albumin/Globulin Ratio Lipase Procalcitonin Urine RBC 10-30/hpf H Urine WBC 0-1/hpf Ur Squamous Epith Cells 0-1 /hpf Urine Bacteria Occasional (0-1) Urine Mucus 3+ H Ur Culture Indicated? Cult not indicated Vol Urine Centrifuged 10ml (spun) Nasal Screen MRSA (PCR) Chlamy pneumoniae PCR Not detected Adenovirus (PCR) Not detected B.parapertussis DNA PCR Not detected Coronavirus OC43 (PCR) Not detected Coronavirus HKU1 (PCR) Not detected Coronavirus 229E (PCR) Not detected SARS-CoV-2 (PCR) Not detected Coronavirus NL63 (PCR) Not detected Human Metapneumovir PCR Not detected Influenza Type A (PCR) Not detected Influenza Type B (PCR) Not detected M. pneumoniae (PCR) Not detected Parainfluenza 1 (PCR) Not detected Parainfluenza 2 (PCR) Not detected Parainfluenza 3 (PCR) Not detected Parainfluenza 4 (PCR) Not detected RSV (PCR) Not detected Entero/Rhino (PCR) Not detected 12/13/23 12/14/23 19:50 00:09 WBC 3.2 L RBC 3.42 L Hgb 8.0 L Hct 24.2 L MCV 70.6 L MCH 23.4 L MCHC 33.1 RDW 18.5 H Plt Count 147 L Neut % (Auto) 45.0 L Lymph % (Auto) 45.0 H Kidder % (Auto) 9.5 Eos % (Auto) 0.0 L Baso % (Auto) 0.5 Neut # (Auto) 1400 L Lymph # (Auto) 1400 Kidder # (Auto) 300 Eos # (Auto) 0 Baso # (Auto) 0 PT INR APTT Sodium 134 L Potassium 3.7 Chloride 104 Carbon Dioxide 22 BUN 21 H Creatinine 0.89 Estimated GFR > 60 BUN/Creatinine Ratio 23.6 H Glucose 115 H Lactate 0.9 Calcium 8.5 Total Bilirubin 1.1 AST 50 ALT 33 Alkaline Phosphatase 331 H Total Creatine Kinase 26 L Troponin I < 0.012 NT-Pro-B Natriuret Pep 88 Total Protein 7.7 Albumin 3.5 Globulin 4.2 H Albumin/Globulin Ratio 0.8 L Lipase 77 Procalcitonin 0.551 H Urine RBC Urine WBC Ur Squamous Epith Cells Urine Bacteria Urine Mucus Ur Culture Indicated? Vol Urine Centrifuged Nasal Screen MRSA (PCR) Not detected Chlamy pneumoniae PCR Adenovirus (PCR) B.parapertussis DNA PCR Coronavirus OC43 (PCR) Coronavirus HKU1 (PCR) Coronavirus 229E (PCR) SARS-CoV-2 (PCR) Coronavirus NL63 (PCR) Human Metapneumovir PCR Influenza Type A (PCR) Influenza Type B (PCR) M. pneumoniae (PCR) Parainfluenza 1 (PCR) Parainfluenza 2 (PCR) Parainfluenza 3 (PCR) Parainfluenza 4 (PCR) RSV (PCR) Entero/Rhino (PCR) Assessment & Plan Assessment and plan (1) Primary bacterial peritonitis: Status: Acute (2) Liver cirrhosis: Status: Acute (3) Acute hypoxemic respiratory failure: Status: Acute (4) Pancytopenia: Status: Acute (5) Short gut syndrome: Status: Acute (6) History of anoxic brain injury: Status: Acute Assessment & Plan narrative: Suspected Primary Bacterial Peritonitis and Liver Cirrhosis - IR for paracenthesis - Rocephin, Zofran - liver with nodular appearance, splenomegaly, pancytopenia, ascites and history of alcoholism - needs GI follow up upon discharge Hx of Anoxic Brain Injury - mother is a caregiver as he is dependent on 6/6 ADLs - risperidone, seroquel, hydroxyzine, trazodone, Robaxin - home regimen, stable on it as per the mother Short Bowel Syndrome - TPN at night Pancytopenia - monitored counts DVT prophylaxis - SCDs Time-Based Coding :: [TOTAL MINUTES] spent with patient and on the chart (including review of chart, obtaining history, exam, reviewing outside data, placing orders, documenting exam and treatment plan, and counseling patient) on [DATE].
--- NOTE | 2023-12-14 09:13 | PC.NURSE ---
Patient asleep upon my arrival. Awakened easily, denies pain, set up for breakfast per patient request. Patient's mom is asleep in room. Bed alarm on for safety and call light within reach.
[2023-12-14 09:18] LABS: Add Manual Diff / Slide Review NO; Basophils Absolute Auto 0 /uL (0-100); Basophils Percent Auto 0.3 % (0-2); Eosinophils Absolute Auto 0 /uL (0-450); Hematocrit 23.6 % (41-53); Hemoglobin 7.6 g/dL (13.5-17.5); Lymphocytes Absolute Auto 1400 /uL (1100-4500); Lymphocytes Percent Auto 59.1 % (25-40); Mean Corpuscular HGB Conc 32.3 % (30-36); Mean Corpuscular Volume 71.3 fL (80-100); Monocytes Absolute Auto 300 /uL (0-900); Neutrophils Absolute Auto 700 /uL (1500-7000); Neutrophils Percent Auto 28.6 % (50-75); Platelet Count 136 X10^3/uL (150-400); Red Blood Cell Count 3.31 X10^6/uL (4.5-5.9); Red Cell Distribution Width 18.8 % (11.6-14.8); White Blood Cell Count 2.4 X10^3/uL (4.5-11.0)
[2023-12-14 09:29] LABS: Alanine Aminotransferase 33 IU/L (<50); Albumin 3.3 g/dL (3.5-5.0); Albumin Globulin Ratio 0.8 (1.0-2.8); Alkaline Phosphatase 296 U/L (38-126); Aspartate Aminotransferase 49 IU/L (17-59); BUN Creatinine Ratio 18.1 (6-22); Blood Urea Nitrogen 19 mg/dL (9-20); Calcium 8.5 mg/dL (8.4-10.2); Carbon Dioxide 24 mmol/L (22-32); Chloride 103 mmol/L (98-107); Estimated Glomerular Filt Rate > 60 mL/min (>60); Globulin 4.1 g/dL (1.7-4.1); Glucose 113 mg/dL (70-100); HEMOLYSIS < 15 (0-50); Potassium 3.7 mmol/L (3.4-5.1); Sodium 135 mmol/L (137-145); Total Protein 7.4 g/dL (6.3-8.2)
[2023-12-14] MEDS: ASPIRIN EC 81 MG TABLET PO (10:19)
[2023-12-14] MEDS: POTASSIUM CHLORIDE 20 MEQ/15 ML UDC PO (10:19)
[2023-12-14] MEDS: FUROSEMIDE 20 MG TABLET PO (10:19)
[2023-12-14] MEDS: QUETIAPINE 25 MG TABLET 50 MG PO (10:19)
[2023-12-14] MEDS: SODIUM CHLORIDE 0.9% FLUSH 10 ML IV ×2 (10:20→20:06)
--- NOTE | 2023-12-14 11:46 | DIET.CONS ---
Dietary Consultation Note Admission Date: 12/13/2023 22:53 Assessment: 43 y M presented for loss of appetite, more freq nausea, and several episodes of vomiting in last month or so. Admitted with suspected primary bacterial peritonitis and liver cirrhosis. PMH of anoxic brain injury and short bowel syndrome w/ TPN at night. Nutrition screened for pt on TPN. Called [facility] RD who reports nightly TPN over 12h that provides (including lipids): 1215 kcals, 85 g amino acids, 190 g dextrose. Receives 40 g SMOF lipid 4x/wk. Met w/ pt and mom, Traci, at bedside. Traci reports dramatic decline in po intakes started 3 months ago. Current diet recall is as follows: 1/4 of homemade dinner and sometimes has a banana or yogurt during day. Reports no weight changes. [facility] is aware of change in po intakes and has adjusted TPN accordingly. Per RN, pt drank 1/2 carton of milk this morning. Ht: 167.64 cm Wt: 83.5 kg BMI: 29.7 UBW: 85.275 kg on 06/02/23 (non-significant weight loss) Last BM: 12/13/23 (12/14/23 00:00) MNA: Ignacio Score: 18 Diet: 12/14/23 Breakfast General (Regular) Diet Diet Modifications: Labs: RBC 3.31 X10^6/uL (4.5-5.9) L 12/14/23 09:03 Hgb 7.6 g/dL (13.5-17.5) L 12/14/23 09:03 Hct 23.6 % (41-53) L 12/14/23 09:03 Creatinine 1.05 mg/dL (0.66-1.25) 12/14/23 09:03 Lactate 0.9 mmol/L (0.7-2.1) 12/13/23 19:50 NT-Pro-B Natriuret Pep 88 pg/mL (<125) 12/13/23 19:50 Nutrition Diagnosis: Inadequate oral intake r/t alterations in GI tract aeb short bowel syndrome, pt receives nightly TPN Interventions: 1. Recc 1 L Clinimix 5/20 running at 83 mL for 12 hours at night with 250 mL IVFE 3x/wk to provide 1094 kcals (90% EER) and 50 g protein (59% EER). 2. Will monitor po intakes and adjust TPN accordingly to meet needs EER: 1215 kcals, 85 g protein met through TPN per RD at [facility] Monitoring/Evaluations: po intakes, start of TPN, labs Electronically Signed by: Jina Perez 12/14/23 11:46 Clinical Dietitian [address] [id number]
[2023-12-14] MEDS: DIPHENOXYLATE/ATROP 2.5/0.025 TABLET 2.5 EACH PO ×3 (13:32→20:04)
[2023-12-14] MEDS: hydrOXYzine HCL 25 MG TABLET PO ×3 (13:32→20:04)
--- NOTE | 2023-12-14 15:56 | CM.DANOTE ---
Addendum entered by ITZ Hardin 12/14/23 16:11: Add: pt has central line for chronic TPN use SL Original Note: DCP Assessment Note Pt is a 43yo M with a complex PMH (from H&P, polysubstance abuse, including alcohol, cardiac arrest with ischemic bowel and anoxic brain injury, sepsis, diskitis, bowel resection with colostomy and short bowel syndrome requiring TPN at night). Pt here for suspected primary bacterial peritonitis and liver cirrhosis after pt had increased vomiting at home. PCP Epifanio Engle Payer Medicaid and [facility] FREELANCE INTERPRETER/TRANSLATOR reviewed EMR. Per hospitalist, medical POC continues to unfold. FREELANCE INTERPRETER/TRANSLATOR spoke with Brody from [facility],confirms pt gets home TPN form them. All needed at dc is the dc summary to include resume home TPN managed by [facility]. If IV abx needed would treat it like a new referral. Per chart, pt discharged home with [facility] last admission. FREELANCE INTERPRETER/TRANSLATOR spoke with Kriss from [facility], report no longer take pt's insurance and would not be able to take him back for care. FREELANCE INTERPRETER/TRANSLATOR met with mom skye and pt in room. Primary participant during DCP conversation was mom Skye. Skye confirms they have a good equip set up at home, pt uses walker, pt able to be transported in their vehicle, and that mom/step-dad are DAVID caregivers. Pt gets assistance with bathing/grooming/meal prep/chores/transfers/meals at home. Additional CG support with [facility] caregivers 2x/week. FREELANCE INTERPRETER/TRANSLATOR updated that [facility] no longer accepts pt's insurance. report that they also have distance hx with [facility] and did not like them and does not anticipate needing HH at this time. Report [facility] manages TPN and [facility] nurse comes to house every two weeks to manage port. Mom denies any additional resources or CM needs at this time besides continuing TPN with [facility]. P: Medical POC continues to unfold. likely dc home with mom/CG support with [facility] to follow (need resumption order in DC Summary sent to [facility] at dc). Mom to transport. CM team will continue to follow for any additional DCP needs that arise. ITZ Hardin Discharge Planning/Care Management CM Discharge Assessment Start: 12/14/23 15:54 Freq: Status: Active Protocol: Document 12/14/23 15:54 SL (Rec: 12/14/23 15:56 [id number]) Discharge Planning Assessment Assigned Home Energy Inspector ITZ Hsu/Assigned Designee Name linda Aviles Contact Information [phone] Advance Directives? No History Provided By Patient,Medical Record Household Members family Type of transporation used prior to Relies on Others admit Independent with ADL's No Needs Assistance With Bathing,Grooming,Meal Prep, Managing Medications,Home Chores / Shopping DME Already Rented / Owned FWW / Walker,Other Comment DAVID CG is mom Skye, step- dad assists during the night. [place] caregviers 2x/week to help mom at home Comment Medical plan of care still unfolding however it is likely that patient will discharge back home with resumption of [facility] for TPN Discharge Plan Home Transportation Arrangement Mother to transport home Additional Comment Resumption of Care orders will be needed Whiteboard Updated in Patient Room with Yes name and ext. # of Home Energy Inspector Review Status In Process Please Provide Date Initial DC 12/14/23 Assessment Was Performed Next Review Type Continued Stay Review
[2023-12-14] MEDS: cefTRIAXone 2,000 MG in SODIUM CHLORIDE 0.9% 100 ML 200 MG IV (16:22)
[2023-12-14] MEDS: SODIUM CHLORIDE 0.9% 250 ML 21 ML IV (16:33)
--- NOTE | 2023-12-14 16:53 | P.HP_ITS ---
History of Present Illness History of Present Illness Date Patient Seen: 12/14/23 Time Patient Seen: 15:00 Chief complaint: vomiting. low grade fever, lethargic, diarrhea Narrative: Per overnight admitting provider, 43 y/o with PMH of polysubstance abuse, including alcohol, cardiac arrest with ischemic bowel and anoxic brain injury, sepsis, diskitis, bowel resection with colostomy and short bowel syndrome requiring TPN at night. Since his hospitalization with above in 2021, he had several visits to [facility] ED and few admissions in 2022, in July and October. Last admission for Staph epidermidis sepsis with TPN port likely source. He presented to ED with his mother who reported on loss of appetite, more frequent nausea, several episodes of vomiting in the last month or so. He did not want to come to hospital but tonight he vomited during the dinner and decided to come. In the ED febrile, tachycardic, w/o abdominal pain. Laboratory work shows WBC count 3.2, hemoglobin 8.0, platelets 147, sodium 134, potassium 3.7, creatinine 0.89, T bili 1.1, AST 50, ALT 33, alk phos 331, troponin undetectable. Procalcitonin 0.551. CT of the abdomen and pelvis shows new ascites as well as a nodular contour to the liver and splenomegaly, which was not seen previously on CT imaging from May 2023. CT chest also shows moderate size right pleural effusion. Overall picture is concerning for cirrhosis. Case discussed with Dr. Brewer of [facility] who recommended abdominal tap and Tx for suspected primary bacterial peritonitis. Interval history: Tmax 100.1. Reports lethargy primarily, along with vomiting, possible diarrhea. CT showed new diagnosis of cirrhosis with ascites and R pleural effusion. Patient remains lethargic and confused. Performed abdominal ultrasound at bedside and ascites pocket is quite small, close proximity to bowel and liver, not recommended for tap by this provider. Will leave on antibiotics for now. Awaiting cultures from his TPN port, has been in for about 8 months. He did have his tunnelled catheter removed after last port infection. [facility] Medical History MRSA carrier Hepatitis C antibody positive in blood History of sepsis History of non-ST elevation myocardial infarction (NSTEMI) History of discitis Short gut syndrome History of cardiac arrest Perforation bowel Hx of ischemic bowel disease Surgical History Status post peripherally inserted central catheter (PICC) central line placement History of tracheostomy History of bronchoscopy S/P percutaneous endoscopic gastrostomy (PEG) tube placement History of laparoscopy History of colostomy History of bowel resection Family History Father No problems noted. Mother No problems noted. Social History household members: family Smoking Status: Current every day smoker alcohol intake: never Meds Home Medications and Allergies Home Medications Medication Instructions Recorded Confirmed Type acetaminophen 325 mg tablet 650 mg PO Q6H PRN Pain (Scale 07/31/22 12/14/23 History Score 1-3) hydroxyzine pamoate 25 mg capsule 25 mg PO Q6H 07/31/22 12/14/23 History loperamide 2 mg tablet 8 mg PO QID 07/31/22 12/14/23 History (Anti-Diarrheal (loperamide)) quetiapine 50 mg tablet 50 mg PO DAILY 07/31/22 12/14/23 History quetiapine 50 mg tablet 100 mg PO BEDTIME 07/31/22 12/14/23 History risperidone 1 mg tablet 1 mg PO BID PRN Agitation 07/31/22 12/14/23 History trazodone 50 mg tablet 50 mg PO BEDTIME 07/31/22 12/14/23 History methocarbamol 750 mg tablet 750 mg PO Q6H PRN Spasms 12/14/23 12/14/23 History nortriptyline 10 mg capsule 10 mg PO ONCE PM 12/14/23 12/14/23 History Allergies Allergy/AdvReac Type Severity Reaction Status Date / Time No Known Drug Allergies Allergy Verified 12/13/23 19:10 Review of Systems Review of Systems Narrative: All other systems reviewed with the patient and are negative unless otherwise stated. Exam Vital Signs (past 8 hours): - 12/14/23 09:00 12/14/23 09:00 12/14/23 09:30 Temperature Pulse Rate 99 H 103 H Respiratory Rate Blood Pressure Pulse Oximetry 93 93 Oxygen Delivery Method Room Air Oxygen Flow Rate 12/14/23 10:00 12/14/23 12:00 12/14/23 16:00 Temperature 98.6 F 98.7 F Pulse Rate 101 H 103 H 98 H Respiratory Rate 16 15 Blood Pressure 111/64 110/67 Pulse Oximetry 91 94 93 Oxygen Delivery Method Oxygen Flow Rate 0 0 Oxygen Delivery Method Room Air Oxygen Flow Rate 0 Narrative Exam Narrative: Gen: ill appearing male, no acute distress, lethargic, oriented to name, seems confused, not at baseline per mother Neck: Left chest TPN port, appears clean, no erythema. CV: RRR no m/r/g Pulm: Diminished breath sounds RLL Abd: soft, ostomy without surrounding erythema. Ext: trace diffuse edema, non-pitting. Objective Labs 12/14/23 09:03 12/14/23 09:03 Labs: Laboratory Results - last 24 hr 12/13/23 12/13/23 12/13/23 19:20 19:39 19:47 WBC RBC Hgb Hct MCV MCH MCHC RDW Plt Count Neut % (Auto) Lymph % (Auto) [place] % (Auto) Eos % (Auto) Baso % (Auto) Neut # (Auto) Lymph # (Auto) [place] # (Auto) Eos # (Auto) Baso # (Auto) PT 12.5 INR 1.1 APTT 29 Sodium Potassium Chloride Carbon Dioxide BUN Creatinine Estimated GFR BUN/Creatinine Ratio Glucose Lactate Calcium Total Bilirubin AST ALT Alkaline Phosphatase Total Creatine Kinase Troponin I NT-Pro-B Natriuret Pep Total Protein Albumin Globulin Albumin/Globulin Ratio Lipase Procalcitonin Urine RBC 10-30/hpf H Urine WBC 0-1/hpf Ur Squamous Epith Cells 0-1 /hpf Urine Bacteria Occasional (0-1) Urine Mucus 3+ H Ur Culture Indicated? Cult not indicated Vol Urine Centrifuged 10ml (spun) Nasal Screen MRSA (PCR) Chlamy pneumoniae PCR Not detected Adenovirus (PCR) Not detected B.parapertussis DNA PCR Not detected Coronavirus OC43 (PCR) Not detected Coronavirus HKU1 (PCR) Not detected Coronavirus 229E (PCR) Not detected SARS-CoV-2 (PCR) Not detected Coronavirus NL63 (PCR) Not detected Human Metapneumovir PCR Not detected Influenza Type A (PCR) Not detected Influenza Type B (PCR) Not detected M. pneumoniae (PCR) Not detected Parainfluenza 1 (PCR) Not detected Parainfluenza 2 (PCR) Not detected Parainfluenza 3 (PCR) Not detected Parainfluenza 4 (PCR) Not detected RSV (PCR) Not detected Entero/Rhino (PCR) Not detected 12/13/23 12/14/23 12/14/23 19:50 00:09 09:03 WBC 3.2 L 2.4 L RBC 3.42 L 3.31 L Hgb 8.0 L 7.6 L Hct 24.2 L 23.6 L MCV 70.6 L 71.3 L MCH 23.4 L 23.0 L MCHC 33.1 32.3 RDW 18.5 H 18.8 H Plt Count 147 L 136 L Neut % (Auto) 45.0 L 28.6 L Lymph % (Auto) 45.0 H 59.1 H [place] % (Auto) 9.5 12.0 Eos % (Auto) 0.0 L 0.0 L Baso % (Auto) 0.5 0.3 Neut # (Auto) 1400 L 700 L Lymph # (Auto) 1400 1400 [place] # (Auto) 300 300 Eos # (Auto) 0 0 Baso # (Auto) 0 0 PT INR APTT Sodium 134 L 135 L Potassium 3.7 3.7 Chloride 104 103 Carbon Dioxide 22 24 BUN 21 H 19 Creatinine 0.89 1.05 Estimated GFR > 60 > 60 BUN/Creatinine Ratio 23.6 H 18.1 Glucose 115 H 113 H Lactate 0.9 Calcium 8.5 8.5 Total Bilirubin 1.1 1.0 AST 50 49 ALT 33 33 Alkaline Phosphatase 331 H 296 H Total Creatine Kinase 26 L Troponin I < 0.012 NT-Pro-B Natriuret Pep 88 Total Protein 7.7 7.4 Albumin 3.5 3.3 L Globulin 4.2 H 4.1 Albumin/Globulin Ratio 0.8 L 0.8 L Lipase 77 Procalcitonin 0.551 H Urine RBC Urine WBC Ur Squamous Epith Cells Urine Bacteria Urine Mucus Ur Culture Indicated? Vol Urine Centrifuged Nasal Screen MRSA (PCR) Not detected Chlamy pneumoniae PCR Adenovirus (PCR) B.parapertussis DNA PCR Coronavirus OC43 (PCR) Coronavirus HKU1 (PCR) Coronavirus 229E (PCR) SARS-CoV-2 (PCR) Coronavirus NL63 (PCR) Human Metapneumovir PCR Influenza Type A (PCR) Influenza Type B (PCR) M. pneumoniae (PCR) Parainfluenza 1 (PCR) Parainfluenza 2 (PCR) Parainfluenza 3 (PCR) Parainfluenza 4 (PCR) RSV (PCR) Entero/Rhino (PCR) Assessment & Plan Assessment & Plan narrative: Possible sepsis with thrombocytopenia, Acute metabolic encephalopathy (vs possible hepatic encephalopathy). - no obvious source. UA was with 30 RBC minimal WBC will repeat. Possible fluid collection in RLL and RUQ abdomen. Borderline fever here to 100.1, but no official fever. - bedside sonogram without sufficient fluid for diagnostic paracentesis. Fluid is quite localized around liver, in close proximity to bowel as well. - procalcitonin , 0.551, consistent with possible bacterial infection. - will repeat UA, await results for blood cultures. His TPN port was put in 8 months ago per mother. - check ammonia level to evaluate hepatic encephalopathy - will continue ceftriaxone for now, possible SBP, acute cystitis, ? PNA, or bacteremia from ? infected port. Unclear at this time. Possible new diagnosis of cirrhosis - will check echo given diffuse edema, to rule out cardiogenic cause of cirrhosis with R pleural effusion and small ascites. - liver function appears okay, with normal coagulation studies. Tbili is 1.1 on admit. - ordered hep B and hep C screening serologies consider additional workup with GI depending on above evaluation. R pleural effusion - as above will assess with echo - depending on above evaluation for underlying etiology, consider diuresis or thoracentesis. Ischemic bowel with perforation, gastrotomy/Colostomy placement, short gut syndrome, with PEG tube, acute on chronic, present on admission Chronic encephalopathy, with residual neuro deficits, secondary to noxious brain injury following cardiac resuscitation, present on admission Depression with anxiety, chronic, present on admission History of polysubstance abuse, chronic, present on admission Code: Full, surrogate is patient's mother. DVT: Lovenox daily I have utilized all available immediate resources to obtain, update, or review the patient's current medications. Dispo: patient admitted under inpatient status. Unclear if will be able to discharge home or possible SNF, likely home depending on above evaluation and final diagnoses. Additional history obtained via discussions with the overnight provider, bedside RN, patient's mother. These discussions contributed to the creation of the above assessment and plan. I have reviewed patient's presenting documentation, labs, and imaging personally. Time-Based Coding :: [TOTAL MINUTES] spent with patient and on the chart (including review of chart, obtaining history, exam, reviewing outside data, placing orders, documenting exam and treatment plan, and counseling patient) on [DATE].
--- NOTE | 2023-12-14 17:01 | DI.ECHO.S_ITS ---
[facility] : : [id number] : [place] : : [id number] : : Phone: [phone] Echocardiogram Report + + :Name: ZINA DIAZ Study Date: 12/15/2023 Height: 66 in : :Hospital ReadingLocation: Weight: 184 lb : : Gender: Male BSA: 1.9 m2 : :: 1980 Age: 43 yrs BP: 118/64 mmHg: :Reason For Study: SHORTNESS OF BREATH : :Ordering Physician: SOFY, : :BABAK SMITH Performed By: Vaishnavi Palumbo : :Referring: BABAK GOETZ : + + Interpretation Summary The left ventricle is normal in size and wall thickness. The left ventricular ejection fraction is normal. The ejection fraction is estimated to be 55-60%. The right ventricle is normal in size and function. The mitral papillary muscle appears thickened and/or calcified. This was seen on the prior echo as well. No typical independently mobile mass seen. The IVC is of normal diameter and collapses greater than 50% with a sniff. This suggests a low right atrial pressure of 3 mm Hg. No obvious valvular vegetation seen however if clinical suspicion for endocarditis is high, consider DRISS. Procedure: A two-dimensional transthoracic echocardiogram with color flow and Doppler was performed. The study quality was technically adequate. Comparison is made with the echocardiogram of 11/22/2022. The patient was in sinus rhythm with heart rates between 79-85 bpm during the exam. Left Ventricle: The left ventricle is normal in size and wall thickness. There is no thrombus. The ejection fraction is estimated to be 55-60%. The left ventricular ejection fraction is normal. There are no focal wall motion abnormalities. There is a dropout of endocardial border along the basal inferior wall segment however preserved thickening. MV E/A: 1.0 Med Peak E' Marito: 7.5 cm/sec E/E' med: 9.2. Right Ventricle: The right ventricle is normal in size and function. Atria: The left atrial size is normal. There has been no significant change since the previous study. Right atrial size is normal. There is no Doppler evidence for an interatrial shunt. Mitral Valve: The mitral papillary muscle appears thickened and/or calcified. There is trace mitral regurgitation. Aortic Valve: The aortic valve is trileaflet. The aortic valve opens well. There is no aortic valve stenosis. No aortic regurgitation is present. Tricuspid Valve: The tricuspid valve is normal in structure and function. There is trace tricuspid regurgitation. Pulmonary artery pressures cannot be estimated because of the lack of a measurable TR jet velocity. Pulmonic Valve: The pulmonic valve is not well seen, but is grossly normal. There is trace pulmonic regurgitation. Great Vessels: The aortic root is normal size. The ascending aorta could not be visualized. The IVC is of normal diameter and collapses greater than 50% with a sniff. This suggests a low right atrial pressure of 3 mm Hg. Pericardium/ Pleura There is no pericardial effusion. There is no pleural effusion. MMode/2D Measurements & Calculations LVIDd: 5.1 cm LVOT diam: 2.3 cm LVIDs: 3.5 cm Ao root diam: 2.9 cm FS: 31.5 % EPSS: 0.51 cm IVSd: 0.71 cm LVPWd: 0.84 cm LV . diameter/BSA (cm/m^2): 2.6 LV sys. diameter/BSA (cm/m^2): 1.8 LA A2 area: 12.5 cm2 RA long axis: 4.4 cm LA A4 area: 13.9 cm2 RA area: 12.6 cm2 LA length (vol): 4.1 cm RA vol: 30.8 ml LA vol: 35.6 ml RA : 16.0 ml/m2 LA vol index: 18.4 ml/m2 IVC diam: 1.2 cm RVD1 (basal): 3.3 cm TAPSE: 2.2 cm Doppler Measurements & Calculations Ao V2 max: 107.0 cm/sec LVOT Max Marito: 80.0 cm/sec Ao V2 mean: 77.2 cm/sec LV V1 max P.6 mmHg Ao max P.6 mmHg LV V1 VTI: 14.6 cm Ao mean P.6 mmHg CALLIE(I,D): 2.9 cm2 Ao V2 VTI: 20.3 cm CALLIE(V,D): 3.1 cm2 sev ratio: 0.72 CALLIE indexed to BSA (cm^2/m^2): 1.5 MV E max marito: 68.7 cm/sec PA V2 max: 96.0 cm/sec MV A max marito: 68.7 cm/sec PA V2 mean: 67.1 cm/sec MV E/A: 1.0 PA mean P.0 mmHg Med Peak E' Marito: 7.5 cm/sec PA pr(Accel): 44.7 mmHg E/E' med: 9.2 Lat Peak E' Marito: 9.1 cm/sec E/E' lat: 7.6 E/e' average: 8.4 MV dec time: 0.18 sec SV(LVOT): 59.5 ml Reading Physician:10:01 AM
[2023-12-14] MEDS: AA 5 %/CALCIUM/LYTES/DEXT 20 % 1,000 ML with MULTIVITAMIN 10 ML, TRACE ELEMENTS 1 ML 84.25 ML IV (17:45)
[2023-12-14 18:35] LABS: Appearance Urine UA CLEAR; Bilirubin Urine UA NEGATIVE (NEGATIVE); Color Urine UA YELLOW; Glucose Urine UA NEGATIVE (Negative); Ketones Urine UA NEGATIVE (NEGATIVE); Leukocyte Esterase Urine UA NEGATIVE (NEGATIVE); Nitrite Urine UA NEGATIVE (Negative); Occult Blood Urine UA 3+ (Negative); Protein Urine UA NEGATIVE (Negative); Specific Gravity Urine UA 1.025 (1.000-1.035); pH Urine UA 5.5 (4.5-8.0)
[2023-12-14 18:42] LABS: Bacteria Urine Occasional (0-1); Culture Indicated Urine Cult Not Indicated; Mucus Urine 1+ (Negative); RBC Urine 1-5/HPF (0-5/HPF); Squamous Epithelial Cell Urine 0-1 /HPF (0-5/HPF); Urine Volume 10mL (spun); WBC Urine 0-1/HPF (0-5/HPF)
[2023-12-14] MEDS: NORTRIPTYLINE 10 MG CAPSULE PO (20:04)
[2023-12-14] MEDS: TRAZODONE 50 MG TABLET PO (20:05)
[2023-12-14] MEDS: QUETIAPINE 25 MG TABLET 100 MG PO (20:05)
[2023-12-14 21:16] LABS: Acinetobacter calcoa-baumannii Not Detected (Not Detect); Bacteroides fragilis Not Detected (Not Detect); Candida albicans Not Detected (Not Detect); Candida auris Not Detected (Not Detect); Candida glabrata Not Detected (Not Detect); Candida krusei Not Detected (Not Detect); Candida parapsilosis Not Detected (Not Detect); Candida tropicalis Not Detected (Not Detect); Cryptococcus neoformans/gatti Not Detected (Not Detect); Enterobacter cloacae complex Not Detected (Not Detect); Enterobacterales Not Detected (Not Detect); Enterococcus faecalis Not Detected (Not Detect); Enterococcus faecium Not Detected (Not Detect); Haemophilus influenzae Not Detected (Not Detect); Klebsiella aerogenes Not Detected (Not Detect); Listeria monocytogenes Not Detected (Not Detect); Neisseria meningitidis Not Detected (Not Detect); Proteus species Not Detected (Not Detect); Pseudomonas aeruginosa Not Detected (Not Detect); Salmonella species Not Detected (Not Detect); Serratia marcescens Not Detected (Not Detect); Staphylococcus epidermidis Not Detected (Not Detect); Staphylococcus lugdunensis Not Detected (Not Detect); Staphylococcus species Not Detected (Not Detect); Stenotrophomonas maltophilia Not Detected (Not Detect); Streptococcus agalactiae (Gr B Not Detected (Not Detect); Streptococcus pneumonia Not Detected (Not Detect); Streptococcus pyogenes (Gr A) Not Detected (Not Detect); Streptococcus species Not Detected (Not Detect)
[2023-12-14] MEDS: MICAFUNGIN 100 MG in SODIUM CHLORIDE 0.9% 100 ML IV (22:19)
[2023-12-15] VITALS (48 sets, daily range): BP systolic 99–143; BP diastolic 56–88; PULSE 80–159; RESP 12–29; TEMP 36.6–38; O2SAT 87–97
[2023-12-15 06:36] LABS: Ammonia (NH3) < 9 umol/L (9-30)
[2023-12-15 06:37] LABS: Phosphorous 3.9 mg/dL (2.5-4.5)
[2023-12-15 06:38] LABS: Alanine Aminotransferase 30 IU/L (<50); Albumin 3.2 g/dL (3.5-5.0); Albumin Globulin Ratio 0.9 (1.0-2.8); Alkaline Phosphatase 247 U/L (38-126); Aspartate Aminotransferase 47 IU/L (17-59); BUN Creatinine Ratio 25.3 (6-22); Bilirubin Total 0.6 mg/dL (0.2-1.3); Blood Urea Nitrogen 21 mg/dL (9-20); Calcium 8.4 mg/dL (8.4-10.2); Carbon Dioxide 24 mmol/L (22-32); Chloride 106 mmol/L (98-107); Estimated Glomerular Filt Rate > 60 mL/min (>60); Globulin 3.6 g/dL (1.7-4.1); Glucose 142 mg/dL (70-100); HEMOLYSIS < 15 (0-50); Potassium 3.8 mmol/L (3.4-5.1); Sodium 136 mmol/L (137-145); Total Protein 6.8 g/dL (6.3-8.2)
[2023-12-15 06:48] LABS: Add Manual Diff / Slide Review NO; Basophils Absolute Auto 0 /uL (0-100); Basophils Percent Auto 0.8 % (0-2); Eosinophils Absolute Auto 0 /uL (0-450); Hematocrit 22.2 % (41-53); Hemoglobin 7.3 g/dL (13.5-17.5); Lymphocytes Absolute Auto 1200 /uL (1100-4500); Lymphocytes Percent Auto 58.9 % (25-40); Mean Corpuscular HGB Conc 32.8 % (30-36); Mean Corpuscular Hemoglobin 23.4 PG (26-34); Mean Corpuscular Volume 71.4 fL (80-100); Monocytes Absolute Auto 200 /uL (0-900); Monocytes Percent Auto 11.2 % (3-14); Neutrophils Absolute Auto 600 /uL (1500-7000); Neutrophils Percent Auto 29.1 % (50-75); Platelet Count 140 X10^3/uL (150-400); Red Blood Cell Count 3.11 X10^6/uL (4.5-5.9); Red Cell Distribution Width 18.7 % (11.6-14.8)
[2023-12-15] MEDS: POTASSIUM CHLORIDE 20 MEQ/15 ML UDC PO (08:23)
[2023-12-15] MEDS: QUETIAPINE 25 MG TABLET 50 MG PO (08:23)
[2023-12-15] MEDS: ASPIRIN EC 81 MG TABLET PO (08:23)
[2023-12-15] MEDS: FUROSEMIDE 20 MG TABLET PO (08:23)
[2023-12-15] MEDS: hydrOXYzine HCL 25 MG TABLET PO ×4 (08:23→20:39)
[2023-12-15] MEDS: DIPHENOXYLATE/ATROP 2.5/0.025 TABLET 2.5 EACH PO ×3 (08:23→16:52)
[2023-12-15] MEDS: SODIUM CHLORIDE 0.9% FLUSH 10 ML IV ×2 (08:24→20:40)
[2023-12-15 08:53] LABS: Hepatitis B Surface Antigen NEGATIVE s/c (NEGATIVE)
[2023-12-15 09:08] LABS: Hep C Virus Ab w/Reflex Quant REACTIVE s/c (NEGATIVE)
[2023-12-15] MEDS: ACETAMINOPHEN 325 MG TABLET 650 MG PO (10:34)
--- NOTE | 2023-12-15 11:10 | DIET.PN1 ---
Dietary Progress Note Assessment: Per healthcare team rounds, pt vomited breakfast. Per pharmacy, hospitalist is holding TPN tonight d/t line is infected. Ensure Enlive being sent with meals to support needs. Will f/u tomorrow. Ht: 167.64 cm Wt: 83.5 kg BMI: 29.7 Last BM: 12/13/23 (12/14/23 00:00) MNA: Ignacio Score: 21 Diet: 12/14/23 Breakfast General (Regular) Diet Diet Modifications: Nutrition Percent Meal Consumed 50% 12/14/23 18:00 Percent Meal Consumed 25% 12/14/23 15:20 Labs: RBC 3.11 X10^6/uL (4.5-5.9) L 12/15/23 06:05 Hgb 7.3 g/dL (13.5-17.5) L 12/15/23 06:05 Hct 22.2 % (41-53) L 12/15/23 06:05 Creatinine 0.83 mg/dL (0.66-1.25) 12/15/23 06:05 Lactate 0.9 mmol/L (0.7-2.1) 12/13/23 19:50 NT-Pro-B Natriuret Pep 88 pg/mL (<125) 12/13/23 19:50 Electronically Signed by: Jina Perez 12/15/23 11:10 Clinical Dietitian [address] [id number]
[2023-12-15 11:18] LABS: Hematocrit 26.9 % (41-53); Hemoglobin 8.8 g/dL (13.5-17.5)
[2023-12-15] MEDS: METOPROLOL IR 25 MG TABLET PO ×2 (12:08→17:36)
--- NOTE | 2023-12-15 12:37 | CM.DPNOTE ---
DCP Cont Reviewed chart. Patient discussed in multidisciplinary rounds. According to Dr Seay, patient is cognitively back to baseline although did not tolerate breakfast this morning. Dr Seay consulting ID. Plan; Anticipate discharge home w/family w[email or web address]. Anticipate trying other agencies if patient/mom agreeable. CM team following clinical course closely. MARQUITA
[2023-12-15] MEDS: cefTRIAXone 2,000 MG in SODIUM CHLORIDE 0.9% 100 ML 200 MG IV (16:53)
--- NOTE | 2023-12-15 18:35 | P.PN_ITS ---
Subjective Subjective Interval history: 43 M admitted with encephalopathy, and likely tunneled central line infection with fungemia. Culture from line growing yeast. 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 ID recommending isavoraconazole (Cresemba) as ideal therapy. Recommends transfer for this medication to center with infectious disease and access to it. Will need loading. For now okay to continue micafungin. Exam Vital Signs (past 8 hours): - 12/15/23 10:49 12/15/23 10:49 12/15/23 11:00 Temperature Pulse Rate 158 H 154 H Respiratory Rate 29 H 28 H Blood Pressure 139/67 Pulse Oximetry 93 91 12/15/23 11:00 12/15/23 11:04 12/15/23 11:30 Temperature 100.4 F H Pulse Rate 154 H 159 H Respiratory Rate 28 H 29 H Blood Pressure 139/67 Pulse Oximetry 91 91 12/15/23 12:00 12/15/23 12:30 12/15/23 12:43 Temperature Pulse Rate 144 H 126 H Respiratory Rate 27 H 22 Blood Pressure 113/56 L Pulse Oximetry 91 91 12/15/23 12:43 12/15/23 13:00 12/15/23 13:00 Temperature Pulse Rate 123 H 117 H 117 H Respiratory Rate 20 20 20 Blood Pressure 113/56 L Pulse Oximetry 91 90 L 90 L 12/15/23 14:00 12/15/23 15:00 12/15/23 16:00 Temperature Pulse Rate 99 H 100 H 91 H Respiratory Rate 14 20 13 Blood Pressure Pulse Oximetry 92 91 91 12/15/23 17:00 12/15/23 17:33 12/15/23 17:57 Temperature 97.8 F Pulse Rate 92 H 90 Respiratory Rate 20 19 Blood Pressure 99/61 114/66 Pulse Oximetry 91 Oxygen Delivery Method Room Air Oxygen Flow Rate 0 Objective Labs 12/15/23 11:12 12/15/23 06:05 Labs: Laboratory Results - last 24 hr 12/13/23 12/13/23 12/14/23 19:24 19:50 17:31 WBC 3.2 L RBC 3.42 L Hgb 8.0 L Hct 24.2 L MCV 70.6 L MCH 23.4 L MCHC 33.1 RDW 18.5 H Plt Count 147 L Neut % (Auto) 45.0 L Lymph % (Auto) 45.0 H [place] % (Auto) 9.5 Eos % (Auto) 0.0 L Baso % (Auto) 0.5 Neut # (Auto) 1400 L Lymph # (Auto) 1400 [place] # (Auto) 300 Eos # (Auto) 0 Baso # (Auto) 0 Sodium 134 L Potassium 3.7 Chloride 104 Carbon Dioxide 22 BUN 21 H Creatinine 0.89 Estimated GFR > 60 BUN/Creatinine Ratio 23.6 H Glucose 115 H Lactate 0.9 Calcium 8.5 Phosphorus Magnesium Total Bilirubin 1.1 AST 50 ALT 33 Alkaline Phosphatase 331 H Ammonia Total Protein 7.7 Albumin 3.5 Globulin 4.2 H Albumin/Globulin Ratio 0.8 L Lipase 77 Procalcitonin 0.551 H Urine Color Yellow Urine Appearance Clear Urine pH 5.5 Ur Specific [place] 1.025 Urine Protein Negative Urine Glucose (UA) Negative Urine Ketones Negative Urine Occult Blood 3+ H Urine Nitrate Negative Urine Bilirubin Negative Urine Urobilinogen 1.0 Ur Leukocyte Esterase Negative Urine RBC 1-5/hpf D Urine WBC 0-1/hpf Ur Squamous Epith Cells 0-1 /hpf Urine Bacteria Occasional (0-1) Urine Mucus 1+ H Ur Culture Indicated? Cult not indicated Vol Urine Centrifuged 10ml (spun) A.calcoaceticus-baumannii cmplx PCR Not detected Bacteroides fragilis Not detected Katty albicans (PCR) Not detected Katty auris (PCR) Not detected C. glabrata (PCR) Not detected C. krusei (PCR) Not detected C. parapsilosis (PCR) Not detected C. tropicalis (PCR) Not detected C. neoform/gattii (PCR) Not detected Enterobacterales (PCR) Not detected E. cloacae complex PCR Not detected Enterococc faecalis PCR Not detected Enterococc faecium PCR Not detected E. coli (PCR) Not detected H. influenzae (PCR) Not detected Hep Bs Antigen Hepatitis C Antibody Klebsiella aerogenes (PCR) Not detected Klebsiella oxytoca PCR Not detected Klebsiella pneumoniae Not detected List. monocytogenes PCR Not detected N. meningitidis (PCR) Not detected Proteus species (PCR) Not detected Salmonella spp. (PCR) Not detected Serratia marcescens PCR Not detected Staphylococcus sp PCR Not detected Staph aureus (PCR) Not detected mecA/C & MREJ Resist Gene Not applicable mecA/C-Methicil Resis Gene Not applicable mcr-1 Colistin Res Gene PCR Not applicable Staph epidermidis (PCR) Not detected Staph lugdunensis PCR Not detected S. maltophilia (PCR) Not detected Streptococcus sp PCR Not detected Group A Strep (PCR) Not detected Strep agalactiae (PCR) Not detected Strep pneumoniae (PCR) Not detected P. aeruginosa (PCR) Not detected Adarsh/B-Vanco Res Genes Not applicable blaIMP Car res Gene PCR Not applicable KPC-Carbap Res Gene PCR Not applicable blaNDM Car Res Gene PCR Not applicable OXA-48 Carbapenem Resis Gene (PCR) Not applicable blaVIM Car Res Gene PCR Not applicable CTX-M Gene Resistance (PCR) Not applicable 12/15/23 12/15/23 06:05 11:12 WBC 2.0 L RBC 3.11 L Hgb 7.3 L 8.8 L Hct 22.2 L 26.9 L MCV 71.4 L MCH 23.4 L MCHC 32.8 RDW 18.7 H Plt Count 140 L Neut % (Auto) 29.1 L Lymph % (Auto) 58.9 H [place] % (Auto) 11.2 Eos % (Auto) 0.0 L Baso % (Auto) 0.8 Neut # (Auto) 600 L Lymph # (Auto) 1200 [place] # (Auto) 200 Eos # (Auto) 0 Baso # (Auto) 0 Sodium 136 L Potassium 3.8 Chloride 106 Carbon Dioxide 24 BUN 21 H Creatinine 0.83 Estimated GFR > 60 BUN/Creatinine Ratio 25.3 H Glucose 142 H Lactate Calcium 8.4 Phosphorus 3.9 Magnesium 2.0 Total Bilirubin 0.6 AST 47 ALT 30 Alkaline Phosphatase 247 H Ammonia < 9 L Total Protein 6.8 Albumin 3.2 L Globulin 3.6 Albumin/Globulin Ratio 0.9 L Lipase Procalcitonin Urine Color Urine Appearance Urine pH Ur Specific [place] Urine Protein Urine Glucose (UA) Urine Ketones Urine Occult Blood Urine Nitrate Urine Bilirubin Urine Urobilinogen Ur Leukocyte Esterase Urine RBC Urine WBC Ur Squamous Epith Cells Urine Bacteria Urine Mucus Ur Culture Indicated? Vol Urine Centrifuged A.calcoaceticus-baumannii cmplx PCR Bacteroides fragilis Katty albicans (PCR) Katty auris (PCR) C. glabrata (PCR) C. krusei (PCR) C. parapsilosis (PCR) C. tropicalis (PCR) C. neoform/gattii (PCR) Enterobacterales (PCR) E. cloacae complex PCR Enterococc faecalis PCR Enterococc faecium PCR E. coli (PCR) H. influenzae (PCR) Hep Bs Antigen Negative Hepatitis C Antibody Reactive H Klebsiella aerogenes (PCR) Klebsiella oxytoca PCR Klebsiella pneumoniae List. monocytogenes PCR N. meningitidis (PCR) Proteus species (PCR) Salmonella spp. (PCR) Serratia marcescens PCR Staphylococcus sp PCR Staph aureus (PCR) mecA/C & MREJ Resist Gene mecA/C-Methicil Resis Gene mcr-1 Colistin Res Gene PCR Staph epidermidis (PCR) Staph lugdunensis PCR S. maltophilia (PCR) Streptococcus sp PCR Group A Strep (PCR) Strep agalactiae (PCR) Strep pneumoniae (PCR) P. aeruginosa (PCR) Adarsh/B-Vanco Res Genes blaIMP Car res Gene PCR KPC-Carbap Res Gene PCR blaNDM Car Res Gene PCR OXA-48 Carbapenem Resis Gene (PCR) blaVIM Car Res Gene PCR CTX-M Gene Resistance (PCR) [facility] Medical History MRSA carrier Hepatitis C antibody positive in blood History of sepsis History of non-ST elevation myocardial infarction (NSTEMI) History of discitis Short gut syndrome History of cardiac arrest Perforation bowel Hx of ischemic bowel disease Surgical History Status post peripherally inserted central catheter (PICC) central line placement History of tracheostomy History of bronchoscopy S/P percutaneous endoscopic gastrostomy (PEG) tube placement History of laparoscopy History of colostomy History of bowel resection Family History Father No problems noted. Mother No problems noted. Social History household members: family Smoking Status: Current every day smoker alcohol intake: never Assessment & Plan Assessment & Plan narrative: Sepsis with thrombocytopenia, Acute metabolic encephalopathy secondary to tunneled central line infection and presumed Malassezia fungemia - blood cultures drawn from port growing yeast. Per infectious disease provider he has a history of Malassezia fungemia. peripheral blood cultures negative. - Discussed with ID provider at [facility] (his usual provider is on vacation). Recommended ideal therapy with Cresemba (Isavuconazole) unavailable here. Can continue Micafungin 100 q24 hr. - His TPN port was put in 8 months ago per mother. Will need to be removed, repeat blood cultures after appropriate therapy prior to likely PICC placement. Do not use line currently. - checked ammonia level to evaluate hepatic encephalopathy which was negative. - will stop ceftriaxone now that source is more apparent. (stopped 9/4 PM) Possible new diagnosis of cirrhosis, + Hep C Ab. - will check echo given diffuse edema, to rule out cardiogenic cause of cirrhosis with R pleural effusion and small ascites. Echocardiogram was unremarkable. - liver function appears okay, with normal coagulation studies. Tbili is 1.1 on admit. - ordered hep B and hep C screening serologies consider additional workup with GI depending on above evaluation. Hep B s Ag negative, Hep C ab reactive pending quantitative reflex lab. R pleural effusion - as above will assess with echo - depending on above evaluation for underlying etiology, consider diuresis or thoracentesis. - on bedisde Ultrasound today, small pleural effusion not big enough to safely perform thoracentesis. Ischemic bowel with perforation, gastrotomy/Colostomy placement, short gut syndrome, with PEG tube, acute on chronic, present on admission Chronic encephalopathy, with residual neuro deficits, secondary to noxious brain injury following cardiac resuscitation, present on admission Depression with anxiety, chronic, present on admission History of polysubstance abuse, chronic, present on admission Code: Full, surrogate is patient's mother. DVT: Lovenox daily I have utilized all available immediate resources to obtain, update, or review the patient's current medications. Dispo: patient admitted under inpatient status. Pending transfer to outside hospital for ID consultation, administration of above antifungal cresemba, as well as IR removal of tunneled catheter. No beds currently available. Additional history obtained via discussions with the overnight provider, bedside RN, patient's mother. These discussions contributed to the creation of the above assessment and plan. I have reviewed patient's presenting documentation, labs, and imaging personally. Time-Based Coding :: [TOTAL MINUTES] spent with patient and on the chart (including review of chart, obtaining history, exam, reviewing outside data, placing orders, documenting exam and treatment plan, and counseling patient) on [DATE].
[2023-12-15] MEDS: QUETIAPINE 25 MG TABLET 100 MG PO (20:38)
[2023-12-15] MEDS: TRAZODONE 50 MG TABLET PO (20:39)
[2023-12-15] MEDS: methocarbamoL 500 MG TABLET 750 MG PO (20:39)
[2023-12-15] MEDS: NORTRIPTYLINE 10 MG CAPSULE PO (20:40)
[2023-12-15] MEDS: MICAFUNGIN 100 MG in SODIUM CHLORIDE 0.9% 100 ML IV (20:49)
[2023-12-15] MEDS: ONDANSETRON 4 MG/2 ML INJ IV (21:12)
[2023-12-16] VITALS (33 sets, daily range): BP systolic 90–117; BP diastolic 53–74; PULSE 76–92; RESP 0–22; TEMP 36.6–37.1; O2SAT 88–95
[2023-12-16] MEDS: METOPROLOL IR 25 MG TABLET PO ×3 (00:50→12:31)
[2023-12-16 04:58] LABS: Add Manual Diff / Slide Review NO; Basophils Absolute Auto 0 /uL (0-100); Basophils Percent Auto 0.4 % (0-2); Eosinophils Absolute Auto 0 /uL (0-450); Hematocrit 23.2 % (41-53); Hemoglobin 7.7 g/dL (13.5-17.5); Lymphocytes Absolute Auto 1600 /uL (1100-4500); Lymphocytes Percent Auto 63.8 % (25-40); Mean Corpuscular Hemoglobin 23.4 PG (26-34); Monocytes Absolute Auto 300 /uL (0-900); Monocytes Percent Auto 11.3 % (3-14); Neutrophils Absolute Auto 600 /uL (1500-7000); Neutrophils Percent Auto 24.5 % (50-75); Platelet Count 117 X10^3/uL (150-400); Red Blood Cell Count 3.27 X10^6/uL (4.5-5.9); Red Cell Distribution Width 18.6 % (11.6-14.8); White Blood Cell Count 2.5 X10^3/uL (4.5-11.0)
[2023-12-16 05:10] LABS: Alanine Aminotransferase 31 IU/L (<50); Albumin 3.1 g/dL (3.5-5.0); Albumin Globulin Ratio 0.8 (1.0-2.8); Alkaline Phosphatase 289 U/L (38-126); Aspartate Aminotransferase 50 IU/L (17-59); BUN Creatinine Ratio 20.8 (6-22); Blood Urea Nitrogen 22 mg/dL (9-20); Calcium 8.3 mg/dL (8.4-10.2); Carbon Dioxide 24 mmol/L (22-32); Chloride 105 mmol/L (98-107); Estimated Glomerular Filt Rate > 60 mL/min (>60); Globulin 3.9 g/dL (1.7-4.1); Glucose 101 mg/dL (70-100); HEMOLYSIS < 15 (0-50); Magnesium 1.9 mg/dL (1.6-2.3); Potassium 3.8 mmol/L (3.4-5.1); Sodium 134 mmol/L (137-145)
[2023-12-16 08:17] LABS: Hepatitis B Core Antibody Positive (Negative)
[2023-12-16] MEDS: ASPIRIN EC 81 MG TABLET PO (08:41)
[2023-12-16] MEDS: SODIUM CHLORIDE 0.9% FLUSH 10 ML IV (08:42)
[2023-12-16] MEDS: POTASSIUM CHLORIDE 20 MEQ/15 ML UDC PO (08:42)
[2023-12-16] MEDS: FUROSEMIDE 20 MG TABLET PO (08:42)
[2023-12-16] MEDS: QUETIAPINE 25 MG TABLET 50 MG PO (08:42)
[2023-12-16] MEDS: DIPHENOXYLATE/ATROP 2.5/0.025 TABLET 2.5 EACH PO ×3 (08:43→17:06)
[2023-12-16] MEDS: hydrOXYzine HCL 25 MG TABLET PO ×3 (08:44→17:06)
--- NOTE | 2023-12-16 10:28 | P.PN_ITS ---
Subjective Subjective Interval history: Interval history: 43 M admitted with encephalopathy, and likely tunneled central line infection with fungemia. Culture from line growing yeast. 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 ID recommending isavoraconazole (Cresemba) as ideal therapy. Recommends transfer for this medication to center with infectious disease and access to it. Will need loading. For now okay to continue micafungin. S: He has no new complaints. He denies any pain issues. He does have a history of anoxic brain injury in his mother cares for him. She states that she was unable to go into [place] due to agoraphobia and financial constraints. [facility] this not have beds, [place] does not have beds. He was in the queue at each place. [facility] does not have the medication he needs and he was in the queue at [address] Exam Vital Signs (past 8 hours): - 12/16/23 03:00 12/16/23 04:00 12/16/23 04:47 Temperature Pulse Rate 78 83 86 Respiratory Rate 12 11 L 18 Blood Pressure Pulse Oximetry 90 L 90 L 93 Oxygen Delivery Method Oxygen Flow Rate 12/16/23 04:47 12/16/23 05:00 12/16/23 05:00 Temperature 98 F Pulse Rate 85 88 Respiratory Rate 20 15 Blood Pressure 117/62 117/62 Pulse Oximetry 95 91 Oxygen Delivery Method Oxygen Flow Rate 0 12/16/23 06:00 12/16/23 07:00 12/16/23 07:00 Temperature Pulse Rate 83 89 Respiratory Rate 12 16 Blood Pressure Pulse Oximetry 93 92 Oxygen Delivery Method Room Air Oxygen Flow Rate 12/16/23 07:42 12/16/23 07:42 12/16/23 08:00 Temperature 98.7 F Pulse Rate 92 H 92 H Respiratory Rate 20 18 Blood Pressure 116/72 116/72 Pulse Oximetry 94 93 Oxygen Delivery Method Oxygen Flow Rate 12/16/23 08:00 12/16/23 09:00 Temperature Pulse Rate 82 79 Respiratory Rate 18 22 Blood Pressure Pulse Oximetry 92 94 Oxygen Delivery Method Oxygen Flow Rate Oxygen Delivery Method Room Air Oxygen Flow Rate 0 Narrative Exam Narrative: NAD, alert and calm. Fluent speech. Flat affect Lungs are clear, normal rate and effort. Heart is regular, no murmur, gallop or rub. Abdomen is soft, non distended. Extremities are free of edema. Objective Labs 12/16/23 04:50 12/16/23 04:50 Labs: Laboratory Results - last 24 hr 12/15/23 12/16/23 11:12 04:50 WBC 2.5 L RBC 3.27 L Hgb 8.8 L 7.7 L Hct 26.9 L 23.2 L MCV 71.0 L MCH 23.4 L MCHC 33.0 RDW 18.6 H Plt Count 117 L Neut % (Auto) 24.5 L Lymph % (Auto) 63.8 H [place] % (Auto) 11.3 Eos % (Auto) 0.0 L Baso % (Auto) 0.4 Neut # (Auto) 600 L Lymph # (Auto) 1600 [place] # (Auto) 300 Eos # (Auto) 0 Baso # (Auto) 0 Sodium 134 L Potassium 3.8 Chloride 105 Carbon Dioxide 24 BUN 22 H Creatinine 1.06 Estimated GFR > 60 BUN/Creatinine Ratio 20.8 Glucose 101 H Calcium 8.3 L Magnesium 1.9 Total Bilirubin 1.0 AST 50 ALT 31 Alkaline Phosphatase 289 H Total Protein 7.0 Albumin 3.1 L Globulin 3.9 Albumin/Globulin Ratio 0.8 L Hep B Core Total Ab Positive A [facility] Medical History MRSA carrier Hepatitis C antibody positive in blood History of sepsis History of non-ST elevation myocardial infarction (NSTEMI) History of discitis Short gut syndrome History of cardiac arrest Perforation bowel Hx of ischemic bowel disease Surgical History Status post peripherally inserted central catheter (PICC) central line placement History of tracheostomy History of bronchoscopy S/P percutaneous endoscopic gastrostomy (PEG) tube placement History of laparoscopy History of colostomy History of bowel resection Family History Father No problems noted. Mother No problems noted. Social History household members: family Smoking Status: Current every day smoker alcohol intake: never Assessment & Plan Assessment & Plan narrative: 1. Sepsis, present on admission and active. 2. Fungemia, present on admission and active. 3. Pancytopenia, present on admission and active. 4. Septic encephalopathy, present on admission and active. 5. Hepatitis-C, present on admission and active. 6. Possible cirrhosis with small amount of ascites, present on admission and active. 7. Right pleural effusion, present on admission and active. 8. Remote ischemic bowel with perforation resulting in gastrostomy and colostomy placement. Chronic short gut syndrome. Present on admission and stable. 9. Cognitive impairment secondary to anoxic brain injury following cardiac arrest, present on admission and stable. 10. Depression, present on admission and active. Plan: -continue micafungin. -continue to obtain transfer with family preference being [place], mother feels that she was not able to get in to [place]. -infectious disease recommends IR removal of tunneled catheter, as well as treatment with Cresemba. We do not have this medication and this is 1 of the 2 reasons for transfer. Time-Based Coding :: 25 min spent with patient and on the chart (including review of chart, obtaining history, exam, reviewing outside data, placing orders, documenting exam and treatment plan, and counseling patient) on 12/15.
--- NOTE | 2023-12-16 11:19 | DIET.PN1 ---
Dietary Progress Note Assessment: TPN continued to be held d/t line infected. Plan of care ongoing, pt likely to transfer today. Supporting meals with ONS/supplement drink. Will follow closely. Ht: 167.64 cm Wt: 83.5 kg BMI: 29.7 Last BM: 12/15/23 (12/15/23 18:37) MNA: Ignacio Score: 20 Diet: 12/14/23 Breakfast General (Regular) Diet Diet Modifications: 12/15/23 Dinner Courtesy Tray (Peds, comfort care) Diet Modifications: Nutrition Percent Meal Consumed 10 12/16/23 09:29 Percent Meal Consumed 50% 12/15/23 18:37 Percent Meal Consumed 50% 12/14/23 18:00 Percent Meal Consumed 25% 12/14/23 15:20 Labs: RBC 3.27 X10^6/uL (4.5-5.9) L 12/16/23 04:50 Hgb 7.7 g/dL (13.5-17.5) L 12/16/23 04:50 Hct 23.2 % (41-53) L 12/16/23 04:50 Creatinine 1.06 mg/dL (0.66-1.25) 12/16/23 04:50 Lactate 0.9 mmol/L (0.7-2.1) 12/13/23 19:50 NT-Pro-B Natriuret Pep 88 pg/mL (<125) 12/13/23 19:50 Electronically Signed by: Jina Perez 12/16/23 11:19 Clinical [address] [address]
--- NOTE | 2023-12-16 13:45 | CM.DPNOTE ---
DCP Cont Patient discussed in multidisciplinary rounds this morning; transfer being attempted. Patient on the wait list at [facility], Located within [facility] and [facility]. Patient will not consider [facility]. Reportedly, patient's mom Traci concerned about patient transferring to a [facility], states she is agoraphobic, has limited financial resources and limited transportation. Met w/patient and mom Traci at bedside this morning; patient and mom strongly prefer to stay locally for patient's care. Explained that if a transfer and treat vs transfer to [facility] is available it will be prioritized. It seems thus far that [facility] may be the readily available hospital for patient's transfer, continued medical care and medication management. Patient became increasingly agitated this visit as planning was discussed. Mom Traci able to calm patient, summarize efforts being made by the [facility] team to find the appropriate level of care and medication management for patient. Mom reiterates to patient multiple times that he needs to be at the best place for his unique needs and that she will be with him wherever he goes. Mom able to use hers or family members car to get to [facility] as needed. Updated Dr Ward with summary of above. Attempted connection with house sup at [facility] to discuss visitor policy for patient's mom who is patient's primary caregiver and emotional support. Placed call to transfer center P [phone] per our coordinator Juliano stapleton; was on hold for 13 min then transferred and call disconnected. Printed information from [facility]'s website re visitor policy and highlighted their reference to the Americans with Disabilities Act, Section 504 of the Rehabilitation Act, and Section 1557 of the Affordable Care Act which grants those with disabilities reasonable accommodation and modification of policy, procedures as needed. Plan: Anticipate transfer to higher level of care for ID, med management. CM team following clinical course closely. MARQUITA
--- NOTE | 2023-12-16 16:54 | PM.DS.1 ---
History of Present Illness History of Present Illness Chief complaint: vomiting. low grade fever, lethargic, diarrhea Narrative: 43 y/o with PMH of polysubstance abuse, including alcohol, cardiac arrest with ischemic bowel and anoxic brain injury, sepsis, diskitis, bowel resection with colostomy and short bowel syndrome requiring TPN at night. Since his hospitalization with above in 2021, he had several visits to [facility] ED and few admissions in 2022, in July and October. Last admission for Staph epidermidis sepsis with TPN port likely source. He presented to ED with his mother who reported on loss of appetite, more frequent nausea, several episodes of vomiting in the last month or so. He did not want to come to hospital but tonight he vomited during the dinner and decided to come. In the ED febrile, tachycardic, w/o abdominal pain. Laboratory work shows WBC count 3.2, hemoglobin 8.0, platelets 147, sodium 134, potassium 3.7, creatinine 0.89, T bili 1.1, AST 50, ALT 33, alk phos 331, troponin undetectable. Procalcitonin 0.551. CT of the abdomen and pelvis shows new ascites as well as a nodular contour to the liver and splenomegaly, which was not seen previously on CT imaging from May 2023. CT chest also shows moderate size right pleural effusion. Overall picture is concerning for cirrhosis. Case discussed with Dr. Brewer of [facility] who recommended abdominal tap and Tx for suspected primary bacterial peritonitis. Interval history: Tmax 100.1. Reports lethargy primarily, along with vomiting, possible diarrhea. CT showed new diagnosis of cirrhosis with ascites and R pleural effusion. Patient remains lethargic and confused. Performed abdominal ultrasound at bedside and ascites pocket is quite small, close proximity to bowel and liver, not recommended for tap by this provider. Will leave on antibiotics for now. Awaiting cultures from his TPN port, has been in for about 8 months. He did have his tunnelled catheter removed after last port infection. Discharge Providers Provider Date of admission: 12/13/23 22:53 Discharge Date: 12/16/23 Primary care physician: Epifanio Engle MD Discharge provider: Sean Ward MD Summary Hospital Course Discharge Diagnosis: 1. Sepsis, present on admission and active. 2. Fungemia (Malassezia) from infected tunneled PORT, present on admission and active. 3. Pancytopenia, present on admission and active. 4. Septic encephalopathy, present on admission and active. 5. Hepatitis-C, present on admission and active. 6. Possible cirrhosis with small amount of ascites, present on admission and active. 7. Right pleural effusion, present on admission and active. 8. Remote ischemic bowel with perforation resulting in gastrostomy and colostomy placement. Chronic short gut syndrome. Present on admission and stable. 9. Cognitive impairment secondary to anoxic brain injury following cardiac arrest, present on admission and stable. 10. Depression, present on admission and active. Hospital Course: The patient presented with encephalopathy and was ultimately found to be fungi anemic. This is likely related to a tunneled central line that he uses for TPN. He apparently failed a PEG tube and enteral nutrition due to his short gut syndrome. The patient had fungal cultures which are positive for Malassezia. The patient was discussed with Infectious Disease, they recommended Isavoriconazole. This is not available at our hospital. We attempted transfers at local hospitals at had this medication including [facility] and [facility] in [place]. Neither had been capability. Another local hospital, [facility] did not have the drug. Ultimately the patient was accepted at [address] The patient was treated with micafungin in the interim and clinically was stable. Status at Discharge Cognitive/behavioral status at discharge: oriented Functional status at discharge: uses cane/walker Overall status at discharge: patient is progressing back to baseline Time Spent with Patient Time spent: Greater than 30 minutes Exam Vital Signs (past 8 hours): - 12/16/23 09:00 12/16/23 09:30 12/16/23 10:00 Temperature Pulse Rate 79 82 81 Respiratory Rate 22 22 20 Blood Pressure Pulse Oximetry 94 92 93 12/16/23 10:30 12/16/23 11:00 12/16/23 11:30 Temperature Pulse Rate 84 87 84 Respiratory Rate 20 13 Blood Pressure Pulse Oximetry 93 89 L 12/16/23 11:33 12/16/23 11:33 12/16/23 12:00 Temperature 98 F Pulse Rate 81 83 Respiratory Rate 16 18 Blood Pressure 90/60 90/60 Pulse Oximetry 93 95 12/16/23 12:00 12/16/23 12:27 12/16/23 12:27 Temperature Pulse Rate 76 85 Respiratory Rate 11 L 19 Blood Pressure 113/63 Pulse Oximetry 92 92 12/16/23 12:30 12/16/23 13:00 12/16/23 13:30 Temperature Pulse Rate 77 87 84 Respiratory Rate 13 18 21 Blood Pressure Pulse Oximetry 91 93 93 12/16/23 14:00 12/16/23 14:30 12/16/23 15:00 Temperature Pulse Rate 84 82 83 Respiratory Rate 17 16 18 Blood Pressure Pulse Oximetry 93 94 94 12/16/23 15:30 12/16/23 15:43 12/16/23 15:43 Temperature Pulse Rate 82 77 Respiratory Rate 18 14 Blood Pressure 108/74 Pulse Oximetry 95 93 12/16/23 16:00 12/16/23 16:02 Temperature 98.2 F Pulse Rate 83 77 Respiratory Rate 20 20 Blood Pressure 108/74 Pulse Oximetry 93 93 Oxygen Delivery Method Room Air Oxygen Flow Rate 0 Narrative Exam Narrative: NAD, alert and calm. Fluent speech. Flat affect Lungs are clear, normal rate and effort. Heart is regular, no murmur, gallop or rub. Abdomen is soft, non distended. Extremities are free of edema. Objective Imaging Multiple studies:: Radiologist's impression: Echo: The left ventricle is normal in size and wall thickness. The left ventricular ejection fraction is normal. The ejection fraction is estimated to be 55-60%. The right ventricle is normal in size and function. The mitral papillary muscle appears thickened and/or calcified. This was seen on the prior echo as well. No typical independently mobile mass seen. The IVC is of normal diameter and collapses greater than 50% with a sniff. This suggests a low right atrial pressure of 3 mm Hg. No obvious valvular vegetation seen however if clinical suspicion for endocarditis is high, consider DRISS. Chest CT: Pleural effusion is moderate in size, and posterior layering, within the right hemithorax. Immediate adjacent atelectasis or pneumonia is moderate in severity also. Given the presence of ascites, splenomegaly and hepatic nodular margination ascites and the pleural effusion may be related through fenestrations within the diaphragm. A definite infectious or malignant etiology is not found. Please correlate for hepatic insufficiency. Abdomen pelvis CT:Moderate right pleural effusion with subjacent atelectasis. Moderate volume ascites of uncertain etiology. Query nodular contour of the liver, which may reflect cirrhosis. Splenomegaly. Stable postsurgical changes from prior hemicolectomy and left lower quadrant ostomy. Superficial subcutaneous thickening in the anterior midline abdominal wall. Findings could represent cellulitis. Recommend correlation with physical exam. Labs 12/16/23 04:50 12/16/23 04:50 Labs: Laboratory Results - last 24 hr 12/15/23 12/16/23 11:12 04:50 WBC 2.5 L RBC 3.27 L Hgb 7.7 L Hct 23.2 L MCV 71.0 L MCH 23.4 L MCHC 33.0 RDW 18.6 H Plt Count 117 L Neut % (Auto) 24.5 L Lymph % (Auto) 63.8 H Vermilion % (Auto) 11.3 Eos % (Auto) 0.0 L Baso % (Auto) 0.4 Neut # (Auto) 600 L Lymph # (Auto) 1600 [place] # (Auto) 300 Eos # (Auto) 0 Baso # (Auto) 0 Sodium 134 L Potassium 3.8 Chloride 105 Carbon Dioxide 24 BUN 22 H Creatinine 1.06 Estimated GFR > 60 BUN/Creatinine Ratio 20.8 Glucose 101 H Calcium 8.3 L Magnesium 1.9 Total Bilirubin 1.0 AST 50 ALT 31 Alkaline Phosphatase 289 H Total Protein 7.0 Albumin 3.1 L Globulin 3.9 Albumin/Globulin Ratio 0.8 L Hep B Core Total Ab Positive A [facility] Medical History MRSA carrier Hepatitis C antibody positive in blood History of sepsis History of non-ST elevation myocardial infarction (NSTEMI) History of discitis Short gut syndrome History of cardiac arrest Perforation bowel Hx of ischemic bowel disease Surgical History Status post peripherally inserted central catheter (PICC) central line placement History of tracheostomy History of bronchoscopy S/P percutaneous endoscopic gastrostomy (PEG) tube placement History of laparoscopy History of colostomy History of bowel resection Family History Father No problems noted. Mother No problems noted. Social History household members: family Smoking Status: Current every day smoker alcohol intake: never Discharge Assessment & Plan Assessment and Plan Assessment: 1. Sepsis, present on admission and active. 2. Fungemia (Malassezia) from infected tunneled PORT, present on admission and active. 3. Pancytopenia, present on admission and active. 4. Septic encephalopathy, present on admission and active. 5. Hepatitis-C, present on admission and active. 6. Possible cirrhosis with small amount of ascites, present on admission and active. 7. Right pleural effusion, present on admission and active. 8. Remote ischemic bowel with perforation resulting in gastrostomy and colostomy placement. Chronic short gut syndrome. Present on admission and stable. 9. Cognitive impairment secondary to anoxic brain injury following cardiac arrest, present on admission and stable. 10. Depression, present on admission and active. Plan of Treatment: Transfer to [address], care of Dr. Hdez. Infectious Disease consultation, possible thoracentesis, and removal of tunneled port are all required. The patient will be treated with Isavoriconazole. Discharge Plan Discharge Plan Patient Disposition: [facility] Other facility: [address] Under care of provider: Dr Miguel Provider Discharge Comment: Stable for transfer to [address] Discharge orders & Medications Prescriptions: No Action acetaminophen 325 mg tablet 650 mg PO Q6H PRN (Reason: Pain (Scale Score 1-3)) trazodone 50 mg tablet 50 mg PO BEDTIME loperamide [Anti-Diarrheal (loperamide)] 2 mg tablet 8 mg PO QID risperidone 1 mg tablet 1 mg PO BID PRN (Reason: Agitation) hydroxyzine pamoate 25 mg capsule 25 mg PO Q6H quetiapine 50 mg tablet 50 mg PO DAILY quetiapine 50 mg tablet 100 mg PO BEDTIME methocarbamol 750 mg tablet 750 mg PO Q6H PRN (Reason: Spasms) nortriptyline 10 mg capsule 10 mg PO ONCE PM Follow up/Referrals: Epifanio Engle MD [Primary Care Provider] - Discharge Health Status Multidrug resistant organism: No MDRO Diet/Activity/Treatments Diet: Nothing by Mouth Discharge Data Primary Care Provider: Epifanio Engle Quality MIPS - DC The patient has a history of heart transplant or Left Ventricular Assist Device (LVAD). If yes, STOP here.: No The patient has current or prior documentation of left ventricular ejection fraction (LVEF) less than or equal to 40%, or moderate or severely depressed left ventricular systolic function.: No
--- NOTE | 2023-12-16 17:36 | PC.NURSE ---
Report called to [address] Vital signs stable. All patient belongings send with mother or EMS. Loaded by patient transport team at 1730. No further patient contact.
[2023-12-17 07:10] LABS: Hepatitis B Surf Ab Qualitativ Reactive (.)
[2024-02-02 12:52] LABS: Misc. to WA State Lab SEE SCANNED REPORTS
== END 2023-12-16 17:30 | disposition short-term general hospital (02) | DRG 314 ==
LOC: ED 22:25 → AC 22:54 → ICU 23:59
PROVIDERS: Emergency Medicine; Internal Medicine; Admitting Provider Internal Medicine; Emergency Provider Emergency Medicine; PCP Family Medicine; Referring Provider Emergency Medicine; Visit Provider Internal Medicine
DX: T80.211A Bloodstream infection due to central venous catheter, initial encounter (principal); A41.89 Other specified sepsis; G93.41 Metabolic encephalopathy; J96.01 Acute respiratory failure with hypoxia; D61.818 Other pancytopenia; K90.829 Short bowel syndrome, unspecified; T82.7XXA Infection and inflammatory reaction due to other cardiac and vascular devices, implants and grafts, initial encounter; J90 Pleural effusion, not elsewhere classified; B49 Unspecified mycosis; B96.89 Other specified bacterial agents as the cause of diseases classified elsewhere; D75.839 Thrombocytosis, unspecified; F32.A Depression, unspecified; F41.9 Anxiety disorder, unspecified; B19.20 Unspecified viral hepatitis C without hepatic coma; K74.60 Unspecified cirrhosis of liver; I69.818 Other symptoms and signs involving cognitive functions following other cerebrovascular disease; F17.290 Nicotine dependence, other tobacco product, uncomplicated; Z93.1 Gastrostomy status
CPT/HCPCS: 36415; 71250; 74177; 80053; 81001; 81003; 81015; 82140; 82550; 83605; 83690; 83735; 83880; 84100; 84145; 84484; 85014; 85018; 85025; 85610; 85730; 86704; 86706; 86803; 87040; 87154; 87340; 87522; 87633; 87797; 93005; 93010; 93306; 96365; 96367; 96375; 99285; A9270; B4189; J0696; J1642; J1940; J2248; J2405; Q9967

== ENCOUNTER → 2025-02-12 15:22 | Outpatient (ROUT) | payer OTHER, SELFPAY ==
[2023-12-14] VITALS: BMI 29.7
[2025-02-12 15:34] LABS: Add Manual Diff / Slide Review NO; Hematocrit 32.3 % (41-53); Hemoglobin 11.0 g/dL (13.5-17.5); Lymphocytes Absolute Auto 1300 /uL (1100-4500); Mean Corpuscular HGB Conc 34.1 % (30-36); Mean Corpuscular Hemoglobin 29.0 PG (26-34); Mean Corpuscular Volume 84.9 fL (80-100); Platelet Count 329 X10^3/uL (150-400)
[2025-02-12 15:39] LABS: Alanine Aminotransferase 144 IU/L (<50); Albumin 4.1 g/dL (3.5-5.0); Albumin Globulin Ratio 1.1 (1.0-2.8); Alkaline Phosphatase 130 U/L (38-126); Blood Urea Nitrogen 19 mg/dL (9-20); Calcium 9.4 mg/dL (8.4-10.2); Carbon Dioxide 27 mmol/L (22-32); Chloride 101 mmol/L (98-107); Estimated Glomerular Filt Rate > 60 mL/min (>60); Globulin 3.6 g/dL (1.7-4.1); Glucose 114 mg/dL (70-99); HEMOLYSIS < 15 (0-50); Magnesium 2.0 mg/dL (1.6-2.3); Phosphorous 4.1 mg/dL (2.5-4.5); Potassium 4.5 mmol/L (3.4-5.1); Sodium 137 mmol/L (137-145); Total Protein 7.7 g/dL (6.3-8.2)
== END ==
PROVIDERS: PCP Family Medicine; Visit Provider Family Medicine
DX: B49 Unspecified mycosis (principal); K91.2 Postsurgical malabsorption, not elsewhere classified; T80.211A Bloodstream infection due to central venous catheter, initial encounter
CPT/HCPCS: 80053; 80202; 83735; 84100; 85025

== ENCOUNTER → 2025-02-14 20:56 | Outpatient (ROUT) | payer MEDICAID, SELFPAY ==
[2023-12-14] VITALS: BMI 29.7
[2025-02-14 21:07] LABS: Add Manual Diff / Slide Review NO; Hematocrit 32.9 % (41-53); Hemoglobin 11.2 g/dL (13.5-17.5); Lymphocytes Absolute Auto 1800 /uL (1100-4500); Mean Corpuscular HGB Conc 34.1 % (30-36); Mean Corpuscular Hemoglobin 28.9 PG (26-34); Mean Corpuscular Volume 85.0 fL (80-100); Platelet Count 368 X10^3/uL (150-400)
[2025-02-14 21:43] LABS: Alanine Aminotransferase 132 IU/L (<50); Albumin 4.3 g/dL (3.5-5.0); Albumin Globulin Ratio 1.2 (1.0-2.8); Alkaline Phosphatase 150 U/L (38-126); Blood Urea Nitrogen 20 mg/dL (9-20); Calcium 9.4 mg/dL (8.4-10.2); Carbon Dioxide 27 mmol/L (22-32); Chloride 102 mmol/L (98-107); Estimated Glomerular Filt Rate > 60 mL/min (>60); Globulin 3.6 g/dL (1.7-4.1); Glucose 92 mg/dL (70-99); HEMOLYSIS < 15 (0-50); Magnesium 1.8 mg/dL (1.6-2.3); Phosphorous 3.6 mg/dL (2.5-4.5); Potassium 4.2 mmol/L (3.4-5.1); Sodium 138 mmol/L (137-145); Total Protein 7.9 g/dL (6.3-8.2)
== END ==
LOC: LAB 20:56
PROVIDERS: PCP Family Medicine; Visit Provider Family Medicine
DX: B49 Unspecified mycosis (principal); K91.2 Postsurgical malabsorption, not elsewhere classified; T80.211A Bloodstream infection due to central venous catheter, initial encounter
CPT/HCPCS: 80053; 80076; 80202; 83735; 84100; 85025